=== PATIENT | female | born 1990 | race Caucasian/White ===

== ENCOUNTER 2017-11-05 09:40 | Emergency (ER) | payer SELFPAY ==
[~2017-11-05] VITALS: Ht 170.2 cm; Wt 58.9 kg
[2017-11-05 09:42] VITALS: TEMP 36.7; Ht 170.2 cm; Wt 58.9 kg
--- NOTE | 2017-11-05 10:16 | EMERGENCY ROOM VISIT NOTE ---
History Report prepared by Bereket: Deonte Maya Under the Supervision of: Dr. Gianni Covington D.O. First contact with patient: 09:47 Chief Complaint: ABDOMINAL PAIN Stated Complaint: ABDOMINAL PAIN History of Present Illness The patient is a 27 year old female who presents to the Emergency Room with complaints of constant right lower quadrant abdominal pain that began last night at 0800, 14 hours ago. She notes that the pain onset suddenly, and that it is now worsened with urination and changes in position. There is no burning with urination. She denies any associated, nausea, vomiting, or diarrhea. Source of History: patient Onset: 14 hours ago Position: abdomen (RLQ) Timing: constant Modifying Factors (Worsening): other (urinating, changes in position. ) Associated Symptoms: No nausea, No vomiting, No diarrhea Review of Systems See HPI for pertinent positives & negatives. A total of 10 systems reviewed and were otherwise negative. Past Medical & Surgical No chronic health issues. Social History Smoking Status: Never Smoker Drug Use: none Marital Status: Housing Status: lives with significant other Physical Exam Vital Signs Date Time Temp Pulse Resp B/P (MAP) Pulse Ox O2 Delivery O2 Flow Rate FiO2 11/05/17 09:42 36.7 72 16 113/80 100 Room Air Physical Exam CONSTITUTIONAL/VITAL SIGNS: Reviewed / noted above. GENERAL: Non-toxic in appearance. INTEGUMENTARY: Warm, dry, and [place]. HEAD: Normocephalic. EYES: without scleral icterus or trauma. ENT/OROPHARYNX: clear and moist. LYMPHADENOPATHY/NECK: Is supple without lymphadenopathy or meningismus. RESPIRATORY: Lungs clear and equal. CARDIOVASCULAR: Regular rate and rhythm. GI/ABDOMEN: Soft and nontender. No organomegaly or pulsatile mass. No rebound or guarding. Normal bowel sounds. EXTREMITIES: Warm and well perfused. BACK: No CVA tenderness. NEUROLOGICAL: Intact without focal deficits. PSYCHIATRIC: normal affect. MUSCULOSKELETAL: Normally developed with good muscle tone. Medical Decision & Procedures ED Course 949: Previous medical records were reviewed. The patient was evaluated in room B12B. A complete history and physical examination was performed. After examination and discussion of symptoms, I discussed the results and findings with the patient. She verbalized agreement of the treatment plan. The patient was discharged home. Medical Decision Differential considered: pancreatitis, hepatitis, or acute cholecystitis, AAA, UTI, pyelonephritis, kidney stones, appendicitis, diverticulitis, shingles, bowel obstruction mesenteric ischemia, intussusception,hernia, ovarian torsion, ruptured ovarian cyst,ectopic , . This is a 27-year-old female who presents to the ED with a chief complaint of lower abdominal pain. The patient started suddenly around 8 PM yesterday and was in the right lower abdomen. She denies any urinary symptoms, no nausea vomiting. No diarrhea. Denies constipation. She states that her symptoms seem to be a little worse with moving and sitting. She states that she has had a normal appetite. Patient reports her last menstrual period was 2 weeks ago. She denies any abnormal vaginal discharge or bleeding. The patient states that currently her symptoms seem to have resolved. Her vital signs are normal. Her exam was normal. Abdomen was soft and nontender. After discussing the exam with the patient's and the possibility of testing. Because the patient's symptoms have resolved, she stated that she would like to go home and see how things go. She states that she will picking tech a test on the way home and check this out. The patient is currently asymptomatic. She is felt to be stable for discharge. She was told to return in 12 hours or so if symptoms return or worsening. Medication Reconcilliation Current Medication List: was personally reviewed by me Blood Pressure Screening Patient's blood pressure: Normal blood pressure Impression Primary Impression: Right lower quadrant abdominal pain Scribe Attestation The scribe's documentation has been prepared under my direction and personally reviewed by me in its entirety. I confirm that the note above accurately reflects all work, treatment, procedures, and medical decision making performed by me. Departure Information Dispostion Home / Self-Care Patient Instructions My [facility] Additional Instructions Return to the emergency department in 12-24 hours if symptoms worsen, return or if you develop other concerning symptoms.
[2017-11-05 10:35] VITALS: BP 102/67; PULSE 72; O2SAT 98
== END 2017-11-05 10:40 | disposition home or self-care (01) ==
LOC: C.EDB 09:43
DX: R10.31 Right lower quadrant pain (principal)

== ENCOUNTER 2020-07-27 12:34 | Inpatient (IN) ==
[2020-07-27] MEDS ORDERED: LORazepam 2 MG/4 ML VIAL IV STA ×2 (12:48→15:50)
[2020-07-27] MEDS ORDERED: MULTI-VITAMIN INFUSION 10 ML, THIAMINE HCL 100 MG, FOLIC ACID 1 MG in SODIUM CHLORIDE 0... IV ONE (12:48)
[2020-07-27 13:26] LABS: Basophils # (auto) 0.01 K/uL (0-0.2); Basophils % (auto) 0.1 %; Hematocrit (blood only) 44.2 % (37-47); Hemoglobin 15.2 g/dL (12.0-16.0); Immature Granulocytes # (auto) 0.02 K/uL (0.00-0.02); Immature Granulocytes % (auto) 0.2 %; Lymphocytes # (auto) 1.85 K/uL (1.2-3.4); Lymphocytes % (auto) 19.2 %; Mean Corpuscular Hemoglobin 33.4 pg (25-34); Mean Corpuscular Hgb Conc 34.4 g/dL (32-36); Mean Corpuscular Volume 97.1 fL (80-100); Mean Platelet Volume 10.9 fL (7.4-10.4); Monocytes # (auto) 0.36 K/uL (0.11-0.59); Monocytes % (auto) 3.7 %; Neutrophils # (auto) 7.38 K/uL (1.4-6.5); Neutrophils % (auto) 76.8 %; Platelet Count 272 K/uL (130-400); RDW Coefficient of Variation 12.9 % (11.5-14.5); Red Blood Count 4.55 M/uL (4.2-5.4); White Blood Count 9.62 K/uL (4.8-10.8)
[2020-07-27] MEDS: SODIUM CHLORIDE 0.9% 1000ML 1,000 ML IV SCH ×2 (13:26→21:01)
[2020-07-27 13:49] LABS: Albumin Level 4.9 gm/dl (3.4-5.0); BUN Creatinine Ratio 14.5 (10-20); Calcium 9.5 mg/dl (8.5-10.1); Creatinine Clr Calc Pharmacy 123.4 ml/min; Est GFR (African American) 139.3; Est GFR (Non-African American) 120.2; Potassium 3.8 mmol/L (3.5-5.1)
[2020-07-27 13:52] LABS: Albumin Globulin Ratio 1.2 (0.9-2); Bilirubin,Total 0.6 mg/dl (0.2-1); Globulin 4.1 gm/dl (2.5-4.0)
[2020-07-27 13:58] LABS: Pregnancy Test, Serum Negative (Negative)
[2020-07-27 14:03] LABS: Prothrombin Time 9.8 Seconds (9.0-12.0)
[2020-07-27 14:15] LABS: Influenza A virus by PCR Negative (Neg); Influenza B virus by PCR Negative (Neg); RSV by PCR Negative (Neg); SARS CoV2 RNA(COVID-19) InHosp NEGATIVE (Negative)
[2020-07-27] MEDS ORDERED: GABAPENTIN 600 MG TAB PO ONE (15:50)
[2020-07-27] MEDS ORDERED: GABAPENTIN 1200MG ALCOHOL WITHDRAWAL LOAD PO STA (15:50)
--- NOTE | 2020-07-27 18:55 | History & Physical Report ---
Date of Service July 27, 2020 Assessment & Plan (1) Alcohol withdrawal: Acute phase, with early treatment- hope to be able to keep her symptoms at minimum - Thiamine 200mg PO daily - Patient appears well nationalized - Gabapentin and Ativan for coverage - May need additional Ativan for her anxiety but also may need coaching - Psych Consult when stabilized - CM on board for post discharge assistance (2) Alcohol abuse: As above- support adjust therapy as indicated with her symptoms (3) Anxiety: As above (4) DVT prophylaxis: SCD's, early ambulation low risk History of Present Illness Primary Care Provider: Lynne Lugo MD 30 YOF with no past medical history. Comes to the emergency room because she wishes to stop drinking. The patient endorses that she has been drinking heavily for the past 5 years. She would drink to the point of intoxication every night. This would include beer, wine, and vodka. Over the past 2 or so years she has mostly stuck to Vodka 5-7 drinks per night, straight or mixed with water. She has tried to cut down her drinking over the past 2 weeks to 3 drinks per night. She does not wish to continue doing this every day and as above wishes to quit. Her last drink was today between 11am-12pm and came to the emergency room right after that. In the ER she was loaded with 1200 mg of Gabapentin and Lorazepam 2mg x2 and 1liter of saline. Patient will be admitted to the [facility] and continue to monitor/treat her for withdrawal and transition to sobriety. Allergies Allergy/AdvReac Type Severity Reaction Status Date / Time No Known Drug Allergies Allergy Unknown Verified 07/27/20 16:05 Home Medications Medication Instructions Recorded Confirmed Type Deborah's wort 2 cap PO AMPM 07/27/20 07/27/20 History ashwagandha root extract 300 - 600 mg PO DAILY PRN 07/27/20 07/27/20 History selenium 1 cap PO DAILY 07/27/20 07/27/20 History prazosin 1 mg PO HS 30 Days #30 cap 07/31/20 Rx Past Med/Surg History Medical History Anxiety Anxiety Insomnia No significant active problems Syncope Surgical History No pertinent past surgical history Social History Smoking Status: Current some day smoker Tobacco Type: Cigarettes Second Hand Exposure: No; Do You Dip or Chew Tobacco: No; Hx Alcohol Use: Yes Alcohol type: beer, wine and hard liquor Hx Substance Use: No Preferred Language: Arabic Communication Ability: Effective Lens Gauger Required: No Beliefs That Will Affect Care: None Current Living Situation: Spouse Other Information That Helps Us Care for You: No Feels Safe at Home: Yes Safety Concerns: Feels Safe At This Time Assistive Devices: None Review of Systems Review of Systems: REVIEW OF SYSTEMS: Constitutional: No fever, sweats or chills Eyes: No diplopia, no worsening or blurred vision ENT: normal hearing, no trouble swallowing Respiratory: No cough, sputum, dyspnea at rest or on exertion Cardiovascular: No chest pain, tightness or palpitations Abdomen: No pain, nausea, vomiting, diarrhea or constipation Musculoskeletal: No joint pain, calf pain, swelling Neurologic: No weakness, numbness/tingling, or balance problems Psychiatric: (+) anxiety, alcohol misuse/abuse, No depression Skin: No rash or itch Physical Exam Physical Exam: PHYSICAL EXAM: General: awake, alert, no apparent distress Head: Normocephalic, atraumatic ENT: PERRL, EOMI, no pharyngeal exudate, mucous membranes moist Neuro: AAO x 3, speech clear and appropriate, strength intact bilaterally 5/5, sensation intact and equal all extremities and dermatomes, no pronator drift Chest: equal rise and fall of the chest, no accessory muscle use, no heaves or thrills, Clear to auscultation, on room air, Cardiac: Regular rate and rhythm, telemetry reviewed tachycardic no ectopy, skin warm dry, cap refill <3 seconds, peripheral pulses +2 no JVD, no murmur, no edema GI: NABS x 4 quadrants, soft, nontender to palpation, no rebound, guarding or tenderness, liver borders normal : Spontaneously voiding, no pain, no CVA tenderness, Extremities: Normal inspection, no peripheral edema or erythema, calfs nontender to palpation Psych: Normal mood and affect Skin: no rash or erythema Results & Data Results & Data ([facility]) Vital Signs (Past 12 Hours) Vital Signs Temp Pulse Pulse Resp BP BP Pulse Ox 07/27/20 18:01 101 H 17 97 07/27/20 18:00 96 H 19 106/73 97 07/27/20 17:31 101 H 19 96 07/27/20 17:30 103 H 16 108/66 95 07/27/20 17:00 104 H 17 114/66 96 07/27/20 16:30 107 H 15 108/66 97 07/27/20 16:00 113 H 20 125/82 99 07/27/20 15:31 113 H 23 97 07/27/20 15:30 114 H 17 108/80 98 07/27/20 15:16 109 H 20 128/80 100 07/27/20 15:01 113 H 18 96 07/27/20 15:00 110 H 17 116/75 96 07/27/20 14:31 115 H 23 99 07/27/20 14:30 119 H 15 122/71 98 07/27/20 14:01 106 H 19 98 07/27/20 14:00 103 H 12 112/80 97 07/27/20 13:50 105 H 15 96 07/27/20 13:35 106 H 107 H 15 123/85 123/85 97 07/27/20 12:43 36.3 C L 125 H 20 153/104 H 98 Laboratory Results Abnormal lab results 07/27/20 07/27/20 07/27/20 Range/Units 13:13 13:13 13:13 MPV 10.9 H (7.4-10.4) fL Neut # (Auto) 7.38 H (1.4-6.5) K/uL Glucose 112 H (70-99) mg/dl Total Protein 9.0 H (6.4-8.2) gm/dl Globulin 4.1 H (2.5-4.0) gm/dl Ethyl Alcohol mg/dL 68.0 H (0-3) mg/dl Diagnostic Findings NONE Medications Administered Sodium Chloride (Nss 1000ml) 1,000 mls @ 150 mls/hr IV .Q6H40M [facility] Stop: 08/26/20 12:59 Last Admin: 07/27/20 13:26 Dose: 150 mls/hr Documented by: [id number] Discontinued Medications Gabapentin (Gabapentin 1200mg Alcohol Withdrawal Load) 1 ea PO NOW STA; Protocol Stop: 07/27/20 15:51 Last Admin: 07/27/20 17:23 Dose: Not Given Documented by: [id number] Gabapentin (Gabapentin 600 Mg Tab) 1,200 mg PO NOW ONE Stop: 07/27/20 15:51 Last Admin: 07/27/20 16:05 Dose: 1,200 mg Documented by: [id number] Multivitamins 10 ml/ Thiamine HCl 100 mg/ Folic Acid 1 mg/Sodium Chloride 1,011.2 mls @ 1,011.2 mls/hr IV .Q1H ONE Stop: 07/27/20 13:47 Last Infusion: 07/27/20 15:07 Dose: 1,011.2 mls/hr Documented by: [id number] Admin: 07/27/20 13:41 Dose: 1,011.2 mls/hr Documented by: [id number] Lorazepam (Ativan) 2 mg in 4 mls @ 4 mls/min IV NOW STA Stop: 07/27/20 12:49 Last Admin: 07/27/20 13:26 Dose: 4 mls/min Documented by: [id number] Lorazepam (Ativan) 2 mg in 4 mls @ 4 mls/min IV NOW STA Stop: 07/27/20 15:51 Last Admin: 07/27/20 16:06 Dose: 4 mls/min Documented by: [id number] Home Medications Deborah's wort 2 cap PO AMPM 07/27/20 [History Confirmed 07/27/20] ashwagandha root extract 300 - 600 mg PO DAILY PRN 07/27/20 [History Confirmed 07/27/20] selenium 1 cap PO DAILY 07/27/20 [History Confirmed 07/27/20] ECG Additional Comments: Not performed Code Status & VTE Plan Code Status CODE: FULL VTE: SCD's, ambulation VTE Prophylaxis Plan VTE Prophylaxis will be ordered: Yes Supervising Physician Co-Signing Physician Notes During my face to face encounter, I obtained a history and physical examination. I reviewed above note and agree with it. I discussed plan of care with patient and RONALDO Cheung. I answered all of the patient's questions. Patient will be admitted for alcohol withdrawal, and laced on ativan and gabapentin. PG Care Time/CCT Total # of Minutes Spent Total Time Spent with Patient: Total time spent is greater than 50% in coordination of care (as documented) at patient's floor/unit and/or counseling patient: Coding Level of Care Code 06297 Initial Inpt Care Lvl 2 Diagnoses Alcohol withdrawal F10.239 Complication of substance-induced condition: with unspecified complication Alcohol abuse F10.10 Anxiety F41.9 DVT prophylaxis Z29.9 (1) Alcohol withdrawal Complication of substance-induced condition: with unspecified complication Qualified Code(s): F10.239 - Alcohol dependence with withdrawal, unspecified
--- NOTE | 2020-07-27 20:57 | Emergency Department Note ---
History of Present Illness General Chief complaint: Alcohol Withdrawal Stated complaint: alcohol withdrawal Time Seen by Provider: 07/27/20 12:46 Source: patient and RN notes reviewed Mode of arrival: ambulatory Limitations: no limitations History of Present Illness Provider complaint: Alcohol withdrawal Maximum Pain Intensity: 0 This patient is a 30-year-old female who presents to the emergency department with complaints of alcohol withdrawal. Patient and her have been trying to wean off of alcohol for the last several days. Patient states she has been drinking shots, several times to avoid the withdrawal symptoms. Patient had 5 shots last night in order to sleep. She had 2 shots at lunchtime today though she felt shaky and was concerned that she would have DTs. Patient has had some abdominal symptoms and cramping, she feels anxious about her organs and the effect that the alcohol has had on them. Ironically, over the last 5 days she feels she may have had more alcohol than she is had in a long time. Patient has been taking additional [id number] supplements in order to "get nutrition." She states it has been difficult for her to keep food down. She denies any recent symptoms of fevers, chills, chest pain or shortness of breath. She does not believe that she is . Home Medications Medication Instructions Recorded Confirmed Type Deborah's wort 2 cap PO AMPM 07/27/20 07/27/20 History ashwagandha root extract 300 - 600 mg PO DAILY PRN 07/27/20 07/27/20 History selenium 1 cap PO DAILY 07/27/20 07/27/20 History Allergies Allergy/AdvReac Type Severity Reaction Status Date / Time No Known Drug Allergies Allergy Unknown Verified 07/27/20 16:05 Past Med/Surg History Medical History Anxiety Anxiety Insomnia No significant active problems Syncope Surgical History No pertinent past surgical history Social History Smoking Status: Current some day smoker Tobacco Type: Cigarettes Second Hand Exposure: No; Do You Dip or Chew Tobacco: No; Hx Alcohol Use: Yes Alcohol type: beer, wine and hard liquor Hx Substance Use: No Preferred Language: Mexican Communication Ability: Effective Assistant To The President Required: No Beliefs That Will Affect Care: None Current Living Situation: Spouse Other Information That Helps Us Care for You: No Feels Safe at Home: Yes Safety Concerns: Feels Safe At This Time Review of Systems See HPI for pertinent positives & negatives. and A total of 10 systems reviewed and were otherwise negative Physical Exam Vital Signs Vital Signs - 24 hr 07/27/20 12:43 07/27/20 13:10 07/27/20 13:35 Temperature 36.3 C L Temperature Source Temporal Artery Scan Pulse Rate 125 H 106 H Pulse Rate [Apical] 107 H Pulse Rate from SpO2 Sensor 107 H Pulse Rhythm Regular Pulse Rhythm [Apical] Regular Pulse Strength [Apical] Normal Respiratory Rate 20 15 Respiratory Effort / Characteristics Non-Labored Non-Labored Respiratory Depth Normal Normal Blood Pressure 153/104 H 123/85 Blood Pressure [Right Arm] 123/85 Blood Pressure Mean 120 97 Blood Pressure Mean [Right Arm] 97 Pulse Oximetry 98 97 Oxygen Delivery Method Room Air Room Air Sepsis Recent Fever Within 48 Hours No Sepsis New/Unexplained Change in Mental Status No Sepsis Action Taken by Nursing No Action Required 07/27/20 13:50 07/27/20 14:00 07/27/20 14:01 Temperature Temperature Source Pulse Rate 105 H 103 H 106 H Pulse Rate [Apical] Pulse Rate from SpO2 Sensor 106 H 103 H 107 H Pulse Rhythm Pulse Rhythm [Apical] Pulse Strength [Apical] Respiratory Rate 15 12 19 Respiratory Effort / Characteristics Respiratory Depth Blood Pressure 112/80 Blood Pressure [Right Arm] Blood Pressure Mean 90 Blood Pressure Mean [Right Arm] Pulse Oximetry 96 97 98 Oxygen Delivery Method Sepsis Recent Fever Within 48 Hours Sepsis New/Unexplained Change in Mental Status Sepsis Action Taken by Nursing 07/27/20 14:30 07/27/20 14:31 07/27/20 15:00 Temperature Temperature Source Pulse Rate 119 H 115 H 110 H Pulse Rate [Apical] Pulse Rate from SpO2 Sensor 119 H 114 H 111 H Pulse Rhythm Pulse Rhythm [Apical] Pulse Strength [Apical] Respiratory Rate 15 23 17 Respiratory Effort / Characteristics Respiratory Depth Blood Pressure 122/71 116/75 Blood Pressure [Right Arm] Blood Pressure Mean 88 88 Blood Pressure Mean [Right Arm] Pulse Oximetry 98 99 96 Oxygen Delivery Method Sepsis Recent Fever Within 48 Hours Sepsis New/Unexplained Change in Mental Status Sepsis Action Taken by Nursing 07/27/20 15:01 07/27/20 15:16 07/27/20 15:30 Temperature Temperature Source Pulse Rate 113 H 109 H 114 H Pulse Rate [Apical] Pulse Rate from SpO2 Sensor 113 H 111 H 115 H Pulse Rhythm Pulse Rhythm [Apical] Pulse Strength [Apical] Respiratory Rate 18 20 17 Respiratory Effort / Characteristics Respiratory Depth Blood Pressure 128/80 108/80 Blood Pressure [Right Arm] Blood Pressure Mean 96 89 Blood Pressure Mean [Right Arm] Pulse Oximetry 96 100 98 Oxygen Delivery Method Sepsis Recent Fever Within 48 Hours Sepsis New/Unexplained Change in Mental Status Sepsis Action Taken by Nursing 07/27/20 15:31 07/27/20 16:00 07/27/20 16:30 Temperature Temperature Source Pulse Rate 113 H 113 H 107 H Pulse Rate [Apical] Pulse Rate from SpO2 Sensor 114 H 117 H 107 H Pulse Rhythm Pulse Rhythm [Apical] Pulse Strength [Apical] Respiratory Rate 23 20 15 Respiratory Effort / Characteristics Respiratory Depth Blood Pressure 125/82 108/66 Blood Pressure [Right Arm] Blood Pressure Mean 96 80 Blood Pressure Mean [Right Arm] Pulse Oximetry 97 99 97 Oxygen Delivery Method Room Air Room Air Sepsis Recent Fever Within 48 Hours Sepsis New/Unexplained Change in Mental Status Sepsis Action Taken by Nursing 07/27/20 17:00 07/27/20 17:30 07/27/20 17:31 Temperature Temperature Source Pulse Rate 104 H 103 H 101 H Pulse Rate [Apical] Pulse Rate from SpO2 Sensor 103 H 104 H 100 H Pulse Rhythm Pulse Rhythm [Apical] Pulse Strength [Apical] Respiratory Rate 17 16 19 Respiratory Effort / Characteristics Respiratory Depth Blood Pressure 114/66 108/66 Blood Pressure [Right Arm] Blood Pressure Mean 82 80 Blood Pressure Mean [Right Arm] Pulse Oximetry 96 95 96 Oxygen Delivery Method Room Air Sepsis Recent Fever Within 48 Hours Sepsis New/Unexplained Change in Mental Status Sepsis Action Taken by Nursing 07/27/20 18:00 07/27/20 18:01 Temperature Temperature Source Pulse Rate 96 H 101 H Pulse Rate [Apical] Pulse Rate from SpO2 Sensor 95 H 102 H Pulse Rhythm Pulse Rhythm [Apical] Pulse Strength [Apical] Respiratory Rate 19 17 Respiratory Effort / Characteristics Respiratory Depth Blood Pressure 106/73 Blood Pressure [Right Arm] Blood Pressure Mean 84 Blood Pressure Mean [Right Arm] Pulse Oximetry 97 97 Oxygen Delivery Method Sepsis Recent Fever Within 48 Hours Sepsis New/Unexplained Change in Mental Status Sepsis Action Taken by Nursing Vital signs reviewed. General: Well-appearing anxious, somewhat tearful, 30 yo female, in no significant distress. HEENT: No scleral icterus, PERRLA, neck supple. Atraumatic. Cardiovascular: Tachycardic and regular, no extra sounds Pulmonary: Clear to auscultation bilaterally, normal work of breathing. Abdomen: Soft, nontender, nondistended, positive bowel sounds. Musculoskeletal: Atraumatic, no peripheral edema. Neurologic: Patient awake alert and oriented x 3 Skin: Warm, dry, no rash Course Administered Medications Folic Acid (Folic Acid 1 Mg Tab) 1 mg PO QAM KOREY Stop: 08/26/20 20:58 Last Admin: 07/28/20 08:14 Dose: 1 mg Documented by: [id number] Admin: 07/27/20 22:17 Dose: 1 mg Documented by: [id number] Gabapentin (Gabapentin 600 Mg Tab) 600 mg PO Q8H KOREY Stop: 07/29/20 03:51 Last Admin: 07/28/20 14:47 Dose: 600 mg Documented by: [id number] Lactated Ringer's (Lr) 1,000 mls @ 100 mls/hr IV .Q10H KOREY Stop: 08/26/20 20:58 Last Admin: 07/28/20 08:16 Dose: 100 mls/hr Documented by: [id number] Infusion: 07/28/20 07:12 Dose: 100 mls/hr Documented by: [id number] Admin: 07/27/20 21:12 Dose: 100 mls/hr Documented by: [id number] Ondansetron HCl (Ondansetron Inj 2 Mg/Ml 2 Ml Vial) 4 mg IV Q6H PRN PRN Reason: Nausea Stop: 08/26/20 20:58 Last Admin: 07/27/20 22:17 Dose: 4 mg Documented by: [id number] Thiamine HCl (Thiamine Hcl 100 Mg Tab) 200 mg PO QAM KOREY Stop: 08/26/20 20:58 Last Admin: 07/28/20 08:14 Dose: 200 mg Documented by: [id number] Admin: 07/27/20 22:17 Dose: 200 mg Documented by: [id number] Discontinued Medications Gabapentin (Gabapentin 1200mg Alcohol Withdrawal Load) 1 ea PO NOW STA; Protocol Stop: 07/27/20 15:51 Last Admin: 07/27/20 17:23 Dose: Not Given Documented by: [id number] Gabapentin (Gabapentin 600 Mg Tab) 1,200 mg PO NOW ONE Stop: 07/27/20 15:51 Last Admin: 07/27/20 16:05 Dose: 1,200 mg Documented by: [id number] Gabapentin (Gabapentin 600 Mg Tab) 600 mg PO Q6H KOREY Stop: 07/28/20 03:51 Last Admin: 07/28/20 05:11 Dose: 600 mg Documented by: [id number] Admin: 07/27/20 23:50 Dose: 600 mg Documented by: [id number] Multivitamins 10 ml/ Thiamine HCl 100 mg/ Folic Acid 1 mg/Sodium Chloride 1,011.2 mls @ 1,011.2 mls/hr IV .Q1H ONE Stop: 07/27/20 13:47 Last Infusion: 07/27/20 15:07 Dose: 1,011.2 mls/hr Documented by: [id number] Admin: 07/27/20 13:41 Dose: 1,011.2 mls/hr Documented by: [id number] Lorazepam (Ativan) 2 mg in 4 mls @ 4 mls/min IV NOW STA Stop: 07/27/20 12:49 Last Admin: 07/27/20 13:26 Dose: 4 mls/min Documented by: [id number] Sodium Chloride (Nss 1000ml) 1,000 mls @ 150 mls/hr IV .Q6H40M KOREY Stop: 08/26/20 12:59 Last Admin: 07/27/20 21:01 Dose: Not Given Documented by: [id number] Infusion: 07/27/20 21:01 Dose: 0 mls/hr Documented by: [id number] Admin: 07/27/20 13:26 Dose: 150 mls/hr Documented by: [id number] Lorazepam (Ativan) 2 mg in 4 mls @ 4 mls/min IV NOW STA Stop: 07/27/20 15:51 Last Admin: 07/27/20 16:06 Dose: 4 mls/min Documented by: [id number] Medical Decision Making Differential Diagnosis Overdose, toxicologic, withdrawal, infection, hypoglycemia, electrolyte abnormalities, cardiac sources, intracerebral event, neurologic, trauma, as well as other pathologies. Medical Records Attestation: I reviewed the patient's medical records. Home Medications Current Medication List: was personally reviewed by me Laboratory Data Attestation: I reviewed the patient's lab results. Result diagrams: 07/28/20 05:27 07/28/20 05:27 Lab Results 07/27/20 07/27/20 07/27/20 Range/Units 13:10 13:10 13:13 WBC 9.62 (4.8-10.8) K/uL RBC 4.55 (4.2-5.4) M/uL Hgb 15.2 (12.0-16.0) g/dL Hct 44.2 (37-47) % MCV 97.1 (80-100) fL MCH 33.4 (25-34) pg MCHC 34.4 (32-36) g/dL RDW Std Deviation 46.0 (36.4-46.3) fL RDW Coeff of Kristyn 12.9 (11.5-14.5) % Plt Count 272 (130-400) K/uL MPV 10.9 H (7.4-10.4) fL Immature Gran % (Auto) 0.2 % Neut % (Auto) 76.8 % Lymph % (Auto) 19.2 % Logan % (Auto) 3.7 % Eos % (Auto) 0.0 % Baso % (Auto) 0.1 % Neut # (Auto) 7.38 H (1.4-6.5) K/uL Lymph # (Auto) 1.85 (1.2-3.4) K/uL Logan # (Auto) 0.36 (0.11-0.59) K/uL Eos # (Auto) 0.00 (0-0.5) K/uL Baso # (Auto) 0.01 (0-0.2) K/uL Immature Gran # (Auto) 0.02 (0.00-0.02) K/uL PT (9.0-12.0) Seconds INR (0.9-1.1) Sodium (136-145) mmol/L Potassium (3.5-5.1) mmol/L Chloride (98-107) mmol/L Carbon Dioxide (21-32) mmol/L Anion Gap (3-11) BUN (7-18) mg/dl Creatinine (0.6-1.2) mg/dl Est Cr Clr Drug Dosing ml/min Est GFR ( Amer) Est GFR (Non-Af Amer) BUN/Creatinine Ratio (10-20) Glucose (70-99) mg/dl Calcium (8.5-10.1) mg/dl Total Bilirubin (0.2-1) mg/dl AST (15-37) U/L ALT (12-78) U/L Alkaline Phosphatase (45-117) U/L Total Protein (6.4-8.2) gm/dl Albumin (3.4-5.0) gm/dl Globulin (2.5-4.0) gm/dl Albumin/Globulin Ratio (0.9-2) HCG, Qual (Negative) Urine Opiates Screen (Neg) Ur Methadone, Qual (Neg) Urine Barbiturates (Neg) Ur Phencyclidine (PCP) (Neg) U Amphetamin/Meth Scrn (Neg) MDMA (Ecstasy) Screen (Neg) U Benzodiazepines Scrn (Neg) Ur Cocaine Metabolite (Neg) U Marijuana (THC) Screen (Neg) Ethyl Alcohol mg/dL (0-3) mg/dl COVID-19 Eval Order CovFluRsv at [facility] SARS-CoV-2 (PCR) NEGATIVE (Negative) Influenza Type A (PCR) Negative (Neg) Influenza Type B (PCR) Negative (Neg) RSV (RT-PCR) Negative (Neg) 07/27/20 07/27/20 07/27/20 Range/Units 13:13 13:13 13:13 WBC (4.8-10.8) K/uL RBC (4.2-5.4) M/uL Hgb (12.0-16.0) g/dL Hct (37-47) % MCV (80-100) fL MCH (25-34) pg MCHC (32-36) g/dL RDW Std Deviation (36.4-46.3) fL RDW Coeff of Kristyn (11.5-14.5) % Plt Count (130-400) K/uL MPV (7.4-10.4) fL Immature Gran % (Auto) % Neut % (Auto) % Lymph % (Auto) % Logan % (Auto) % Eos % (Auto) % Baso % (Auto) % Neut # (Auto) (1.4-6.5) K/uL Lymph # (Auto) (1.2-3.4) K/uL Logan # (Auto) (0.11-0.59) K/uL Eos # (Auto) (0-0.5) K/uL Baso # (Auto) (0-0.2) K/uL Immature Gran # (Auto) (0.00-0.02) K/uL PT 9.8 (9.0-12.0) Seconds INR 1.0 (0.9-1.1) Sodium 136 (136-145) mmol/L Potassium 3.8 (3.5-5.1) mmol/L Chloride 104 (98-107) mmol/L Carbon Dioxide 26 (21-32) mmol/L Anion Gap 6.0 (3-11) BUN 10 (7-18) mg/dl Creatinine 0.66 (0.6-1.2) mg/dl Est Cr Clr Drug Dosing 123.4 ml/min Est GFR ( Amer) 139.3 Est GFR (Non-Af Amer) 120.2 BUN/Creatinine Ratio 14.5 (10-20) Glucose 112 H (70-99) mg/dl Calcium 9.5 (8.5-10.1) mg/dl Total Bilirubin 0.6 (0.2-1) mg/dl AST 31 (15-37) U/L ALT 51 (12-78) U/L Alkaline Phosphatase 91 (45-117) U/L Total Protein 9.0 H (6.4-8.2) gm/dl Albumin 4.9 (3.4-5.0) gm/dl Globulin 4.1 H (2.5-4.0) gm/dl Albumin/Globulin Ratio 1.2 (0.9-2) HCG, Qual Negative (Negative) Urine Opiates Screen (Neg) Ur Methadone, Qual (Neg) Urine Barbiturates (Neg) Ur Phencyclidine (PCP) (Neg) U Amphetamin/Meth Scrn (Neg) MDMA (Ecstasy) Screen (Neg) U Benzodiazepines Scrn (Neg) Ur Cocaine Metabolite (Neg) U Marijuana (THC) Screen (Neg) Ethyl Alcohol mg/dL (0-3) mg/dl COVID-19 Eval Order SARS-CoV-2 (PCR) (Negative) Influenza Type A (PCR) (Neg) Influenza Type B (PCR) (Neg) RSV (RT-PCR) (Neg) 07/27/20 07/27/20 Range/Units 13:13 13:31 WBC (4.8-10.8) K/uL RBC (4.2-5.4) M/uL Hgb (12.0-16.0) g/dL Hct (37-47) % MCV (80-100) fL MCH (25-34) pg MCHC (32-36) g/dL RDW Std Deviation (36.4-46.3) fL RDW Coeff of Kristyn (11.5-14.5) % Plt Count (130-400) K/uL MPV (7.4-10.4) fL Immature Gran % (Auto) % Neut % (Auto) % Lymph % (Auto) % Logan % (Auto) % Eos % (Auto) % Baso % (Auto) % Neut # (Auto) (1.4-6.5) K/uL Lymph # (Auto) (1.2-3.4) K/uL Logan # (Auto) (0.11-0.59) K/uL Eos # (Auto) (0-0.5) K/uL Baso # (Auto) (0-0.2) K/uL Immature Gran # (Auto) (0.00-0.02) K/uL PT (9.0-12.0) Seconds INR (0.9-1.1) Sodium (136-145) mmol/L Potassium (3.5-5.1) mmol/L Chloride (98-107) mmol/L Carbon Dioxide (21-32) mmol/L Anion Gap (3-11) BUN (7-18) mg/dl Creatinine (0.6-1.2) mg/dl Est Cr Clr Drug Dosing ml/min Est GFR ( Amer) Est GFR (Non-Af Amer) BUN/Creatinine Ratio (10-20) Glucose (70-99) mg/dl Calcium (8.5-10.1) mg/dl Total Bilirubin (0.2-1) mg/dl AST (15-37) U/L ALT (12-78) U/L Alkaline Phosphatase (45-117) U/L Total Protein (6.4-8.2) gm/dl Albumin (3.4-5.0) gm/dl Globulin (2.5-4.0) gm/dl Albumin/Globulin Ratio (0.9-2) HCG, Qual (Negative) Urine Opiates Screen Neg (Neg) Ur Methadone, Qual Neg (Neg) Urine Barbiturates Neg (Neg) Ur Phencyclidine (PCP) Neg (Neg) U Amphetamin/Meth Scrn Neg (Neg) MDMA (Ecstasy) Screen Neg (Neg) U Benzodiazepines Scrn Neg (Neg) Ur Cocaine Metabolite Neg (Neg) U Marijuana (THC) Screen Neg (Neg) Ethyl Alcohol mg/dL 68.0 H (0-3) mg/dl COVID-19 Eval Order SARS-CoV-2 (PCR) (Negative) Influenza Type A (PCR) (Neg) Influenza Type B (PCR) (Neg) RSV (RT-PCR) (Neg) Blood Pressure Blood Pressure Findings: Normal blood pressure Blood Pressure Disposition: did not require urgent referral MDM Narrative This patient was evaluated and appeared to be in no significant distress. IV access was obtained and laboratory work was drawn. An order for cardiac monitoring was placed and the patient is noted to be in a sinus tachycardia 106 beats per minute. Patient was hydrated with normal saline solution and a banana bag was given. Patient was given 2 mg of IV Ativan x2 doses. She was given a gabapentin load for the alcohol withdrawal. Blood alcohol is noted to be 68. test is negative. The remainder the laboratory work is noted to be fairly reassuring. Given the patient's persistent tachycardia, case was discussed with the hospitalist service. Patient feels comfortable with the plan for admission and further management. Impression & Plan Alcohol withdrawal Discharge Plan Visit Data Chief Complaint: Alcohol Withdrawal Stated Complaint: alcohol withdrawal ED Provider: Lilian Meraz Discharge Problem: Alcohol withdrawal Patient Disposition: Admitted As Inpatient Discharge Instructions Interventions: ED Discharge Assessment Last Done: 07/27/20 20:48 Discharge Problem: Alcohol withdrawal Qualifiers: Complication of substance-induced condition: uncomplicated Qualified Code(s): F10.230 - Alcohol dependence with withdrawal, uncomplicated
[2020-07-27] MEDS ORDERED: LORazepam 3 MG/6 ML VIAL IV PRN (20:59)
[2020-07-27] MEDS ORDERED: ATIVAN IV ALCOHOL WITHDRAWL IV PRN (20:59)
[2020-07-27] MEDS ORDERED: ACETAMINOPHEN 325 MG TAB PO PRN (20:59)
[2020-07-27] MEDS ORDERED: LORazepam 2 MG/4 ML VIAL IV PRN (20:59)
[2020-07-27] MEDS ORDERED: ONDANSETRON INJ 2 MG/ML 2 ML VIAL IV PRN (20:59)
[2020-07-27] MEDS: LACTATED RINGER'S 1,000 ML IV SCH (21:12)
[2020-07-27 21:45] LABS: Amphetamines+Metham, Urine Neg (Neg); Barbiturates, Urine Neg (Neg); Benzodiazepine, Urine Neg (Neg); Cocaine, Urine Neg (Neg); MDMA (Ecstacy), Urine Neg (Neg); Methadone, Urine Neg (Neg); Opiate, Urine Neg (Neg); Phencyclidine, Urine Neg (Neg)
[2020-07-27] MEDS: THIAMINE HCL 100 MG TAB PO SCH (22:17)
[2020-07-27] MEDS: FOLIC ACID 1 MG TAB PO SCH (22:17)
[2020-07-27] MEDS: GABAPENTIN 600 MG TAB PO SCH (23:50)
[2020-07-28] MEDS: GABAPENTIN 600 MG TAB PO SCH ×3 (05:11→21:34)
[2020-07-28 06:15] LABS: Basophils # (auto) 0.02 K/uL (0-0.2); Basophils % (auto) 0.2 %; Eosinophils # (auto) 0.06 K/uL (0-0.5); Eosinophils % (auto) 0.6 %; Hematocrit (blood only) 39.3 % (37-47); Hemoglobin 13.3 g/dL (12.0-16.0); Immature Granulocytes # (auto) 0.02 K/uL (0.00-0.02); Immature Granulocytes % (auto) 0.2 %; Lymphocytes # (auto) 3.42 K/uL (1.2-3.4); Lymphocytes % (auto) 32.9 %; Mean Corpuscular Hemoglobin 33.2 pg (25-34); Mean Corpuscular Hgb Conc 33.8 g/dL (32-36); Mean Platelet Volume 11.1 fL (7.4-10.4); Monocytes % (auto) 8.6 %; Neutrophils # (auto) 5.99 K/uL (1.4-6.5); Neutrophils % (auto) 57.5 %; Platelet Count 224 K/uL (130-400); RDW Coefficient of Variation 13.1 % (11.5-14.5); RDW Standard Deviation 46.9 fL (36.4-46.3); Red Blood Count 4.01 M/uL (4.2-5.4); White Blood Count 10.41 K/uL (4.8-10.8)
[2020-07-28 06:55] LABS: BUN Creatinine Ratio 17.5 (10-20); Calcium 8.4 mg/dl (8.5-10.1); Creatinine Clr Calc Pharmacy 142.9 ml/min; Est GFR (African American) 146.2; Est GFR (Non-African American) 126.2; Magnesium 2.3 mg/dl (1.8-2.4); Potassium 3.9 mmol/L (3.5-5.1)
[2020-07-28] MEDS: FOLIC ACID 1 MG TAB PO SCH (08:14)
[2020-07-28] MEDS: THIAMINE HCL 100 MG TAB PO SCH (08:14)
[2020-07-28] MEDS: LACTATED RINGER'S 1,000 ML IV SCH ×2 (08:16→18:45)
--- NOTE | 2020-07-28 10:12 | Hospitalist Progress Note ---
Date of Service July 28, 2020 Assessment & Plan (1) Alcohol withdrawal: #Alcohol withdrawal Patient with a 5-year history of alcohol abuse, started with 2-3 drinks a day progressed to 5-7 drinks per day recently attempted to quit. She was able to slow down to 3 drinks per day unsuccessful with this for a number of days before she has developed. For the past 2 weeks or so she has been consuming 10 to 20 g/day, her last drink was 07/27 at approximately noon. She and her then presented to the hospital requesting assistance in withdrawal from alcohol. Her was discharged with a Librium taper, she was admitted for further management. She has been well overnight, she has no history of seizures, no history of DTs, is unsure of whether she has had the shakes in the past. She denies any abstinence from alcohol over the last 5 years. She seems very motivated to refrain from alcohol, we discussed whether she would like to return home or proceed to drug rehab on discharge, at present she would like to return home. - Thiamine 200mg PO daily - VIC S protocol in place - on board for post discharge assistance #Alcohol abuse As above- support adjust therapy as indicated with her symptoms #Anxiety Patient has a longstanding history of anxiety, states that she is unsure when the anxiety began. She has previously met with counselor in the past, finding it unsuccessful. She has tried sertraline in the past as well and did not have success with this. She did have excess with natural remedies including meditation and use of naturopathic remedies. She thinks that her drinking ultimately stemmed from the anxiety. Explained to her on discharge it will be of the utmost importance that she obtain close follow-up with her primary care provider to discuss her anxiety, establish an adequate treatment regimen, and ensure close follow-up to prevent relapse. -Close follow-up with outpatient provider -Will likely need counselor as an outpatient FENa: Regular Code Status: Full DVT PPX: Ambulation SCDs PT/OT: Not indicated Dispo: Karen Beauchamp MD PGY 2, FCM This chart was completed utilizing [employer] voice recognition software. Grammatical errors, random word insertions, pronoun errors, and in complete sentences are an occasional consequence of the system. Any questions or concerns about the content, text, or information contained within the body of this dictation should be addressed directly to the physician for clarification. (2) Alcohol abuse: (3) Anxiety: (4) DVT prophylaxis: Admission and Anticipated Discharge Date Admission Date: July 27, 2020 Supervising Physician Co-Signing Physician Notes Attending attestation Pt seen and examined in concert with Dr. Beauchamp. In agreement with the documented findings as noted in the resident documentation with any exceptions or additions as noted here. Resting comfortably in bed, c/o mild HERNANDEZ symptoms which resolved with hydration and gabapentin. On examination, S1/S2 nl RRR no MCG. CTAB. Abd NT/ND BS+ve, CNII-XII grossly intact. AAOx3, flat affect Alcohol abuse with withdrawal - tolerating gabapentin protocol well, supplement thiamine daily. Apparent interest in outpatient management of etOH use. on librium taper, is interested in same. Anxiety, chronic - previously medicated with multiple SSRI eschewed in favor of meditation and naturopathic supplements with benefit until increased life stressors. Previously did therapy w/ [facility] briefly. May be open to the latter. Discussed the benefits of continuity follow up care as she does not have an identified PCP. She will consider but this would be useful to revisit in the AM. Else see resident documentation as noted. Subjective Patient lying in bed this morning no acute distress. Had a lengthy conversation about her alcohol history, she related history that was similar to that as presented in the HPI. Patient and her are both interested in quitting alcohol and both came to the emergency department together. Her has been discharged on home Librium protocol while she opted for admission. Overnight she did well, she denies shaking, headaches, vision changes, hallucinations, shakiness, or feelings of seizures. She has no history of seizures or shaking, although she endorses she has not been alcohol free in the past 5 years. Acute concerns relate to withdrawal symptoms, all questions answered. Physical Exam Physical Exam: General: No acute distress HEENT: Normocephalic atraumatic Neck: No significant lymphadenopathy, trachea midline, normal to visual inspection Cardiac: Regular rate and rhythm, normal S1, normal S2, I did not appreciated any significant murmurs rubs or gallops, I did not appreciate any significant pedal edema, No calf tenderness, capillary refill is less than 3 seconds Respiratory: Clear to auscultation bilaterally with symmetrical chest rise, I did not appreciate any significant wheezes, rales, rhonchi, no increased work of breathing GI: Normal bowel sounds, soft, nontender in all 4 quadrants, nondistended MSK: No sensory or motor changes, moves all extremities without issue, extremities are warm and well-perfused Skin: [place], clean, dry, intact. Neuro: Alert and oriented x4 Psych: A: Well-dressed well-groomed B: Appropriate behavior, poor eye contact, S: Regular rate, nonpressured, normal prosody M: "I have regained hope " A: Congruent T: Logical, goal oriented Results & Data Results & Data ([facility]) Vital Signs (Past 12 Hours) Vital Signs Temp Pulse Pulse Resp BP Pulse Ox Pulse Ox 07/28/20 07:46 36.7 C 73 16 96/61 L 97 07/28/20 05:00 36.5 C 81 16 116/69 97 07/28/20 01:00 36.6 C 100 H 16 99/63 L 97 97 07/27/20 23:37 36.5 C 86 18 97/64 L 99 07/27/20 23:00 92 H Laboratory Results 07/28/20 07/28/20 07/27/20 Range/Units 05:27 05:27 Unknown WBC 10.41 (4.8-10.8) K/uL RBC 4.01 L (4.2-5.4) M/uL Hgb 13.3 (12.0-16.0) g/dL Hct 39.3 (37-47) % MCV 98.0 (80-100) fL MCH 33.2 (25-34) pg MCHC 33.8 (32-36) g/dL RDW Std Deviation 46.9 H (36.4-46.3) fL RDW Coeff of Kristyn 13.1 (11.5-14.5) % Plt Count 224 (130-400) K/uL MPV 11.1 H (7.4-10.4) fL Immature Gran % (Auto) 0.2 % Neut % (Auto) 57.5 % Lymph % (Auto) 32.9 % [place] % (Auto) 8.6 % Eos % (Auto) 0.6 % Baso % (Auto) 0.2 % Neut # (Auto) 5.99 (1.4-6.5) K/uL Lymph # (Auto) 3.42 H (1.2-3.4) K/uL [place] # (Auto) 0.90 H (0.11-0.59) K/uL Eos # (Auto) 0.06 (0-0.5) K/uL Baso # (Auto) 0.02 (0-0.2) K/uL Immature Gran # (Auto) 0.02 (0.00-0.02) K/uL PT (9.0-12.0) Seconds INR (0.9-1.1) Sodium 138 (136-145) mmol/L Potassium 3.9 (3.5-5.1) mmol/L Chloride 106 (98-107) mmol/L Carbon Dioxide 28 (21-32) mmol/L Anion Gap 4.0 (3-11) BUN 10 (7-18) mg/dl Creatinine 0.57 L (0.6-1.2) mg/dl Est Cr Clr Drug Dosing 142.9 ml/min Est GFR ( Amer) 146.2 Est GFR (Non-Af Amer) 126.2 BUN/Creatinine Ratio 17.5 (10-20) Glucose 93 (70-99) mg/dl Calcium 8.4 L (8.5-10.1) mg/dl Magnesium 2.3 (1.8-2.4) mg/dl Total Bilirubin (0.2-1) mg/dl AST (15-37) U/L ALT (12-78) U/L Alkaline Phosphatase (45-117) U/L Total Protein (6.4-8.2) gm/dl Albumin (3.4-5.0) gm/dl Globulin (2.5-4.0) gm/dl Albumin/Globulin Ratio (0.9-2) HCG, Qual (Negative) POC Ur Test NEG (NEG) Urine Opiates Screen (Neg) Ur Methadone, Qual (Neg) Urine Barbiturates (Neg) Ur Phencyclidine (PCP) (Neg) U Amphetamin/Meth Scrn (Neg) MDMA (Ecstasy) Screen (Neg) U Benzodiazepines Scrn (Neg) Ur Cocaine Metabolite (Neg) U Marijuana (THC) Screen (Neg) Ethyl Alcohol mg/dL (0-3) mg/dl COVID-19 Eval Order SARS-CoV-2 (PCR) (Negative) Influenza Type A (PCR) (Neg) Influenza Type B (PCR) (Neg) RSV (RT-PCR) (Neg) 07/27/20 07/27/20 07/27/20 Range/Units 13:31 13:13 13:13 WBC (4.8-10.8) K/uL RBC (4.2-5.4) M/uL Hgb (12.0-16.0) g/dL Hct (37-47) % MCV (80-100) fL MCH (25-34) pg MCHC (32-36) g/dL RDW Std Deviation (36.4-46.3) fL RDW Coeff of Kristyn (11.5-14.5) % Plt Count (130-400) K/uL MPV (7.4-10.4) fL Immature Gran % (Auto) % Neut % (Auto) % Lymph % (Auto) % [place] % (Auto) % Eos % (Auto) % Baso % (Auto) % Neut # (Auto) (1.4-6.5) K/uL Lymph # (Auto) (1.2-3.4) K/uL [place] # (Auto) (0.11-0.59) K/uL Eos # (Auto) (0-0.5) K/uL Baso # (Auto) (0-0.2) K/uL Immature Gran # (Auto) (0.00-0.02) K/uL PT (9.0-12.0) Seconds INR (0.9-1.1) Sodium 136 (136-145) mmol/L Potassium 3.8 (3.5-5.1) mmol/L Chloride 104 (98-107) mmol/L Carbon Dioxide 26 (21-32) mmol/L Anion Gap 6.0 (3-11) BUN 10 (7-18) mg/dl Creatinine 0.66 (0.6-1.2) mg/dl Est Cr Clr Drug Dosing 123.4 ml/min Est GFR ( Amer) 139.3 Est GFR (Non-Af Amer) 120.2 BUN/Creatinine Ratio 14.5 (10-20) Glucose 112 H (70-99) mg/dl Calcium 9.5 (8.5-10.1) mg/dl Magnesium (1.8-2.4) mg/dl Total Bilirubin 0.6 (0.2-1) mg/dl AST 31 (15-37) U/L ALT 51 (12-78) U/L Alkaline Phosphatase 91 (45-117) U/L Total Protein 9.0 H (6.4-8.2) gm/dl Albumin 4.9 (3.4-5.0) gm/dl Globulin 4.1 H (2.5-4.0) gm/dl Albumin/Globulin Ratio 1.2 (0.9-2) HCG, Qual (Negative) POC Ur Test (NEG) Urine Opiates Screen Neg (Neg) Ur Methadone, Qual Neg (Neg) Urine Barbiturates Neg (Neg) Ur Phencyclidine (PCP) Neg (Neg) U Amphetamin/Meth Scrn Neg (Neg) MDMA (Ecstasy) Screen Neg (Neg) U Benzodiazepines Scrn Neg (Neg) Ur Cocaine Metabolite Neg (Neg) U Marijuana (THC) Screen Neg (Neg) Ethyl Alcohol mg/dL 68.0 H (0-3) mg/dl COVID-19 Eval Order SARS-CoV-2 (PCR) (Negative) Influenza Type A (PCR) (Neg) Influenza Type B (PCR) (Neg) RSV (RT-PCR) (Neg) 07/27/20 07/27/20 07/27/20 Range/Units 13:13 13:13 13:13 WBC 9.62 (4.8-10.8) K/uL RBC 4.55 (4.2-5.4) M/uL Hgb 15.2 (12.0-16.0) g/dL Hct 44.2 (37-47) % MCV 97.1 (80-100) fL MCH 33.4 (25-34) pg MCHC 34.4 (32-36) g/dL RDW Std Deviation 46.0 (36.4-46.3) fL RDW Coeff of Kristyn 12.9 (11.5-14.5) % Plt Count 272 (130-400) K/uL MPV 10.9 H (7.4-10.4) fL Immature Gran % (Auto) 0.2 % Neut % (Auto) 76.8 % Lymph % (Auto) 19.2 % [place] % (Auto) 3.7 % Eos % (Auto) 0.0 % Baso % (Auto) 0.1 % Neut # (Auto) 7.38 H (1.4-6.5) K/uL Lymph # (Auto) 1.85 (1.2-3.4) K/uL [place] # (Auto) 0.36 (0.11-0.59) K/uL Eos # (Auto) 0.00 (0-0.5) K/uL Baso # (Auto) 0.01 (0-0.2) K/uL Immature Gran # (Auto) 0.02 (0.00-0.02) K/uL PT 9.8 (9.0-12.0) Seconds INR 1.0 (0.9-1.1) Sodium (136-145) mmol/L Potassium (3.5-5.1) mmol/L Chloride (98-107) mmol/L Carbon Dioxide (21-32) mmol/L Anion Gap (3-11) BUN (7-18) mg/dl Creatinine (0.6-1.2) mg/dl Est Cr Clr Drug Dosing ml/min Est GFR ( Amer) Est GFR (Non-Af Amer) BUN/Creatinine Ratio (10-20) Glucose (70-99) mg/dl Calcium (8.5-10.1) mg/dl Magnesium (1.8-2.4) mg/dl Total Bilirubin (0.2-1) mg/dl AST (15-37) U/L ALT (12-78) U/L Alkaline Phosphatase (45-117) U/L Total Protein (6.4-8.2) gm/dl Albumin (3.4-5.0) gm/dl Globulin (2.5-4.0) gm/dl Albumin/Globulin Ratio (0.9-2) HCG, Qual Negative (Negative) POC Ur Test (NEG) Urine Opiates Screen (Neg) Ur Methadone, Qual (Neg) Urine Barbiturates (Neg) Ur Phencyclidine (PCP) (Neg) U Amphetamin/Meth Scrn (Neg) MDMA (Ecstasy) Screen (Neg) U Benzodiazepines Scrn (Neg) Ur Cocaine Metabolite (Neg) U Marijuana (THC) Screen (Neg) Ethyl Alcohol mg/dL (0-3) mg/dl COVID-19 Eval Order SARS-CoV-2 (PCR) (Negative) Influenza Type A (PCR) (Neg) Influenza Type B (PCR) (Neg) RSV (RT-PCR) (Neg) 07/27/20 07/27/20 Range/Units 13:10 13:10 WBC (4.8-10.8) K/uL RBC (4.2-5.4) M/uL Hgb (12.0-16.0) g/dL Hct (37-47) % MCV (80-100) fL MCH (25-34) pg MCHC (32-36) g/dL RDW Std Deviation (36.4-46.3) fL RDW Coeff of Kristyn (11.5-14.5) % Plt Count (130-400) K/uL MPV (7.4-10.4) fL Immature Gran % (Auto) % Neut % (Auto) % Lymph % (Auto) % [place] % (Auto) % Eos % (Auto) % Baso % (Auto) % Neut # (Auto) (1.4-6.5) K/uL Lymph # (Auto) (1.2-3.4) K/uL [place] # (Auto) (0.11-0.59) K/uL Eos # (Auto) (0-0.5) K/uL Baso # (Auto) (0-0.2) K/uL Immature Gran # (Auto) (0.00-0.02) K/uL PT (9.0-12.0) Seconds INR (0.9-1.1) Sodium (136-145) mmol/L Potassium (3.5-5.1) mmol/L Chloride (98-107) mmol/L Carbon Dioxide (21-32) mmol/L Anion Gap (3-11) BUN (7-18) mg/dl Creatinine (0.6-1.2) mg/dl Est Cr Clr Drug Dosing ml/min Est GFR ( Amer) Est GFR (Non-Af Amer) BUN/Creatinine Ratio (10-20) Glucose (70-99) mg/dl Calcium (8.5-10.1) mg/dl Magnesium (1.8-2.4) mg/dl Total Bilirubin (0.2-1) mg/dl AST (15-37) U/L ALT (12-78) U/L Alkaline Phosphatase (45-117) U/L Total Protein (6.4-8.2) gm/dl Albumin (3.4-5.0) gm/dl Globulin (2.5-4.0) gm/dl Albumin/Globulin Ratio (0.9-2) HCG, Qual (Negative) POC Ur Test (NEG) Urine Opiates Screen (Neg) Ur Methadone, Qual (Neg) Urine Barbiturates (Neg) Ur Phencyclidine (PCP) (Neg) U Amphetamin/Meth Scrn (Neg) MDMA (Ecstasy) Screen (Neg) U Benzodiazepines Scrn (Neg) Ur Cocaine Metabolite (Neg) U Marijuana (THC) Screen (Neg) Ethyl Alcohol mg/dL (0-3) mg/dl COVID-19 Eval Order CovFluRsv at [facility] SARS-CoV-2 (PCR) NEGATIVE (Negative) Influenza Type A (PCR) Negative (Neg) Influenza Type B (PCR) Negative (Neg) RSV (RT-PCR) Negative (Neg) Resident Activity Tracking Resident Involvement: Resident Care Provided Care Provided: Adult Hospital Medicine (1) Alcohol withdrawal Complication of substance-induced condition: with unspecified complication Qualified Code(s): F10.239 - Alcohol dependence with withdrawal, unspecified
[2020-07-28] MEDS ORDERED: hydrOXYzine HCl 25 MG TAB PO PRN (18:59)
[2020-07-29] MEDS: GABAPENTIN 600 MG TAB PO SCH ×2 (03:54→15:03)
[2020-07-29] MEDS: LORazepam 1 MG/2 ML VIAL IV PRN (04:21)
--- NOTE | 2020-07-29 07:21 | Hospitalist Progress Note ---
Date of Service July 29, 2020 Assessment & Plan (1) Alcohol withdrawal: #Alcohol withdrawal Patient with a 5-year history of alcohol abuse, started with 2-3 drinks a day progressed to 5-7 drinks per day recently attempted to quit. She was able to slow down to 3 drinks per day unsuccessful with this for a number of days before she has developed. For the past 2 weeks or so she has been consuming 10 to 20 g/day, her last drink was 07/27 at approximately noon. She and her then presented to the hospital requesting assistance in withdrawal from alcohol. Her was discharged with a Librium taper, she was admitted for further management. She has been well overnight, she has no history of seizures, no history of DTs, is unsure of whether she has had the shakes in the past. She denies any abstinence from alcohol over the last 5 years. She seems very motivated to refrain from alcohol, we discussed whether she would like to return home or proceed to drug rehab on discharge, at present she would like to return home. - COntinue Thiamine 200mg PO daily - VIC S protocol in place -Required 1 Ativan overnight - CM on board for post discharge assistance -Patient plans to return home with outpatient rehab #Alcohol abuse As above- support adjust therapy as indicated with her symptoms #Anxiety Patient has a longstanding history of anxiety, states that she is unsure when the anxiety began. She has previously met with counselor in the past, finding it unsuccessful. She has tried sertraline in the past as well and did not have success with this. She did have excess with natural remedies including meditation and use of naturopathic remedies. She thinks that her drinking ultimately stemmed from the anxiety. Explained to her on discharge it will be of the utmost importance that she obtain close follow-up with her primary care provider to discuss her anxiety, establish an adequate treatment regimen, and ensure close follow-up to prevent relapse. Patient feels as if she has a good relationship with her primary care provider and is willing to follow-up with them on a regular basis I explained to the patient that I believe her anxiety was a large component of her underlying presentation and is essential that she follows up with her PCP to prevent relapse. Patient was agreeable. -Close follow-up with outpatient provider -Will likely need counselor as an outpatient FENa: Regular Code Status: Full DVT PPX: Ambulation SCDs PT/OT: Not indicated Dispo: Karen Beauchamp MD PGY 2, FCM This chart was completed utilizing [employer] voice recognition software. Grammatical errors, random word insertions, pronoun errors, and in complete sentences are an occasional consequence of the system. Any questions or concerns about the content, text, or information contained within the body of th is dictation should be addressed directly to the physician for clarification. (2) Alcohol abuse: (3) Anxiety: (4) DVT prophylaxis: Admission and Anticipated Discharge Date Admission Date: July 27, 2020 Supervising Physician Co-Signing Physician Notes I saw the patient concurrent with the resident physician and confirmed castellanos portions of the history and physical examination. Agree with the impression and plan as noted in the resident documentation. Upon exam today, the patient is seated in the bedside chair. She reports generally feeling well; she does note a " hard to describe" feeling, similar to a "shakiness" but more of an " electric sensation." The patient did have some visual and auditory hallucinations yesterday, but denies today. The patient describes being anxious for most of her life, and she was treated with sertraline a couple of years ago but she tells me today that she had significant side effects and it sounds as if treatment was only for a few weeks at most. She met with the psychiatric liaison yesterday. Exam 107/74, 78, 16, 36.4 C, 97% on room air She is alert and oriented. Appropriate affect. Appropriately, mildly tearful. Good eye contact. Laboratory data WBC 6.64, hemoglobin 13.0. Sodium 139, potassium 3.7, BUN 12, creatinine 0.67. Impression and plan Alcohol abuse with withdrawal - tolerating gabapentin protocol well, Some symptoms consistent with more significant withdrawal yesterday have subsided today. We discussed that the symptoms mayand she agreedlead her to drink as method of self-medication if she were at home. Anxiety, chronic - previously medicated with multiple SSRI, but she describes side effects. She may be open to retrying an SSRI or other medication to better manage her anxiety. Subjective Patient sitting up in bed this morning in no acute distress. Patient reports overnight she did have an episode of auditory/visual hallucinations, she met with the psych liaison about point her with reassurance. She was grateful for this. She received a as needed Ativan at this time per her VIC S score and her symptoms improved. When I met with her this morning she was back to her baseline. She denies any shaking, tremors, seizure-like activity, other concerning signs or features. She is tolerating diet, voiding, stooling, no acute distress. Physical Exam Physical Exam: General: No acute distress HEENT: Normocephalic atraumatic Neck: No significant lymphadenopathy, trachea midline, normal to visual inspection Cardiac: Regular rate and rhythm, normal S1, normal S2, I did not appreciated any significant murmurs rubs or gallops, I did not appreciate any significant pedal edema, No calf tenderness, capillary refill is less than 3 seconds Respiratory: Clear to auscultation bilaterally with symmetrical chest rise, I did not appreciate any significant wheezes, rales, rhonchi, no increased work of breathing GI: Normal bowel sounds, soft, nontender in all 4 quadrants, nondistended MSK: No sensory or motor changes, moves all extremities without issue, extremities are warm and well-perfused Skin: [place], clean, dry, intact. Neuro: Alert and oriented x4 Psych: A: Well-dressed well-groomed B: Appropriate behavior, much better eye contact today, more insightful S: Regular rate, nonpressured, normal prosody M: "I feel like I can make it through this" A: Congruent T: Logical, goal oriented Results & Data Results & Data ([facility]) Vital Signs (Past 12 Hours) Vital Signs Temp Pulse Pulse Resp BP Pulse Ox 07/29/20 04:12 36.4 C L 97 H 20 139/96 99 07/29/20 00:00 87 07/28/20 23:00 36.6 C 75 18 101/69 98 07/28/20 19:38 36.3 C L 76 20 112/78 98 Resident Activity Tracking Resident Involvement: Resident Care Provided Care Provided: Adult Hospital Medicine (1) Alcohol withdrawal Complication of substance-induced condition: uncomplicated Qualified Code(s): F10.230 - Alcohol dependence with withdrawal, uncomplicated
[2020-07-29 08:29] LABS: Basophils # (auto) 0.01 K/uL (0-0.2); Basophils % (auto) 0.2 %; Eosinophils # (auto) 0.08 K/uL (0-0.5); Eosinophils % (auto) 1.2 %; Immature Granulocytes # (auto) 0.01 K/uL (0.00-0.02); Immature Granulocytes % (auto) 0.2 %; Lymphocytes # (auto) 2.15 K/uL (1.2-3.4); Lymphocytes % (auto) 32.4 %; Mean Corpuscular Hemoglobin 33.2 pg (25-34); Mean Corpuscular Hgb Conc 34.2 g/dL (32-36); Mean Corpuscular Volume 97.2 fL (80-100); Mean Platelet Volume 11.1 fL (7.4-10.4); Monocytes # (auto) 0.64 K/uL (0.11-0.59); Monocytes % (auto) 9.6 %; Neutrophils # (auto) 3.75 K/uL (1.4-6.5); Neutrophils % (auto) 56.4 %; Platelet Count 222 K/uL (130-400); RDW Standard Deviation 46.2 fL (36.4-46.3); Red Blood Count 3.91 M/uL (4.2-5.4); White Blood Count 6.64 K/uL (4.8-10.8)
[2020-07-29 08:52] LABS: BUN Creatinine Ratio 18.1 (10-20); Calcium 8.9 mg/dl (8.5-10.1); Creatinine Clr Calc Pharmacy 121.6 ml/min; Est GFR (African American) 138.6; Est GFR (Non-African American) 119.6; Magnesium 2.4 mg/dl (1.8-2.4); Potassium 3.7 mmol/L (3.5-5.1)
[2020-07-29] MEDS: THIAMINE HCL 100 MG TAB PO SCH (09:53)
[2020-07-29] MEDS: FOLIC ACID 1 MG TAB PO SCH (09:54)
[2020-07-29] MEDS: PRAZOSIN HCL 1 MG CAP PO SCH (20:48)
[2020-07-30] MEDS: LORazepam 1 MG/2 ML VIAL IV PRN ×2 (00:41→23:40)
[2020-07-30] MEDS: GABAPENTIN 600 MG TAB PO SCH (03:37)
[2020-07-30 05:57] LABS: Basophils # (auto) 0.01 K/uL (0-0.2); Basophils % (auto) 0.2 %; Eosinophils # (auto) 0.11 K/uL (0-0.5); Eosinophils % (auto) 1.7 %; Hemoglobin 12.8 g/dL (12.0-16.0); Lymphocytes # (auto) 2.58 K/uL (1.2-3.4); Lymphocytes % (auto) 40.1 %; Mean Corpuscular Hemoglobin 33.2 pg (25-34); Mean Corpuscular Hgb Conc 34.6 g/dL (32-36); Mean Corpuscular Volume 96.1 fL (80-100); Mean Platelet Volume 10.6 fL (7.4-10.4); Monocytes # (auto) 0.56 K/uL (0.11-0.59); Monocytes % (auto) 8.7 %; Neutrophils # (auto) 3.17 K/uL (1.4-6.5); Neutrophils % (auto) 49.3 %; Platelet Count 220 K/uL (130-400); RDW Coefficient of Variation 12.7 % (11.5-14.5); RDW Standard Deviation 44.4 fL (36.4-46.3); Red Blood Count 3.85 M/uL (4.2-5.4); White Blood Count 6.43 K/uL (4.8-10.8)
[2020-07-30 06:30] LABS: BUN Creatinine Ratio 18.6 (10-20); Calcium 8.4 mg/dl (8.5-10.1); Creatinine Clr Calc Pharmacy 121.6 ml/min; Est GFR (African American) 138.6; Est GFR (Non-African American) 119.6; Magnesium 2.4 mg/dl (1.8-2.4); Potassium 3.7 mmol/L (3.5-5.1)
[2020-07-30] MEDS: FOLIC ACID 1 MG TAB PO SCH (09:16)
[2020-07-30] MEDS: THIAMINE HCL 100 MG TAB PO SCH (09:16)
--- NOTE | 2020-07-30 12:38 | Hospitalist Progress Note ---
Date of Service July 30, 2020 Assessment & Plan (1) Alcohol withdrawal: Maddy Pope is a 30-year-old female who was admitted for alcohol withdrawal treatment. Alcohol withdrawal, history of alcohol abuse 5-year history of alcohol abuse escalating from 2-3 drinks today to 5-7 drinks per day. Slight decrease, followed by increased to 10-20 drinks per day. Last drink 07/27 at noon. Her was also admitted for assistance with alcohol withdrawal. was discharged on Librium taper During initial treatment had reports of hallucinations overnight No hallucinations last night, received AWSS scoring once for score of 7, subsequent scores 1 and 1 Continue thiamine 200 mg p.o. daily Continue VIC S protocol Complete gabapentin protocol, will be completed overnight today Continue folic acid 1 mg p.o. Anxiety treatment as below Patient endorsed that she is highly motivated to stay sober, has been provided with outpatient rehab resources which she will call for further treatment Anxiety Patient reports she has a longstanding history of severe anxiety with unsucces sful treatment through counseling in the past. Reports sertraline did not work well for her in the past Cites anxiety as a castellanos factor in her use of alcohol - Pt reports think the Prazosin helped overnight. Pt has frequent nighttime anxiety and sx, will continue prazosin qHS with titration as outpt Discussed risk/benefits of SSRI tx and intermediate anxiety control. On shared decisionmaking will start a low dose of fluoxetine 5mg daily and slow titration as outpt Patient will require close follow-up, but has good insight on the effect of anxiety on drive to drink. Recommend additional counseling services/therapy follow-up as outpatient No SI/HI. Pt reports has good support in and they are working to stay sober together Diet: Regular DVT prophylaxis: Ambulation Disposition: Medical telemetry CODE STATUS: Full code Admission and Anticipated Discharge Date Admission Date: July 27, 2020 Supervising Physician Co-Signing Physician Notes I saw the patient concurrent with the resident physician and confirmed castellanos po rtions of the history and physical examination. Agree with the impression and plan as noted in the resident documentation. The patient notes that she slept better last night. She feels generally well today. Exam 105/69, 77, 16, 36.3, 96% on room air She is alert and oriented. Appropriate affect. Excellent eye contact Laboratory data WBC 6.43, hemoglobin 12.8. Sodium 140, potassium 3.7, BUN 12, creatinine 0.67. Impression and plan Alcohol abuse with withdrawal - tolerating gabapentin protocol well. Prazosin worked well last night with improved sleep. Agree with addition of low-dose SSRI Likely will be ready for discharge in a.m. Subjective Seen at bedside this morning. She reports she feels better, but is very anxious. Denies audio or visual hallucinations last night. She reports that she needed 1 dose of Ativan and was very anxious, but then slept well. Reports that she understands that it is recommended that she start taking the medicine for anxiety, anticipate starting Prozac with follow-up to her outpatient provider. He is looking into outpatient rehab resources, and has a list of phone numbers which she will call. Prefers to finish out her withdrawal protocol, anticipating discharge in the morning. No other questions or concerns at time of visit. Review of Systems Review of Systems: Constitutional: Denies fever, chills, malaise. Endorses increased anxiety overnight. Eyes: Denies vision change ENT: Denies ear pain, sore throat, sinus pain Cardiovascular: Denies Chest pain, chest pressure, extremity swelling Respiratory: Denies shortness of breath, cough, sputum production, difficulty breathing Gastrointestinal: Denies abdominal pain, nausea, vomiting, constipation, diarrhea Genitourinary: Denies dysuria, urinary frequency Musculoskeletal: Denies acute focal weakness, muscle aches/pain, joint aches/pain Integumentary:Denies acute rash, lesions, bruising Neurological: Denies headache, numbness, tingling, focal weakness. Denies auditory visual hallucinations. Physical Exam Physical Exam: General: A&Ox3. NAD. Cooperative. HEENT: Atraumatic, normocephalic. Pupils responsive to light and accommodation. No nystagmus on lateral gaze. Pulm: CTAB A&P. -wheezes, -rales, -rhonchi. Symmetrical chest rise. No increase work of breathing. No respiratory distress. Cardiac: Tachycardic, -mrg. Radial pulses intact and symmetrical. Abdominal: Nontender, nondistended, soft. BS present. Results & Data Results & Data ([facility]) Vital Signs (Past 12 Hours) Vital Signs Temp Pulse Pulse Pulse Resp BP Pulse Ox 07/30/20 11:00 36.6 C 85 16 118/78 97 07/30/20 07:43 97 H 07/30/20 07:39 36.7 C 92 H 16 102/69 98 07/30/20 04:00 36.8 C 76 18 91/56 L 97 07/30/20 00:31 146 H 22 Resident Activity Tracking Resident Involvement: Resident Care Provided Care Provided: Adult Hospital Medicine (1) Alcohol withdrawal Complication of substance-induced condition: uncomplicated Qualified Code(s): F10.230 - Alcohol dependence with withdrawal, uncomplicated
[2020-07-30] MEDS: PRAZOSIN HCL 1 MG CAP PO SCH (20:09)
[2020-07-31] MEDS ORDERED: GABAPENTIN 600 MG TAB PO SCH (03:50)
[2020-07-31] MEDS: THIAMINE HCL 100 MG TAB PO SCH (07:51)
[2020-07-31] MEDS: FOLIC ACID 1 MG TAB PO SCH (07:52)
[2020-07-31] MEDS: FLUoxetine HCL 20 MG/5 ML 120ML BTL PO SCH ×2 (07:53→09:07)
--- NOTE | 2020-07-31 11:20 | Discharge Summary ---
Date of Service July 31, 2020 Admission HPI Per Admitting Provider 30 YOF with no past medical history. Comes to the emergency room because she wishes to stop drinking. The patient endorses that she has been drinking heavily for the past 5 years. She would drink to the point of intoxication every night. This would include beer, wine, and vodka. Over the past 2 or so years she has mostly stuck to Vodka 5-7 drinks per night, straight or mixed with water. She has tried to cut down her drinking over the past 2 weeks to 3 drinks per night. She does not wish to continue doing this every day and as above wishes to quit. Her last drink was today between 11am-12pm and came to the emergency room right after that. In the ER she was loaded with 1200 mg of Gabapentin and Lorazepam 2mg x2 and 1liter of saline. Patient will be admitted to [facility] and continue to monitor/treat her for withdrawal and transition to sobriety. Admission Exam Per Admitting Provider PHYSICAL EXAM: General: awake, alert, no apparent distress Head: Normocephalic, atraumatic ENT: PERRL, EOMI, no pharyngeal exudate, mucous membranes moist Neuro: AAO x 3, speech clear and appropriate, strength intact bilaterally 5/5, sensation intact and equal all extremities and dermatomes, no pronator drift Chest: equal rise and fall of the chest, no accessory muscle use, no heaves or thrills, Clear to auscultation, on room air, Cardiac: Regular rate and rhythm, telemetry reviewed tachycardic no ectopy, skin warm dry, cap refill <3 seconds, peripheral pulses +2 no JVD, no murmur, no edema GI: NABS x 4 quadrants, soft, nontender to palpation, no rebound, guarding or tenderness, liver borders normal : Spontaneously voiding, no pain, no CVA tenderness, Extremities: Normal inspection, no peripheral edema or erythema, calfs nontender to palpation Psych: Normal mood and affect Skin: no rash or erythema Principal Diagnosis Alcohol withdrawal Discharge Exam General: A&Ox3. NAD. Cooperative. Psych: Thought process linear, goal-directed. Not responding to internal stimuli. Mood "okay, good "affect congruent. No psychomotor slowing or agitation. HEENT: Atraumatic, normocephalic. Pulm: CTAB A&P. -wheezes, -rales, -rhonchi. Symmetrical chest rise. No increase work of breathing. No respiratory distress. Cardiac: RRR, -mrg. Radial pulses intact and symmetrical. Abdominal: Nontender, nondistended, soft. BS present. Extremities: Moving all extremities equally, no tremors appreciated. Discharge Data Allergies Allergy/AdvReac Type Severity Reaction Status Date / Time No Known Drug Allergies Allergy Unknown Verified 07/27/20 16:05 Consultations 07/27/20 16:26 ED Decision to Admit Stat Hospital Course (1) Alcohol withdrawal: Maddy Pope is a 30-year-old female who was admitted for alcohol withdrawal treatment. Alcohol withdrawal, history of alcohol abuse Maddy presented to the emergency room expressing a desire to stop drinking. She reports that she had had heavy alcohol use for 5 years and would drink to intoxication nightly with beer, wine, and vodka. She had had 5-7 vodka drinks per night, and attempted to cut down in the past 2 weeks before having difficulty cutting back and increasing to up to 10 drinks per night. Her last drink was around noon 07/27/2020, day of admission. She was admitted and treated with gabapentin protocol and AWSS scoring with lorazepam as needed. Transient auditory hallucinations 1 evening, intermittent scoring for it AVSS of approximately 79 which resolved and symptoms overall gradually improved throughout admission. Completed gabapentin taper over admission without side effects No symptoms at time of discharge Treated with folic acid and thiamine daily Anxiety treatment as below Patient endorsed that she is highly motivated to stay sober, she was provided with multiple outpatient rehab resources which she reported she was calling to set up for further treatment. She reports a good relationship with her primary care physician Dr. Lugo would like to follow-up with her for further care and counseling. Patient reports that her also has heavy alcohol use and was discharged home on a Librium taper, but is also working to remain sober. Anxiety Patient reports she has a longstanding history of severe anxiety with unsuccessful treatment through counseling in the past. Reports sertraline did not work well for her in the past Cites anxiety as a castellanos factor in her use of alcohol Patient was trialed on prazosin for nighttime anxiety with suspicion for some nightmare and agitation symptoms. Patient reports that she felt that this gave her some benefit, and would like to continue it at this time with additional titration as outpatient Extensive discussion and counseling was provided including meeting with the psychiatric liaison during admission. Discussed the risks and benefits of SSRI treatment and long-term anxiety control. On shared decision-making she initially was agreeable to starting a low-dose of fluoxetine with slow titration as outpatient, but ultimately declined this and reported that while she understands she needs additional strategies to manage underlying anxiety which is a strong comorbidity and factor that influences her decision to drink she would like to try lifestyle interventions and nonpharmacologic options at this time with close follow-up if these measures are not sufficient. Discussed the progression from doing well to decompensating and the drive that reaches for a drink, and the importance of reaching out early before this happens especially since many anxiety medications may take several weeks to produce benefit. Patient expressed an understanding of this, and reports she will follow up with her primary care provider. She denied a history of suicidality and homicidality, and reports has good support in her and that she anticipates that they will work to remain sober together. Total Time Total Time Spent Total Time Spent (In Minutes): 20 mins Discharge Plan Discharge Items Patient Disposition: Home - Self-Care Reason For Visit: ETOH Discharge Diagnosis: Alcohol Withdrawal Activity: Resume your previous activity Non-emergency contact: Primary Care Provider Call non-emergency contact if: you have any medication questions and your symptoms worsen Follow-up/Referrals: Lynne Lugo MD [Primary Care Provider] - Diet: Regular Addtl Attending Provider Instructions: You were seen in the hospital for management of acute alcohol withdrawal. Alcohol withdrawal can be dangerous and life-threatening, with some symptoms occurring several days after the last drink. You were treated with a withdrawal protocol which included a seizure medicine and as needed medication to manage symptoms and were monitored over this. At time of discharge you were doing well, and your symptoms had improved. You have expressed a desire to remain sober, and have been provided with outpatient resources to help manage a history of heavy alcohol use. Please call these resources, and follow-up with your primary care provider at Dr. Lugo for additional care and counseling. Recurrent use of alcohol may cause return of withdrawal symptoms, and have progressive effects on your health including heart and liver function. Have been prescribed a medication to help manage nighttime anxiety and symptoms. You have been prescribed prazosin 1 mg at bedtime. Please follow-up with your primary care provider regarding further dose adjustments to this medication. You identified anxiety as a challenge to your overall wellness, and a factor related to your alcohol use in the past. You had expressed that you did not wish to start an SSRI medication at this time, but preferred to pursue lifestyle interventions to help manage stress. Please follow-up with your primary care provider for repeat evaluation of overall stress and wellness, and to develop a plan if these measures are not sufficient to help manage anxiety. Medications to properly treat anxiety may take several weeks to get full benefit, so it is important to discuss your plan for anxiety management early and often with your primary care provider. A followup appointment is being scheduled for you with Dr. Lugo. You should be seen seen within 1 week. You should receive a call to confirm this appointment. If you do not receive a call within 48 hours to confirm this appointment, or need to change this appointment, please call the provider's office at [phone]. If you develop any new or worsening symptoms including fever, chills, sweats, chest pain, chest pressure, difficulty breathing, uncontrolled nausea/vomiting, rash, wheezing, passing out or nearly passing out, bleeding, black/bloody bowel movements, or other new or concerning symptoms please call your primary care physician at [phone], or call 911 for re-evaluation in the emergency department if you are very concerned. Pending Studies at Discharge: No Stand-Alone Forms: My [facility], Smoking Cessation, Suicide Prevention Resources Medications and DC Order Prescriptions: New prazosin 1 mg Capsule 1 mg PO HS 30 Days Qty: 30 RF: 0 Continued ashwagandha root extract 300 mg Capsule 300 - 600 mg PO DAILY PRN (Reason: stress) RF: 0 Deborah's wort 2 cap PO AMPM RF: 0 selenium 1 cap PO DAILY RF: 0 Discharge Orders: Discharge Order (Routine); Ordered 07/31/20 Ordered By: Andrae Shields Admission Data Admit Date/Time: 07/27/20 18:29 Attending Provider: Mele Johns Admit Provider: Mynor Neil Primary Care Provider: Lynne Lugo Other Providers: Mynor Neil Other Interventions: Discharge Summary Assessment (RN) Last Done: 07/31/20 11:13 Supervising Physician Co-Signing Physician Notes I saw the patient concurrent with the resident physician and confirmed castellanos portions of the history and physical examination. Agree with the impression and plan as noted in the resident documentation. The patient notes that she again slept well last night. She feels generally well today. Exam 110/72, 118, 18, 36.6, 100% on room air She is alert and oriented. Appropriate affect. Excellent eye contact Impression and plan Alcohol abuse without withdrawal symptoms at present Anxiety She has declined low-dose SSRI She is agreeable to prazosin nightly Discussed outpatient follow-up Resident Activity Tracking Resident Involvement: Resident Care Provided Care Provided: Adult [facility] Medicine
== END 2020-07-31 13:45 | disposition home or self-care (01) | DRG 897 ==
LOC: ED 12:34 → 2N 18:29 → SUATTDRO 18:29 → 2N 20:48 → 2W 07-30 22:46

== ENCOUNTER 2020-09-03 14:56 | Inpatient (IN) ==
[2020-09-03] MEDS ORDERED: MULTI-VITAMIN INFUSION 10 ML, THIAMINE HCL 100 MG, FOLIC ACID 1 MG in SODIUM CHLORIDE 0... IV ONE (15:08)
[2020-09-03 15:43] LABS: Basophils # (auto) 0.02 K/uL (0-0.2); Basophils % (auto) 0.2 %; Hematocrit (blood only) 45.1 % (37-47); Hemoglobin 15.5 g/dL (12.0-16.0); Immature Granulocytes # (auto) 0.02 K/uL (0.00-0.02); Immature Granulocytes % (auto) 0.2 %; Lymphocytes # (auto) 2.05 K/uL (1.2-3.4); Lymphocytes % (auto) 19.7 %; Mean Corpuscular Hemoglobin 33.5 pg (25-34); Mean Corpuscular Hgb Conc 34.4 g/dL (32-36); Mean Corpuscular Volume 97.6 fL (80-100); Mean Platelet Volume 10.3 fL (7.4-10.4); Monocytes # (auto) 0.23 K/uL (0.11-0.59); Monocytes % (auto) 2.2 %; Neutrophils # (auto) 8.08 K/uL (1.4-6.5); Neutrophils % (auto) 77.7 %; Platelet Count 303 K/uL (130-400); RDW Coefficient of Variation 13.7 % (11.5-14.5); RDW Standard Deviation 49.1 fL (36.4-46.3); Red Blood Count 4.62 M/uL (4.2-5.4)
--- NOTE | 2020-09-03 15:44 | Emergency Department Note ---
Impression & Plan Alcohol abuse, Insomnia, Mood disorder ED Provider Note INFORMANT: Patient ED PROVIDER(S): Baljit Trejo MD CHIEF COMPLAINT: Alcohol abuse PLAN: Disposition: Admitted Condition: Guarded Outpatient prescription management: none Referral: None MEDICAL DECISION MAKING: Patient presented with complaints of significant alcohol abuse and significant mood related issues. She was mildly tachycardic. She was intoxicated. An IV was established. Blood work obtained. The patient was given a banana bag. She was also given Zofran and Ativan. The patient's blood work revealed unremark able CBC. Chemistry panel revealed elevated LFTs which is new. Her alcohol level is significantly elevated. She is not . The patient was improving as far as her intoxication. Her vital signs still reveal tachycardia. She was given an additional dose of lorazepam. She noted slight headache developing. She was given a dose of IV Toradol. I discussed possible treatment options with her. She should benefit from inpatient alcohol withdrawal treatment with internal medicine and psychiatric consultation as necessary. Consultation was made with the [facility] hospitalist service. The patient and were in agreement. Consultation was made with Dr. Cornelius Garcia of the [facility] service. Patient was evaluated in the ER for further management. Triage Nursing notes reviewed and agree them. Vital Signs: reviewed and remarkable for tachycardia Differential diagnosis: Alcohol intoxication, toxicologic, infection, hypoglycemia, electrolyte abnormalities, cardiac sources, intracerebral event, neurologic, trauma, as well as other pathologies. Diagnostics interpreted by me: ECG: Twelve-lead ECG reveals sinus tachycardia at 123 bpm. Left atrial enlargem ent. Nonspecific ST. No ST elevation. No PVCs or PACs. Normal axis. Cardiac Monitoring: Cardiac monitoring ordered by me: The patient was placed on continuous cardiac monitoring and observed. It revealed a sinus tachycardia at 110 beats per minute without ectopy or evidence of dysrhythmia. Imaging studies: Deferred HPI: The patient is a 30 year old female who presents to the Emergency Room with complaints of alcohol withdrawal. This started the last week and is a recurrent problem. The patient also notes the following associated symptoms, vomiting, nausea, bruises on the right LE. The patient has recently tried medical marijuana for relieving factors. Current pain is rated as 0/10. Last drink was 3 hrs ago. reports she has expressed thoughts of self harm but has not acted. No prior inpatient rehab. Drinks 12-18 beverages a day. Pt denies LOC, headache, fevers, chills, diaphoresis, visual changes, neck pain, chest pain, breathing difficulties, abdominal pain, back pain, melena, hematochezia, urinary symptoms, numbness, weakness, lymphadenopathy, rash, or other complaints. ROS: See above HPI for pertinent positives & negatives. A total of 10 systems reviewed and were otherwise negative. PAST MEDICAL HISTORY:See Below , alcohol abuse PAST SURGICAL HISTORY:See Below, FAMILY HISTORY:See Below SOCIAL HISTORY:See Below, +etoh HOME MEDICATIONS:See Below ALLERGIES:See Below VITALS:See Below PHYSICAL EXAMINATION: GENERAL: Awake, alert, intoxicated-appearing, in no distress HENT: Normocephalic, atraumatic. Oropharynx unremarkable. EYES: Normal conjunctiva. Sclera non-icteric. NECK: Inspection normal. Non-tender. Supple. No nuchal rigidity. FROM. No masses. RESPIRATORY: Clear to auscultation. No wheezes. No rales. Normal respiratory effort. CARDIAC: Normal rate. Normal rhythm. No murmurs. No rubs. Extremities warm and well perfused. Pulses equal. No JVD. GI: Soft, non-distended. No tenderness to palpation. No rebound or guarding. No masses. RECTAL: Deferred. MUSCULOSKELETAL: Atraumatic. Chest examination reveals no tenderness. The back is symmetrical on inspection without obvious abnormality. There is no CVA tenderness to palpation. No joint edema. LOWER EXTREMITIES: Calves are equal size bilaterally and non-tender. No edema. No discoloration. NEURO: Normal sensorium. No sensory or motor deficits noted. SKIN: No rash or jaundice noted. PSYCH: depressed mood, flat affect. Denies current SI, HI. Baljit Trejo MD Past Med/Surg History Medical History Alcohol withdrawal Anxiety Anxiety Insomnia No significant active problems Syncope Surgical History No pertinent past surgical history Social History Smoking Status: Current every day smoker Tobacco Type: E-cigarettes / Vaping Second Hand Exposure: No; Do You Dip or Chew Tobacco: No; Tobacco Cessation Education Requested by Patient: No Hx Alcohol Use: Yes Alcohol type: hard liquor Hx Substance Use: Yes Last Used Substance: Days (ago) Preferred Language: Frisian Communication Ability: Effective Artist'S Manager Required: No Beliefs That Will Affect Care: Rastafari Rastafari Beliefs: Mennonite Current Living Situation: Spouse Other Information That Helps Us Care for You: No Feels Safe at Home: No Is there a partner from a previous relationship who is making you feel unsafe now?: No Any Concerns about Your Family Situation: No Would You Like to Speak to Someone About Your Situation: No Safety Concerns: Feels Safe At This Time Assistive Devices: None Allergies Allergies Allergy/AdvReac Type Severity Reaction Status Date / Time No Known Drug Allergies Allergy Unknown Verified 09/03/20 15:32 Home Meds Home Medications Medication Instructions Recorded Confirmed [place]'s wort 2 cap PO AMPM 07/27/20 09/03/20 ashwagandha root extract 300 mg PO UD 09/03/20 09/03/20 Results & Data (ED) Vital Signs Vital Signs - 24 hr 09/03/20 14:58 09/03/20 15:18 09/03/20 15:26 Temperature 37.4 C Temperature Source Temporal Artery Scan Pulse Rate 100 H 102 H 106 H Pulse Rate [Apical] Pulse Rate from SpO2 Sensor 102 H 108 H Respiratory Rate 20 16 12 Blood Pressure 142/96 H 126/92 Blood Pressure [Left Arm] Blood Pressure Mean 111 103 Blood Pressure Mean [Left Arm] Pulse Oximetry 96 94 95 Oxygen Delivery Method Room Air Room Air Sepsis Recent Fever Within 48 Hours No Sepsis New/Unexplained Change in Mental Status No Sepsis Action Taken by Nursing No Action Required 09/03/20 15:30 09/03/20 15:31 09/03/20 15:41 Temperature Temperature Source Pulse Rate 105 H 106 H 102 H Pulse Rate [Apical] Pulse Rate from SpO2 Sensor 107 H 105 H Respiratory Rate 13 13 20 Blood Pressure 123/84 Blood Pressure [Left Arm] Blood Pressure Mean 97 Blood Pressure Mean [Left Arm] Pulse Oximetry 95 97 97 Oxygen Delivery Method Room Air Room Air Room Air Sepsis Recent Fever Within 48 Hours Sepsis New/Unexplained Change in Mental Status Sepsis Action Taken by Nursing 09/03/20 16:00 09/03/20 16:01 09/03/20 16:30 Temperature Temperature Source Pulse Rate 108 H 108 H 99 H Pulse Rate [Apical] Pulse Rate from SpO2 Sensor 109 H 106 H 99 H Respiratory Rate 16 18 14 Blood Pressure 129/76 101/62 Blood Pressure [Left Arm] Blood Pressure Mean 93 75 Blood Pressure Mean [Left Arm] Pulse Oximetry 96 96 98 Oxygen Delivery Method Room Air Room Air Room Air Sepsis Recent Fever Within 48 Hours Sepsis New/Unexplained Change in Mental Status Sepsis Action Taken by Nursing 09/03/20 16:57 09/03/20 17:00 09/03/20 17:01 Temperature Temperature Source Pulse Rate 99 H 93 H Pulse Rate [Apical] 96 H Pulse Rate from SpO2 Sensor 101 H 95 H Respiratory Rate 18 20 20 Blood Pressure 101/69 Blood Pressure [Left Arm] 101/69 Blood Pressure Mean 79 Blood Pressure Mean [Left Arm] 79 Pulse Oximetry 96 95 97 Oxygen Delivery Method Room Air Room Air Room Air Sepsis Recent Fever Within 48 Hours Sepsis New/Unexplained Change in Mental Status Sepsis Action Taken by Nursing 09/03/20 17:30 09/03/20 17:31 09/03/20 18:00 Temperature Temperature Source Pulse Rate 99 H 101 H 94 H Pulse Rate [Apical] Pulse Rate from SpO2 Sensor 100 H 100 H 88 Respiratory Rate 14 15 14 Blood Pressure 103/55 L 101/72 Blood Pressure [Left Arm] Blood Pressure Mean 71 81 Blood Pressure Mean [Left Arm] Pulse Oximetry 95 97 92 Oxygen Delivery Method Room Air Room Air Room Air Sepsis Recent Fever Within 48 Hours Sepsis New/Unexplained Change in Mental Status Sepsis Action Taken by Nursing 09/03/20 18:01 09/03/20 18:30 09/03/20 19:00 Temperature Temperature Source Pulse Rate 87 110 H 111 H Pulse Rate [Apical] Pulse Rate from SpO2 Sensor 92 H 113 H 112 H Respiratory Rate 17 22 13 Blood Pressure Blood Pressure [Left Arm] Blood Pressure Mean Blood Pressure Mean [Left Arm] Pulse Oximetry 99 98 99 Oxygen Delivery Method Room Air Room Air Room Air Sepsis Recent Fever Within 48 Hours Sepsis New/Unexplained Change in Mental Status Sepsis Action Taken by Nursing 09/03/20 19:30 09/03/20 19:31 09/03/20 20:00 Temperature Temperature Source Pulse Rate 111 H 112 H Pulse Rate [Apical] Pulse Rate from SpO2 Sensor 114 H 112 H 107 H Respiratory Rate 23 18 18 Blood Pressure 108/68 133/74 Blood Pressure [Left Arm] Blood Pressure Mean 81 93 Blood Pressure Mean [Left Arm] Pulse Oximetry 97 97 96 Oxygen Delivery Method Sepsis Recent Fever Within 48 Hours Sepsis New/Unexplained Change in Mental Status Sepsis Action Taken by Nursing 09/03/20 20:01 09/03/20 20:30 09/03/20 20:31 Temperature Temperature Source Pulse Rate 109 H 112 H Pulse Rate [Apical] Pulse Rate from SpO2 Sensor 107 H 111 H 113 H Respiratory Rate 16 22 16 Blood Pressure 115/73 Blood Pressure [Left Arm] Blood Pressure Mean 87 Blood Pressure Mean [Left Arm] Pulse Oximetry 96 97 97 Oxygen Delivery Method Sepsis Recent Fever Within 48 Hours Sepsis New/Unexplained Change in Mental Status Sepsis Action Taken by Nursing 09/03/20 21:00 Temperature Temperature Source Pulse Rate 108 H Pulse Rate [Apical] Pulse Rate from SpO2 Sensor 103 H Respiratory Rate 19 Blood Pressure Blood Pressure [Left Arm] Blood Pressure Mean Blood Pressure Mean [Left Arm] Pulse Oximetry 96 Oxygen Delivery Method Sepsis Recent Fever Within 48 Hours Sepsis New/Unexplained Change in Mental Status Sepsis Action Taken by Nursing Laboratory Data Result diagrams: 09/03/20 15:23 09/03/20 15:23 Lab Results 09/03/20 09/03/20 09/03/20 Range/Units 15:23 15:23 15:23 WBC 10.40 (4.8-10.8) K/uL RBC 4.62 (4.2-5.4) M/uL Hgb 15.5 (12.0-16.0) g/dL Hct 45.1 (37-47) % MCV 97.6 (80-100) fL MCH 33.5 (25-34) pg MCHC 34.4 (32-36) g/dL RDW Std Deviation 49.1 H (36.4-46.3) fL RDW Coeff of Kristyn 13.7 (11.5-14.5) % Plt Count 303 (130-400) K/uL MPV 10.3 (7.4-10.4) fL Immature Gran % (Auto) 0.2 % Neut % (Auto) 77.7 % Lymph % (Auto) 19.7 % Chester % (Auto) 2.2 % Eos % (Auto) 0.0 % Baso % (Auto) 0.2 % Neut # (Auto) 8.08 H (1.4-6.5) K/uL Lymph # (Auto) 2.05 (1.2-3.4) K/uL Chester # (Auto) 0.23 (0.11-0.59) K/uL Eos # (Auto) 0.00 (0-0.5) K/uL Baso # (Auto) 0.02 (0-0.2) K/uL Immature Gran # (Auto) 0.02 (0.00-0.02) K/uL PT 9.5 (9.0-12.0) Seconds INR 0.9 (0.9-1.1) Sodium 140 (136-145) mmol/L Potassium 3.8 (3.5-5.1) mmol/L Chloride 105 (98-107) mmol/L Carbon Dioxide 24 (21-32) mmol/L Anion Gap 11.0 (3-11) BUN 7 (7-18) mg/dl Creatinine 0.68 (0.6-1.2) mg/dl Est Cr Clr Drug Dosing 118.6 ml/min Est GFR ( Amer) 138.0 ml/min Est GFR (Non-Af Amer) 119.0 ml/min BUN/Creatinine Ratio 10.1 (10-20) Glucose 90 (70-99) mg/dl Calcium 9.3 (8.5-10.1) mg/dl Magnesium 2.6 H (1.8-2.4) mg/dl Total Bilirubin 0.7 (0.2-1) mg/dl AST 86 H (15-37) U/L ALT 173 H (12-78) U/L Alkaline Phosphatase 78 (45-117) U/L Total Protein 8.6 H (6.4-8.2) gm/dl Albumin 4.7 (3.4-5.0) gm/dl Globulin 3.9 (2.5-4.0) gm/dl Albumin/Globulin Ratio 1.2 (0.9-2) Lipase 99 (73-393) U/L HCG, Qual (Negative) Urine Color Urine Appearance (Clear) Urine pH (4.5-7.5) Ur Specific [place] (1.000-1.030) Urine Protein (Negative) Urine Glucose (UA) (Negative) Urine Ketones (Negative) Urine Blood (Negative) Urine Nitrite (Negative) Urine Bilirubin (Negative) Urine Urobilinogen (Negative) Ur Leukocyte Esterase (Negative) Salicylates (2.8-20) mg/dl Urine Opiates Screen (Neg) Ur Methadone, Qual (Neg) Acetaminophen (10-30) ug/ml Urine Barbiturates (Neg) Ur Phencyclidine (PCP) (Neg) U Amphetamin/Meth Scrn (Neg) MDMA (Ecstasy) Screen (Neg) U Benzodiazepines Scrn (Neg) Ur Cocaine Metabolite (Neg) U Marijuana (THC) Screen (Neg) Ethyl Alcohol mg/dL (0-3) mg/dl COVID-19 Eval Order SARS-CoV-2 (PCR) (Negative) 09/03/20 09/03/20 09/03/20 Range/Units 15:23 15:23 15:23 WBC (4.8-10.8) K/uL RBC (4.2-5.4) M/uL Hgb (12.0-16.0) g/dL Hct (37-47) % MCV (80-100) fL MCH (25-34) pg MCHC (32-36) g/dL RDW Std Deviation (36.4-46.3) fL RDW Coeff of Kristyn (11.5-14.5) % Plt Count (130-400) K/uL MPV (7.4-10.4) fL Immature Gran % (Auto) % Neut % (Auto) % Lymph % (Auto) % Chester % (Auto) % Eos % (Auto) % Baso % (Auto) % Neut # (Auto) (1.4-6.5) K/uL Lymph # (Auto) (1.2-3.4) K/uL [place] # (Auto) (0.11-0.59) K/uL Eos # (Auto) (0-0.5) K/uL Baso # (Auto) (0-0.2) K/uL Immature Gran # (Auto) (0.00-0.02) K/uL PT (9.0-12.0) Seconds INR (0.9-1.1) Sodium (136-145) mmol/L Potassium (3.5-5.1) mmol/L Chloride (98-107) mmol/L Carbon Dioxide (21-32) mmol/L Anion Gap (3-11) BUN (7-18) mg/dl Creatinine (0.6-1.2) mg/dl Est Cr Clr Drug Dosing ml/min Est GFR ( Amer) ml/min Est GFR (Non-Af Amer) ml/min BUN/Creatinine Ratio (10-20) Glucose (70-99) mg/dl Calcium (8.5-10.1) mg/dl Magnesium (1.8-2.4) mg/dl Total Bilirubin (0.2-1) mg/dl AST (15-37) U/L ALT (12-78) U/L Alkaline Phosphatase (45-117) U/L Total Protein (6.4-8.2) gm/dl Albumin (3.4-5.0) gm/dl Globulin (2.5-4.0) gm/dl Albumin/Globulin Ratio (0.9-2) Lipase (73-393) U/L HCG, Qual Negative (Negative) Urine Color Urine Appearance (Clear) Urine pH (4.5-7.5) Ur Specific [place] (1.000-1.030) Urine Protein (Negative) Urine Glucose (UA) (Negative) Urine Ketones (Negative) Urine Blood (Negative) Urine Nitrite (Negative) Urine Bilirubin (Negative) Urine Urobilinogen (Negative) Ur Leukocyte Esterase (Negative) Salicylates < 1.7 L (2.8-20) mg/dl Urine Opiates Screen (Neg) Ur Methadone, Qual (Neg) Acetaminophen < 2 L (10-30) ug/ml Urine Barbiturates (Neg) Ur Phencyclidine (PCP) (Neg) U Amphetamin/Meth Scrn (Neg) MDMA (Ecstasy) Screen (Neg) U Benzodiazepines Scrn (Neg) Ur Cocaine Metabolite (Neg) U Marijuana (THC) Screen (Neg) Ethyl Alcohol mg/dL 288.6 H (0-3) mg/dl COVID-19 Eval Order SARS-CoV-2 (PCR) (Negative) 09/03/20 09/03/20 09/03/20 Range/Units 17:45 17:45 20:05 WBC (4.8-10.8) K/uL RBC (4.2-5.4) M/uL Hgb (12.0-16.0) g/dL Hct (37-47) % MCV (80-100) fL MCH (25-34) pg MCHC (32-36) g/dL RDW Std Deviation (36.4-46.3) fL RDW Coeff of Kristyn (11.5-14.5) % Plt Count (130-400) K/uL MPV (7.4-10.4) fL Immature Gran % (Auto) % Neut % (Auto) % Lymph % (Auto) % Chester % (Auto) % Eos % (Auto) % Baso % (Auto) % Neut # (Auto) (1.4-6.5) K/uL Lymph # (Auto) (1.2-3.4) K/uL [place] # (Auto) (0.11-0.59) K/uL Eos # (Auto) (0-0.5) K/uL Baso # (Auto) (0-0.2) K/uL Immature Gran # (Auto) (0.00-0.02) K/uL PT (9.0-12.0) Seconds INR (0.9-1.1) Sodium (136-145) mmol/L Potassium (3.5-5.1) mmol/L Chloride (98-107) mmol/L Carbon Dioxide (21-32) mmol/L Anion Gap (3-11) BUN (7-18) mg/dl Creatinine (0.6-1.2) mg/dl Est Cr Clr Drug Dosing ml/min Est GFR ( Amer) ml/min Est GFR (Non-Af Amer) ml/min BUN/Creatinine Ratio (10-20) Glucose (70-99) mg/dl Calcium (8.5-10.1) mg/dl Magnesium (1.8-2.4) mg/dl Total Bilirubin (0.2-1) mg/dl AST (15-37) U/L ALT (12-78) U/L Alkaline Phosphatase (45-117) U/L Total Protein (6.4-8.2) gm/dl Albumin (3.4-5.0) gm/dl Globulin (2.5-4.0) gm/dl Albumin/Globulin Ratio (0.9-2) Lipase (73-393) U/L HCG, Qual (Negative) Urine Color Yellow Urine Appearance Clear (Clear) Urine pH 6.0 (4.5-7.5) Ur Specific [place] 1.011 (1.000-1.030) Urine Protein Negative (Negative) Urine Glucose (UA) Negative (Negative) Urine Ketones Trace H (Negative) Urine Blood Negative (Negative) Urine Nitrite Negative (Negative) Urine Bilirubin Negative (Negative) Urine Urobilinogen Negative (Negative) Ur Leukocyte Esterase Negative (Negative) Salicylates (2.8-20) mg/dl Urine Opiates Screen Neg (Neg) Ur Methadone, Qual Neg (Neg) Acetaminophen (10-30) ug/ml Urine Barbiturates Neg (Neg) Ur Phencyclidine (PCP) Neg (Neg) U Amphetamin/Meth Scrn Neg (Neg) MDMA (Ecstasy) Screen Neg (Neg) U Benzodiazepines Scrn Neg (Neg) Ur Cocaine Metabolite Neg (Neg) U Marijuana (THC) Screen Pos H (Neg) Ethyl Alcohol mg/dL (0-3) mg/dl COVID-19 Eval Order Covid19 at [facility] SARS-CoV-2 (PCR) (Negative) 09/03/20 Range/Units 20:05 WBC (4.8-10.8) K/uL RBC (4.2-5.4) M/uL Hgb (12.0-16.0) g/dL Hct (37-47) % MCV (80-100) fL MCH (25-34) pg MCHC (32-36) g/dL RDW Std Deviation (36.4-46.3) fL RDW Coeff of Kristyn (11.5-14.5) % Plt Count (130-400) K/uL MPV (7.4-10.4) fL Immature Gran % (Auto) % Neut % (Auto) % Lymph % (Auto) % [place] % (Auto) % Eos % (Auto) % Baso % (Auto) % Neut # (Auto) (1.4-6.5) K/uL Lymph # (Auto) (1.2-3.4) K/uL [place] # (Auto) (0.11-0.59) K/uL Eos # (Auto) (0-0.5) K/uL Baso # (Auto) (0-0.2) K/uL Immature Gran # (Auto) (0.00-0.02) K/uL PT (9.0-12.0) Seconds INR (0.9-1.1) Sodium (136-145) mmol/L Potassium (3.5-5.1) mmol/L Chloride (98-107) mmol/L Carbon Dioxide (21-32) mmol/L Anion Gap (3-11) BUN (7-18) mg/dl Creatinine (0.6-1.2) mg/dl Est Cr Clr Drug Dosing ml/min Est GFR ( Amer) ml/min Est GFR (Non-Af Amer) ml/min BUN/Creatinine Ratio (10-20) Glucose (70-99) mg/dl Calcium (8.5-10.1) mg/dl Magnesium (1.8-2.4) mg/dl Total Bilirubin (0.2-1) mg/dl AST (15-37) U/L ALT (12-78) U/L Alkaline Phosphatase (45-117) U/L Total Protein (6.4-8.2) gm/dl Albumin (3.4-5.0) gm/dl Globulin (2.5-4.0) gm/dl Albumin/Globulin Ratio (0.9-2) Lipase (73-393) U/L HCG, Qual (Negative) Urine Color Urine Appearance (Clear) Urine pH (4.5-7.5) Ur Specific [place] (1.000-1.030) Urine Protein (Negative) Urine Glucose (UA) (Negative) Urine Ketones (Negative) Urine Blood (Negative) Urine Nitrite (Negative) Urine Bilirubin (Negative) Urine Urobilinogen (Negative) Ur Leukocyte Esterase (Negative) Salicylates (2.8-20) mg/dl Urine Opiates Screen (Neg) Ur Methadone, Qual (Neg) Acetaminophen (10-30) ug/ml Urine Barbiturates (Neg) Ur Phencyclidine (PCP) (Neg) U Amphetamin/Meth Scrn (Neg) MDMA (Ecstasy) Screen (Neg) U Benzodiazepines Scrn (Neg) Ur Cocaine Metabolite (Neg) U Marijuana (THC) Screen (Neg) Ethyl Alcohol mg/dL (0-3) mg/dl COVID-19 Eval Order SARS-CoV-2 (PCR) NEGATIVE (Negative) Administered Medications Folic Acid (Folic Acid 1 Mg Tab) 1 mg PO QAM KOREY Stop: 10/03/20 21:59 Last Admin: 09/03/20 22:32 Dose: 1 mg Documented by: [id number] Lactated Ringer's (Lr) 1,000 mls @ 100 mls/hr IV .Q10H KOREY Stop: 09/04/20 17:59 Last Admin: 09/03/20 22:32 Dose: 100 mls/hr Documented by: [id number] Thiamine HCl (Thiamine Hcl 100 Mg Tab) 100 mg PO QAM KOREY Stop: 10/03/20 21:59 Last Admin: 09/03/20 22:32 Dose: 100 mg Documented by: [id number] Discontinued Medications Gabapentin (Gabapentin 600 Mg Tab) 1,200 mg PO NOW ONE Stop: 09/03/20 22:01 Last Admin: 09/03/20 22:32 Dose: 1,200 mg Documented by: [id number] Multivitamins 10 ml/ Thiamine HCl 100 mg/ Folic Acid 1 mg/Sodium Chloride 1,011.2 mls @ 1,011.2 mls/hr IV .Q1H ONE Stop: 09/03/20 16:07 Last Infusion: 09/03/20 16:38 Dose: 0 mls/hr Documented by: [id number] Admin: 09/03/20 15:34 Dose: 1,011.2 mls/hr Documented by: [id number] Lorazepam (Ativan) 1 mg in 2 mls @ 2 mls/min IV NOW STA Stop: 09/03/20 15:49 Last Admin: 09/03/20 15:55 Dose: 2 mls/min Documented by: [id number] Lorazepam (Ativan) 0.5 mg in 1 mls @ 1 mls/min IV NOW STA Stop: 09/03/20 19:49 Last Admin: 09/03/20 20:02 Dose: 1 mls/min Documented by: [id number] Ketorolac Tromethamine (Ketorolac Tromethamine 15 Mg/Ml Vial) 10 mg IV NOW ONE Stop: 09/03/20 19:27 Last Admin: 09/03/20 19:35 Dose: 10 mg Documented by: [id number] Ondansetron HCl (Ondansetron Inj 2 Mg/Ml 2 Ml Vial) 4 mg IV NOW STA Stop: 09/03/20 15:49 Last Admin: 09/03/20 15:56 Dose: 4 mg Documented by: [id number] Discharge Plan Visit Data Chief Complaint: Alcohol Withdrawal Stated Complaint: ALCOHOL WITHDRAWL ED Provider: Baljit Trejo Discharge Problem: Alcohol abuse, Insomnia, Mood disorder Patient Disposition: Admitted As Inpatient Discharge Instructions Interventions: ED Discharge Assessment Last Done: 09/03/20 21:52
[2020-09-03] MEDS ORDERED: ONDANSETRON INJ 2 MG/ML 2 ML VIAL IV STA (15:48)
[2020-09-03] MEDS ORDERED: LORazepam 1 MG/2 ML VIAL IV STA (15:48)
[2020-09-03 15:56] LABS: INR 0.9 (0.9-1.1); Prothrombin Time 9.5 Seconds (9.0-12.0)
[2020-09-03 16:00] LABS: Albumin Level 4.7 gm/dl (3.4-5.0); BUN Creatinine Ratio 10.1 (10-20); Calcium 9.3 mg/dl (8.5-10.1); Creatinine Clr Calc Pharmacy 118.6 ml/min; Magnesium 2.6 mg/dl (1.8-2.4); Potassium 3.8 mmol/L (3.5-5.1)
[2020-09-03 16:03] LABS: Albumin Globulin Ratio 1.2 (0.9-2); Bilirubin,Total 0.7 mg/dl (0.2-1); Globulin 3.9 gm/dl (2.5-4.0); Total Protein 8.6 gm/dl (6.4-8.2)
[2020-09-03 16:04] LABS: Pregnancy Test, Serum Negative (Negative)
[2020-09-03 16:10] LABS: Acetaminophen < 2 ug/ml (10-30); Salicylate < 1.7 mg/dl (2.8-20)
[2020-09-03 17:53] LABS: Appearance Urine Clear (Clear); Bilirubin Urine Negative (Negative); Blood Urine Negative (Negative); Color Urine Yellow; Glucose Urine UA Negative (Negative); Ketones Urine Trace (Negative); Leukocyte Esterase Urine Negative (Negative); Nitrite Urine Negative (Negative); Protein Urine Negative (Negative); Urobilinogen Urine Negative (Negative)
[2020-09-03 19:25] LABS: Amphetamines+Metham, Urine Neg (Neg); Barbiturates, Urine Neg (Neg); Benzodiazepine, Urine Neg (Neg); Cocaine, Urine Neg (Neg); MDMA (Ecstacy), Urine Neg (Neg); Methadone, Urine Neg (Neg); Opiate, Urine Neg (Neg); Phencyclidine, Urine Neg (Neg)
[2020-09-03] MEDS ORDERED: KETOROLAC TROMETHAMINE 15 MG/ML VIAL IV ONE (19:26)
[2020-09-03 19:29] LABS: Specific Gravity Urine 1.011 (1.000-1.030)
[2020-09-03] MEDS ORDERED: LORazepam 0.5 MG/1 ML VIAL IV STA (19:48)
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
[2020-09-03] MEDS ORDERED: ATIVAN IV ALCOHOL WITHDRAWL IV PRN (22:00)
[2020-09-03] MEDS ORDERED: GABAPENTIN 1200MG ALCOHOL WITHDRAWAL LOAD PO STA (22:00)
[2020-09-03] MEDS ORDERED: LORazepam 2 MG/4 ML VIAL IV PRN (22:00)
[2020-09-03] MEDS ORDERED: LORazepam 1 MG/2 ML VIAL IV PRN (22:00)
[2020-09-03] MEDS ORDERED: LORazepam 3 MG/6 ML VIAL IV PRN (22:00)
[2020-09-03] MEDS ORDERED: ONDANSETRON INJ 2 MG/ML 2 ML VIAL IV PRN (22:00)
[2020-09-03] MEDS ORDERED: GABAPENTIN 600 MG TAB PO ONE (22:00)
[2020-09-03] MEDS: FOLIC ACID 1 MG TAB PO SCH (22:32)
[2020-09-03] MEDS: LACTATED RINGER'S 1,000 ML IV SCH (22:32)
[2020-09-03] MEDS: THIAMINE HCL 100 MG TAB PO SCH (22:32)
[2020-09-03 23:28] LABS: Folate (Folic Acid) > 20.00 ng/ml (>5.38); Vitamin B12 731 pg/ml (193-986)
[2020-09-04] MEDS: GABAPENTIN 600 MG TAB PO SCH ×3 (04:37→18:04)
[2020-09-04 07:17] LABS: Basophils # (auto) 0.01 K/uL (0-0.2); Basophils % (auto) 0.1 %; Eosinophils # (auto) 0.08 K/uL (0-0.5); Hematocrit (blood only) 40.8 % (37-47); Hemoglobin 13.8 g/dL (12.0-16.0); Immature Granulocytes # (auto) 0.02 K/uL (0.00-0.02); Immature Granulocytes % (auto) 0.2 %; Lymphocytes # (auto) 2.82 K/uL (1.2-3.4); Lymphocytes % (auto) 33.7 %; Mean Corpuscular Hemoglobin 33.5 pg (25-34); Mean Corpuscular Hgb Conc 33.8 g/dL (32-36); Mean Platelet Volume 10.5 fL (7.4-10.4); Monocytes % (auto) 8.4 %; Neutrophils # (auto) 4.73 K/uL (1.4-6.5); Neutrophils % (auto) 56.6 %; Platelet Count 263 K/uL (130-400); RDW Coefficient of Variation 13.8 % (11.5-14.5); RDW Standard Deviation 49.7 fL (36.4-46.3); Red Blood Count 4.12 M/uL (4.2-5.4); White Blood Count 8.36 K/uL (4.8-10.8)
[2020-09-04 07:33] LABS: Albumin Level 3.9 gm/dl (3.4-5.0); BUN Creatinine Ratio 14.8 (10-20); Calcium 8.2 mg/dl (8.5-10.1); Creatinine Clr Calc Pharmacy 114.7 ml/min; Est GFR (African American) 134.3 ml/min; Est GFR (Non-African American) 115.9 ml/min; Potassium 3.5 mmol/L (3.5-5.1)
[2020-09-04 07:39] LABS: Albumin Globulin Ratio 1.2 (0.9-2); Globulin 3.2 gm/dl (2.5-4.0); Total Protein 7.1 gm/dl (6.4-8.2)
[2020-09-04] MEDS: LACTATED RINGER'S 1,000 ML IV SCH (08:04)
[2020-09-04] MEDS: FOLIC ACID 1 MG TAB PO SCH (08:05)
[2020-09-04] MEDS: THIAMINE HCL 100 MG TAB PO SCH (08:05)
--- NOTE | 2020-09-04 09:23 | Ultrasound Report ---
US liver CLINICAL HISTORY: increased LFT COMPARISON STUDY: No previous studies for comparison. FINDINGS: Liver morphology is normal. No hepatic lesions are identified. Equivocal increased hepatic echogenicity is noted. There are no gallstones. There is no gallbladder wall thickening. There is no biliary ductal dilatation. The common bile duct measures 3 mm in caliber. There is no right hydroneph rosis. IMPRESSION: 1. No gallstones or biliary ductal dilatation. 2. Possible slight increased hepatic echogenicity which can indicate hepatic steatosis. ACT 112: Negative or not required by law. Electronically signed by: Pablo Boateng M.D. 09/04/2020 9:22 AM
--- NOTE | 2020-09-04 10:35 | Electrocardiogram Report ---
Test Reason : Blood Pressure : / mmHG Vent. Rate : 123 BPM Atrial Rate : 123 BPM P-R Int : 144 ms QRS Dur : 080 ms QT Int : 318 ms P-R-T Axes : 058 041 037 degrees QTc Int : 455 ms Sinus tachycardia Possible Left atrial enlargement RSR' or QR pattern in V1 suggests right ventricular conduction delay Borderline ECG When compared with ECG of 30-JAN-2018 10:09, Vent. rate has increased BY 49 BPM Confirmed by Mert Singletary ([id number]) on 09/04/2020 10:34:45 AM Referred By: Confirmed By:Mert Singletary
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
--- NOTE | 2020-09-04 15:08 | Hospitalist Progress Note ---
Date of Service September 04, 2020 Assessment & Plan (1) Alcohol abuse: 30yo female with insomnia, alcohol use disorder, anxiety, and depression presents with a several-week history of insomnia, severe anxiety and depression, and escalating alcohol use. Alcohol use disorder Patient endorses drinking "at least" half a handle of vodka daily (equivalent to 20 or more standard drinks daily), up from 5-7 daily one month prior, in the setting of 3+ years of near-daily drinking Last drink at noon on 09/03; serum EtOH on admission (09/03 at 15:00) 288 EKG on admission with sinus tachycardia on admission Patient remains tachycardic to 110s, continue to monitor AST 86, ALT 173, AlkP wnl - likely secondary to EtOH use AWSS protocol with gabapentin and lorazepam; AWSS score prior to interview = 3 (points for nausea, anxiety) Withdrawal symptoms minimal; patient reports prior withdrawal symptoms started after ~72 hours Folate, thiamine PO Seizure precautions Close outpatient follow-up recommended Patient interested in naltrexone therapy - reluctant to start at same time as seroquel, but consider adding after seroquel response is assessed Insomnia, anxiety, depression Patient endorses chronic (3+ year) history of insomnia which she suspects is secondary to anxiety Trial of SSRI's in the past was associated with presumed hypomanic/manic episodes entailing "increased anxiety, "getting more things done", "worsening insomnia" Concerning for bipolar disorder given possible emergence of hypomania/twyla Psychiatry consult recommends seroquel 200mg daily and voluntary inpatient psych hospitalization after withdrawal monitoring is complete; patient is agreeable to both 09/04: starting seroquel 200mg qhs Cannabis use Patient endorses medical marijuana use infrequently; UDS positive on admission for cannabis, negative for all other substances tested Patient reports trying cannabis to treat her insomnia, though it did not work well; denies chronic or habitual cannabis use FEN: regular diet Code status: full code DVT ppx: not indicated Isolation: none Consults: psychiatry Dispo: med/surg tele Admission and Anticipated Discharge Date Admission Date: September 03, 2020 Supervising Physician Co-Signing Physician Notes I personally examined the patient and verified all castellanos points of history and exam, discussed case, and agree with decision making with Dr Damon Feeling okay. No shaking, no heart racing. Appreciate psychiatry input. Vitals noted, in general she is awake and alert pleasant appears mildly anxious but no distress. HEENT normocephalic atraumatic mucous members moist. Breathing unlabored no accessory muscle use good effort. Skin shows no rashes no pallor or icterus. No tremor no tachycardia. Alcohol abuseconcern on withdrawal. Currently stable, but follow closely given that its only been less than 24 hours after last drink. Normally would utilize just symptom triggered benzodiazepines, but given the gabapentin could help with mood stabilization, will allow this to continue for now as well. Mood disorderagree with psychiatry that I have high concerns about bipolar, or bipolar with a significant anxiety overlying it. Agree with initiation of Seroquel. Greatly appreciate willingness to take on inpatient psychprobably by late in the day tomorrow if she is not showing any significant withdrawal it would be fairly reasonable to move her to inpatient psychiatric care if a bed is available. Obviously should she be showing any hint of withdrawal, then she should remain medical longer. Otherwise as above Subjective Patient seen and evaluated at bedside this morning. Patient feels well at the moment, though she reports possible auditory, visual, and tactile hallucinations overnight. Endorses seeing shadows move around the room, seeing and hearing her in the hospital bed with her, seeing her dog, and "feeling electricity run down (her) body in waves". Patient notes she isn't 100% sure whether these were hallucinations or if she was dreaming while asleep. Patient also notes mild anxiety this morning as well as mild nausea earlier this morning which has since resolved. Despite these symptoms, patient reports overall she feels quite well today. Denies CP, SOB, abdominal pain, vomiting, constipation, diarrhea, tremor, or other symptoms. Patient reports feeling very motivated to quit drinking, and recognizes alcohol's pervasive negative impact on her life. Patient notes she has supportive friends and family members including her , but says she sometimes doesn't seek their guidance or support when she struggles because she doesn't want to be a burden. Patient reports being very interested in outpatient treatment for alcohol use disorder including psychotherapy, group therapy, pharmacologic treatment of both alcohol cravings as well as for depression/ anxiety, and any other treatment approaches available to her. Review of Systems Review of Systems: See HPI Physical Exam Physical Exam: Constitutional: well-appearing, no acute distress, sitting up in bed, pleasant, interactive, no sweating or shivering appreciated HEENT: NCAT, no conjunctival injection CV: regular rhythm, extremities well-perfused Resp: CTABL MSK: no gross deformities appreciated Skin: warm, dry, no rash appreciated Neuro: AOx4, no focal neurological deficits appreciated Appearance: well-groomed, appropriately dressed Behavior: calm, cooperative, eye contact fair Mood: "good today" Affect: pleasant, affect congruent with mood Speech: appropriate rate/quantity/volume Thought process: linear, coherent Thought content: appropriate to topic of discussion, denies SI/HI, denies active AVH Cognition: alert, focused, short- and long-term memory grossly intact, abstraction intact Insight: good (has a clear understanding of why she uses alcohol, in addition to its harmful effects on her life) Judgment: good (sought professional medical treatment when struggling, eager to establish care for ongoing addiction treatment and support) Results & Data Results & Data ([facility]) Vital Signs (Past 12 Hours) Vital Signs Temp Pulse Pulse Resp BP Pulse Ox 09/04/20 11:19 37.1 C 87 18 121/85 94 09/04/20 07:28 37.1 C 78 18 115/78 98 09/04/20 07:21 66 Resident Activity Tracking Resident Involvement: Resident Care Provided Care Provided: Adult [facility] Medicine
--- NOTE | 2020-09-04 17:37 | Billing Data ---
Date of Service September 04, 2020 Coding Level of Care Code 15495 Subseq Hosp Care Lvl 3
--- NOTE | 2020-09-04 20:10 | Billing Data ---
Date of Service September 04, 2020 Coding Level of Care Code 96126 Initial Inpt Care Lvl 2
[2020-09-04] MEDS ORDERED: QUEtiapine FUMARATE 200 MG TAB PO SCH ×2 (21:00)
[2020-09-05] MEDS: GABAPENTIN 600 MG TAB PO SCH ×2 (01:39→08:42)
[2020-09-05 07:56] LABS: Albumin Level 4.1 gm/dl (3.4-5.0); BUN Creatinine Ratio 11.1 (10-20); Calcium 8.9 mg/dl (8.5-10.1); Creatinine Clr Calc Pharmacy 103.1 ml/min; Est GFR (African American) 118.1 ml/min; Est GFR (Non-African American) 101.9 ml/min; Potassium 3.4 mmol/L (3.5-5.1)
[2020-09-05 07:59] LABS: Albumin Globulin Ratio 1.2 (0.9-2); Bilirubin,Total 1.7 mg/dl (0.2-1); Globulin 3.4 gm/dl (2.5-4.0); Total Protein 7.5 gm/dl (6.4-8.2)
[2020-09-05] MEDS: THIAMINE HCL 100 MG TAB PO SCH (08:39)
[2020-09-05] MEDS: FOLIC ACID 1 MG TAB PO SCH (08:39)
--- NOTE | 2020-09-05 09:30 | Hospitalist Progress Note ---
Date of Service September 05, 2020 Assessment & Plan (1) Alcohol abuse: Maddy Pope is 30 year old female with insomnia, alcohol use disorder, anxiety, and depression who presents with a several-week history of insomnia, severe anxiety and depression, and escalating alcohol use. Alcohol use disorder Patient endorses drinking "at least" half a handle of vodka daily (equivalent to 20 or more standard drinks daily), up from 5-7 daily one month prior, in the setting of 3+ years of near-daily drinking Last drink at noon on 09/03; serum EtOH on admission (09/03 at 15:00) 288 EKG on admission with sinus tachycardia on admission Per tele, patient with primarily regular rate (80s-90s) but did have spike to 160 bpm last night LFTs have been elevated since admission -- today, AST 123, ALT 176, AlkP wnl - likely secondary to EtOH use AWSS protocol with gabapentin and lorazepam Withdrawal symptoms minimal; patient reports prior withdrawal symptoms started after ~72 hours Will continue to monitor and plan for inpatient psych admission (as noted below) after medically cleared from potential withdrawal Folate, thiamine PO Seizure precautions Close outpatient follow-up recommended Patient interested in naltrexone therapy - reluctant to start at same time as seroquel, but consider adding after seroquel response is assessed Insomnia, anxiety, depression Patient endorses chronic (3+ year) history of insomnia which she suspects is secondary to anxiety Trial of SSRI's in the past was associated with presumed hypomanic/manic episodes entailing "increased anxiety, "getting more things done", "worsening i nsomnia" Per psych consult, concerning for bipolar disorder given possible emergence of hypomania/twyla Psychiatry consult recommends seroquel and voluntary inpatient psych hospitalization after withdrawal monitoring is complete; patient is agreeable to both Started on Seroquel 200mg qhs on 09/04 Cannabis use Patient endorses medical marijuana use infrequently; UDS positive on admission for cannabis, negative for all other substances tested Patient reports trying cannabis to treat her insomnia, though it did not work well; denies chronic or habitual cannabis use FEN: regular diet Code status: full code DVT ppx: not indicated Isolation: none Consults: psychiatry Dispo: med/surg tele; plan for inpatient psychiatric admission following medical monitoring for alcohol withdrawal Admission and Anticipated Discharge Date Admission Date: September 03, 2020 Subjective Patient seen and evaluated at bedside this morning. States that she overall feels well at this time. However, upon further discussion she does report persistent anxiety and intermittent auditory and visual hallucinations. Specifically, she reports that objects around the room "seem to move side to side and jump sometimes" and that she "hears things right next to my head but don't know what the sounds are and know they aren't real." Also complains of mild headache which is unchanged from reported baseline chronic headaches. Patient denies SI but does admit to "wishing it was over" and telling people in the past to "just make it be done." However, she states that she would "never act on anything," "doesn't actually want to be ," and she denies current (or history) of suicide plan. She denies CP, SOB, abd pain, nausea, vomiting, constipation, diarrhea, fever, chills, sweats, or any other symptoms. Review of Systems Review of Systems: See HPI Physical Exam Physical Exam: GENERAL: No acute distress. Well developed and well nourished. Vital signs reviewed as above. A/O x3. EYES: PERRLA. EOMI. Anicteric sclerae. HENT: Moist mucous membranes. No pharyngeal erythema or exudates. RESPIRATORY: Clear to auscultation bilaterally. No wheezing, rales, or rhonchi. CARDIOVASCULAR: Regular rate and rhythm. No murmurs. ABDOMEN: Soft, non-tender and non-distended. Normal bowel sounds. EXTREMITIES: No edema. Non-tender. SKIN: Warm, dry. No rashes or lesions. NEUROLOGIC: No focal neurological deficits. CN II-XII grossly intact, but not individually tested. PSYCHIATRIC: Cooperative. Anxious affect. Results & Data Results & Data ([facility]) Vital Signs (Past 12 Hours) Vital Signs Temp Pulse Resp BP Pulse Ox 09/05/20 07:41 36.5 C 80 20 124/85 99 09/05/20 04:08 36.4 C L 74 18 105/66 99 09/04/20 23:44 37.1 C 85 18 113/87 95 Resident Activity Tracking Resident Involvement: Resident Care Provided Care Provided: Adult [facility] Medicine
[2020-09-05 10:27] LABS: Hepatitis B Surf Ag Rflx Conf Neg (Neg)
[2020-09-05 10:55] LABS: Hepatitis C IgG 13Yrs+Old_Rflx Neg (Neg)
--- NOTE | 2020-09-05 16:07 | Discharge Summary ---
Date of Service September 05, 2020 Admission HPI Per Admitting Provider Patient is a pleasant 30 year old female with PMHx Anxiety, Insomnia, Alcohol abuse who presents after multiple weeks of insomnia in addition to severe anxiety, noted to have increased her alcohol use to up to 18 drinks daily over the past 2 years secondary to her anxiety and inability to sleep. Patient notes that she was having intractable anxiety earlier today and that she needed her to bring her in for evaluation. Patient notes that her last drink was around Noon of 09/03/20. Patient notes she has been for at least the past 6 weeks drinking close to 18 drinks daily due to "inability to sleep." It has worsened to the point that her has taken time off of work to care for her in addition to having cameras at home to ensure the patient is safe whenever he leaves. She notes that this is at least the 3rd time she has been seen and evaluated for the same issue. She notes she was hospitalized roughly 1 month ago for this and discharged on Prazosin (which had helped in the hospital), however, never picked it up because she felt she was "doing well enough to quit on my own." Patient has also trialed Zoloft, Celexa, and Trazodone without benefit. She notes that the Zoloft and Celexa actually made her feel more anxious and "hallucinate" where she felt as though the floor was moving and her legs were "coming out of me." Her states that when she had taken either the Zoloft or Celexa she ended up running out into the [place]onzalez at which point he had to rah after her to find her. She states that her anxiety and insomnia are constant, though do have weeks where "things get worse" and she notices the symptoms of anxiety and insomnia more. She currently denies any SI or HI. Her notes that a few weeks back the patient had "asked me to kill her and end it," though the patient does not recall this and appeared very remorseful that she had said such. Patient currently denies any chest pain, SOB, abdominal pain, nausea, vomiting, fever, chills. She denies any history of seizures or hallucinations while stopping alcohol. Med Hx: Anxiety, Insomnia, Alcohol abuse Surg Hx: No surgical history Soc Hx: Denies tobacco use, Notes use of marijuana, Has roughly 16-18 drinks daily (vodka with water) Medications: OTC Deborah's Wart, Ashwagandha, Min-Chex (taking these 3 for roughly 1 year now, takes the same) Admission Exam Per Admitting Provider Constitutional: well developed, well nourished and cooperative; no acute distress Eyes: PERRL, conjunctivae normal, anicteric sclerae ENMT: external ear and nose normal, oropharynx normal Neck: trachea midline, no thyromegaly Cardiovascular: Rate/Rhythm: regular rhythm and + tachycardic Heart Sounds: no murmur Gastrointestinal (Abdomen): normal bowel sounds, soft, nontender, no hepatosplenomegaly Musculoskeletal: no cyanosis or clubbing, extremities motor strength 5/5 Small hematoma on the R 4th digit of the foot Skin: no rashes, warm and dry Neurologic: patellar DTR's 2+ bilat, sensation intact and PERRL, EOMI, accommodation nl, no face palsy, no dysarthria Psychiatric: Orientation: alert and oriented x 3 Eye Contact: good eye contact Affect: + anxious affect Principal Diagnosis alcohol use, depression, anxiety Discharge Exam GENERAL: No acute distress. Well developed and well nourished. Vital signs reviewed as above. A/O x3. EYES: PERRLA. EOMI. Anicteric sclerae. HENT: Moist mucous membranes. No pharyngeal erythema or exudates. RESPIRATORY: Clear to auscultation bilaterally. No wheezing, rales, or rhonchi. CARDIOVASCULAR: Regular rate and rhythm. No murmurs. ABDOMEN: Soft, non-tender and non-distended. Normal bowel sounds. EXTREMITIES: No edema. Non-tender. SKIN: Warm, dry. No rashes or lesions. NEUROLOGIC: No focal neurological deficits. CN II-XII grossly intact, but not individually tested. PSYCHIATRIC: Cooperative. Anxious affect. Discharge Data Allergies Allergy/AdvReac Type Severity Reaction Status Date / Time No Known Drug Allergies Allergy Unknown Verified 09/03/20 15:32 Antihistamines AdvReac Anxiety Uncoded 09/06/20 00:55 Consultations 09/03/20 19:49 ED Decision to Admit Stat 09/03/20 22:00 Consult Psychiatry Routine Ordered Studies 09/03/20 22:00 liver Urgent Hospital Course (1) Alcohol abuse: Maddy Pope is 30 year old female with insomnia, alcohol use disorder, anxiety, and depression who presents with a several-week history of insomnia, severe anxiety and depression, and escalating alcohol use. Alcohol use disorder Patient endorses drinking "at least" half a handle of vodka daily (equivalent to 20 or more standard drinks daily), up from 5-7 daily one month prior, in the setting of 3+ years of near-daily drinking Last drink at noon on 09/03; serum EtOH on admission (09/03 at 15:00) 288 EKG on admission with sinus tachycardia on admission Per tele, patient with primarily regular rate (80s-90s) but did have spike to 160 bpm last night LFTs have been elevated since admission -- today, AST 123, ALT 176, AlkP wnl - likely secondary to EtOH use AWSS protocol with gabapentin and lorazepam; recommend gabapentin taper to 600mg q12h tomorrow (09/06/20) then 600mg x1 on Saturday09/07/20 Withdrawal symptoms minimal; at this point, she is medically cleared for inpatient psych admission Folate, thiamine PO Seizure precautions Close outpatient follow-up recommended Patient interested in naltrexone therapy - reluctant to start at same time as seroquel, but consider adding after seroquel response is assessed Insomnia, anxiety, depression Patient endorses chronic (3+ year) history of insomnia which she suspects is secondary to anxiety Trial of SSRI's in the past was associated with presumed hypomanic/manic episodes entailing "increased anxiety, "getting more things done", "worsening insomnia" Per psych consult, concerning for bipolar disorder given possible emergence of hypomania/twyla Psychiatry consult recommends seroquel and voluntary inpatient psych hospitalization after withdrawal monitoring is complete; patient is agreeable to both; medically cleared and will be transferred to inpatient psych Started on Seroquel 200mg qhs on 09/04 Cannabis use Patient endorses medical marijuana use infrequently; UDS positive on admission for cannabis, negative for all other substances tested Patient reports trying cannabis to treat her insomnia, though it did not work well; denies chronic or habitual cannabis use FEN: regular diet Code status: full code DVT ppx: not indicated Isolation: none Consults: psychiatry Dispo: transfer to inpatient psych Total Time Total Time Spent Total Time Spent (In Minutes): See attending attestation Discharge Plan Discharge Items Patient Disposition: Transfer Behavioral Health Fac Reason For Visit: ALCOHOL WITHDRAWL, INSOMNIA, ANXIETY Discharge Diagnosis: insomnia, anxiety, alcohol abuse Condition on Discharge: Good Activity: Per Instructions section Non-emergency contact: Primary Care Provider and Psychiatrist Call non-emergency contact if: you have any medication questions Follow-up/Referrals: Lynne Lugo MD [Primary Care Provider] - Diet: Regular Addtl Attending Provider Instructions: You were admitted for alcohol use and concerns of anxiety/depression. You were started on some medication including Neurontin; you will need to undergo a Neurontin taper per psychiatry. Please also follow up with your primary care physician on discharge. Pending Studies at Discharge: No Stand-Alone Forms: My [facility] Skilled Items DNR: No Lines: None Urinary Catheter: No Medications and DC Order Prescriptions: New gabapentin 600 mg Tablet 600 mg PO Q12H 1 Days Qty: 2 RF: 0 gabapentin 600 mg Tablet 600 mg PO Q24H 1 Days Qty: 1 RF: 0 quetiapine [Seroquel] 200 mg Tablet 200 mg PO HS 30 Days Qty: 30 RF: 0 thiamine HCl (vitamin B1) [Vitamin B-1] 100 mg Tablet 100 mg PO QAM 30 Days Qty: 30 RF: 0 folic acid 1 mg Tablet 1 mg PO QAM 30 Days Qty: 30 RF: 0 Discontinued Deborah's wort 2 cap PO AMPM RF: 0 ashwagandha root extract 300 mg Capsule 300 mg PO UD RF: 0 Discharge Orders: Discharge Order (Routine); Ordered 09/05/20 Ordered By: Rebecca Daniel Admission Data Admit Date/Time: 09/03/20 21:08 Attending Provider: Polly Ortiz Admit Provider: Javier Bobby Primary Care Provider: Lynne Lugo Other Providers: Cornelius Garcia ; Sally Stephen ; Dr Jagdeep ; Danita Hoffmann ; Andrae Bradley ; Frank Bustamante Other Interventions: Discharge Summary Assessment (RN) Last Done: 09/05/20 16:28 Supervising Physician Co-Signing Physician Notes Resident Physician Supervision Note: I independently interviewed and examined the patient and verified the castellanos history and physical, reviewed labs and image studies and agree with resident Dr. Daniel findings and care plan. Resident Activity Tracking Resident Involvement: Resident Care Provided Care Provided: [facility] Medicine
[2020-09-05] MEDS ORDERED: GABAPENTIN 600 MG TAB PO SCH (22:00)
[2020-09-07] MEDS ORDERED: GABAPENTIN 600 MG TAB PO SCH (10:00)
[2020-09-07 15:21] LABS: Hepatitis A Antibody IgM NON-REACTIVE (NON-REACTIVE); Hepatitis B Core Antibody IgM NON-REACTIVE (NON-REACTIVE)
[2020-09-08 02:06] LABS: Marijuana Quant, GCMS Urine 528 ng/mL (<5)
== END 2020-09-05 17:27 | DRG 897 ==
LOC: ED 14:56 → 2N 21:08 → SUATTDRO 21:08 → 2N 21:52

== ENCOUNTER 2020-09-05 17:30 | Inpatient (IN) ==
[2020-09-05] MEDS ORDERED: BISMUTH SUBSALICYLATE LIQD 236 ML PO PRN (17:40)
[2020-09-05] MEDS ORDERED: SODIUM CHLORIDE 0.65% NA SOLN 45 ML (OCEAN) PRN (17:40)
[2020-09-05] MEDS ORDERED: ALUMINUM/MAGNESIUM SUSP 30 ML UDC PO PRN (17:40)
[2020-09-05] MEDS ORDERED: MAGNESIUM HYDROXIDE SUSP 30 ML UDC PO PRN (17:40)
[2020-09-05] MEDS ORDERED: hydrOXYzine HCl 25 MG TAB PO PRN ×2 (17:40)
[2020-09-05] MEDS ORDERED: ACETAMINOPHEN 325 MG TAB PO PRN (17:40)
[2020-09-05] MEDS ORDERED: LORazepam 1 MG TAB PO PRN ×2 (17:40→23:18)
[2020-09-05] MEDS ORDERED: NICOTINE POLACRILEX 2 MG GUM MT PRN (18:12)
[2020-09-05] MEDS ORDERED: GABAPENTIN 600 MG TAB PO STA (18:47)
[2020-09-05] MEDS: NICOTINE 14 MG/24 HR PATCH TD SCH (19:32)
[2020-09-05] MEDS: QUEtiapine FUMARATE 200 MG TAB PO SCH (21:41)
[2020-09-05] MEDS ORDERED: GABAPENTIN 600 MG TAB PO ONE (22:00)
[2020-09-05] MEDS ORDERED: diazePAM 5 MG TABLET PO ONE (23:58)
--- NOTE | 2020-09-06 07:58 | CT Scan Report ---
CT head/brain wo con CLINICAL HISTORY: Head trauma. Seizure like activity. COMPARISON STUDY: No previous studies for comparison. TECHNIQUE: Axial CT of the brain is performed from the vertex to the skull base. IV contrast was not administered for this examination. A dose lowering technique was utilized adhering to the principles of ALARA. CT DOSE: 614.27 mGy.cm FINDINGS: No intra or extra-axial mass lesions are visualized. There is no CT evidence of acute cortical infarc tion. There is no evidence of midline shift. There is no acute hemorrhage. No calvarial fractures ar e visualized. There is no evidence of pathologic ventricular dilatation. There is no evidence of acute sinusitis IMPRESSION: No acute intracranial findings ACT 112: Negative or not required by law. Electronically signed by: oCrky Hancock M.D. 09/06/2020 7:56 AM
[2020-09-06] MEDS ORDERED: diazePAM 5 MG TABLET PO ONE ×2 (09:00→14:08)
[2020-09-06] MEDS: THIAMINE HCL 100 MG TAB PO SCH (09:15)
[2020-09-06] MEDS: NICOTINE 14 MG/24 HR PATCH TD SCH (09:15)
[2020-09-06] MEDS: FOLIC ACID 1 MG TAB PO SCH (09:15)
[2020-09-06] MEDS: GABAPENTIN 600 MG TAB PO SCH ×2 (09:25→21:46)
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
[2020-09-06] MEDS: QUEtiapine FUMARATE 200 MG TAB PO SCH (21:46)
[2020-09-06] MEDS: LITHIUM CARBONATE 300 MG TAB PO SCH (21:46)
[2020-09-06] MEDS: diazePAM 5 MG TABLET PO SCH (21:46)
[2020-09-06] MEDS ORDERED: diazePAM 5 MG TABLET PO SCH (22:00)
[2020-09-07] MEDS: FOLIC ACID 1 MG TAB PO SCH (09:03)
[2020-09-07] MEDS: diazePAM 5 MG TABLET PO SCH ×2 (09:03→21:42)
[2020-09-07] MEDS: LITHIUM CARBONATE 300 MG TAB PO SCH ×2 (09:03→21:42)
[2020-09-07] MEDS: THIAMINE HCL 100 MG TAB PO SCH (09:03)
[2020-09-07] MEDS: NICOTINE 14 MG/24 HR PATCH TD SCH (09:09)
--- NOTE | 2020-09-07 10:37 | Psychiatric Progress Note ---
Date of Service September 07, 2020 Impression / Recommendations Impression 30-year-old female presenting with alcohol abuse that the patient states was used to cover up an underlying mood disorder. Given reported history of serious perceptual and mood disturbances, will begin treatment for bipolar spectrum disorders on a voluntary basis. (1) Alcohol abuse: The patient's use history suggests problematic substance use. Brief intervention was offered and accepted. Intervention was greater than 5 min in length and included assessing readiness to quit, advice on how to reduce or abstain, and to set a specific goal for this hospitalization. production utility worker will also assist in anticipating barriers to sobriety and in problem-solving for solutions to those problems while arranging for referral to appropriate treatment. The patient is in precontemplation stage with regards to transtheoretical model of change. The patient is advised to decrease consumption due to depressant effects and risk of interaction with prescription medications. The patient agreed to reduce her drinking and will be provided with recovery materials to continue to educate self on how to cope with their condition without abusing substances. Patient currently undergoing alcohol withdrawal. Had a seizure last night that responded to Valium. 09/06/2020ontinue Valium 5 mg p.o. twice daily (2) Mood disorder: The patient was admitted to the [facility] ([facility] mental health unit) on q15 min checks (behavioral with suicide precautions) for safety. The patient will participate in group, recreational, and milieu therapies and will be offered additional individual and family sessions as clinically appropriate. 09/07/2020-- Continue with 300mg of lithium BID, continue with seroquel 200mg QHS. patient is improving 09/06/2020-- will start with 300 mg of lithium nightly tonight, and moved to a 300 mg twice daily dosing starting tomorrow Risk Factors Assessment Male: No : Yes Do You Have Access To A Gun?: No Health Problems: No Mental Health Diagnoses: Yes Substance Use Disorders: Yes Previous Attempt: No Previous Attempt; Highly Lethal: No Previous Attempt; Planned: No Previous Attempt; Didn't Tell Anyone: No Family History of Suicide: No Previous Psychiatric Hospitalization: No Protective Factors Assessment Denominational Beliefs: Yes : Yes Responsible for Young Children: No Stable Relationships: Yes Supportive Family: Yes Good Rapport with Provider: Yes Interval History Chief Complaint "I am feeling okay, I like it here but I miss home too". Review of Systems Sleep Information Total Hours of Sleep: 6 Sleep Comments: pt on q-15 minute checks Meal Information Percent Meal Consumed - Breakfast: 100 Percent Meal Consumed - Lunch: 75 Percent Meal Consumed - Dinner: 100 Nutrition Comment: pt. reports poor appetite; is drinking fluids adequately Subjective Subjective Patient was seen & assessed and interval progress reviewed with treatment team nursing and social work Patient reports a good night of sleep. Endorses strong appetite. No side effects of the medication reported observed at this time. Patient continues on down titration of Valium medication for alcohol withdrawal taper. No seizures noted last night. Patient was spoken to regarding her history of breakdowns and depressive episodes and how this correlates with the bipolar diagnosis. Patient expressed understanding and agreement Physical Exam Psychiatric Orientation: alert and oriented x 3 Apperance: appropriately dressed and appropriately groomed Eye Contact: good eye contact Motor Behavior: steady gait and station Speech: normal rate/rhythm/volume of speech Affect: euthymic affect and + labile affect Mood: + anxious mood Thought Process: goal directed thought process Thought Content: + paranoid, + delusions and + thought insertion Suicidal Thoughts: denies suicidal thoughts Homicidal Thoughts: denies homicidal thoughts Hallucinations: + auditory hallucinations Cognition: recent memory grossly intact Estimated Intelligence: average estimated intelligence Insight: + fair insight Judgement: + fair judgement Vital Signs (Past 24 Hours) Last Vital Signs Temp 36.7 C 09/07/20 09:42 Pulse 86 09/07/20 09:42 Resp 18 09/07/20 09:42 BP 114/80 09/07/20 09:42 Pulse Ox 97 09/06/20 23:13 Results & Data ([facility]) Current Inpatient Medications Current Inpatient Medications: Current Inpatient Medications Acetaminophen (Acetaminophen 325 Mg Tab) 650 mg PO Q4H PRN PRN Reason: Headache or Minor Fever Stop: 10/05/20 17:39 Last Admin: 09/06/20 19:27 Dose: 650 mg Documented by: Al Hydrox/Mg Hydrox/Simethicone (Aluminum/Magnesium Susp 30 Ml Udc) 30 ml PO Q4H PRN PRN Reason: GI Upset Stop: 10/05/20 17:39 Bismuth Subsalicylate (Bismuth Subsalicylate Liqd 236 Ml) 15 ml PO PRN PRN PRN Reason: Loose Stool Stop: 10/05/20 17:39 Diazepam (Diazepam 5 Mg Tablet) 2.5 mg PO BID [facility] Stop: 10/07/20 20:59 Folic Acid (Folic Acid 1 Mg Tab) 1 mg PO QAM [facility] Stop: 10/06/20 08:59 Last Admin: 09/07/20 09:03 Dose: 1 mg Documented by: Gabapentin (Gabapentin 600 Mg Tab) 600 mg PO [facility] Stop: 09/07/20 22:01 [place] Carbonate ([place] Carbonate 300 Mg Tab) 300 mg PO BID [facility] Stop: 10/06/20 20:59 Last Admin: 09/07/20 09:03 Dose: 300 mg Documented by: Lorazepam (Lorazepam 1 Mg Tab) 1 - 3 mg PO UD PRN; Protocol PRN Reason: EtoH Withdrawal AWSS 6-10+ Stop: 10/05/20 23:17 Magnesium Hydroxide (Magnesium Hydroxide Susp 30 Ml Udc) 30 ml PO DAILY PRN PRN Reason: Constipation Stop: 10/05/20 17:39 Miscellaneous (Remove Nicoderm Patch) 1 ea N/A DAILY@0859 [facility] Stop: 10/06/20 08:58 Last Admin: 09/07/20 09:09 Dose: Not Given Documented by: Nicotine (Nicotine 14 Mg/24 Hr Patch) [facility] Stop: 10/05/20 18:29 Last Admin: 09/07/20 09:09 Dose: 14 mg Documented by: Nicotine Polacrilex (Nicotine Polacrilex 2 Mg Gum) 1 piece MT PRN PRN PRN Reason: Nicotine cravings Stop: 10/05/20 18:11 Last Admin: 09/05/20 19:32 Dose: 1 piece Documented by: Quetiapine Fumarate (Quetiapine Fumarate 200 Mg Tab) 200 mg PO [facility] Stop: 10/05/20 21:59 Last Admin: 09/06/20 21:46 Dose: 200 mg Documented by: Sodium Chloride (Sodium Chloride 0.65% Na Soln 45 Ml ([place])) 1 - 2 sprays NA PRN PRN PRN Reason: Nasal Dryness/Congestion Stop: 10/05/20 17:39 Thiamine HCl (Thiamine Hcl 100 Mg Tab) 100 mg PO QAM [facility] Stop: 10/06/20 08:59 Last Admin: 09/07/20 09:03 Dose: 100 mg Documented by: Mental Health & Subst Abuse Tx Psychiatrist Psychiatric Appointment Comment: will be referred after threapy intake Therapist Name of Therapist: Disha Ardon Therapist's Date of Therapist Appointment: 09/16/20 Time of Therapist Appointment: 11:30am Therapy Appointment Comment: [facility] [place] [address] Medical Assistant Internal Medicine Name of Medical Assistant Internal Medicine: JEAN CLAUDE VILLALPANDO Medical Assistant Internal MedicineManager Control Appointment Comment: referral made Post Discharge Appointments Primary Care Physician Name Of Family Doctor: MANNY Calderon, Primary Care Date of Appointment with PCP: 09/15/20 Time of Appointment with PCP: 9:20am Provider Appointment Comment: [address], [place] [address] Contact Information Discharge Discharge [address]: [address] [place], [place] [address] [id number]
[2020-09-07] MEDS: QUEtiapine FUMARATE 200 MG TAB PO SCH (21:42)
[2020-09-07] MEDS ORDERED: GABAPENTIN 600 MG TAB PO SCH (22:00)
[2020-09-08] MEDS: NICOTINE 14 MG/24 HR PATCH TD SCH (09:30)
[2020-09-08] MEDS: LITHIUM CARBONATE 300 MG TAB PO SCH ×2 (09:30→21:57)
[2020-09-08] MEDS: THIAMINE HCL 100 MG TAB PO SCH (09:30)
[2020-09-08] MEDS: FOLIC ACID 1 MG TAB PO SCH (09:30)
[2020-09-08] MEDS: diazePAM 5 MG TABLET PO SCH ×2 (09:32→21:56)
--- NOTE | 2020-09-08 11:17 | Psychiatric Progress Note ---
Date of Service September 08, 2020 Impression / Recommendations Impression 30-year-old female presenting with alcohol abuse that the patient states was used to cover up an underlying mood disorder. Given reported history of serious perceptual and mood disturbances, will begin treatment for bipolar spectrum disorders on a voluntary basis. (1) Alcohol abuse: The patient's use history suggests problematic substance use. Brief intervention was offered and accepted. Intervention was greater than 5 min in length and included assessing readiness to quit, advice on how to reduce or abstain, and to set a specific goal for this hospitalization. leather production worker will also assist in anticipating barriers to sobriety and in problem-solving for solutions to those problems while arranging for referral to appropriate treatment. The patient is in precontemplation stage with regards to transtheoretical model of change. The patient is advised to decrease consumption due to depressant effects and risk of interaction with prescription medications. The patient agreed to reduce her drinking and will be provided with recovery materials to continue to educate self on how to cope with their condition without abusing substances. Patient currently undergoing alcohol withdrawal. Had a seizure last night that responded to Valium. 09/08/2020--today will be last day of Valium administration 09/07/2020ontinue Valium 2.5 mg p.o. twice daily 09/06/2020ontinue Valium 5 mg p.o. twice daily (2) Mood disorder: The patient was admitted to the [facility] ([facility]) on q15 min checks (behavioral with suicide precautions) for safety. The patient will participate in group, recreational, and milieu therapies and will be offered additional individual and family sessions as clinically appropriate. 09/08/2020--increase lithium to 450 mg twice daily, continue Seroquel 200 mg nightly 09/07/2020-- Continue with 300mg of lithium BID, continue with seroquel 200mg QHS. patient is improving 09/06/2020-- will start with 300 mg of lithium nightly tonight, and moved to a 300 mg twice daily dosing starting tomorrow Risk Factors Assessment Male: No : Yes Do You Have Access To A Gun?: No Health Problems: No Mental Health Diagnoses: Yes Substance Use Disorders: Yes Previous Attempt: No Previous Attempt; Highly Lethal: No Previous Attempt; Planned: No Previous Attempt; Didn't Tell Anyone: No Family History of Suicide: No Previous Psychiatric Hospitalization: No Protective Factors Assessment Synagogue Beliefs: Yes : Yes Responsible for Young Children: No Stable Relationships: Yes Supportive Family: Yes Good Rapport with Provider: Yes Interval History Chief Complaint I am feeling fine thank you Review of Systems Sleep Information Total Hours of Sleep: 8 Sleep Comments: pt on q-15 minute checks Meal Information Percent Meal Consumed - Breakfast: 100 Percent Meal Consumed - Lunch: 50 Percent Meal Consumed - Dinner: 100 Nutrition Comment: pt. reports poor appetite; is drinking fluids adequately Subjective Subjective Patient was seen & assessed and interval progress reviewed with treatment team nursing and social work Patient reports feeling okay. Denies any side effects of the medications. Reports getting a full night sleep which she is thankful for. Denies any issues with appetite. Engaging with peers appropriately and attending groups. Patient's mood seems improved. No episodes of delusional thinking or speech. Patient denying depression at this time as well. Denies cravings for alcohol. No withdrawal symptoms seen or reported. Physical Exam Psychiatric Orientation: alert and oriented x 3 Apperance: appropriately dressed and appropriately groomed Eye Contact: good eye contact Motor Behavior: steady gait and station Speech: normal rate/rhythm/volume of speech Affect: euthymic affect and + labile affect Mood: + anxious mood Thought Process: goal directed thought process Thought Content: + paranoid, + delusions and + thought insertion Suicidal Thoughts: denies suicidal thoughts Homicidal Thoughts: denies homicidal thoughts Hallucinations: + auditory hallucinations Cognition: recent memory grossly intact Estimated Intelligence: average estimated intelligence Insight: + fair insight Judgement: + fair judgement Vital Signs (Past 24 Hours) Last Vital Signs Temp 36.6 C 09/08/20 10:03 Pulse 83 09/08/20 10:03 Resp 16 09/08/20 06:00 BP 119/75 09/08/20 10:03 Pulse Ox 99 09/07/20 21:39 Results & Data (U) Current Inpatient Medications Current Inpatient Medications: Current Inpatient Medications Acetaminophen (Acetaminophen 325 Mg Tab) 650 mg PO Q4H PRN PRN Reason: Headache or Minor Fever Stop: 10/05/20 17:39 Last Admin: 09/06/20 19:27 Dose: 650 mg Documented by: Al Hydrox/Mg Hydrox/Simethicone (Aluminum/Magnesium Susp 30 Ml Udc) 30 ml PO Q4H PRN PRN Reason: GI Upset Stop: 10/05/20 17:39 Bismuth Subsalicylate (Bismuth Subsalicylate Liqd 236 Ml) 15 ml PO PRN PRN PRN Reason: Loose Stool Stop: 10/05/20 17:39 Diazepam (Diazepam 5 Mg Tablet) 2.5 mg PO BID [facility] Stop: 10/07/20 20:59 Last Admin: 09/08/20 09:32 Dose: 2.5 mg Documented by: Folic Acid (Folic Acid 1 Mg Tab) 1 mg PO QAM [facility] Stop: 10/06/20 08:59 Last Admin: 09/08/20 09:30 Dose: 1 mg Documented by: [place] Carbonate ([place] Carbonate 300 Mg Tab) 300 mg PO BID [facility] Stop: 10/06/20 20:59 Last Admin: 09/08/20 09:30 Dose: 300 mg Documented by: Lorazepam (Lorazepam 1 Mg Tab) 1 - 3 mg PO UD PRN; Protocol PRN Reason: EtoH Withdrawal AWSS 6-10+ Stop: 10/05/20 23:17 Magnesium Hydroxide (Magnesium Hydroxide Susp 30 Ml Udc) 30 ml PO DAILY PRN PRN Reason: Constipation Stop: 10/05/20 17:39 Miscellaneous (Remove Nicoderm Patch) 1 ea N/A DAILY@0859 [facility] Stop: 10/06/20 08:58 Last Admin: 09/08/20 09:42 Dose: 1 ea Documented by: Nicotine (Nicotine 14 Mg/24 Hr Patch) [facility] Stop: 10/05/20 18:29 Last Admin: 09/08/20 09:30 Dose: 14 mg Documented by: Nicotine Polacrilex (Nicotine Polacrilex 2 Mg Gum) 1 piece MT PRN PRN PRN Reason: Nicotine cravings Stop: 10/05/20 18:11 Last Admin: 09/05/20 19:32 Dose: 1 piece Documented by: Quetiapine Fumarate (Quetiapine Fumarate 200 Mg Tab) 200 mg PO HS [facility] Stop: 10/05/20 21:59 Last Admin: 09/07/20 21:42 Dose: 200 mg Documented by: Sodium Chloride (Sodium Chloride 0.65% Na Soln 45 Ml ([place])) 1 - 2 sprays NA PRN PRN PRN Reason: Nasal Dryness/Congestion Stop: 10/05/20 17:39 Thiamine HCl (Thiamine Hcl 100 Mg Tab) 100 mg PO QAM [facility] Stop: 10/06/20 08:59 Last Admin: 09/08/20 09:30 Dose: 100 mg Documented by: Mental Health & Subst Abuse Tx Psychiatrist Psychiatric Appointment Comment: will be referred after threapy intake Therapist Name of Therapist: Disha Ardon Therapist's Date of Therapist Appointment: 09/16/20 Time of Therapist Appointment: 11:30am Therapy Appointment Comment: [address] [place] [address], [place] [address] Bus Mechanic Name of Bus Mechanic: JEAN CLAUDE VILLALPANDO Bus MechanicBox Repairer Appointment Comment: referral made Post Discharge Appointments Primary Care Physician Name Of Family Doctor: MANNY Calderon, Primary Care Date of Appointment with PCP: 09/15/20 Time of Appointment with PCP: 9:20am Provider Appointment Comment: [id number], [place] [address] Contact Information Discharge Discharge Address: [address] [place] [id number]
[2020-09-08] MEDS: QUEtiapine FUMARATE 200 MG TAB PO SCH (21:57)
[2020-09-09] MEDS: FOLIC ACID 1 MG TAB PO SCH (08:54)
[2020-09-09] MEDS: LITHIUM CARBONATE 300 MG TAB PO SCH ×2 (08:54→22:06)
[2020-09-09] MEDS: NICOTINE 14 MG/24 HR PATCH TD SCH (08:54)
[2020-09-09] MEDS: THIAMINE HCL 100 MG TAB PO SCH (08:55)
--- NOTE | 2020-09-09 14:05 | Psychiatric Progress Note ---
Date of Service September 09, 2020 Impression / Recommendations Impression 30-year-old female presenting with alcohol abuse that the patient states was used to cover up an underlying mood disorder. Given reported history of serious perceptual and mood disturbances, will begin treatment for bipolar spectrum disorders on a voluntary basis. (1) Alcohol abuse: The patient's use history suggests problematic substance use. Brief intervention was offered and accepted. Intervention was greater than 5 min in length and included assessing readiness to quit, advice on how to reduce or abstain, and to set a specific goal for this hospitalization. plugger worker will also assist in anticipating barriers to sobriety and in problem-solving for solutions to those problems while arranging for referral to appropriate treatment. The patient is in precontemplation stage with regards to transtheoretical model of change. The patient is advised to decrease consumption due to depressant effects and risk of interaction with prescription medications. The patient agreed to reduce her drinking and will be provided with recovery materials to continue to educate self on how to cope with their condition without abusing substances. Patient currently undergoing alcohol withdrawal. Had a seizure last night that responded to Valium. 09/08/2020--today will be last day of Valium administration 09/07/2020ontinue Valium 2.5 mg p.o. twice daily 09/06/2020ontinue Valium 5 mg p.o. twice daily (2) Mood disorder: The patient was admitted to the [facility] ([facility]) on q15 min checks (behavioral with suicide precautions) for safety. The patient will participate in group, recreational, and milieu therapies and will be offered additional individual and family sessions as clinically appropriate. 09/08/2020--increase lithium to 450 mg twice daily, continue Seroquel 200 mg nightly 09/07/2020-- Continue with 300mg of lithium BID, continue with seroquel 200mg QHS. patient is improving 09/06/2020-- will start with 300 mg of lithium nightly tonight, and moved to a 300 mg twice daily dosing starting tomorrow Risk Factors Assessment Male: No : Yes Do You Have Access To A Gun?: No Health Problems: No Mental Health Diagnoses: Yes Substance Use Disorders: Yes Previous Attempt: No Previous Attempt; Highly Lethal: No Previous Attempt; Planned: No Previous Attempt; Didn't Tell Anyone: No Family History of Suicide: No Previous Psychiatric Hospitalization: No Protective Factors Assessment [employer] Beliefs: Yes : Yes Responsible for Young Children: No Stable Relationships: Yes Supportive Family: Yes Good Rapport with Provider: Yes Interval History Chief Complaint "I am okay". Review of Systems Sleep Information Total Hours of Sleep: 7 Sleep Comments: pt on q-15 minute checks Meal Information Percent Meal Consumed - Breakfast: 100 Percent Meal Consumed - Lunch: 75 Percent Meal Consumed - Dinner: 100 Nutrition Comment: pt. reports poor appetite; is drinking fluids adequately Subjective Subjective Patient was seen & assessed and interval progress reviewed with treatment team nursing and social work. Patient interviewed this morning. Reports that she slept well last night with an estimated 7 hours of sleep. States that her appetite is strong. Denies any headaches or withdrawal symptoms. No episodes of seizure overnight. Regarding her mood, patient reports feeling somewhat better. Showcasing some symptoms of depression. Denies suicidal ideation. No acute manic symptoms seen last night. Patient does have difficulty acknowledging some of her personal problems. Insight remains somewhat limited although patient is cooperative with treatment. Patient denies any side effects of the lithium administration at the increased dose. Instructed that she would have a level drawn in 2 days. Physical Exam Psychiatric Orientation: alert and oriented x 3 Apperance: appropriately dressed and appropriately groomed Eye Contact: good eye contact Motor Behavior: steady gait and station Speech: normal rate/rhythm/volume of speech Affect: euthymic affect and + labile affect Mood: + anxious mood Thought Process: goal directed thought process Thought Content: + paranoid, + delusions and + thought insertion Suicidal Thoughts: denies suicidal thoughts Homicidal Thoughts: denies homicidal thoughts Hallucinations: + auditory hallucinations Cognition: recent memory grossly intact Estimated Intelligence: average estimated intelligence Insight: + fair insight Judgement: + fair judgement Vital Signs (Past 24 Hours) Last Vital Signs Temp 36.3 C L 09/09/20 11:00 Pulse 90 09/09/20 11:00 Resp 16 09/09/20 06:00 BP 112/64 09/09/20 11:00 Pulse Ox 98 09/08/20 18:00 Results & Data ([facility]) Current Inpatient Medications Current Inpatient Medications: Current Inpatient Medications Acetaminophen (Acetaminophen 325 Mg Tab) 650 mg PO Q4H PRN PRN Reason: Headache or Minor Fever Stop: 10/05/20 17:39 Last Admin: 09/06/20 19:27 Dose: 650 mg Documented by: Al Hydrox/Mg Hydrox/Simethicone (Aluminum/Magnesium Susp 30 Ml Udc) 30 ml PO Q4H PRN PRN Reason: GI Upset Stop: 10/05/20 17:39 Bismuth Subsalicylate (Bismuth Subsalicylate Liqd 236 Ml) 15 ml PO PRN PRN PRN Reason: Loose Stool Stop: 10/05/20 17:39 Folic Acid (Folic Acid 1 Mg Tab) 1 mg PO QAM [facility] Stop: 10/06/20 08:59 Last Admin: 09/09/20 08:54 Dose: 1 mg Documented by: [place] Carbonate ([place] Carbonate 300 Mg Tab) 450 mg PO BID [facility] Stop: 10/08/20 20:59 Last Admin: 09/09/20 08:54 Dose: 450 mg Documented by: Lorazepam (Lorazepam 1 Mg Tab) 1 - 3 mg PO UD PRN; Protocol PRN Reason: EtoH Withdrawal AWSS 6-10+ Stop: 10/05/20 23:17 Magnesium Hydroxide (Magnesium Hydroxide Susp 30 Ml Udc) 30 ml PO DAILY PRN PRN Reason: Constipation Stop: 10/05/20 17:39 Miscellaneous (Remove Nicoderm Patch) 1 ea N/A DAILY@0859 [facility] Stop: 10/06/20 08:58 Last Admin: 09/09/20 08:54 Dose: Not Given Documented by: Nicotine (Nicotine 14 Mg/24 Hr Patch) [facility] Stop: 10/05/20 18:29 Last Admin: 09/09/20 08:54 Dose: 14 mg Documented by: Nicotine Polacrilex (Nicotine Polacrilex 2 Mg Gum) 1 piece MT PRN PRN PRN Reason: Nicotine cravings Stop: 10/05/20 18:11 Last Admin: 09/05/20 19:32 Dose: 1 piece Documented by: Quetiapine Fumarate (Quetiapine Fumarate 200 Mg Tab) 200 mg PO HS [facility] Stop: 10/05/20 21:59 Last Admin: 09/08/20 21:57 Dose: 200 mg Documented by: Sodium Chloride (Sodium Chloride 0.65% Na Soln 45 Ml ([place])) 1 - 2 sprays NA PRN PRN PRN Reason: Nasal Dryness/Congestion Stop: 10/05/20 17:39 Thiamine HCl (Thiamine Hcl 100 Mg Tab) 100 mg PO QAM [facility] Stop: 10/06/20 08:59 Last Admin: 09/09/20 08:55 Dose: 100 mg Documented by: Mental Health & Subst Abuse Tx Psychiatrist Name of Psychiatrist: Will be referred after therapy intake/confirmation of insurance Psychiatric Appointment Comment: will be referred after threapy intake Therapist Name of Therapist: Disha Ardon Therapist's Date of Therapist Appointment: 09/16/20 Time of Therapist Appointment: 11:30 am Therapy Appointment Comment: [address] [facility], [address], [place] Box Liner Name of Box Liner: DEBBIE D&A Box Liner Phone Number for Box Liner: [phone] Case Management Appointment Comment: referral made Post Discharge Appointments Primary Care Physician Name Of Family Doctor: MANNY Calderon Primary Care Date of Appointment with PCP: 09/15/20 Time of Appointment with PCP: 9:20 am Provider Appointment Comment: [address], [place] [address] Contact Information Discharge Discharge Address: [address] [place] [id number]
[2020-09-09] MEDS: QUEtiapine FUMARATE 200 MG TAB PO SCH (22:07)
[2020-09-10] MEDS: NICOTINE 14 MG/24 HR PATCH TD SCH (08:29)
[2020-09-10] MEDS: LITHIUM CARBONATE 300 MG TAB PO SCH (08:30)
[2020-09-10] MEDS: FOLIC ACID 1 MG TAB PO SCH (08:30)
[2020-09-10] MEDS: THIAMINE HCL 100 MG TAB PO SCH (08:31)
[2020-09-10] MEDS: NALTREXONE HCL 50 MG TAB PO SCH (14:23)
--- NOTE | 2020-09-10 16:45 | Psychiatric Progress Note ---
Date of Service September 10, 2020 Impression / Recommendations Impression 30-year-old female presenting with alcohol abuse that the patient states was used to cover up an underlying mood disorder. Given reported history of serious perceptual and mood disturbances, will begin treatment for bipolar spectrum disorders on a voluntary basis. (1) Alcohol abuse: The patient's use history suggests problematic substance use. Brief intervention was offered and accepted. Intervention was greater than 5 min in length and included assessing readiness to quit, advice on how to reduce or abstain, and to set a specific goal for this hospitalization. plant production worker will also assist in anticipating barriers to sobriety and in problem-solving for solutions to those problems while arranging for referral to appropriate treatment. The patient is in precontemplation stage with regards to transtheoretical model of change. The patient is advised to decrease consumption due to depressant effects and risk of interaction with prescription medications. The patient agreed to reduce her drinking and will be provided with recovery materials to continue to educate self on how to cope with their condition without abusing substances. 09/10/20- Seizure free today. Concrned about reapse in the community discussed with her benefits of using acomposate or naltrexone as additional chemical supports to therapy. patient agreeing to try them while here in the hospital, side effects discussed 09/08/2020--today will be last day of Valium administration 09/07/2020ontinue Valium 2.5 mg p.o. twice daily 09/06/2020ontinue Valium 5 mg p.o. twice daily (2) Mood disorder: The patient was admitted to the [facility] ([facility]) on q15 min checks (behavioral with suicide precautions) for safety. The patient will participate in group, recreational, and milieu therapies and will be offered additional individual and family sessions as clinically appropriate. - would continue lithium - however given patient use of alcohol and possibility of relapse on alcohol which could lead to dehydration and lithium toxicity , would decrease dose, no suicidality with improving mood- further u pward titration can be done as out patient if patient continues to stay stable off alcohol 09/08/2020--increase lithium to 450 mg twice daily, continue Seroquel 200 mg nightly 09/07/2020-- Continue with 300mg of lithium BID, continue with seroquel 200mg QHS. patient is improving 09/06/2020-- will start with 300 mg of lithium nightly tonight, and moved to a 300 mg twice daily dosing starting tomorrow Risk Factors Assessment Male: No : Yes Do You Have Access To A Gun?: No Health Problems: No Mental Health Diagnoses: Yes Substance Use Disorders: Yes Previous Attempt: No Previous Attempt; Highly Lethal: No Previous Attempt; Planned: No Previous Attempt; Didn't Tell Anyone: No Family History of Suicide: No Previous Psychiatric Hospitalization: No Protective Factors Assessment Yazidism Beliefs: Yes : Yes Responsible for Young Children: No Stable Relationships: Yes Supportive Family: Yes Good Rapport with Provider: Yes Interval History Chief Complaint "[I think I am doing better I feel better than yesterday]". Review of Systems Sleep Information Total Hours of Sleep: 7.25 Sleep Comments: pt on q-15 minute checks Meal Information Percent Meal Consumed - Breakfast: 100 Percent Meal Consumed - Lunch: 90 Percent Meal Consumed - Dinner: 100 Nutrition Comment: pt. reports poor appetite; is drinking fluids adequately Subjective Subjective Patient was seen & assessed and interval progress reviewed with nursing and social work. No seizures noted , has been off Valium for a full day. Patient also reports ongoing cravings of alcohol creative writer discussed if there would be concerns about staying abstinent in the community. Patient admitted that she is hoping" that therapy would work. Given limited supports in the [facility] creative writer discussed the option of using naltrexone. Patient very agreeable to giving this a try. "I really do want to do better" Physical Exam Psychiatric Orientation: alert and oriented x 3 Apperance: appropriately dressed and appropriately groomed Eye Contact: good eye contact Motor Behavior: steady gait and station Speech: normal rate/rhythm/volume of speech Affect: euthymic affect and + anxious affect; no labile affect Mood: + anxious mood Thought Process: goal directed thought process and clear/coherent thought process Thought Content: + guilt and + self deprecation; not paranoid, no delusions and no thought insertion Suicidal Thoughts: denies suicidal thoughts Homicidal Thoughts: denies homicidal thoughts Hallucinations: no auditory hallucinations and no visual hallucinations Cognition: recent memory grossly intact Estimated Intelligence: consistent with education level; + estimated intelligence not average Insight: + fair insight Judgement: + fair judgement Judgement and insit improed as patient reports willingness to deal with Alcohol problem Vital Signs (Past 24 Hours) Last Vital Signs Temp 36.6 C 09/10/20 14:24 Pulse 87 09/10/20 14:24 Resp 15 09/10/20 14:24 BP 113/80 09/10/20 14:24 Pulse Ox 98 09/08/20 18:00 Results & Data ([facility]) Current Inpatient Medications Current Inpatient Medications: Current Inpatient Medications Acetaminophen (Acetaminophen 325 Mg Tab) 650 mg PO Q4H PRN PRN Reason: Headache or Minor Fever Stop: 10/05/20 17:39 Last Admin: 09/06/20 19:27 Dose: 650 mg Documented by: Al Hydrox/Mg Hydrox/Simethicone (Aluminum/Magnesium Susp 30 Ml Udc) 30 ml PO Q4H PRN PRN Reason: GI Upset Stop: 10/05/20 17:39 Bismuth Subsalicylate (Bismuth Subsalicylate Liqd 236 Ml) 15 ml PO PRN PRN PRN Reason: Loose Stool Stop: 10/05/20 17:39 Folic Acid (Folic Acid 1 Mg Tab) 1 mg PO QAM [facility] Stop: 10/06/20 08:59 Last Admin: 09/10/20 08:30 Dose: 1 mg Documented by: [place] Carbonate ([place] Carbonate 300 Mg Tab) 450 mg PO QAM [facility] Stop: 10/11/20 08:59 Lorazepam (Lorazepam 1 Mg Tab) 1 - 3 mg PO UD PRN; Protocol PRN Reason: EtoH Withdrawal AWSS 6-10+ Stop: 10/05/20 23:17 Magnesium Hydroxide (Magnesium Hydroxide Susp 30 Ml Udc) 30 ml PO DAILY PRN PRN Reason: Constipation Stop: 10/05/20 17:39 Miscellaneous (Remove Nicoderm Patch) 1 ea N/A DAILY@0859 [facility] Stop: 10/06/20 08:58 Last Admin: 09/10/20 08:30 Dose: Not Given Documented by: Naltrexone HCl (Naltrexone Hcl 50 Mg Tab) 50 mg PO DAILY [facility] Stop: 10/10/20 12:59 Last Admin: 09/10/20 14:23 Dose: 50 mg Documented by: Nicotine (Nicotine 14 Mg/24 Hr Patch) 14 mg TD QAM [facility] Stop: 10/05/20 18:29 Last Admin: 09/10/20 08:29 Dose: 14 mg Documented by: Nicotine Polacrilex (Nicotine Polacrilex 2 Mg Gum) 1 piece MT PRN PRN PRN Reason: Nicotine cravings Stop: 10/05/20 18:11 Last Admin: 09/05/20 19:32 Dose: 1 piece Documented by: Quetiapine Fumarate (Quetiapine Fumarate 200 Mg Tab) 200 mg PO HS [facility] Stop: 10/05/20 21:59 Last Admin: 09/09/20 22:07 Dose: 200 mg Documented by: Sodium Chloride (Sodium Chloride 0.65% Na Soln 45 Ml ([place])) 1 - 2 sprays NA PRN PRN PRN Reason: Nasal Dryness/Congestion Stop: 10/05/20 17:39 Thiamine HCl (Thiamine Hcl 100 Mg Tab) 100 mg PO QAM [facility] Stop: 10/06/20 08:59 Last Admin: 09/10/20 08:31 Dose: 100 mg Documented by: Mental Health & Subst Abuse Tx Psychiatrist Name of Psychiatrist: Will be referred after therapy intake/confirmation of insurance Psychiatric Appointment Comment: will be referred after threapy intake Therapist Name of Therapist: Disha Ardon Therapist's Date of Therapist Appointment: 09/16/20 Time of Therapist Appointment: 11:30 am Therapy Appointment Comment: [address] [facility], [address], [place] Retail Sales Assistant Name of Retail Sales Assistant: DEBBIE D&A Retail Sales Assistant Phone Number for Retail Sales Assistant: [phone] Case Management Appointment Comment: Will follow up with you to schedule Post Discharge Appointments Primary Care Physician Name Of Family Doctor: MANNY Calderon Primary Care Date of Appointment with PCP: 09/15/20 Time of Appointment with PCP: 9:20 am Provider Appointment Comment: [id number], [place] [address] Contact Information Discharge Discharge Address: [address] [place] [id number]
[2020-09-10] MEDS: QUEtiapine FUMARATE 200 MG TAB PO SCH (22:30)
[2020-09-11] MEDS: NICOTINE 14 MG/24 HR PATCH TD SCH (07:49)
[2020-09-11] MEDS: LITHIUM CARBONATE 300 MG TAB PO SCH (08:38)
[2020-09-11] MEDS: FOLIC ACID 1 MG TAB PO SCH (08:38)
[2020-09-11] MEDS: THIAMINE HCL 100 MG TAB PO SCH (08:39)
[2020-09-11] MEDS: NALTREXONE HCL 50 MG TAB PO SCH (08:39)
--- NOTE | 2020-09-11 11:58 | Psychiatric Progress Note ---
Date of Service September 11, 2020 Impression / Recommendations Impression 30-year-old female presenting with alcohol abuse that the patient states was used to cover up an underlying mood disorder. Given reported history of serious perceptual and mood disturbances, will begin treatment for bipolar spectrum disorders on a voluntary basis. (1) Mood disorder: The patient was admitted to the [facility] ([facility] health unit) on q15 min checks (behavioral with suicide precautions) for safety. The patient will participate in group, recreational, and milieu therapies and will be offered additional individual and family sessions as clinically appropriate. 09/11/20 - lithium level pending for the am - has been off Valium now for 2 full days will monitor 1 more day for withdrawal symptoms - would continue lithium - however given patient use of alcohol and possibility of relapse on alcohol which could lead to dehydration and lithium toxicity , would decrease dose, no suicidality with improving mood- further upward titration can be done as out patient if patient continues to stay stable off alcohol 09/08/2020--increase lithium to 450 mg twice daily, continue Seroquel 200 mg nightly 09/07/2020-- Continue with 300mg of lithium BID, continue with seroquel 200mg QHS. patient is improving 09/06/2020-- will start with 300 mg of lithium nightly tonight, and moved to a 300 mg twice daily dosing starting tomorrow Risk Factors Assessment Male: No : Yes Do You Have Access To A Gun?: No Health Problems: No Mental Health Diagnoses: Yes Substance Use Disorders: Yes Previous Attempt: No Previous Attempt; Highly Lethal: No Previous Attempt; Planned: No Previous Attempt; Didn't Tell Anyone: No Family History of Suicide: No Previous Psychiatric Hospitalization: No Protective Factors Assessment Latter Day Beliefs: Yes : Yes Responsible for Young Children: No Stable Relationships: Yes Supportive Family: Yes Good Rapport with Provider: Yes Interval History Chief Complaint "[I think I had anxiety and that new medication made him feel bad"]". Review of Systems Sleep Information Total Hours of Sleep: 7 Sleep Comments: pt on q-15 minute checks Meal Information Percent Meal Consumed - Breakfast: 100 Percent Meal Consumed - Lunch: 90 Percent Meal Consumed - Dinner: 75 Nutrition Comment: pt. reports poor appetite; is drinking fluids adequately Subjective Subjective Patient was seen & assessed and interval progress reviewed with nursing and social work. Patient reports having what felt like an anxiety attack yesterday she blames it starting On the" new medication" she reports dizziness feeling like she was going to have a seizure patient does not want to continue the naltrexone. Patient denies any thoughts of suicide. Does report ongoing anx iety. Concerned that lithium may not be working yet. Patient's thought process continues to appear much slower. No evidence of response to internal stimuli. Physical Exam Psychiatric Orientation: alert and oriented x 3 Apperance: appropriately dressed and appropriately groomed Eye Contact: good eye contact Motor Behavior: steady gait and station Speech: normal rate/rhythm/volume of speech Affect: euthymic affect and + anxious affect; no labile affect Mood: + anxious mood Thought Process: goal directed thought process and clear/coherent thought process Thought Content: + guilt and + self deprecation; not paranoid, no delusions and no thought insertion Suicidal Thoughts: denies suicidal thoughts Homicidal Thoughts: denies homicidal thoughts Hallucinations: no auditory hallucinations and no visual hallucinations Cognition: recent memory grossly intact Estimated Intelligence: consistent with education level; + estimated intelligence not average Insight: + fair insight Judgement: + fair judgement Vital Signs (Past 24 Hours) Last Vital Signs Temp 36.5 C 09/11/20 10:14 Pulse 83 09/11/20 10:14 Resp 16 09/11/20 10:14 BP 104/72 09/11/20 10:14 Pulse Ox 98 09/11/20 10:14 Results & Data ([facility]) Current Inpatient Medications Current Inpatient Medications: Current Inpatient Medications Acetaminophen (Acetaminophen 325 Mg Tab) 650 mg PO Q4H PRN PRN Reason: Headache or Minor Fever Stop: 10/05/20 17:39 Last Admin: 09/06/20 19:27 Dose: 650 mg Documented by: Al Hydrox/Mg Hydrox/Simethicone (Aluminum/Magnesium Susp 30 Ml Udc) 30 ml PO Q4H PRN PRN Reason: GI Upset Stop: 10/05/20 17:39 Bismuth Subsalicylate (Bismuth Subsalicylate Liqd 236 Ml) 15 ml PO PRN PRN PRN Reason: Loose Stool Stop: 10/05/20 17:39 Folic Acid (Folic Acid 1 Mg Tab) 1 mg PO QAM KOREY Stop: 10/06/20 08:59 Last Admin: 09/11/20 08:38 Dose: 1 mg Documented by: Sebastian Carbonate (Sebastian Carbonate 300 Mg Tab) [facility] [place] [facility] Stop: 10/11/20 08:59 Last Admin: 09/11/20 08:38 Dose: 450 mg Documented by: Lorazepam (Lorazepam 1 Mg Tab) 1 - 3 mg PO UD PRN; Protocol PRN Reason: EtoH Withdrawal AWSS 6-10+ Stop: 10/05/20 23:17 Magnesium Hydroxide (Magnesium Hydroxide Susp 30 Ml Udc) 30 ml PO DAILY PRN PRN Reason: Constipation Stop: 10/05/20 17:39 Miscellaneous (Remove Nicoderm Patch) 1 ea N/A DAILY@0859 [facility] Stop: 10/06/20 08:58 Last Admin: 09/11/20 08:38 Dose: Not Given Documented by: Nicotine (Nicotine 14 Mg/24 Hr Patch) 14 mg TD [facility] [place] Stop: 10/05/20 18:29 Last Admin: 09/11/20 07:49 Dose: 14 mg Documented by: Nicotine Polacrilex (Nicotine Polacrilex 2 Mg Gum) 1 piece MT PRN PRN PRN Reason: Nicotine cravings Stop: 10/05/20 18:11 Last Admin: 09/05/20 19:32 Dose: 1 piece Documented by: Quetiapine Fumarate (Quetiapine Fumarate 200 Mg Tab) 200 mg PO [facility] Stop: 10/05/20 21:59 Last Admin: 09/10/20 22:30 Dose: 200 mg Documented by: Sodium Chloride (Sodium Chloride 0.65% Na Soln 45 Ml ([place])) 1 - 2 sprays NA PRN PRN PRN Reason: Nasal Dryness/Congestion Stop: 10/05/20 17:39 Thiamine HCl (Thiamine Hcl 100 Mg Tab) [facility] [place] Stop: 10/06/20 08:59 Last Admin: 09/11/20 08:39 Dose: 100 mg Documented by: Mental Health & Subst Abuse Tx Psychiatrist Name of Psychiatrist: Will be referred after therapy intake/confirmation of insurance Psychiatric Appointment Comment: will be referred after threapy intake Therapist Name of Therapist: Disha Ardon Therapist's Date of Therapist Appointment: 09/16/20 Time of Therapist Appointment: 11:30 am Therapy Appointment Comment: [address] [place] [address], [address], [place] Draw Hand Name of Draw Hand: [facility] D&A Draw Hand Phone Number for Draw Hand: [phone] Case Management Appointment Comment: Will follow up with you to schedule Post Discharge Appointments Primary Care Physician Name Of Family Doctor: MANNY Calderon Primary Care Date of Appointment with PCP: 09/15/20 Time of Appointment with PCP: 9:20 am Provider Appointment Comment: [address], [place] [address] Contact Information Discharge Discharge [address]: [address] [place] [id number]
[2020-09-11] MEDS: QUEtiapine FUMARATE 200 MG TAB PO SCH (21:30)
[2020-09-12] MEDS: NICOTINE 14 MG/24 HR PATCH TD SCH (08:40)
[2020-09-12] MEDS: FOLIC ACID 1 MG TAB PO SCH (08:40)
[2020-09-12] MEDS: THIAMINE HCL 100 MG TAB PO SCH (08:40)
[2020-09-12] MEDS: LITHIUM CARBONATE 300 MG TAB PO SCH (08:45)
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
== END 2020-09-12 12:25 | disposition home or self-care (01) | DRG 885 ==
LOC: 3S 17:30

== ENCOUNTER 2020-12-02 15:48 | Inpatient (IN) ==
--- NOTE | 2020-12-02 17:05 | Emergency Department Note ---
Impression & Plan Suicidal ideation, Alcohol use ED Provider Note NAME: STEPHANIE ONEILL AGE: 30 SEX: F : 1990 ARRIVES VIA: Walk-In INFORMANT: [Patient][] ED PROVIDER(S): [Corbin Becerril MD] CHIEF COMPLAINT: Mental health evaluation HISTORY OF PRESENT ILLNESS: The patient is a 30-year-old female who presents to the ED for a mental health evaluation. She is currently voluntary. The patient about 1 month ago, left the [facility]. She was feeling pretty good up until about a week ago. Now, she has no energy, no desire to do anything during the day and she is sleeping a lot. It is hard to get out of bed. She does not want to be here in the world but denies any active suicidal plan. She has been suicidal in the past but denies ever moving forward to try to hurt her self. The patient is not eating. She is not able to function at home. Her is at the bedside and confirms the above story. He does not believe that she can be discharged, he is in favor of a hospital stay. has filled out a 302 petition in case the patient were to change her mind about the voluntary stay. The patient denies any cough or cold or congestion. She has had no respiratory complaints. Her medical health has been baseline. REVIEW OF SYSTEMS: See HPI for pertinent positives and negatives. A total of ten systems were reviewed and were otherwise negative. PMHx/PSHx: See Below SOCIAL HISTORY: See Below. PHYSICAL EXAM: GENERAL: Patient is in no acute distress. HEENT: No acute trauma, normocephalic atraumatic, mucous membranes moist, no nasal congestion, no scleral icterus. NECK: No stridor, no adenopathy, no meningismus, trachea is midline. LUNGS: Clear to auscultation bilaterally, no wheeze, no rhonchi, breath sounds equal. HEART: Without murmurs gallops or rubs, regular rate and rhythm. ABDOMEN: Soft, nontender, bowel sounds positive, no hernias, no peritonitis. EXTREMITIES: No cyanosis or edema, full range of motion of all the joints without pain or difficulty, no signs for acute trauma. NEUROLOGIC: Oriented x 3, no acute motor or sensory deficits, no focal weakness. SKIN: No rash, no jaundice, no diaphoresis. Psychiatric: Flat affect. Admits to suicidal ideation but denies any true plan. Voluntary. DIFFERENTIAL DIAGNOSIS: Mood disorder, infection, hypoglycemia, electrolyte abnormalities, cardiac sources, suicidality, depression, anxiety, intracerebral event, toxicologic etiology, trauma, neurologic event, as well as other pathologies. EMERGENCY DEPARTMENT COURSE/PROCEDURES: MEDICAL DECISION MAKING: There is no leukocytosis or concerning anemia. There is a normal platelet count. No significant electrolyte abnormality or kidney failure. No concerning liver enzyme elevation. The patient appeared to be in a euthyroid state. Pr egnancy testing was negative. Urinalysis did not show infection. Aspirin and Tylenol levels were undetectable. Alcohol level was elevated at 159. [place] level was slightly low at 0.4. Urine tox was negative. The patient presents voluntarily for a psychiatric hospitalization. She was allowed to sit in the ED for a few hours so her alcohol could clear. Once she was felt sober, she was seen by psychiatry case management. The patient is agreeable with a voluntary hospital stay. She does feel suicidal although she has no true plan. She is not functioning at home. She has worsened in the last week or so. The patient's did fill out a 302 petition in case the patient tried to c hange her mind and go home. He did not feel that she was safe for discharge home. A bed search is underway. At this point, the case is being assumed by Dr. Wills at the change of shift. I did order for sublingual Ativan once and then a second time. She did well with this medication. This seemed to help keep her calm. Past Med/Surg History Medical History Alcohol withdrawal Anxiety Anxiety Bipolar disorder Insomnia Syncope Surgical History No pertinent past surgical history Family History Father Lung cancer Denies family history of Ovarian cancer Prostate cancer Myocardial infarction Breast cancer Colorectal cancer Social History Smoking Status: Never smoker Tobacco Type: E-cigarettes / Vaping Age Started Using Tobacco: 21; Second Hand Exposure: No; Hx Alcohol Use: Yes Alcohol type: hard liquor Alcohol Intake Frequency: Monthly or Less Hx Substance Use: No Preferred Language: Gambian Communication Ability: Effective Visual Impairment: No Limitations Hearing Ability: Normal Power Barker Operator Required: No Beliefs That Will Affect Care: None marital status: Current Living Situation: Spouse current occupational status: unemployed Feels Safe at Home: Yes Childhood Exposure to Second-Hand Smoke: No Dental Care, Regularly: No Physical Activity Frequency: 1-2 Times per Week Seatbelt Use: always Sunscreen Use: Yes Assistive Devices: None Allergies Allergies Allergy/AdvReac Type Severity Reaction Status Date / Time Antihistamines AdvReac Intermediate Anxiety Uncoded 11/03/20 20:32 Home Meds Previous Rx's Medication Instructions Recorded folic acid 1 mg tablet 1 mg PO QAM #30 tab 09/12/20 thiamine HCl (vitamin B1) 100 mg 100 mg PO QAM #30 tab 09/12/20 tablet (Vitamin B-1) trazodone 50 mg tablet 50 mg PO HS #30 tab 11/21/20 lithium carbonate 300 mg tablet 450 mg PO BID 30 Days #90 tab 11/29/20 quetiapine 100 mg tablet (Seroquel) 150 mg PO DAILY 30 Days #45 tab 11/29/20 Results & Data (ED) Vital Signs Vital Signs - 24 hr 12/02/20 16:01 12/02/20 19:21 Temperature 36.4 C L Temperature Source Temporal Artery Scan Pulse Rate 118 H Pulse Rate [Apical] 98 H Pulse Rhythm [Apical] Regular Pulse Strength [Apical] Normal Respiratory Rate 16 18 Respiratory Effort / Characteristics Non-Labored Respiratory Depth Normal Blood Pressure 116/78 Blood Pressure [Right Arm] 122/83 Blood Pressure Mean 90 Blood Pressure Mean [Right Arm] 96 Blood Pressure Position [Right Arm] Sitting Pulse Oximetry 98 98 Oxygen Delivery Method Room Air Sepsis Recent Fever Within 48 Hours No Sepsis New/Unexplained Change in Mental Status No Sepsis Action Taken by Nursing No Action Required Home Medications Current Medication List: was personally reviewed by me Laboratory Data Attestation: I reviewed the patient's lab results. Result diagrams: 12/02/20 17:30 12/02/20 17:30 Lab Results 12/02/20 12/02/20 12/02/20 Range/Units 16:09 16:09 17:10 WBC (4.8-10.8) K/uL RBC (4.2-5.4) M/uL Hgb (12.0-16.0) g/dL Hct (37-47) % MCV (80-100) fL MCH (25-34) pg MCHC (32-36) g/dL RDW Std Deviation (36.4-46.3) fL RDW Coeff of Kristyn (11.5-14.5) % Plt Count (130-400) K/uL MPV (7.4-10.4) fL Immature Gran % (Auto) % Neut % (Auto) % Lymph % (Auto) % Kleberg % (Auto) % Eos % (Auto) % Baso % (Auto) % Neut # (Auto) (1.4-6.5) K/uL Lymph # (Auto) (1.2-3.4) K/uL Kleberg # (Auto) (0.11-0.59) K/uL Eos # (Auto) (0-0.5) K/uL Baso # (Auto) (0-0.2) K/uL Immature Gran # (Auto) (0.00-0.02) K/uL Sodium (136-145) mmol/L Potassium (3.5-5.1) mmol/L Chloride (98-107) mmol/L Carbon Dioxide (21-32) mmol/L Anion Gap (3-11) BUN (7-18) mg/dl Creatinine (0.6-1.2) mg/dl Est Cr Clr Drug Dosing ml/min Est GFR ( Amer) ml/min Est GFR (Non-Af Amer) ml/min BUN/Creatinine Ratio (10-20) Glucose (70-99) mg/dl Calcium (8.5-10.1) mg/dl Total Bilirubin (0.2-1) mg/dl AST (15-37) U/L ALT (12-78) U/L Alkaline Phosphatase (45-117) U/L Total Protein (6.4-8.2) gm/dl Albumin (3.4-5.0) gm/dl Globulin (2.5-4.0) gm/dl Albumin/Globulin Ratio (0.9-2) TSH (0.300-4.500) uIu/ml HCG, Qual (Negative) Urine Color Yellow Urine Appearance Clear (Clear) Urine pH >= 9.0 H (4.5-7.5) Ur Specific [place] 1.018 (1.000-1.030) Urine Protein Negative (Negative) Urine Glucose (UA) Negative (Negative) Urine Ketones Negative (Negative) Urine Blood Negative (Negative) Urine Nitrite Negative (Negative) Urine Bilirubin Negative (Negative) Urine Urobilinogen Negative (Negative) Ur Leukocyte Esterase Negative (Negative) Salicylates (2.8-20) mg/dl Urine Opiates Screen Neg (Neg) Ur Methadone, Qual Neg (Neg) Acetaminophen (10-30) ug/ml Urine Barbiturates Neg (Neg) Ur Phencyclidine (PCP) Neg (Neg) U Amphetamin/Meth Scrn Neg (Neg) MDMA (Ecstasy) Screen Neg (Neg) U Benzodiazepines Scrn Neg (Neg) Cottonwood (0.6-1.2) mmol/L Ur Cocaine Metabolite Neg (Neg) U Marijuana (THC) Screen Neg (Neg) Ethyl Alcohol mg/dL (0-3) mg/dl COVID-19 Eval [facility] SARS-CoV-2, RNA, NAAT (NEGATIVE) 12/02/20 12/02/20 12/02/20 Range/Units 17:10 17:30 17:30 WBC (4.8-10.8) K/uL RBC (4.2-5.4) M/uL Hgb (12.0-16.0) g/dL Hct (37-47) % MCV (80-100) fL MCH (25-34) pg MCHC (32-36) g/dL RDW Std Deviation (36.4-46.3) fL RDW Coeff of Kristyn (11.5-14.5) % Plt Count (130-400) K/uL MPV (7.4-10.4) fL Immature Gran % (Auto) % Neut % (Auto) % Lymph % (Auto) % Kleberg % (Auto) % Eos % (Auto) % Baso % (Auto) % Neut # (Auto) (1.4-6.5) K/uL Lymph # (Auto) (1.2-3.4) K/uL Kleberg # (Auto) (0.11-0.59) K/uL Eos # (Auto) (0-0.5) K/uL Baso # (Auto) (0-0.2) K/uL Immature Gran # (Auto) (0.00-0.02) K/uL Sodium (136-145) mmol/L Potassium (3.5-5.1) mmol/L Chloride (98-107) mmol/L Carbon Dioxide (21-32) mmol/L Anion Gap (3-11) BUN (7-18) mg/dl Creatinine (0.6-1.2) mg/dl Est Cr Clr Drug Dosing ml/min Est GFR ( Amer) ml/min Est GFR (Non-Af Amer) ml/min BUN/Creatinine Ratio (10-20) Glucose (70-99) mg/dl Calcium (8.5-10.1) mg/dl Total Bilirubin (0.2-1) mg/dl AST (15-37) U/L ALT (12-78) U/L Alkaline Phosphatase (45-117) U/L Total Protein (6.4-8.2) gm/dl Albumin (3.4-5.0) gm/dl Globulin (2.5-4.0) gm/dl Albumin/Globulin Ratio (0.9-2) TSH (0.300-4.500) uIu/ml HCG, Qual Negative (Negative) Urine Color Urine Appearance (Clear) Urine pH (4.5-7.5) Ur Specific [place] (1.000-1.030) Urine Protein (Negative) Urine Glucose (UA) (Negative) Urine Ketones (Negative) Urine Blood (Negative) Urine Nitrite (Negative) Urine Bilirubin (Negative) Urine Urobilinogen (Negative) Ur Leukocyte Esterase (Negative) Salicylates 2.7 L (2.8-20) mg/dl Urine Opiates Screen (Neg) Ur Methadone, Qual (Neg) Acetaminophen < 2 L (10-30) ug/ml Urine Barbiturates (Neg) Ur Phencyclidine (PCP) (Neg) U Amphetamin/Meth Scrn (Neg) MDMA (Ecstasy) Screen (Neg) U Benzodiazepines Scrn (Neg) [place] 0.4 L (0.6-1.2) mmol/L Ur Cocaine Metabolite (Neg) U Marijuana (THC) Screen (Neg) Ethyl Alcohol mg/dL (0-3) mg/dl COVID-19 Eval Order SARS-CoV-2, RNA, NAAT NEGATIVE (NEGATIVE) 12/02/20 12/02/20 12/02/20 Range/Units 17:30 17:30 17:30 WBC 6.97 (4.8-10.8) K/uL RBC 4.12 L (4.2-5.4) M/uL Hgb 13.7 (12.0-16.0) g/dL Hct 40.4 (37-47) % MCV 98.1 (80-100) fL MCH 33.3 (25-34) pg MCHC 33.9 (32-36) g/dL RDW Std Deviation 47.4 H (36.4-46.3) fL RDW Coeff of Kristyn 13.3 (11.5-14.5) % Plt Count 287 (130-400) K/uL MPV 10.8 H (7.4-10.4) fL Immature Gran % (Auto) 0.3 % Neut % (Auto) 58.8 % Lymph % (Auto) 35.7 % Kleberg % (Auto) 4.4 % Eos % (Auto) 0.4 % Baso % (Auto) 0.4 % Neut # (Auto) 4.09 (1.4-6.5) K/uL Lymph # (Auto) 2.49 (1.2-3.4) K/uL Kleberg # (Auto) 0.31 (0.11-0.59) K/uL Eos # (Auto) 0.03 (0-0.5) K/uL Baso # (Auto) 0.03 (0-0.2) K/uL Immature Gran # (Auto) 0.02 (0.00-0.02) K/uL Sodium 139 (136-145) mmol/L Potassium 4.3 (3.5-5.1) mmol/L Chloride 110 H (98-107) mmol/L Carbon Dioxide 25 (21-32) mmol/L Anion Gap 4.0 (3-11) BUN 6 L (7-18) mg/dl Creatinine 0.85 (0.6-1.2) mg/dl Est Cr Clr Drug Dosing 95.8 ml/min Est GFR ( Amer) 108.1 ml/min Est GFR (Non-Af Amer) 93.2 ml/min BUN/Creatinine Ratio 7.0 L (10-20) Glucose 104 H (70-99) mg/dl Calcium 8.4 L (8.5-10.1) mg/dl Total Bilirubin 0.4 (0.2-1) mg/dl AST 21 (15-37) U/L ALT 28 (12-78) U/L Alkaline Phosphatase 98 (45-117) U/L Total Protein 7.6 (6.4-8.2) gm/dl Albumin 4.0 (3.4-5.0) gm/dl Globulin 3.6 (2.5-4.0) gm/dl Albumin/Globulin Ratio 1.1 (0.9-2) TSH 1.030 (0.300-4.500) uIu/ml HCG, Qual (Negative) Urine Color Urine Appearance (Clear) Urine pH (4.5-7.5) Ur Specific [place] (1.000-1.030) Urine Protein (Negative) Urine Glucose (UA) (Negative) Urine Ketones (Negative) Urine Blood (Negative) Urine Nitrite (Negative) Urine Bilirubin (Negative) Urine Urobilinogen (Negative) Ur Leukocyte Esterase (Negative) Salicylates (2.8-20) mg/dl Urine Opiates Screen (Neg) Ur Methadone, Qual (Neg) Acetaminophen (10-30) ug/ml Urine Barbiturates (Neg) Ur Phencyclidine (PCP) (Neg) U Amphetamin/Meth Scrn (Neg) MDMA (Ecstasy) Screen (Neg) U Benzodiazepines Scrn (Neg) [place] (0.6-1.2) mmol/L Ur Cocaine Metabolite (Neg) U Marijuana (THC) Screen (Neg) Ethyl Alcohol mg/dL 159.0 H (0-3) mg/dl COVID-19 Eval Order SARS-CoV-2, RNA, NAAT (NEGATIVE) Administered Medications Discontinued Medications Lorazepam (Lorazepam 1 Mg Tab) 1 mg SL NOW STA Stop: 12/02/20 18:07 Last Admin: 12/02/20 18:16 Dose: 1 mg Documented by: [id number] Lorazepam (Lorazepam 1 Mg Tab) 2 mg SL NOW STA Stop: 12/02/20 22:14 Last Admin: 12/02/20 22:22 Dose: 2 mg Documented by: [id number] Discharge Plan Visit Data Chief Complaint: Mental Health Evaluation Stated Complaint: SUICIDAL ED Provider: Corbin Becerril Discharge Problem: Suicidal ideation, Alcohol use Patient Disposition: Still a Patient Condition: Fair Forms Stand Alone Forms: [facility], Suicide Prevention Resources Prescriptions Prescriptions: No Action trazodone 50 mg tablet 50 mg PO HS Qty: 30 RF: 0 lithium carbonate 300 mg tablet 450 mg PO BID 30 Days Qty: 90 RF: 2 quetiapine [Seroquel] 100 mg tablet 150 mg PO DAILY 30 Days Qty: 45 RF: 2 thiamine HCl (vitamin B1) [Vitamin B-1] 100 mg Tablet 100 mg PO QAM Qty: 30 RF: 0 folic acid 1 mg Tablet 1 mg PO QAM Qty: 30 RF: 0 Referrals Referrals: Erlin Calderon III, CRNP [Primary Care Provider] -
[2020-12-02 17:14] LABS: Appearance Urine Clear (Clear); Bilirubin Urine Negative (Negative); Blood Urine Negative (Negative); Color Urine Yellow; Glucose Urine UA Negative (Negative); Ketones Urine Negative (Negative); Leukocyte Esterase Urine Negative (Negative); Nitrite Urine Negative (Negative); Protein Urine Negative (Negative); Specific Gravity Urine 1.018 (1.000-1.030); Urobilinogen Urine Negative (Negative); pH Urine >= 9.0 (4.5-7.5)
[2020-12-02 17:53] LABS: Basophils # (auto) 0.03 K/uL (0-0.2); Basophils % (auto) 0.4 %; Eosinophils # (auto) 0.03 K/uL (0-0.5); Eosinophils % (auto) 0.4 %; Hematocrit (blood only) 40.4 % (37-47); Hemoglobin 13.7 g/dL (12.0-16.0); Immature Granulocytes # (auto) 0.02 K/uL (0.00-0.02); Immature Granulocytes % (auto) 0.3 %; Lymphocytes # (auto) 2.49 K/uL (1.2-3.4); Lymphocytes % (auto) 35.7 %; Mean Corpuscular Hemoglobin 33.3 pg (25-34); Mean Corpuscular Hgb Conc 33.9 g/dL (32-36); Mean Corpuscular Volume 98.1 fL (80-100); Mean Platelet Volume 10.8 fL (7.4-10.4); Monocytes # (auto) 0.31 K/uL (0.11-0.59); Monocytes % (auto) 4.4 %; Neutrophils # (auto) 4.09 K/uL (1.4-6.5); Neutrophils % (auto) 58.8 %; Platelet Count 287 K/uL (130-400); RDW Coefficient of Variation 13.3 % (11.5-14.5); RDW Standard Deviation 47.4 fL (36.4-46.3); Red Blood Count 4.12 M/uL (4.2-5.4); White Blood Count 6.97 K/uL (4.8-10.8)
[2020-12-02 17:57] LABS: Amphetamines+Metham, Urine Neg (Neg); Barbiturates, Urine Neg (Neg); Benzodiazepine, Urine Neg (Neg); Cocaine, Urine Neg (Neg); MDMA (Ecstacy), Urine Neg (Neg); Methadone, Urine Neg (Neg); Opiate, Urine Neg (Neg); Phencyclidine, Urine Neg (Neg)
[2020-12-02] MEDS ORDERED: LORazepam 1 MG TAB SL STA ×2 (18:06→22:13)
[2020-12-02 18:17] LABS: Calcium 8.4 mg/dl (8.5-10.1); Creatinine Clr Calc Pharmacy 95.8 ml/min; Est GFR (African American) 108.1 ml/min; Est GFR (Non-African American) 93.2 ml/min; Potassium 4.3 mmol/L (3.5-5.1)
[2020-12-02 18:27] LABS: Albumin Globulin Ratio 1.1 (0.9-2); Bilirubin,Total 0.4 mg/dl (0.2-1); Globulin 3.6 gm/dl (2.5-4.0); Pregnancy Test, Serum Negative (Negative); Thyroid Stimulating Hormone 1.03 uIu/ml (0.300-4.500); Total Protein 7.6 gm/dl (6.4-8.2)
[2020-12-02 18:29] LABS: Acetaminophen < 2 ug/ml (10-30); Lithium 0.4 mmol/L (0.6-1.2); Salicylate 2.7 mg/dl (2.8-20)
[2020-12-02] MEDS ORDERED: LITHIUM ORAL SOLN 300MG/5 ML UDP PO STA (23:33)
[2020-12-02] MEDS ORDERED: QUEtiapine FUMARATE 200 MG TAB PO STA (23:33)
[2020-12-02] MEDS ORDERED: traZODone HCL 50 MG TAB PO ONE (23:33)
[2020-12-02] MEDS ORDERED: LITHIUM CARBONATE 450 MG TABCR PO STA (23:41)
--- NOTE | 2020-12-02 23:46 | Emergency Department Note ---
ED Visit Note ED Physician Sign Out Note: 30 yr old female with depression history who recently was admitted to psychiatric hospital. She arrived intoxicated and requesting hospitalization for suicidal ideation. She was given ativan for anxiety earlier in day and has been medically cleared after sobering. She was signed out to me by Dr Jone manzano. On evaluation patient tremulous though able to ambulate to bathroom without difficulty. Mildly tachycardic and further discussion with Psychiatrist concern for alcohol withdrawal. Previous history includes seizure from withdrawal on psych unit. Hospitalist consulted for medical management and then psych evaluation. IV with banana bag ordered as well. Mauricio Wills MD
[2020-12-03] MEDS ORDERED: LORazepam 1 MG TAB PO STA (00:17)
[2020-12-03] MEDS ORDERED: MULTI-VITAMIN INFUSION 10 ML, THIAMINE HCL 100 MG, FOLIC ACID 1 MG in SODIUM CHLORIDE 0... IV ONE (00:19)
--- NOTE | 2020-12-03 00:51 | History & Physical Report ---
Date of Service December 03, 2020 Assessment & Plan (1) Suicidal ideation: Plan: Suicidal ideation/bipolar disorder/anxiety/depression- Continue current regimen of lithium carbonate, quetiapine and trazodone Admit to monitored bed Consult psychiatry One-on-one as needed (2) Bipolar disorder: Plan: See above (3) Anxiety: Plan: See above (4) Alcohol withdrawal: Plan: Alcohol withdrawal/alcohol abuse- Admit to monitored bed AWSS protocol Being given a banana bag by the ED NSS plus KCl 20 mEq at 100 mils per hour Thiamine 100 mg p.o. daily Folic acid 1 mg p.o. daily (5) Alcohol abuse: Plan: Patient is had 2 previous admissions this year here: 07/27/2020, and 09/03/2020 History of Present Illness Chief Complaint: The patient is brought to the emergency department for mental health evaluation and concerns regarding alcohol abuse Primary Care Provider: Erlin Calderon III, [place] The patient is a 30-year-old female with a past medical history including bipolar disorder, alcohol abuse, anxiety and insomnia. She is brought to the emergency department for assessment, with her present, due to concerns regarding lack of energy no desire to do anything and sleeping a lot. She does not have a specific suicide plan. She was admitted at a [facility] facility, where she left 1 month ago. Her at bedside confirms that she is not functional at home. She is not eating, has had weight loss, and she continues to have excessive alcohol use. While waiting for a psychiatry inpatient bed, the ED physician felt the patient was started to go through alcohol withdrawal, and asked that the patient be admitted to medical service Allergies Allergy/AdvReac Type Severity Reaction Status Date / Time Antihistamines AdvReac Intermediate Anxiety Uncoded 11/03/20 20:32 Home Medications Medication Instructions Recorded Confirmed Type trazodone 50 mg tablet 50 mg PO HS #30 tab 11/21/20 12/02/20 Rx lithium carbonate 300 mg tablet 450 mg PO BID 30 Days #90 tab 11/29/20 12/02/20 Rx quetiapine 100 mg tablet (Seroquel) 150 mg PO DAILY 30 Days #45 tab 11/29/20 12/02/20 Rx Past Med/Surg History Medical History (Updated 12/03/20 @ 01:49 by Cornelius Garcia MD) Alcohol withdrawal Anxiety Anxiety Bipolar disorder Insomnia Syncope Surgical History No pertinent past surgical history Family History Father Lung cancer Denies family history of Ovarian cancer Prostate cancer Myocardial infarction Breast cancer Colorectal cancer Social History Smoking Status: Never smoker Tobacco Type: E-cigarettes / Vaping Age Started Using Tobacco: 21; Second Hand Exposure: No; Hx Alcohol Use: Yes Alcohol type: hard liquor Alcohol Intake Frequency: Monthly or Less Hx Substance Use: No Preferred Language: Slovak Communication Ability: Effective Visual Impairment: No Limitations Hearing Ability: Normal Wool Fleece Sorter Required: No Beliefs That Will Affect Care: None marital status: Current Living Situation: Spouse current occupational status: unemployed Feels Safe at Home: Yes Childhood Exposure to Second-Hand Smoke: No Dental Care, Regularly: No Physical Activity Frequency: 1-2 Times per Week Seatbelt Use: always Sunscreen Use: Yes Assistive Devices: None Review of Systems Review of Systems: The patient denies chest pain, palpitations, shortness of breath, dyspnea on exertion, cough, lower extremity swelling, sore throat, fevers, chills, sweats, vomiting, diarrhea , constipation, abdominal pain, pelvic pain, blood in urine or stool, dysuria, urinary frequency or urgency, lightheadedness, dizziness, headache, memory loss, loss of consciousness, rash, abnormal bruising or bleeding, focal or generalized weakness, numbness or tingling in arms or legs, generalized arthralgias or myalgias, back or neck pain, or night sweats. The review of systems is otherwise negative other than for that already noted above, and at least 10 systems have been reviewed. Physical Exam Physical Exam: The patient is awake, alert and oriented 3, well developed and well nourished, normocephalic and atraumatic, lying in bed and in no acute distress. HEENT--PERRL, EOMI, mucous membranes and oropharynx dry. Neck--supple. No JVD. No bruits. Thyroid normal, trachea midline, no adenopathy. Heart--normal S1 and S2. No murmurs, rubs or gallops. Lungs--clear bilaterally, no respiratory distress, no accessory muscle use. Abdomen--normal bowel sounds and soft. Nontender. Nondistended, no hernias or masses, no organomegaly. Extremities--no cyanosis or clubbing. No edema. Dermatologic--normal skin turgor, normal color, no abnormal lymph nodes, no rash. Neurologic--cranial nerves II through XII grossly intact. Rheumatologic--normal range of motion. Psychiatric--depressed Results & Data Results & Data ([facility]) Vital Signs (Past 12 Hours) Vital Signs Temp Pulse Pulse Resp BP BP Pulse Ox 12/02/20 19:21 98 H 18 122/83 98 12/02/20 16:01 97.5 F L 118 H 16 116/78 98 Laboratory Results Laboratory Results WBC 6.97 K/uL (4.8-10.8) 12/02/20 17:30 RBC 4.12 M/uL (4.2-5.4) L 12/02/20 17:30 Hgb 13.7 g/dL (12.0-16.0) 12/02/20 17:30 Hct 40.4 % (37-47) 12/02/20 17:30 MCV 98.1 fL (80-100) 12/02/20 17:30 MCH 33.3 pg (25-34) 12/02/20 17:30 MCHC 33.9 g/dL (32-36) 12/02/20 17:30 RDW Std Deviation 47.4 fL (36.4-46.3) H 12/02/20 17:30 RDW Coeff of Kristyn 13.3 % (11.5-14.5) 12/02/20 17:30 Plt Count 287 K/uL (130-400) 12/02/20 17:30 MPV 10.8 fL (7.4-10.4) H 12/02/20 17:30 Immature Gran % (Auto) 0.3 % 12/02/20 17:30 Neut % (Auto) 58.8 % 12/02/20 17:30 Lymph % (Auto) 35.7 % 12/02/20 17:30 Charles % (Auto) 4.4 % 12/02/20 17:30 Eos % (Auto) 0.4 % 12/02/20 17:30 Baso % (Auto) 0.4 % 12/02/20 17:30 Neut # (Auto) 4.09 K/uL (1.4-6.5) 12/02/20 17:30 Lymph # (Auto) 2.49 K/uL (1.2-3.4) 12/02/20 17:30 Charles # (Auto) 0.31 K/uL (0.11-0.59) 12/02/20 17:30 Eos # (Auto) 0.03 K/uL (0-0.5) 12/02/20 17:30 Baso # (Auto) 0.03 K/uL (0-0.2) 12/02/20 17:30 Immature Gran # (Auto) 0.02 K/uL (0.00-0.02) 12/02/20 17:30 Sodium 139 mmol/L (136-145) 12/02/20 17:30 Potassium 4.3 mmol/L (3.5-5.1) 12/02/20 17:30 Chloride 110 mmol/L (98-107) H 12/02/20 17:30 Carbon Dioxide 25 mmol/L (21-32) 12/02/20 17:30 Anion Gap 4.0 (3-11) 12/02/20 17:30 BUN 6 mg/dl (7-18) L 12/02/20 17:30 Creatinine 0.85 mg/dl (0.6-1.2) 12/02/20 17:30 Est Cr Clr Drug Dosing 95.8 ml/min 12/02/20 17:30 Est GFR ( Amer) 108.1 ml/min 12/02/20 17:30 Est GFR (Non-Af Amer) 93.2 ml/min 12/02/20 17:30 BUN/Creatinine Ratio 7.0 (10-20) L 12/02/20 17:30 Glucose 104 mg/dl (70-99) H 12/02/20 17:30 Calcium 8.4 mg/dl (8.5-10.1) L 12/02/20 17:30 Total Bilirubin 0.4 mg/dl (0.2-1) 12/02/20 17:30 AST 21 U/L (15-37) 12/02/20 17:30 ALT 28 U/L (12-78) 12/02/20 17:30 Alkaline Phosphatase 98 U/L (45-117) 12/02/20 17:30 Total Protein 7.6 gm/dl (6.4-8.2) 12/02/20 17:30 Albumin 4.0 gm/dl (3.4-5.0) 12/02/20 17:30 Globulin 3.6 gm/dl (2.5-4.0) 12/02/20 17:30 Albumin/Globulin Ratio 1.1 (0.9-2) 12/02/20 17:30 TSH 1.030 uIu/ml (0.300-4.500) 12/02/20 17:30 HCG, Qual Negative (Negative) 12/02/20 17:30 Urine Color Yellow 12/02/20 16:09 Urine Appearance Clear (Clear) 12/02/20 16:09 Urine pH >= 9.0 (4.5-7.5) H 12/02/20 16:09 Ur Specific [place] 1.018 (1.000-1.030) 12/02/20 16:09 Urine Protein Negative (Negative) 12/02/20 16:09 Urine Glucose (UA) Negative (Negative) 12/02/20 16:09 Urine Ketones Negative (Negative) 12/02/20 16:09 Urine Blood Negative (Negative) 12/02/20 16:09 Urine Nitrite Negative (Negative) 12/02/20 16:09 Urine Bilirubin Negative (Negative) 12/02/20 16:09 Urine Urobilinogen Negative (Negative) 12/02/20 16:09 Ur Leukocyte Esterase Negative (Negative) 12/02/20 16:09 Salicylates 2.7 mg/dl (2.8-20) L 12/02/20 17:30 Urine Opiates Screen Neg (Neg) 12/02/20 16:09 Ur Methadone, Qual Neg (Neg) 12/02/20 16:09 Acetaminophen < 2 ug/ml (10-30) L 12/02/20 17:30 Urine Barbiturates Neg (Neg) 12/02/20 16:09 Ur Phencyclidine (PCP) Neg (Neg) 12/02/20 16:09 U Amphetamin/Meth Scrn Neg (Neg) 12/02/20 16:09 MDMA (Ecstasy) Screen Neg (Neg) 12/02/20 16:09 U Benzodiazepines Scrn Neg (Neg) 12/02/20 16:09 [place] 0.4 mmol/L (0.6-1.2) L 12/02/20 17:30 Ur Cocaine Metabolite Neg (Neg) 12/02/20 16:09 U Marijuana (THC) Screen Neg (Neg) 12/02/20 16:09 Ethyl Alcohol mg/dL 159.0 mg/dl (0-3) H 12/02/20 17:30 COVID-19 Eval Order Covid19 IDNow [facility] 12/02/20 17:10 SARS-CoV-2, RNA, NAAT NEGATIVE (NEGATIVE) 12/02/20 17:10 Code Status & VTE Plan Code Status Full code VTE Prophylaxis Plan VTE Prophylaxis will be ordered: Yes PG Care Time/CCT Total # of Minutes Spent Total Time Spent with Patient: Total time spent is greater than 50% in coordination of care (as documented) at patient's floor/unit and/or counseling patient: Coding Level of Care Code INT OBSERVATION CARE 70M LVL 3 Diagnoses Suicidal ideation R45.851 Bipolar disorder F31.32 Active/Remission status: currently active Current bipolar episode type: depressed Current episode severity: moderate Anxiety F41.9 Alcohol abuse F10.10 Alcohol withdrawal F10.230 Complication of substance-induced condition: uncomplicated (1) Bipolar disorder Active/Remission status: currently active Current bipolar episode type: depressed Current episode severity: moderate Qualified Code(s): F31.32 - Bipolar disorder, current episode depressed, moderate (2) Alcohol withdrawal Complication of substance-induced condition: uncomplicated Qualified Code(s): F10.230 - Alcohol dependence with withdrawal, uncomplicated
[2020-12-03] MEDS ORDERED: ACETAMINOPHEN 325 MG TAB ONE (01:00)
[2020-12-03] MEDS ORDERED: LORazepam 1 MG/2 ML VIAL IV PRN (05:41)
[2020-12-03] MEDS ORDERED: LORazepam 2 MG/4 ML VIAL IV PRN (05:41)
[2020-12-03] MEDS ORDERED: ONDANSETRON INJ 2 MG/ML 2 ML VIAL IV PRN (05:41)
[2020-12-03] MEDS ORDERED: LORazepam 3 MG/6 ML VIAL IV PRN (05:41)
[2020-12-03] MEDS ORDERED: ACETAMINOPHEN 325 MG TAB PO PRN (05:41)
[2020-12-03] MEDS ORDERED: ATIVAN IV ALCOHOL WITHDRAWL IV PRN (05:41)
[2020-12-03] MEDS: NSS + 20MEQ KCL 20 MEQ/1,000 ML BAG IV SCH ×2 (07:36→17:26)
[2020-12-03] MEDS: LITHIUM CARBONATE 450 MG TABCR PO SCH ×2 (08:49→22:17)
[2020-12-03] MEDS: THIAMINE HCL 100 MG in SYRINGE 9 ML IV SCH (08:49)
[2020-12-03] MEDS: FOLIC ACID 1 MG TAB PO SCH (08:49)
--- NOTE | 2020-12-03 10:25 | Communication Note ---
Date of Service: December 03, 2020 Psych ok to remove suicide precautions. This order will be cancelled.
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
[2020-12-03] MEDS: QUEtiapine FUMARATE 100 MG TABLET PO SCH (22:17)
[2020-12-03] MEDS: traZODone HCL 50 MG TAB PO SCH (22:17)
[2020-12-04] MEDS: NSS + 20MEQ KCL 20 MEQ/1,000 ML BAG IV SCH ×3 (03:17→21:47)
[2020-12-04] MEDS: LITHIUM CARBONATE 450 MG TABCR PO SCH ×2 (08:22→21:47)
[2020-12-04] MEDS: THIAMINE HCL 100 MG in SYRINGE 9 ML IV SCH (08:22)
[2020-12-04] MEDS: FOLIC ACID 1 MG TAB PO SCH (08:22)
[2020-12-04] MEDS: PSYLLIUM 58.6% POWDER PACKET PO SCH (13:57)
--- NOTE | 2020-12-04 20:59 | Hospitalist Progress Note ---
Date of Service December 04, 2020 Assessment & Plan (1) Suicidal ideation: Plan: Suicidal ideation/bipolar disorder/anxiety/depression- Continue current regimen of lithium carbonate, quetiapine and trazodone Admit to monitored bed Consult psychiatry: appreciate input Patient is now off one to one. Discharge held as patient remains distraught and will give PRN dose of benzo. Also concern over withdrawal. (2) Bipolar disorder: Plan: See above (3) Anxiety: Plan: See above (4) Alcohol withdrawal: Plan: Alcohol withdrawal/alcohol abuse- Admit to monitored bed AWSS protocol Being given a banana bag by the ED NSS plus KCl 20 mEq at 100 mils per hour Thiamine 100 mg p.o. daily Folic acid 1 mg p.o. daily (5) Alcohol abuse: Plan: Patient is had 2 previous admissions this year here: 07/27/2020, and 09/03/2020 Admission and Anticipated Discharge Date Admission Date: December 03, 2020 Subjective Patient reports feeling very anxious this afternoon. She is distraught and crying. Review of Systems Review of Systems: The patient denies chest pain, palpitations, shortness of breath, dyspnea on exertion, cough, lower extremity swelling, sore throat, fevers, chills, sweats, vomiting, diarrhea , constipation, abdominal pain, pelvic pain, blood in urine or stool, dysuria, urinary frequency or urgency, lightheadedness, dizziness, headache, memory loss, loss of consciousness, rash, abnormal bruising or bleeding, focal or generalized weakness, numbness or tingling in arms or legs, generalized arthralgias or myalgias, back or neck pain, or night sweats. The review of systems is otherwise negative other than for that already noted above, and at least 10 systems have been reviewed. Physical Exam Physical Exam: The patient is awake, alert and oriented 3, crying in bed. HEENT--PERRL, EOMI. Neck--supple. No JVD. No bruits. Thyroid normal, trachea midline, no adenopathy. Heart--normal S1 and S2. No murmurs, rubs or gallops. Lungs--clear bilaterally, no respiratory distress, no accessory muscle use. Abdomen--normal bowel sounds and soft. Nontender. Nondistended, no hernias or masses, no organomegaly. Extremities--no cyanosis or clubbing. No edema. Rheumatologic--normal range of motion. Psychiatric--depressed Results & Data Results & Data ([facility]) Vital Signs (Past 12 Hours) Vital Signs Temp Pulse Resp BP Pulse Ox 12/04/20 19:33 36.9 C 80 18 127/89 97 12/04/20 14:59 36.8 C 75 15 113/77 99 12/04/20 11:04 37 C 70 15 107/73 98 PG Care Time/CCT Total # of Minutes Spent Total Time Spent with Patient: Total time spent is greater than 50% in coordination of care (as documented) at patient's floor/unit and/or counseling patient: Coding Level of Care Code 26195 Subseq Hosp Care Lvl 2 Diagnoses Suicidal ideation R45.851 Bipolar disorder F31.32 Active/Remission status: currently active Current bipolar episode type: depressed Current episode severity: moderate Anxiety F41.9 Alcohol withdrawal F10.230 Complication of substance-induced condition: uncomplicated Alcohol abuse F10.10 Time Spent (min) 25 (1) Alcohol withdrawal Complication of substance-induced condition: uncomplicated Qualified Code(s): F10.230 - Alcohol dependence with withdrawal, uncomplicated (2) Bipolar disorder Active/Remission status: currently active Current bipolar episode type: depressed Current episode severity: moderate Qualified Code(s): F31.32 - Bipolar disorder, current episode depressed, moderate
[2020-12-04] MEDS: QUEtiapine FUMARATE 100 MG TABLET PO SCH (21:47)
[2020-12-04] MEDS: traZODone HCL 50 MG TAB PO SCH (21:47)
[2020-12-05] MEDS: NSS + 20MEQ KCL 20 MEQ/1,000 ML BAG IV SCH (07:49)
[2020-12-05] MEDS: FOLIC ACID 1 MG TAB PO SCH (08:38)
[2020-12-05] MEDS: PSYLLIUM 58.6% POWDER PACKET PO SCH (08:38)
[2020-12-05] MEDS: LITHIUM CARBONATE 450 MG TABCR PO SCH (08:38)
[2020-12-05] MEDS ORDERED: NICOTINE 7 MG/24 HR TDSY TD SCH (09:00)
[2020-12-05] MEDS ORDERED: THIAMINE HCL 100 MG TAB PO SCH (09:00)
--- NOTE | 2020-12-05 11:18 | Discharge Summary ---
Date of Service December 05, 2020 Admission HPI Per Admitting Provider The patient is a 30-year-old female with a past medical history including bipolar disorder, alcohol abuse, anxiety and insomnia. She is brought to the emergency department for assessment, with her present, due to concerns regarding lack of energy no desire to do anything and sleeping a lot. She does not have a specific suicide plan. She was admitted at a [facility], where she left 1 month ago. Her at bedside confirms that she is not functional at home. She is not eating, has had weight loss, and she continues to have excessive alcohol use. While waiting for a psychiatry in patient bed, the ED physician felt the patient was started to go through alcohol withdrawal, and asked that the patient be admitted to medical service Principal Diagnosis Alcohol intoxication, suicidal ideation Discharge Exam Constitutional WD/WN, vitals as above ENMT external ear and nose normal, oropharynx normal Respiratory normal respiratory effort, lungs clear to auscultation Cardiovascular RRR, no murmur, no edema Gastrointestinal (Abdomen) Percussion/Palpation: abdomen soft; abdomen nontender Neurologic moves all extremities and awake; not confused Motor/Sensory: no tremor Psychiatric A+Ox3, euthymic affect Discharge Data Allergies Allergy/AdvReac Type Severity Reaction Status Date / Time Antihistamines AdvReac Intermediate Anxiety Uncoded 11/03/20 20:32 Consultations 12/03/20 00:17 ED Decision to Admit Stat 12/03/20 05:41 Consult Psychiatry Routine Hospital Course (1) Suicidal ideation: (2) Bipolar disorder: (3) Anxiety: (4) Alcohol withdrawal: (5) Alcohol abuse: Maddy Pope is a 30 year old female admitted to [facility] from December 03 - 2020 due to alcohol use, reduced energy and increased sleeping. Suspect her symptoms are due to chronic alcohol use. She was cleared by psychiatry with no change to her chronic bipolar medications. She required lorazepam for alcohol withdrawal initially but nothing within 24 hours of discharge and currently not having any alcohol withdrawal symptoms. Recommend starting supplements to avoid nutritional deficiencies with multivitamin, B complex, folate and thiamine on discharge as prescribed. She was encouraged to stop smoking and nicotine patch prescribed on discharge. Total Time Total Time Spent Total Time Spent (In Minutes): 35 Discharge Plan Discharge Items Patient Disposition: Home - Self-Care Reason For Visit: ALCOHOL WITHDRAWAL,SUICIDAL IDEATION Discharge Diagnosis: Alcohol intoxication, suicidal ideation Condition on Discharge: Fair Activity: Resume your previous activity Non-emergency contact: Primary Care Provider Call non-emergency contact if: you have any medication questions and your symptoms worsen Follow-up/Referrals: Erlin Calderon III, CRNP [Primary Care Provider] - Diet: Regular Addtl Attending Provider Instructions: You were admitted to [facility] from December 03 - 2020 due to alcohol use, reduced energy and increased sleeping. Suspect your symptoms are due to chronic alcohol use. You were cleared by psychiatry for discharge and declined inpatient rehabilitation at this time. Recommend taking a multivitamin, B complex, folate and thiamine supplements on discharge due to your alcohol use in addition to your usual Bipolar medications. Nicotine patch has been prescribed to help with you stopping smoking. Pending Studies at Discharge: No Stand-Alone Forms: [facility], Smoking Cessation Medications and DC Order Prescriptions: New thiamine HCl (vitamin B1) [Vitamin B-1] 100 mg Tablet 100 mg PO QAM Qty: 30 RF: 0 folic acid 1 mg Tablet 1 mg PO QAM Qty: 30 RF: 0 nicotine 7 mg/24 hr Patch 24 Hour 7 mg transdermal QAM Qty: 14 RF: 0 multivitamin Tablet 1 tab PO DAILY Qty: 30 RF: 0 vitamin B complex [B Complex-Vitamin B12] Tablet 1 tab PO DAILY Qty: 30 RF: 0 Continued trazodone 50 mg tablet 50 mg PO HS Qty: 30 RF: 0 lithium carbonate 450 mg tablet extended release 450 mg PO BID RF: 0 quetiapine 100 mg tablet 150 mg PO HS RF: 0 Discharge Orders: Discharge Order (Routine); Ordered 12/05/20 Ordered By: Francis Broussard/Other Patient Handouts: Alcoholism: Myths and Facts, Alcoholism: Getting Help Admission Data Admit Date/Time: 12/05/20 08:21 Attending Provider: Francis Coughlin Admit Provider: Cornelius Garcia Primary Care Provider: Erlin Calderon III Other Providers: Cornelius Garcia ; Sally Stephen ; Dr Jagdeep ; Danita Hoffmann ; Andrae Bradley Other Interventions: Discharge Summary Assessment (RN) Last Done: 12/05/20 12:22 Coding Level of Care Code D/C DAY MANAGEMENT >30 MINS Diagnoses Suicidal ideation R45.851 Bipolar disorder F31.32 Active/Remission status: currently active Current bipolar episode type: depressed Current episode severity: moderate Anxiety F41.9 Alcohol withdrawal F10.230 Complication of substance-induced condition: uncomplicated Alcohol abuse F10.10
== END 2020-12-05 14:08 | disposition home or self-care (01) | DRG 880 ==
LOC: 2W 15:48 → ED 15:48 → SUATTDRO 12-03 00:50 → 2W 12-03 04:37
DX: F10.230 Alcohol dependence with withdrawal, uncomplicated; F17.210 Nicotine dependence, cigarettes, uncomplicated; F31.9 Bipolar disorder, unspecified; F41.8 Other specified anxiety disorders; R45.851 Suicidal ideations

== ENCOUNTER 2021-08-11 19:17 | Inpatient (IN) ==
[2021-08-11] MEDS ORDERED: NICOTINE 14 MG/24 HR PATCH TD STA (19:26)
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
[2021-08-11 19:53] LABS: Basophils # (auto) 0.01 K/uL (0-0.2); Basophils % (auto) 0.1 %; Eosinophils # (auto) 0.04 K/uL (0-0.5); Eosinophils % (auto) 0.3 %; Hematocrit (blood only) 41.3 % (37-47); Hemoglobin 13.8 g/dL (12.0-16.0); Immature Granulocytes # (auto) 0.03 K/uL (0.00-0.02); Immature Granulocytes % (auto) 0.3 %; Lymphocytes # (auto) 2.38 K/uL (1.2-3.4); Lymphocytes % (auto) 20.1 %; Mean Corpuscular Hemoglobin 32.5 pg (25-34); Mean Corpuscular Hgb Conc 33.4 g/dL (32-36); Mean Corpuscular Volume 97.2 fL (80-100); Mean Platelet Volume 10.7 fL (7.4-10.4); Monocytes # (auto) 0.28 K/uL (0.11-0.59); Monocytes % (auto) 2.4 %; Neutrophils % (auto) 76.8 %; Platelet Count 292 K/uL (130-400); RDW Coefficient of Variation 13.4 % (11.5-14.5); RDW Standard Deviation 47.4 fL (36.4-46.3); Red Blood Count 4.25 M/uL (4.2-5.4); White Blood Count 11.84 K/uL (4.8-10.8)
[2021-08-11 20:26] LABS: Appearance Urine Clear (Clear); Bilirubin Urine Negative (Negative); Blood Urine Negative (Negative); Color Urine Yellow; Glucose Urine UA Negative (Negative); Ketones Urine Trace (Negative); Leukocyte Esterase Urine Negative (Negative); Nitrite Urine Negative (Negative); Protein Urine Negative (Negative); Urobilinogen Urine Negative (Negative)
[2021-08-11 20:27] LABS: Acetaminophen < 3 ug/ml (10-30); Lithium 0.6 mmol/L (0.6-1.2); Pregnancy Test, Serum Negative (Negative); Salicylate < 3.0 mg/dl (3.0-30)
[2021-08-11 20:32] LABS: Albumin Globulin Ratio 1.9 (0.9-2); Albumin Level 4.7 gm/dl (3.4-5.0); Bilirubin,Total 0.5 mg/dl (0.2-1.0); Calcium 8.8 mg/dl (8.5-10.1); Creatinine Clr Calc Pharmacy 107.6 ml/min; Est GFR (African American) 124.8 ml/min; Est GFR (Non-African American) 107.7 ml/min; Globulin 2.5 gm/dl (2.5-4.0); Potassium 3.7 mmol/L (3.5-5.1); Total Protein 7.2 gm/dl (6.0-8.3)
[2021-08-11 21:17] LABS: Amphetamines+Metham, Urine Neg (Neg); Barbiturates, Urine Neg (Neg); Benzodiazepine, Urine Pos (Neg); Cocaine, Urine Neg (Neg); MDMA (Ecstacy), Urine Neg (Neg); Methadone, Urine Neg (Neg); Opiate, Urine Neg (Neg); Phencyclidine, Urine Neg (Neg)
--- NOTE | 2021-08-12 01:53 | Emergency Department Note ---
ED Visit Note Patient was signed out to me at change of shift by Dr. Knowles, patient is a 31-year-old female who presented to the emergency department with alcohol intoxication, reported suicidal threats. Patient is pending sobriety and case management evaluation at approximately 8 AM. He was called to the bedside by the RN taking care of the patient at approximately 0315, concern was raised that the patient may be going through alcohol withdrawal as she was becoming more anxious, shaky, mildly tachycardic. On my evaluation the patient is still alert and oriented x3 but she does exhibit some of the symptoms of alcohol withdrawal, she tells me she actually does have a history of a withdrawal seizure that occurred when she was admitted to the psychiatric floor slightly over 1 year ago. Given this, IV was established, patient was placed on athletic monitor, I did discuss the case with the on-call hospitalist for [facility], Dr. Beauchamp, and the patient will be admitted to a telemetry bed for further management and observation and psychiatric consultation. Diagnosis: Alcohol withdrawal syndrome, suicidal ideations, alcohol intoxication on presentation Disposition: Admission to medicine for alcohol withdrawal . : Alcoholic intoxication Qualifiers: Complication of substance-induced condition: with unspecified complication Qualified Code(s): F10.929 - Alcohol use, unspecified with intoxication, unspecified Bipolar disorder Qualifiers: Active/Remission status: remission status unspecified Qualified Code(s): F31.9 - Bipolar disorder, unspecified
[2021-08-12] MEDS ORDERED: LORazepam 1 MG TAB PO STA ×2 (03:12→08:07)
[2021-08-12] MEDS ORDERED: LORazepam 2 MG/1 ML VIAL IV STA (03:17)
--- NOTE | 2021-08-12 03:27 | History & Physical Report ---
Date of Service August 12, 2021 Assessment & Plan (1) Alcoholic intoxication: Plan: 31 year old female w/ PMHx of etoh use disorder, anxiety, bipolar 1 disorder, and multiple similar visits in past that required inpatient psych transfers who presents for for etoh intoxication and suicidal ideation. - currently, symptoms are mild. AWSS 4 points. has received 1mg IV ativan - AWSS active protocol because of hx of withdrawal seizure - check magnesium and ekg. sinus tach ~110 on telemetry - slightly hypotensive 94/67, follow clinically - consult psych - most likely would benefit from transfer to inpatient psych facility - 1:1 and suicide precautions for now (2) Bipolar disorder: Plan: - lithium 0.6, therapeutic. - continue home regimen lithium 900mg daily and home olanzapine. (3) Anxiety: Plan: - chronic. hold home Klonopin 0.5mg PO BID during AWSS protocol. - home home gabapentin as may mask etoh withdrawal symptoms. - consider tapering of Klonopin as outpatient because patient has etoh use disorder and retirement use should be discouraged; appears to have been started 03/2021. (4) Alcohol abuse: Plan: - last etoh drink evening of 08/11/21. etoh 343.3 at arrival - declined acamprosate in past because of concern of side effects. - continue counseling on cessation. (5) Insomnia: Plan: - continue home trazodone 100mg qhs. recommend against chronic use; consider lower dose. (6) Suicidal ideation: Plan: - 302 warrant; SI will be reassessed when patient is sober. full 302 is not completed. (7) Leukocytosis: Plan: - unknown etiology. mild. considered etoh use. follow cbc. no obvious signs of infection. (8) Tobacco use disorder: Plan: - ~1/2 ppd. career and guidance counselor on cessation. nicotine patch daily. Plan: FEN/GI: Regular diet. Safety tray. 1:1. ppx: scds code: full dispo: med tele. History of Present Illness Chief Complaint: alcohol intoxication and suicidal ideation Primary Care Provider: Erlin Calderon, III, CABLE ARMORER OPERATOR 31 year old female w/ PMHx of etoh use disorder, anxiety, bipolar 1 disorder, and similar ED visits in 05/2021 and 03/2021 for etoh intoxication requiring transfer to inpatient psych at [place]. She has had multiple inpatient psych visits. She is here under a 302 warrant (not full 302) for suicidal ideation while intoxication. Hospitalist admission was requested because patient developed mild signs of withdrawal (anxious, shaky, and mildly tachycardic) and because she endorses hx of withdrawal seizure while on psych floor approx 1 year ago. She has had visual and auditory hallucinations from alcohol withdrawal in the past, but denies any this admission. Etoh: binge drinking in past 2 weeks. Fewest was 5 drinks in a day. She drinks vodka. She attributes the drinking to feeling depressed during this time. She feels similar to how she felt preceding her previous inpatient psych admissions, of which she has had multiple. Last etoh drink was yesterday the evening. Denies current SI/HI. She denies other symptoms. Gabapentin 200mg PO started couple weeks ago. She takes clonazepam 0.5mg BID consistently. Adherent w/ meds. She feels safe at home. Lives w/ . Denies illicit substance use. Current mood still depressed and anxious. Has good support system w/ family. Tobacco: 10+ cigarettes/day. ED course: 1mg IV ativan. Allergies Allergy/AdvReac Type Severity Reaction Status Date / Time Antihistamines AdvReac Intermediate Anxiety Uncoded 08/11/21 19:53 Home Medications Medication Instructions Recorded Confirmed Type clonazepam 0.5 mg tablet 0.5 mg PO BID #60 tab 04/26/21 08/11/21 Rx lithium carbonate 300 mg 900 mg PO DAILY 90 Days #270 tab 04/26/21 08/11/21 Rx tablet,extended release olanzapine 15 mg tablet 15 mg PO QPM #90 tab 04/26/21 08/11/21 Rx olanzapine 2.5 mg tablet 2.5 mg PO DAILY #90 tab 04/26/21 08/11/21 Rx trazodone 100 mg tablet 100 mg PO HS PRN 08/11/21 08/11/21 History gabapentin 100 mg capsule 200 mg PO QAM 08/12/21 08/12/21 History Past Med/Surg History Medical History (Updated 08/12/21 @ 05:36 by He Piedra MD) Alcohol withdrawal Anxiety Bipolar disorder Insomnia Suicidal ideation Syncope Surgical History No pertinent past surgical history Family History Father Lung cancer Brother Schizophrenia Grandmother (Maternal) Stroke Denies family history of Ovarian cancer Prostate cancer Myocardial infarction Breast cancer Colorectal cancer Social History Smoking Status: Current every day smoker Tobacco Type: Cigarettes Age Started Using Tobacco: 21; Second Hand Exposure: No; Hx Alcohol Use: Yes Alcohol type: hard liquor Alcohol Intake Frequency: Monthly or Less Hx Substance Use: No Preferred Language: Belarusian Communication Ability: Effective Visual Impairment: No Limitations Hearing Ability: Normal 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 Beliefs That Will Affect Care: None marital status: Current Living Situation: Spouse current occupational status: unemployed Feels Safe at Home: Yes Safety Concerns: Feels Safe At This Time Childhood Exposure to Second-Hand Smoke: No Dental Care, Regularly: No Physical Activity Frequency: 1-2 Times per Week Seatbelt Use: always Sunscreen Use: Yes Assistive Devices: Glasses Review of Systems Review of Systems: Constitutional: Denies fever, chills, weight change Eyes: Denies blurry vision, vision changes ENT: Denies sore throat, sinus pain Cardiovascular: Denies chest pain, palpitations (resolved) Respiratory: Denies shortness of breath Gastrointestinal: Denies abdominal pain, nausea, vomiting, constipation, diarrhea Genitourinary: Denies urinary symptoms including dysuria Musculoskeletal: Denies weakness, muscle aches/pain, joint aches/pain Neurological: Denies headache, numbness, tingling, focal weakness Physical Exam Physical Exam: General: Grossly A&O. NAD. Cooperative. HEENT: Atraumatic, normocephalic. EOMI. Oropharynx wnl. Pulm: CTAB. -wheezes, -rales, -rhonchi. No respiratory distress. Cardiac: RRR, -mrg. Radial pulses intact and symmetrical. Abdominal: Nontender, nondistended, soft. Msk: Moving all extremities. Neuro: Mild R hand tremor w/ hands stretched out. Normal head packager strength. Psych: Affect: Calm. No current SI/HI. Results & Data Results & Data ([facility]) Vital Signs (Past 12 Hours) Vital Signs Temp Pulse Pulse Resp BP BP Pulse Ox 08/12/21 02:40 118 H 18 92/72 L 97 08/11/21 23:15 105 H 18 101/45 L 97 08/11/21 19:11 37 C 86 18 101/72 98 HR 100s-110s. BP 92/72 Laboratory Results wbc 11.84. K 3.7. UA pos benzos. Hana 0.6. Etoh 343.3. Benzo labs pending. 08/11/21 19:38 08/11/21 19:38 Cardiac Enzymes 08/11/21 Range/Units 19:38 AST 26 (13-39) U/L CBC 08/11/21 Range/Units 19:38 WBC 11.84 H (4.8-10.8) K/uL RBC 4.25 (4.2-5.4) M/uL Hgb 13.8 (12.0-16.0) g/dL Hct 41.3 (37-47) % Plt Count 292 (130-400) K/uL Neut # (Auto) 9.10 H (1.4-6.5) K/uL Lymph # (Auto) 2.38 (1.2-3.4) K/uL [place] # (Auto) 0.28 (0.11-0.59) K/uL Eos # (Auto) 0.04 (0-0.5) K/uL Baso # (Auto) 0.01 (0-0.2) K/uL Comprehensive Metabolic Panel 08/11/21 Range/Units 19:38 Sodium 142 (136-145) mmol/L Potassium 3.7 (3.5-5.1) mmol/L Chloride 108 H (98-107) mmol/L Carbon Dioxide 20 L (21-32) mmol/L BUN 12 (6-23) mg/dl Creatinine 0.75 (0.6-1.2) mg/dl Glucose 71 (70-99(Fasting)) mg/dl Calcium 8.8 (8.5-10.1) mg/dl AST 26 (13-39) U/L ALT 21 (7-52) U/L Alkaline Phosphatase 44 (34-104) U/L Total Protein 7.2 (6.0-8.3) gm/dl Albumin 4.7 (3.4-5.0) gm/dl Intake and Output 08/11/21 08/11/21 08/12/21 14:59 22:59 06:59 Other: Weight 64 kg [facility] Weight 08/12/21 06:59 Weight 64 kg Code Status & VTE Plan Code Status full VTE Prophylaxis Plan VTE Prophylaxis will be ordered: Yes Supervising Physician Co-Signing Physician Notes Patient seen and examined, chart reviewed, case discussed with Dr. Piedra and I agree with the assessment and plan as above. In brief, patient is a 31yo female with Bipolar-I, Depression, EtoH use disorder with previous withdrawal seizures presenting with EtOH withdrawal, passing SI, no plan Drinks daily of late due to increased depression. Appx 5 drinks daily but is unable to accurately quantify. Mildly tremulous on exam, tachycardic otherwise HD stable Skin - intact, no rash HEENT - NC/AT, PERRL, MMM Heart - +S1/S2, regular, tachycardic Lungs - CTA Abd - +BS, soft, NT/ND Ext - warm, no edema Assessment/Plan -AWSS, IVF and electrolyte repletion -Consider Librium - concerning that patient is having withdrawal symptoms with EtOH level of 343. -Management for Bipolar with home medications -Remainder as above Resident Activity Tracking Resident Involvement: Resident Care Provided Care Provided: Adult Hospital Medicine (1) Alcoholic intoxication Complication of substance-induced condition: with unspecified complication Qualified Code(s): F10.929 - Alcohol use, unspecified with intoxication, unspecified (2) Bipolar disorder Active/Remission status: remission status unspecified Qualified Code(s): F31.9 - Bipolar disorder, unspecified
[2021-08-12] MEDS ORDERED: ATIVAN IV ALCOHOL WITHDRAWL IV PRN (04:46)
[2021-08-12] MEDS ORDERED: LORazepam 2 MG/1 ML VIAL IV PRN ×3 (04:46)
[2021-08-12] MEDS ORDERED: ACETAMINOPHEN 325 MG TAB PO PRN (06:16)
[2021-08-12] MEDS ORDERED: POLYETHYLENE (MIRALAX) 17 GM PACK PO PRN (06:16)
[2021-08-12] MEDS ORDERED: ONDANSETRON INJ 2 MG/ML 2 ML VIAL IV PRN (06:16)
--- NOTE | 2021-08-12 06:42 | Billing Data ---
Date of Service August 12, 2021 Coding Level of Care Code 71644 Initial Inpt Care Lvl 2
[2021-08-12 06:51] LABS: Basophils # (auto) 0.02 K/uL (0-0.2); Basophils % (auto) 0.2 %; Eosinophils # (auto) 0.01 K/uL (0-0.5); Eosinophils % (auto) 0.1 %; Hematocrit (blood only) 35.2 % (37-47); Hemoglobin 11.8 g/dL (12.0-16.0); Immature Granulocytes # (auto) 0.04 K/uL (0.00-0.02); Immature Granulocytes % (auto) 0.3 %; Lymphocytes # (auto) 2.85 K/uL (1.2-3.4); Lymphocytes % (auto) 22.4 %; Mean Corpuscular Hemoglobin 32.2 pg (25-34); Mean Corpuscular Hgb Conc 33.5 g/dL (32-36); Mean Corpuscular Volume 95.9 fL (80-100); Mean Platelet Volume 10.6 fL (7.4-10.4); Monocytes % (auto) 5.5 %; Neutrophils # (auto) 9.13 K/uL (1.4-6.5); Neutrophils % (auto) 71.5 %; Platelet Count 284 K/uL (130-400); RDW Coefficient of Variation 13.3 % (11.5-14.5); RDW Standard Deviation 46.4 fL (36.4-46.3); Red Blood Count 3.67 M/uL (4.2-5.4); White Blood Count 12.75 K/uL (4.8-10.8)
[2021-08-12] MEDS: NICOTINE 14 MG/24 HR PATCH TD SCH (07:23)
[2021-08-12] MEDS: LITHIUM CARBONATE 450 MG TABCR PO SCH (07:24)
[2021-08-12] MEDS: OLANZAPINE 2.5 MG TAB PO SCH (07:24)
[2021-08-12 07:28] LABS: BUN Creatinine Ratio 17.5 (10-20); Calcium 8.2 mg/dl (8.5-10.1); Creatinine Clr Calc Pharmacy 100.9 ml/min; Est GFR (African American) 115.5 ml/min; Est GFR (Non-African American) 99.6 ml/min; Magnesium 1.8 mg/dl (1.7-2.4); Potassium 3.5 mmol/L (3.5-5.1)
[2021-08-12] MEDS ORDERED: MULTI-VITAMIN INFUSION 10 ML, THIAMINE HCL 100 MG, FOLIC ACID 1 MG in SODIUM CHLORIDE 0... IV ONE (08:00)
[2021-08-12] MEDS: FOLIC ACID 400 MCG TAB PO SCH (08:39)
[2021-08-12] MEDS: CYANOCOBALAMIN (B-12) 500 MCG TABLET PO SCH (08:39)
--- NOTE | 2021-08-12 08:58 | Hospitalist Progress Note ---
Date of Service August 12, 2021 Assessment & Plan (1) Alcoholic intoxication: Plan: 31 year old female w/ PMHx of etoh use disorder, anxiety, bipolar 1 disorder, and multiple similar visits in past that required inpatient psych transfers who presents for for etoh intoxication and suicidal ideation which she reports was only said while under influence and currently denying SI/HI ideation Withdrawal symptoms with alcohol level in 300s on admission and given ativan 1mg IV x1 --> given 1mg PO ativan this morning for tachycardia/anxiety symptoms AWSS -- ativan available PO/IV as needed BP 102/63, HR low 100s this morning . Mag 1.8 --> ordered banana bag x 1, then continue IVF with NS +K @ 80 as slightly dehydrated on examination as well -start Librium taper Psych consulted -- most likely benefit from inpatient treatment, however she is hoping to be able to have treatment/outpatient follow up. Discussed will await official psych consultation and monitor over the next 48hours given withdrawal history in the past with seizures Suicide precautions in place 1:1 for safety, 302 warrant but not filled out. WBC elevation likely 2nd to alcohol use/reactive --> Check B12/folate given hx etoh use but started PO supplementation in meantime [place] level wnl (prior subtherapeutic levels) Continue to monitor/electrolyte replacement as needed (2) Bipolar disorder: Plan: lithium 0.6, therapeutic. continue home regimen lithium 900mg daily and home olanzapine need outpt f/u, psych consulted as above (3) Anxiety: Plan: chronic. 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 (4) Alcohol abuse: Plan: Last etoh drink evening of 08/11/21. etoh 343.3 at arrival - declined acamprosate in past because of concern of side effects. - continue counseling on cessation. Psych consulted as above, ?inpatient vs outpatient treatment (5) Insomnia: Plan: Continue home trazodone 100mg qhs. recommend against chronic use; consider lower dose. (6) Suicidal ideation: Plan: - 302 warrant; SI will be reassessed when patient is sober. full 302 is not completed. (7) Leukocytosis: Plan: - unknown etiology but suspect reactive from alcohol intoxication. mild. considered etoh use. WBC 12.7k and does have some crackles/diminshed bases --> denied sob/cp/cough but check CXR for completeness Checking B12/folate as could be reactive from anemia but is only borderline Monitor -- has been afebrile (8) Tobacco use disorder: Plan: - ~1/2 ppd. elder counselor on cessation. nicotine patch daily. Plan: Continue inpatient stay Admission and Anticipated Discharge Date Admission Date: August 12, 2021 Supervising Physician Co-Signing Physician Notes PA Supervision Note: I did not personally see or examine the patient today, but I verified all castellanos points of MONTRELL Smith's assessment and plan with the following exceptions/additions: None Subjective BRIDGE NOTE: ADMITTED AFTER MIDNIGHT Patient evaluated this morning. Doing alright, just got dose 1mg PO ativan and slightly improved. Had been little tachycardic this morning, rates low 100s. Some concerns voiced regarding nausea however declined need for medication. She denies any SI/HI ideation at this time but does voice depression. No recent fights at home/disputes. States comments made about cutting herself made under the influence of alcohol. Previously had inpatient psych care at [place], prior episode seizure from withdrawal. She would ideally note like inpatient psych treatment if she could improve and have arrangements for close outptient follow up. Denies weekly counseling, and states had been working on getting into outpatient psych followup. Denies fever, +some chills, no chest pain/shortness of breath/abdominal pain, vomiting or dysuria. Slightly anemic on admission. Gets period, slightly late. Denies possibility of at this time. Discussed ordering IVF, has been eating a little. B12/folate levels added. Awaiting official psychiatric consultation regarding inpatient eval/treatment. Questions/concerns addressed at this time. Review of Systems Review of Systems: All systems reviewed & are unremarkable except as noted in HPI & below Physical Exam Physical Exam: General: WD/WN female sitting in bed, covered up, 1:1 at bedside, NAD HEENT: head normocephalic, atraumatic, pupils equal, anicteric, mm slightly dry, trachea midline without deviation Resp: CTAB, diminished in base, no w/c/r, on room air CV: tachycardic (rate 102bpm), regular, no m/r/g, no edema, pulses palpable GI: +BS, soft, non-tender : no wagner MSK/Neuro: moves all extremities, answering questions appropriately, follows commands, CN intact grossly Psych: Aox3, calm, cooperative, no SI/HI, +endorses depression Results & Data Results & Data ([facility]) Vital Signs (Past 12 Hours) Vital Signs Temp Pulse Pulse Resp BP BP Pulse Ox 08/12/21 07:21 36.8 C 108 H 16 102/63 96 08/12/21 06:21 37.4 C 101 H 14 105/65 96 08/12/21 05:00 98 H 18 94/67 L 96 08/12/21 04:00 103 H 18 140/62 95 08/12/21 03:28 103 H 18 118/65 98 08/12/21 02:40 118 H 18 92/72 L 97 08/11/21 23:15 105 H 18 101/45 L 97 Laboratory Results 08/12/21 08/12/21 08/12/21 Range/Units 07:40 07:23 06:35 WBC (4.8-10.8) K/uL RBC (4.2-5.4) M/uL Hgb (12.0-16.0) g/dL Hct (37-47) % MCV (80-100) fL MCH (25-34) pg MCHC (32-36) g/dL RDW Std Deviation (36.4-46.3) fL RDW Coeff of Kristyn (11.5-14.5) % Plt Count (130-400) K/uL MPV (7.4-10.4) fL Immature Gran % (Auto) % Neut % (Auto) % Lymph % (Auto) % [facility] % (Auto) % Eos % (Auto) % Baso % (Auto) % Neut # (Auto) (1.4-6.5) K/uL Lymph # (Auto) (1.2-3.4) K/uL [facility] # (Auto) (0.11-0.59) K/uL Eos # (Auto) (0-0.5) K/uL Baso # (Auto) (0-0.2) K/uL Immature Gran # (Auto) (0.00-0.02) K/uL Sodium 135 L (136-145) mmol/L Potassium 3.5 (3.5-5.1) mmol/L Chloride 104 (98-107) mmol/L Carbon Dioxide 20 L (21-32) mmol/L Anion Gap 11 (3-11) BUN 14 (6-23) mg/dl Creatinine 0.80 (0.6-1.2) mg/dl Est Cr Clr Drug Dosing 100.9 ml/min Est GFR ( Amer) 115.5 ml/min Est GFR (Non-Af Amer) 99.6 ml/min BUN/Creatinine Ratio 17.5 (10-20) Glucose 136 H (70-99(Fasting)) mg/dl POC Glucose 140 H (70-99) mg/dl Calcium 8.2 L (8.5-10.1) mg/dl Magnesium 1.8 (1.7-2.4) mg/dl Total Bilirubin (0.2-1.0) mg/dl AST (13-39) U/L ALT (7-52) U/L Alkaline Phosphatase (34-104) U/L Total Protein (6.0-8.3) gm/dl Albumin (3.4-5.0) gm/dl Globulin (2.5-4.0) gm/dl Albumin/Globulin Ratio (0.9-2) Vitamin B12 Pending Folate Pending TSH (0.300-4.500) uIu/ml HCG, Qual (Negative) Urine Color Urine Appearance (Clear) Urine pH (4.5-7.5) Ur Specific [place] (1.000-1.030) Urine Protein (Negative) Urine Glucose (UA) (Negative) Urine Ketones (Negative) Urine Blood (Negative) Urine Nitrite (Negative) Urine Bilirubin (Negative) Urine Urobilinogen (Negative) Ur Leukocyte Esterase (Negative) Salicylates (3.0-30) mg/dl Urine Opiates Screen (Neg) Ur Methadone, Qual (Neg) Acetaminophen (10-30) ug/ml Urine Barbiturates (Neg) Ur Phencyclidine (PCP) (Neg) U Amphetamin/Meth Scrn (Neg) MDMA (Ecstasy) Screen (Neg) U OH-Alprazolam Confrm U Benzodiazepines Scrn (Neg) 7-Amino Clonazepam Ur Nordiazepam Confirm U OH-ethylflurazepam U Lorazepam Cnf GC/MS U Oxazepam Confm GC/MS Ur Temazepam Confirm U OH-Triazolam Confirm U OH-Midazolam Confirm [place] (0.6-1.2) mmol/L Ur Cocaine Metabolite (Neg) U Marijuana (THC) Screen (Neg) Drug Screen Comment Ethyl Alcohol mg/dL (<10.0) mg/dl SARS-CoV-2, RNA, NAAT (NEGATIVE) 08/12/21 08/12/21 08/11/21 Range/Units 06:35 03:34 20:02 WBC 12.75 H (4.8-10.8) K/uL RBC 3.67 L (4.2-5.4) M/uL Hgb 11.8 L (12.0-16.0) g/dL Hct 35.2 L (37-47) % MCV 95.9 (80-100) fL MCH 32.2 (25-34) pg MCHC 33.5 (32-36) g/dL RDW Std Deviation 46.4 H (36.4-46.3) fL RDW Coeff of Kristyn 13.3 (11.5-14.5) % Plt Count 284 (130-400) K/uL MPV 10.6 H (7.4-10.4) fL Immature Gran % (Auto) 0.3 % Neut % (Auto) 71.5 % Lymph % (Auto) 22.4 % [facility] % (Auto) 5.5 % Eos % (Auto) 0.1 % Baso % (Auto) 0.2 % Neut # (Auto) 9.13 H (1.4-6.5) K/uL Lymph # (Auto) 2.85 (1.2-3.4) K/uL [facility] # (Auto) 0.70 H (0.11-0.59) K/uL Eos # (Auto) 0.01 (0-0.5) K/uL Baso # (Auto) 0.02 (0-0.2) K/uL Immature Gran # (Auto) 0.04 H (0.00-0.02) K/uL Sodium (136-145) mmol/L Potassium (3.5-5.1) mmol/L Chloride (98-107) mmol/L Carbon Dioxide (21-32) mmol/L Anion Gap (3-11) BUN (6-23) mg/dl Creatinine (0.6-1.2) mg/dl Est Cr Clr Drug Dosing ml/min Est GFR ( Amer) ml/min Est GFR (Non-Af Amer) ml/min BUN/Creatinine Ratio (10-20) Glucose (70-99(Fasting)) mg/dl POC Glucose (70-99) mg/dl Calcium (8.5-10.1) mg/dl Magnesium (1.7-2.4) mg/dl Total Bilirubin (0.2-1.0) mg/dl AST (13-39) U/L ALT (7-52) U/L Alkaline Phosphatase (34-104) U/L Total Protein (6.0-8.3) gm/dl Albumin (3.4-5.0) gm/dl Globulin (2.5-4.0) gm/dl Albumin/Globulin Ratio (0.9-2) Vitamin B12 Folate TSH (0.300-4.500) uIu/ml HCG, Qual (Negative) Urine Color Urine Appearance (Clear) Urine pH (4.5-7.5) Ur Specific [place] (1.000-1.030) Urine Protein (Negative) Urine Glucose (UA) (Negative) Urine Ketones (Negative) Urine Blood (Negative) Urine Nitrite (Negative) Urine Bilirubin (Negative) Urine Urobilinogen (Negative) Ur Leukocyte Esterase (Negative) Salicylates (3.0-30) mg/dl Urine Opiates Screen (Neg) Ur Methadone, Qual (Neg) Acetaminophen (10-30) ug/ml Urine Barbiturates (Neg) Ur Phencyclidine (PCP) (Neg) U Amphetamin/Meth Scrn (Neg) MDMA (Ecstasy) Screen (Neg) U OH-Alprazolam Confrm Pending U Benzodiazepines Scrn (Neg) 7-Amino Clonazepam Pending Ur Nordiazepam Confirm Pending U OH-ethylflurazepam Pending U Lorazepam Cnf GC/MS Pending U Oxazepam Confm GC/MS Pending Ur Temazepam Confirm Pending U OH-Triazolam Confirm Pending U OH-Midazolam Confirm Pending [place] (0.6-1.2) mmol/L Ur Cocaine Metabolite (Neg) U Marijuana (THC) Screen (Neg) Drug Screen Comment Pending Ethyl Alcohol mg/dL (<10.0) mg/dl SARS-CoV-2, RNA, NAAT NEGATIVE (NEGATIVE) 08/11/21 08/11/21 08/11/21 Range/Units 20:02 20:02 19:38 WBC (4.8-10.8) K/uL RBC (4.2-5.4) M/uL Hgb (12.0-16.0) g/dL Hct (37-47) % MCV (80-100) fL MCH (25-34) pg MCHC (32-36) g/dL RDW Std Deviation (36.4-46.3) fL RDW Coeff of Kristyn (11.5-14.5) % Plt Count (130-400) K/uL MPV (7.4-10.4) fL Immature Gran % (Auto) % Neut % (Auto) % Lymph % (Auto) % [facility] % (Auto) % Eos % (Auto) % Baso % (Auto) % Neut # (Auto) (1.4-6.5) K/uL Lymph # (Auto) (1.2-3.4) K/uL [facility] # (Auto) (0.11-0.59) K/uL Eos # (Auto) (0-0.5) K/uL Baso # (Auto) (0-0.2) K/uL Immature Gran # (Auto) (0.00-0.02) K/uL Sodium (136-145) mmol/L Potassium (3.5-5.1) mmol/L Chloride (98-107) mmol/L Carbon Dioxide (21-32) mmol/L Anion Gap (3-11) BUN (6-23) mg/dl Creatinine (0.6-1.2) mg/dl Est Cr Clr Drug Dosing ml/min Est GFR ( Amer) ml/min Est GFR (Non-Af Amer) ml/min BUN/Creatinine Ratio (10-20) Glucose (70-99(Fasting)) mg/dl POC Glucose (70-99) mg/dl Calcium (8.5-10.1) mg/dl Magnesium (1.7-2.4) mg/dl Total Bilirubin (0.2-1.0) mg/dl AST (13-39) U/L ALT (7-52) U/L Alkaline Phosphatase (34-104) U/L Total Protein (6.0-8.3) gm/dl Albumin (3.4-5.0) gm/dl Globulin (2.5-4.0) gm/dl Albumin/Globulin Ratio (0.9-2) Vitamin B12 Folate TSH (0.300-4.500) uIu/ml HCG, Qual Negative (Negative) Urine Color Yellow Urine Appearance Clear (Clear) Urine pH 5.0 (4.5-7.5) Ur Specific [place] 1.010 (1.000-1.030) Urine Protein Negative (Negative) Urine Glucose (UA) Negative (Negative) Urine Ketones Trace H (Negative) Urine Blood Negative (Negative) Urine Nitrite Negative (Negative) Urine Bilirubin Negative (Negative) Urine Urobilinogen Negative (Negative) Ur Leukocyte Esterase Negative (Negative) Salicylates (3.0-30) mg/dl Urine Opiates Screen Neg (Neg) Ur Methadone, Qual Neg (Neg) Acetaminophen (10-30) ug/ml Urine Barbiturates Neg (Neg) Ur Phencyclidine (PCP) Neg (Neg) U Amphetamin/Meth Scrn Neg (Neg) MDMA (Ecstasy) Screen Neg (Neg) U OH-Alprazolam Confrm U Benzodiazepines Scrn Pos H (Neg) 7-Amino Clonazepam Ur Nordiazepam Confirm U OH-ethylflurazepam U Lorazepam Cnf GC/MS U Oxazepam Confm GC/MS Ur Temazepam Confirm U OH-Triazolam Confirm U OH-Midazolam Confirm [place] (0.6-1.2) mmol/L Ur Cocaine Metabolite Neg (Neg) U Marijuana (THC) Screen Neg (Neg) Drug Screen Comment Ethyl Alcohol mg/dL (<10.0) mg/dl SARS-CoV-2, RNA, NAAT (NEGATIVE) 08/11/21 08/11/21 08/11/21 Range/Units 19:38 19:38 19:38 WBC (4.8-10.8) K/uL RBC (4.2-5.4) M/uL Hgb (12.0-16.0) g/dL Hct (37-47) % MCV (80-100) fL MCH (25-34) pg MCHC (32-36) g/dL RDW Std Deviation (36.4-46.3) fL RDW Coeff of Kristyn (11.5-14.5) % Plt Count (130-400) K/uL MPV (7.4-10.4) fL Immature Gran % (Auto) % Neut % (Auto) % Lymph % (Auto) % [facility] % (Auto) % Eos % (Auto) % Baso % (Auto) % Neut # (Auto) (1.4-6.5) K/uL Lymph # (Auto) (1.2-3.4) K/uL [facility] # (Auto) (0.11-0.59) K/uL Eos # (Auto) (0-0.5) K/uL Baso # (Auto) (0-0.2) K/uL Immature Gran # (Auto) (0.00-0.02) K/uL Sodium (136-145) mmol/L Potassium (3.5-5.1) mmol/L Chloride (98-107) mmol/L Carbon Dioxide (21-32) mmol/L Anion Gap (3-11) BUN (6-23) mg/dl Creatinine (0.6-1.2) mg/dl Est Cr Clr Drug Dosing ml/min Est GFR ( Amer) ml/min Est GFR (Non-Af Amer) ml/min BUN/Creatinine Ratio (10-20) Glucose (70-99(Fasting)) mg/dl POC Glucose (70-99) mg/dl Calcium (8.5-10.1) mg/dl Magnesium (1.7-2.4) mg/dl Total Bilirubin (0.2-1.0) mg/dl AST (13-39) U/L ALT (7-52) U/L Alkaline Phosphatase (34-104) U/L Total Protein (6.0-8.3) gm/dl Albumin (3.4-5.0) gm/dl Globulin (2.5-4.0) gm/dl Albumin/Globulin Ratio (0.9-2) Vitamin B12 Folate TSH 1.217 (0.300-4.500) uIu/ml HCG, Qual (Negative) Urine Color Urine Appearance (Clear) Urine pH (4.5-7.5) Ur Specific [place] (1.000-1.030) Urine Protein (Negative) Urine Glucose (UA) (Negative) Urine Ketones (Negative) Urine Blood (Negative) Urine Nitrite (Negative) Urine Bilirubin (Negative) Urine Urobilinogen (Negative) Ur Leukocyte Esterase (Negative) Salicylates < 3.0 L (3.0-30) mg/dl Urine Opiates Screen (Neg) Ur Methadone, Qual (Neg) Acetaminophen < 3 L (10-30) ug/ml Urine Barbiturates (Neg) Ur Phencyclidine (PCP) (Neg) U Amphetamin/Meth Scrn (Neg) MDMA (Ecstasy) Screen (Neg) U OH-Alprazolam Confrm U Benzodiazepines Scrn (Neg) 7-Amino Clonazepam Ur Nordiazepam Confirm U OH-ethylflurazepam U Lorazepam Cnf GC/MS U Oxazepam Confm GC/MS Ur Temazepam Confirm U OH-Triazolam Confirm U OH-Midazolam Confirm [place] 0.6 (0.6-1.2) mmol/L Ur Cocaine Metabolite (Neg) U Marijuana (THC) Screen (Neg) Drug Screen Comment Ethyl Alcohol mg/dL 343.3 H (<10.0) mg/dl SARS-CoV-2, RNA, NAAT (NEGATIVE) 08/11/21 08/11/21 Range/Units 19:38 19:38 WBC 11.84 H (4.8-10.8) K/uL RBC 4.25 (4.2-5.4) M/uL Hgb 13.8 (12.0-16.0) g/dL Hct 41.3 (37-47) % MCV 97.2 (80-100) fL MCH 32.5 (25-34) pg MCHC 33.4 (32-36) g/dL RDW Std Deviation 47.4 H (36.4-46.3) fL RDW Coeff of Kristyn 13.4 (11.5-14.5) % Plt Count 292 (130-400) K/uL MPV 10.7 H (7.4-10.4) fL Immature Gran % (Auto) 0.3 % Neut % (Auto) 76.8 % Lymph % (Auto) 20.1 % [facility] % (Auto) 2.4 % Eos % (Auto) 0.3 % Baso % (Auto) 0.1 % Neut # (Auto) 9.10 H (1.4-6.5) K/uL Lymph # (Auto) 2.38 (1.2-3.4) K/uL [facility] # (Auto) 0.28 (0.11-0.59) K/uL Eos # (Auto) 0.04 (0-0.5) K/uL Baso # (Auto) 0.01 (0-0.2) K/uL Immature Gran # (Auto) 0.03 H (0.00-0.02) K/uL Sodium 142 (136-145) mmol/L Potassium 3.7 (3.5-5.1) mmol/L Chloride 108 H (98-107) mmol/L Carbon Dioxide 20 L (21-32) mmol/L Anion Gap 14 H (3-11) BUN 12 (6-23) mg/dl Creatinine 0.75 (0.6-1.2) mg/dl Est Cr Clr Drug Dosing 107.6 ml/min Est GFR ( Amer) 124.8 ml/min Est GFR (Non-Af Amer) 107.7 ml/min BUN/Creatinine Ratio 16.0 (10-20) Glucose 71 (70-99(Fasting)) mg/dl POC Glucose (70-99) mg/dl Calcium 8.8 (8.5-10.1) mg/dl Magnesium (1.7-2.4) mg/dl Total Bilirubin 0.5 (0.2-1.0) mg/dl AST 26 (13-39) U/L ALT 21 (7-52) U/L Alkaline Phosphatase 44 (34-104) U/L Total Protein 7.2 (6.0-8.3) gm/dl Albumin 4.7 (3.4-5.0) gm/dl Globulin 2.5 (2.5-4.0) gm/dl Albumin/Globulin Ratio 1.9 (0.9-2) Vitamin B12 Folate TSH (0.300-4.500) uIu/ml HCG, Qual (Negative) Urine Color Urine Appearance (Clear) Urine pH (4.5-7.5) Ur Specific [place] (1.000-1.030) Urine Protein (Negative) Urine Glucose (UA) (Negative) Urine Ketones (Negative) Urine Blood (Negative) Urine Nitrite (Negative) Urine Bilirubin (Negative) Urine Urobilinogen (Negative) Ur Leukocyte Esterase (Negative) Salicylates (3.0-30) mg/dl Urine Opiates Screen (Neg) Ur Methadone, Qual (Neg) Acetaminophen (10-30) ug/ml Urine Barbiturates (Neg) Ur Phencyclidine (PCP) (Neg) U Amphetamin/Meth Scrn (Neg) MDMA (Ecstasy) Screen (Neg) U OH-Alprazolam Confrm U Benzodiazepines Scrn (Neg) 7-Amino Clonazepam Ur Nordiazepam Confirm U OH-ethylflurazepam U Lorazepam Cnf GC/MS U Oxazepam Confm GC/MS Ur Temazepam Confirm U OH-Triazolam Confirm U OH-Midazolam Confirm [place] (0.6-1.2) mmol/L Ur Cocaine Metabolite (Neg) U Marijuana (THC) Screen (Neg) Drug Screen Comment Ethyl Alcohol mg/dL (<10.0) mg/dl SARS-CoV-2, RNA, NAAT (NEGATIVE) PG Care Time/CCT Total # of Minutes Spent Total Time Spent with Patient: Total time spent is greater than 50% in coordination of care (as documented) at patient's floor/unit and/or counseling patient: Coding Level of Care Code None Diagnoses Alcoholic intoxication F10.929 Complication of substance-induced condition: with unspecified complication Bipolar disorder F31.9 Active/Remission status: remission status unspecified Anxiety F41.9 Alcohol abuse F10.10 Insomnia G47.00 Suicidal ideation R45.851 Leukocytosis D72.829 Tobacco use disorder F17.200 (1) Alcoholic intoxication Complication of substance-induced condition: with unspecified complication Qualified Code(s): F10.929 - Alcohol use, unspecified with intoxication, unspecified (2) Bipolar disorder Active/Remission status: remission status unspecified Qualified Code(s): F31.9 - Bipolar disorder, unspecified
[2021-08-12] MEDS ORDERED: chlordiazePOXIDE ALCOHOL WITHDRAWL 25MG PO STA (09:02)
--- NOTE | 2021-08-12 09:19 | XRay Report ---
XR chest 1V portable HISTORY: 31 years-old Female alcohol intoxication, leukocytosis acute leukocytosis COMPARISON: Chest radiograph 01/30/2018 TECHNIQUE: Portable AP view of the chest FINDINGS: The cardiomediastinal and hilar silhouettes are within normal limits. There is no pneumothorax, pleur al effusion, airspace consolidation or overt pulmonary edema. The bones of the chest appear grossly i ntact. IMPRESSION: No acute process. ACT 112: Negative or not required by law. The above report was generated using voice recognition software. It may contain grammatical, syntax o r spelling errors. Electronically signed by: Johan Lu M.D. 08/12/2021 9:18 AM
[2021-08-12] MEDS: NSS + 20MEQ KCL 20 MEQ/1,000 ML BAG IV SCH ×2 (09:40→22:30)
[2021-08-12] MEDS: GABAPENTIN 100 MG CAP PO SCH ×2 (09:40→21:12)
[2021-08-12] MEDS: chlordiazePOXIDE HCl 25 MG CAP PO SCH ×3 (09:40→21:18)
--- NOTE | 2021-08-12 10:35 | Psychiatric Consultation ---
Date of Consultation August 12, 2021 Impression / Recommendations Impression 31 yo female with history of SI and dramatic behavior when intoxicated, LETY in ED 343, therapeutic on lithium 0.6 (10-12 hr trough). Currently on 302 warrant and denying SI. She does not want inpatient mental health treatment for her residual depression and prefers to work with her outpatient provider on medications. (1) Alcoholic intoxication: Complication of substance-induced condition: with unspecified complication Qualified Code(s): F10.929 - Alcohol use, unspecified with intoxication, unspecified (2) Bipolar disorder: Active/Remission status: remission status unspecified Qualified Code(s): F31.9 - Bipolar disorder, unspecified continue ETOH detox per hospitalist service I would not resume Klonopin at discharge given likelihood she will combine with ETOH and may also be completing Librium withdrawal doubt indication for inpatient psych, cannot commit for ETOh intoxication but will have patient sign HELEN for to obtain additional collateral before d/c 1-on-1, etc. she is aware we recommend rehab, or at minimum resumption of outpatient therapy and allow for communication with her outpatient provider, she will consider. Risk Factors Assessment Do You Have Access To A Gun?: No (raised Mennonite) Psych History Identifying Data Maddy is a 31-year-old female who lives with her in [place]. She was admitted to the medical floor for acute EToh intoxication/withdrawal. She is currently on a 302 warrant. Chief Complaint "I don't remember that, yeah I've been more depressed but I don't want to hurt myself." History of Present Illness Patient has been seen by our service on several occasions for consult around acute intoxication, was admitted for SI in 08/26 to 3S and had a withdrawal seizure. She has since been hospitalized at [facility] (10/26) and most recently [facility] (04/13/21). She was not particularly forthcoming with her recent EToh intake. She recognizes that it's a depressant and has been feeling more depressed but denies that she has been suicidal and reports med compliance. She isn't particularly interested in signing a release for her outpatient provider (Lilian Archuleta at [facility] in [place]) perhaps because she is receivinng Klonopin 1 mg BID "for withdrawal" and actively drinking though the patient also told liaison the Klonopin is for depression. She is aware that benzos should not be combined with Etoh. She was feeling anxious and tremulous this am but is now calmer after Ativan prn. Rec. was to load with Neurontin as home Neurontin was being held and seizure hx but primary team is opting for Librium taper given recent Klonopin use and resuming home dose of Neurontin. completed a 302 petitioning statement and a warrant was granted as patient was reportedly making statements about harming self (cut) and banging head on the wall. She does not recall "any of that" and denies feeling suicidal now or prior to drinking. She reports she and her have been fighting about finances and their arguments due get "out of hand" when intoxicated. Of note Mercedes RO encouraged her to start acamprosate which she declined and it doesn't appear that she followed through with [facility] for Revia. Hx of LFT elevations. Past Psychiatric History Do You Have Access To A Gun?: No (raised Mennonite) Past Medication Trials: Seroquel, trazodone, lithium, Restoril, early July Rx of Abilify 2 mg (not clear if took), last fill am dose of Zyprexa was May. Allergies Allergy/AdvReac Type Severity Reaction Status Date / Time Antihistamines AdvReac Intermediate Anxiety Uncoded 08/11/21 19:53 Home Medications Medication Instructions Recorded Confirmed Type clonazepam 0.5 mg tablet 0.5 mg PO BID #60 tab 04/26/21 08/11/21 Rx lithium carbonate 300 mg 900 mg PO DAILY 90 Days #270 tab 04/26/21 08/11/21 Rx tablet,extended release olanzapine 15 mg tablet 15 mg PO QPM #90 tab 04/26/21 08/11/21 Rx olanzapine 2.5 mg tablet 2.5 mg PO DAILY #90 tab 04/26/21 08/11/21 Rx trazodone 100 mg tablet 100 mg PO HS PRN 08/11/21 08/11/21 History gabapentin 100 mg capsule 200 mg PO QAM 08/12/21 08/12/21 History Family History 1 brother dx schizophrenia, another possibly bipolar Substance Abuse History ETOH, denies other substances Personal History Highest Grade Completed: Did Not Graduate High School (8th grade) Marital Status: Number Of Children: 0 Beliefs That Will Affect Care: None Patient History Medical History Alcohol withdrawal Anxiety Bipolar disorder Insomnia Suicidal ideation Syncope Surgical History No pertinent past surgical history Family History Father Lung cancer Brother Schizophrenia Grandmother (Maternal) Stroke Denies family history of Ovarian cancer Prostate cancer Myocardial infarction Breast cancer Colorectal cancer Social History Smoking Status: Current every day smoker Tobacco Type: Cigarettes Age Started Using Tobacco: 21; Second Hand Exposure: No; Hx Alcohol Use: Yes Alcohol type: hard liquor Alcohol Intake Frequency: Monthly or Less Hx Substance Use: No Preferred Language: Italian Communication Ability: Effective Visual Impairment: No Limitations Hearing Ability: Normal Ware Tester Required: No Beliefs That Will Affect Care: None marital status: Current Living Situation: Spouse current occupational status: unemployed Feels Safe at Home: Yes Safety Concerns: Feels Safe At This Time Childhood Exposure to Second-Hand Smoke: No Dental Care, Regularly: No Physical Activity Frequency: 1-2 Times per Week Seatbelt Use: always Sunscreen Use: Yes Assistive Devices: Glasses Physical Exam Psychiatric: Orientation: alert and oriented x 3 Apperance: appropriately groomed Eye Contact: good eye contact Motor Behavior: no abnormal motor movements Speech: normal rate/rhythm/volume of speech Affect: + depressed affect Mood: + depressed mood Thought Process: goal directed thought process Thought Content: reality based without delusions Suicidal Thoughts: denies suicidal thoughts Homicidal Thoughts: denies homicidal thoughts Hallucinations: no auditory hallucinations and no visual hallucinations Cognition: attention grossly intact and language grossly intact Estimated Intelligence: consistent with education level Insight: + limited insight Judgement: + limited judgement Vital Signs (Past 24 Hours): Last Vital Signs Temp 36.8 C 08/12/21 07:21 Pulse 108 H 08/12/21 07:21 Resp 16 08/12/21 07:21 BP 102/63 08/12/21 07:21 Pulse Ox 96 08/12/21 07:21 Review of Systems All systems reviewed & are unremarkable except as noted in HPI & below Results & Data (PSY) Laboratory Results 08/12/21 08/12/21 08/12/21 Range/Units 07:40 07:23 06:35 WBC (4.8-10.8) K/uL RBC (4.2-5.4) M/uL Hgb (12.0-16.0) g/dL Hct (37-47) % MCV (80-100) fL MCH (25-34) pg MCHC (32-36) g/dL RDW Std Deviation (36.4-46.3) fL RDW Coeff of Kristyn (11.5-14.5) % Plt Count (130-400) K/uL MPV (7.4-10.4) fL Immature Gran % (Auto) % Neut % (Auto) % Lymph % (Auto) % [place] % (Auto) % Eos % (Auto) % Baso % (Auto) % Neut # (Auto) (1.4-6.5) K/uL Lymph # (Auto) (1.2-3.4) K/uL [place] # (Auto) (0.11-0.59) K/uL Eos # (Auto) (0-0.5) K/uL Baso # (Auto) (0-0.2) K/uL Immature Gran # (Auto) (0.00-0.02) K/uL Sodium 135 L (136-145) mmol/L Potassium 3.5 (3.5-5.1) mmol/L Chloride 104 (98-107) mmol/L Carbon Dioxide 20 L (21-32) mmol/L Anion Gap 11 (3-11) BUN 14 (6-23) mg/dl Creatinine 0.80 (0.6-1.2) mg/dl Est Cr Clr Drug Dosing 100.9 ml/min Est GFR ( Amer) 115.5 ml/min Est GFR (Non-Af Amer) 99.6 ml/min BUN/Creatinine Ratio 17.5 (10-20) Glucose 136 H (70-99(Fasting)) mg/dl POC Glucose 140 H (70-99) mg/dl Calcium 8.2 L (8.5-10.1) mg/dl Magnesium 1.8 (1.7-2.4) mg/dl Total Bilirubin (0.2-1.0) mg/dl AST (13-39) U/L ALT (7-52) U/L Alkaline Phosphatase (34-104) U/L Total Protein (6.0-8.3) gm/dl Albumin (3.4-5.0) gm/dl Globulin (2.5-4.0) gm/dl Albumin/Globulin Ratio (0.9-2) Vitamin B12 Pending Folate Pending TSH (0.300-4.500) uIu/ml HCG, Qual (Negative) Urine Color Urine Appearance (Clear) Urine pH (4.5-7.5) Ur Specific [place] (1.000-1.030) Urine Protein (Negative) Urine Glucose (UA) (Negative) Urine Ketones (Negative) Urine Blood (Negative) Urine Nitrite (Negative) Urine Bilirubin (Negative) Urine Urobilinogen (Negative) Ur Leukocyte Esterase (Negative) Salicylates (3.0-30) mg/dl Urine Opiates Screen (Neg) Ur Methadone, Qual (Neg) Acetaminophen (10-30) ug/ml Urine Barbiturates (Neg) Ur Phencyclidine (PCP) (Neg) U Amphetamin/Meth Scrn (Neg) MDMA (Ecstasy) Screen (Neg) U OH-Alprazolam Confrm U Benzodiazepines Scrn (Neg) 7-Amino Clonazepam Ur Nordiazepam Confirm U OH-ethylflurazepam U Lorazepam Cnf GC/MS U Oxazepam Confm GC/MS Ur Temazepam Confirm U OH-Triazolam Confirm U OH-Midazolam Confirm [place] (0.6-1.2) mmol/L Ur Cocaine Metabolite (Neg) U Marijuana (THC) Screen (Neg) Drug Screen Comment Ethyl Alcohol mg/dL (<10.0) mg/dl SARS-CoV-2, RNA, NAAT (NEGATIVE) 08/12/21 08/12/21 08/11/21 Range/Units 06:35 03:34 20:02 WBC 12.75 H (4.8-10.8) K/uL RBC 3.67 L (4.2-5.4) M/uL Hgb 11.8 L (12.0-16.0) g/dL Hct 35.2 L (37-47) % MCV 95.9 (80-100) fL MCH 32.2 (25-34) pg MCHC 33.5 (32-36) g/dL RDW Std Deviation 46.4 H (36.4-46.3) fL RDW Coeff of Kristyn 13.3 (11.5-14.5) % Plt Count 284 (130-400) K/uL MPV 10.6 H (7.4-10.4) fL Immature Gran % (Auto) 0.3 % Neut % (Auto) 71.5 % Lymph % (Auto) 22.4 % [place] % (Auto) 5.5 % Eos % (Auto) 0.1 % Baso % (Auto) 0.2 % Neut # (Auto) 9.13 H (1.4-6.5) K/uL Lymph # (Auto) 2.85 (1.2-3.4) K/uL [place] # (Auto) 0.70 H (0.11-0.59) K/uL Eos # (Auto) 0.01 (0-0.5) K/uL Baso # (Auto) 0.02 (0-0.2) K/uL Immature Gran # (Auto) 0.04 H (0.00-0.02) K/uL Sodium (136-145) mmol/L Potassium (3.5-5.1) mmol/L Chloride (98-107) mmol/L Carbon Dioxide (21-32) mmol/L Anion Gap (3-11) BUN (6-23) mg/dl Creatinine (0.6-1.2) mg/dl Est Cr Clr Drug Dosing ml/min Est GFR ( Amer) ml/min Est GFR (Non-Af Amer) ml/min BUN/Creatinine Ratio (10-20) Glucose (70-99(Fasting)) mg/dl POC Glucose (70-99) mg/dl Calcium (8.5-10.1) mg/dl Magnesium (1.7-2.4) mg/dl Total Bilirubin (0.2-1.0) mg/dl AST (13-39) U/L ALT (7-52) U/L Alkaline Phosphatase (34-104) U/L Total Protein (6.0-8.3) gm/dl Albumin (3.4-5.0) gm/dl Globulin (2.5-4.0) gm/dl Albumin/Globulin Ratio (0.9-2) Vitamin B12 Folate TSH (0.300-4.500) uIu/ml HCG, Qual (Negative) Urine Color Urine Appearance (Clear) Urine pH (4.5-7.5) Ur Specific [place] (1.000-1.030) Urine Protein (Negative) Urine Glucose (UA) (Negative) Urine Ketones (Negative) Urine Blood (Negative) Urine Nitrite (Negative) Urine Bilirubin (Negative) Urine Urobilinogen (Negative) Ur Leukocyte Esterase (Negative) Salicylates (3.0-30) mg/dl Urine Opiates Screen (Neg) Ur Methadone, Qual (Neg) Acetaminophen (10-30) ug/ml Urine Barbiturates (Neg) Ur Phencyclidine (PCP) (Neg) U Amphetamin/Meth Scrn (Neg) MDMA (Ecstasy) Screen (Neg) U OH-Alprazolam Confrm Pending U Benzodiazepines Scrn (Neg) 7-Amino Clonazepam Pending Ur Nordiazepam Confirm Pending U OH-ethylflurazepam Pending U Lorazepam Cnf GC/MS Pending U Oxazepam Confm GC/MS Pending Ur Temazepam Confirm Pending U OH-Triazolam Confirm Pending U OH-Midazolam Confirm Pending [place] (0.6-1.2) mmol/L Ur Cocaine Metabolite (Neg) U Marijuana (THC) Screen (Neg) Drug Screen Comment Pending Ethyl Alcohol mg/dL (<10.0) mg/dl SARS-CoV-2, RNA, NAAT NEGATIVE (NEGATIVE) 08/11/21 08/11/21 08/11/21 Range/Units 20:02 20:02 19:38 WBC (4.8-10.8) K/uL RBC (4.2-5.4) M/uL Hgb (12.0-16.0) g/dL Hct (37-47) % MCV (80-100) fL MCH (25-34) pg MCHC (32-36) g/dL RDW Std Deviation (36.4-46.3) fL RDW Coeff of Kristyn (11.5-14.5) % Plt Count (130-400) K/uL MPV (7.4-10.4) fL Immature Gran % (Auto) % Neut % (Auto) % Lymph % (Auto) % [place] % (Auto) % Eos % (Auto) % Baso % (Auto) % Neut # (Auto) (1.4-6.5) K/uL Lymph # (Auto) (1.2-3.4) K/uL [place] # (Auto) (0.11-0.59) K/uL Eos # (Auto) (0-0.5) K/uL Baso # (Auto) (0-0.2) K/uL Immature Gran # (Auto) (0.00-0.02) K/uL Sodium (136-145) mmol/L Potassium (3.5-5.1) mmol/L Chloride (98-107) mmol/L Carbon Dioxide (21-32) mmol/L Anion Gap (3-11) BUN (6-23) mg/dl Creatinine (0.6-1.2) mg/dl Est Cr Clr Drug Dosing ml/min Est GFR ( Amer) ml/min Est GFR (Non-Af Amer) ml/min BUN/Creatinine Ratio (10-20) Glucose (70-99(Fasting)) mg/dl POC Glucose (70-99) mg/dl Calcium (8.5-10.1) mg/dl Magnesium (1.7-2.4) mg/dl Total Bilirubin (0.2-1.0) mg/dl AST (13-39) U/L ALT (7-52) U/L Alkaline Phosphatase (34-104) U/L Total Protein (6.0-8.3) gm/dl Albumin (3.4-5.0) gm/dl Globulin (2.5-4.0) gm/dl Albumin/Globulin Ratio (0.9-2) Vitamin B12 Folate TSH (0.300-4.500) uIu/ml HCG, Qual Negative (Negative) Urine Color Yellow Urine Appearance Clear (Clear) Urine pH 5.0 (4.5-7.5) Ur Specific Sparks 1.010 (1.000-1.030) Urine Protein Negative (Negative) Urine Glucose (UA) Negative (Negative) Urine Ketones Trace H (Negative) Urine Blood Negative (Negative) Urine Nitrite Negative (Negative) Urine Bilirubin Negative (Negative) Urine Urobilinogen Negative (Negative) Ur Leukocyte Esterase Negative (Negative) Salicylates (3.0-30) mg/dl Urine Opiates Screen Neg (Neg) Ur Methadone, Qual Neg (Neg) Acetaminophen (10-30) ug/ml Urine Barbiturates Neg (Neg) Ur Phencyclidine (PCP) Neg (Neg) U Amphetamin/Meth Scrn Neg (Neg) MDMA (Ecstasy) Screen Neg (Neg) U OH-Alprazolam Confrm U Benzodiazepines Scrn Pos H (Neg) 7-Amino Clonazepam Ur Nordiazepam Confirm U OH-ethylflurazepam U Lorazepam Cnf GC/MS U Oxazepam Confm GC/MS Ur Temazepam Confirm U OH-Triazolam Confirm U OH-Midazolam Confirm [place] (0.6-1.2) mmol/L Ur Cocaine Metabolite Neg (Neg) U Marijuana (THC) Screen Neg (Neg) Drug Screen Comment Ethyl Alcohol mg/dL (<10.0) mg/dl SARS-CoV-2, RNA, NAAT (NEGATIVE) 08/11/21 08/11/21 08/11/21 Range/Units 19:38 19:38 19:38 WBC (4.8-10.8) K/uL RBC (4.2-5.4) M/uL Hgb (12.0-16.0) g/dL Hct (37-47) % MCV (80-100) fL MCH (25-34) pg MCHC (32-36) g/dL RDW Std Deviation (36.4-46.3) fL RDW Coeff of Kristyn (11.5-14.5) % Plt Count (130-400) K/uL MPV (7.4-10.4) fL Immature Gran % (Auto) % Neut % (Auto) % Lymph % (Auto) % [place] % (Auto) % Eos % (Auto) % Baso % (Auto) % Neut # (Auto) (1.4-6.5) K/uL Lymph # (Auto) (1.2-3.4) K/uL [place] # (Auto) (0.11-0.59) K/uL Eos # (Auto) (0-0.5) K/uL Baso # (Auto) (0-0.2) K/uL Immature Gran # (Auto) (0.00-0.02) K/uL Sodium (136-145) mmol/L Potassium (3.5-5.1) mmol/L Chloride (98-107) mmol/L Carbon Dioxide (21-32) mmol/L Anion Gap (3-11) BUN (6-23) mg/dl Creatinine (0.6-1.2) mg/dl Est Cr Clr Drug Dosing ml/min Est GFR ( Amer) ml/min Est GFR (Non-Af Amer) ml/min BUN/Creatinine Ratio (10-20) Glucose (70-99(Fasting)) mg/dl POC Glucose (70-99) mg/dl Calcium (8.5-10.1) mg/dl Magnesium (1.7-2.4) mg/dl Total Bilirubin (0.2-1.0) mg/dl AST (13-39) U/L ALT (7-52) U/L Alkaline Phosphatase (34-104) U/L Total Protein (6.0-8.3) gm/dl Albumin (3.4-5.0) gm/dl Globulin (2.5-4.0) gm/dl Albumin/Globulin Ratio (0.9-2) Vitamin B12 Folate TSH 1.217 (0.300-4.500) uIu/ml HCG, Qual (Negative) Urine Color Urine Appearance (Clear) Urine pH (4.5-7.5) Ur Specific [place] (1.000-1.030) Urine Protein (Negative) Urine Glucose (UA) (Negative) Urine Ketones (Negative) Urine Blood (Negative) Urine Nitrite (Negative) Urine Bilirubin (Negative) Urine Urobilinogen (Negative) Ur Leukocyte Esterase (Negative) Salicylates < 3.0 L (3.0-30) mg/dl Urine Opiates Screen (Neg) Ur Methadone, Qual (Neg) Acetaminophen < 3 L (10-30) ug/ml Urine Barbiturates (Neg) Ur Phencyclidine (PCP) (Neg) U Amphetamin/Meth Scrn (Neg) MDMA (Ecstasy) Screen (Neg) U OH-Alprazolam Confrm U Benzodiazepines Scrn (Neg) 7-Amino Clonazepam Ur Nordiazepam Confirm U OH-ethylflurazepam U Lorazepam Cnf GC/MS U Oxazepam Confm GC/MS Ur Temazepam Confirm U OH-Triazolam Confirm U OH-Midazolam Confirm [place] 0.6 (0.6-1.2) mmol/L Ur Cocaine Metabolite (Neg) U Marijuana (THC) Screen (Neg) Drug Screen Comment Ethyl Alcohol mg/dL 343.3 H (<10.0) mg/dl SARS-CoV-2, RNA, NAAT (NEGATIVE) 08/11/21 08/11/21 Range/Units 19:38 19:38 WBC 11.84 H (4.8-10.8) K/uL RBC 4.25 (4.2-5.4) M/uL Hgb 13.8 (12.0-16.0) g/dL Hct 41.3 (37-47) % MCV 97.2 (80-100) fL MCH 32.5 (25-34) pg MCHC 33.4 (32-36) g/dL RDW Std Deviation 47.4 H (36.4-46.3) fL RDW Coeff of Kristyn 13.4 (11.5-14.5) % Plt Count 292 (130-400) K/uL MPV 10.7 H (7.4-10.4) fL Immature Gran % (Auto) 0.3 % Neut % (Auto) 76.8 % Lymph % (Auto) 20.1 % [place] % (Auto) 2.4 % Eos % (Auto) 0.3 % Baso % (Auto) 0.1 % Neut # (Auto) 9.10 H (1.4-6.5) K/uL Lymph # (Auto) 2.38 (1.2-3.4) K/uL [place] # (Auto) 0.28 (0.11-0.59) K/uL Eos # (Auto) 0.04 (0-0.5) K/uL Baso # (Auto) 0.01 (0-0.2) K/uL Immature Gran # (Auto) 0.03 H (0.00-0.02) K/uL Sodium 142 (136-145) mmol/L Potassium 3.7 (3.5-5.1) mmol/L Chloride 108 H (98-107) mmol/L Carbon Dioxide 20 L (21-32) mmol/L Anion Gap 14 H (3-11) BUN 12 (6-23) mg/dl Creatinine 0.75 (0.6-1.2) mg/dl Est Cr Clr Drug Dosing 107.6 ml/min Est GFR ( Amer) 124.8 ml/min Est GFR (Non-Af Amer) 107.7 ml/min BUN/Creatinine Ratio 16.0 (10-20) Glucose 71 (70-99(Fasting)) mg/dl POC Glucose (70-99) mg/dl Calcium 8.8 (8.5-10.1) mg/dl Magnesium (1.7-2.4) mg/dl Total Bilirubin 0.5 (0.2-1.0) mg/dl AST 26 (13-39) U/L ALT 21 (7-52) U/L Alkaline Phosphatase 44 (34-104) U/L Total Protein 7.2 (6.0-8.3) gm/dl Albumin 4.7 (3.4-5.0) gm/dl Globulin 2.5 (2.5-4.0) gm/dl Albumin/Globulin Ratio 1.9 (0.9-2) Vitamin B12 Folate TSH (0.300-4.500) uIu/ml HCG, Qual (Negative) Urine Color Urine Appearance (Clear) Urine pH (4.5-7.5) Ur Specific [place] (1.000-1.030) Urine Protein (Negative) Urine Glucose (UA) (Negative) Urine Ketones (Negative) Urine Blood (Negative) Urine Nitrite (Negative) Urine Bilirubin (Negative) Urine Urobilinogen (Negative) Ur Leukocyte Esterase (Negative) Salicylates (3.0-30) mg/dl Urine Opiates Screen (Neg) Ur Methadone, Qual (Neg) Acetaminophen (10-30) ug/ml Urine Barbiturates (Neg) Ur Phencyclidine (PCP) (Neg) U Amphetamin/Meth Scrn (Neg) MDMA (Ecstasy) Screen (Neg) U OH-Alprazolam Confrm U Benzodiazepines Scrn (Neg) 7-Amino Clonazepam Ur Nordiazepam Confirm U OH-ethylflurazepam U Lorazepam Cnf GC/MS U Oxazepam Confm GC/MS Ur Temazepam Confirm U OH-Triazolam Confirm U OH-Midazolam Confirm [place] (0.6-1.2) mmol/L Ur Cocaine Metabolite (Neg) U Marijuana (THC) Screen (Neg) Drug Screen Comment Ethyl Alcohol mg/dL (<10.0) mg/dl SARS-CoV-2, RNA, NAAT (NEGATIVE) Medications Administered Chlordiazepoxide HCl (Chlordiazepoxide Hcl 25 Mg Cap) 25 mg PO Q6H KOREY; Taper Stop: 08/14/21 09:59 Last Admin: 08/12/21 09:40 Dose: 25 mg Documented by: [id number] Cyanocobalamin (Cyanocobalamin (B-12) 500 Mcg Tablet) 500 mcg PO QAM [facility] Stop: 09/11/21 08:59 Last Admin: 08/12/21 08:39 Dose: 500 mcg Documented by: [id number] Folic Acid (Folic Acid 400 Mcg Tab) [facility] [place]: 09/11/21 08:59 Last Admin: 08/12/21 08:39 Dose: 400 mcg Documented by: [id number] Gabapentin (Gabapentin 100 Mg Cap) 200 mg PO [facility] Stop: 09/11/21 09:14 Last Admin: 08/12/21 09:40 Dose: 200 mg Documented by: [id number] Potassium Chloride/Sodium Chloride (Normal Saline W/20 Meq Kcl) 20 meq in 1,000 mls @ 80 mls/hr IV .[id number] [facility]; Protocol Stop: 09/11/21 08:14 Last Admin: 08/12/21 09:40 Dose: 80 mls/hr Documented by: [id number] Fosston Carbonate (Fosston Carbonate 450 Mg Tabcr) 900 mg PO DAILY [facility] Stop: 09/11/21 08:59 Last Admin: 08/12/21 07:24 Dose: 900 mg Documented by: [id number] Miscellaneous (Remove Nicoderm Patch) 1 ea N/A DAILY@[id number] [facility] Stop: 09/11/21 08:58 Last Admin: 08/12/21 07:24 Dose: 1 ea Documented by: [id number] Nicotine (Nicotine 14 Mg/24 Hr Patch) 14 mg TD [facility] Stop: 09/11/21 08:59 Last Admin: 08/12/21 07:23 Dose: 14 mg Documented by: [id number] Olanzapine (Olanzapine 2.5 Mg Tab) 2.5 mg PO DAILY [facility] Stop: 09/11/21 08:59 Last Admin: 08/12/21 07:24 Dose: 2.5 mg Documented by: [id number] Coding Level of Care Code 41399 [facility] Intl Hosp Care Lvl 2 Diagnoses Alcoholic intoxication F10.929 Complication of substance-induced condition: with unspecified complication Bipolar disorder F31.9 Active/Remission status: remission status unspecified
[2021-08-12 11:23] LABS: Folate (Folic Acid) > 22.30 ng/ml (>5.38); Vitamin B12 345 pg/ml (180-914)
[2021-08-12] MEDS ORDERED: THIAMINE HCL 100 MG in SYRINGE 9 ML IV ONE (19:00)
[2021-08-12] MEDS: OLANZapine 5 MG TABLET PO SCH (21:11)
[2021-08-12] MEDS: traZODone HCL 100 MG TAB PO PRN (21:45)
[2021-08-13] MEDS: chlordiazePOXIDE HCl 25 MG CAP PO SCH ×3 (03:51→17:59)
[2021-08-13 05:54] LABS: Basophils # (auto) 0.02 K/uL (0-0.2); Basophils % (auto) 0.2 %; Eosinophils # (auto) 0.14 K/uL (0-0.5); Eosinophils % (auto) 1.7 %; Hematocrit (blood only) 33.9 % (37-47); Hemoglobin 11.2 g/dL (12.0-16.0); Immature Granulocytes # (auto) 0.02 K/uL (0.00-0.02); Immature Granulocytes % (auto) 0.2 %; Lymphocytes # (auto) 3.43 K/uL (1.2-3.4); Lymphocytes % (auto) 40.4 %; Mean Corpuscular Hemoglobin 32.1 pg (25-34); Mean Corpuscular Volume 97.1 fL (80-100); Mean Platelet Volume 10.7 fL (7.4-10.4); Monocytes # (auto) 0.83 K/uL (0.11-0.59); Monocytes % (auto) 9.8 %; Neutrophils # (auto) 4.04 K/uL (1.4-6.5); Neutrophils % (auto) 47.7 %; Platelet Count 245 K/uL (130-400); RDW Coefficient of Variation 13.5 % (11.5-14.5); RDW Standard Deviation 47.7 fL (36.4-46.3); Red Blood Count 3.49 M/uL (4.2-5.4); White Blood Count 8.48 K/uL (4.8-10.8)
[2021-08-13 06:35] LABS: Albumin Level 3.5 gm/dl (3.4-5.0); BUN Creatinine Ratio 10.3 (10-20); Bilirubin Direct 0.3 mg/dl (0-0.2); Bilirubin,Total 1.4 mg/dl (0.2-1.0); Calcium 8.1 mg/dl (8.5-10.1); Creatinine Clr Calc Pharmacy 118.7 ml/min; Est GFR (Non-African American) 118.2 ml/min; Potassium 3.6 mmol/L (3.5-5.1); Total Protein 5.3 gm/dl (6.0-8.3)
--- NOTE | 2021-08-13 07:56 | Hospitalist Progress Note ---
Date of Service August 13, 2021 Assessment & Plan (1) Alcoholic intoxication: Plan: 31 year old female w/ PMHx of etoh use disorder, anxiety, bipolar 1 disorder, and multiple similar visits in past that required inpatient psych transfers who presents for for etoh intoxication and suicidal ideation which she reports was only said while under influence and currently denying SI/HI ideation Withdrawal symptoms with alcohol level in 300s on admission and given ativan 1mg IV x1 --> given 1mg PO ativan AM 08/12 for tachycardia/anxiety symptoms AWSS -- ativan available PO/IV as needed (has not needed further) * Prior withdrawal seizures 1 year ago, started on Librium taper 08/12, continued. monitor LFts. No abd pain/nausea/vomiting * Increased gabapentin to 200mg QAM, 100mg QPM as last prescribed although patient endorses taking 200mg BID B12 low normal, 2nd to Etoh, remains on supplementation Continue daily Thiamine IV, PO folate/B12 WBC elevation likely 2nd to alcohol use/reactive --> normalized on repeat [place] level wnl (prior subtherapeutic levels) BP 97/60, HR improved from 90-low 100s to 70-80s after banana bag x 1 08/12. Asymptomatic * remains on IVF NS +K @ 80 until further improvement in PO Psych consulted * most likely benefit from inpatient treatment, however she is hoping to be able to have treatment/outpatient follow up. * Would recommend AGAINST Klonopin in outpatient setting at discharge with combined use of alcohol Suicide precautions in place, however ? change 1:1 to Q15min later today as patient denying SI/HI ideation but will confer with psych prior to discontinuing 302 warrant not filled out at this time. Denies SI/HI ideation Continue to monitor/electrolyte replacement as needed (2) Bipolar disorder: Plan: lithium 0.6, therapeutic. continue home regimen lithium 900mg daily and home olanzapine need outpt f/u, psych consulted as above (3) Anxiety: Plan: chronic. home Klonopin 0.5mg PO BID held during AWSS protocol and started on Librium taper as above AWSS with ativan. Rec against klonopin outpt with combined alcohol use however will need close follow up (appears to have been started 03/2021.) Home gabapentin resumed as above, but suspect patient not taking as prescribed Librium taper for withdrawal ordered (4) Alcohol abuse: Plan: Last etoh drink evening of 08/11/21. etoh 343.3 at arrival - declined acamprosate in past because of concern of side effects -- would be ideal if she became agreeable to such - continue counseling on cessation. Psych consulted as above, ?inpatient vs outpatient treatment --> patient wanting OUTPATIENT FOLLOW UP would continue B12 at d/c to prevent deficiency given low normal (5) Insomnia: Plan: Continue home trazodone 100mg qhs. recommend against chronic use; consider lower dose but defer to psych (6) Suicidal ideation: Plan: - 302 warrant; SI will be reassessed when patient is sober. full 302 is not completed. (7) Leukocytosis: Plan: - unknown etiology but suspect reactive from alcohol intoxication. mild. considered etoh use. WBC 12.7k and does have some crackles/diminished bases (resolved today) --> denied sob/cp/cough but check CXR for completeness (negative) B12 low normal Afebrile Reactive from alcohol use, normalized without abx (8) Tobacco use disorder: Plan: - ~1/2 ppd. residential counselor on cessation. nicotine patch daily. Plan: Continue inpatient stay Admission and Anticipated Discharge Date Admission Date: August 12, 2021 Supervising Physician Co-Signing Physician Notes PA Supervision Note: I did not personally see or examine the patient today, but I verified all castellanos points of MONTRELL Smith's assessment and plan with the following exceptions/additions: None Subjective Patient evaluated this morning. Doing alright. Anxiety controlled. No SI/HI. Eating/drinking improved, appetite improved but still remains fair. Discussed B12 level and low normal/likely from Etoh and recs to continue supplementation. Continues to endorse wanting outpatient follow up and declines inpatient psych/D&A treatment. She states had been taking gabapentin 200mg in am and PM. Discussed prior rx hx, states 200 + 100mg. She notes this was changed couple weeks ago. Continues to decline HELEN from prior psychiatrist for verification however discussed continuing librum/ativan and continue current meds and current dose given stability at present time. Psych to follow. No fever/chills, chest pain, shortness of breath, abdominal pain, nausea, dysuria at this time voiced. Review of Systems Review of Systems: All systems reviewed & are unremarkable except as noted in HPI & below Physical Exam Physical Exam: General: WD/WN female sitting in bed, 1:1 at bedside, NAD HEENT: head normocephalic, atraumatic, pupils equal, anicteric, mm slightly dry, trachea midline without deviation Resp: CTAB, no w/c/r, on room air CV: RRR (rate 86bpm), no m/r/g GI: +bs, soft, non-tender : no wagner MSK/Neuro: moves all extremities, answering questions appropriately, follows commands, CN intact grossly Psych: Aox3, calm, cooperative, no SI/HI, no tremor Results & Data Results & Data ([facility]) Vital Signs (Past 12 Hours) Vital Signs Temp Pulse Pulse Resp BP Pulse Ox 08/13/21 03:17 36.7 C 87 18 103/65 95 08/12/21 23:14 36.8 C 73 18 93/56 L 97 08/12/21 22:17 78 Laboratory Results 08/13/21 08/13/21 08/12/21 Range/Units 05:11 05:11 10:03 WBC 8.48 (4.8-10.8) K/uL RBC 3.49 L (4.2-5.4) M/uL Hgb 11.2 L (12.0-16.0) g/dL Hct 33.9 L (37-47) % MCV 97.1 (80-100) fL MCH 32.1 (25-34) pg MCHC 33.0 (32-36) g/dL RDW Std Deviation 47.7 H (36.4-46.3) fL RDW Coeff of Kristyn 13.5 (11.5-14.5) % Plt Count 245 (130-400) K/uL MPV 10.7 H (7.4-10.4) fL Immature Gran % (Auto) 0.2 % Neut % (Auto) 47.7 % Lymph % (Auto) 40.4 % Garrard % (Auto) 9.8 % Eos % (Auto) 1.7 % Baso % (Auto) 0.2 % Neut # (Auto) 4.04 (1.4-6.5) K/uL Lymph # (Auto) 3.43 H (1.2-3.4) K/uL Garrard # (Auto) 0.83 H (0.11-0.59) K/uL Eos # (Auto) 0.14 (0-0.5) K/uL Baso # (Auto) 0.02 (0-0.2) K/uL Immature Gran # (Auto) 0.02 (0.00-0.02) K/uL Sodium 139 (136-145) mmol/L Potassium 3.6 (3.5-5.1) mmol/L Chloride 111 H (98-107) mmol/L Carbon Dioxide 24 (21-32) mmol/L Anion Gap 4 (3-11) BUN 7 (6-23) mg/dl Creatinine 0.68 (0.6-1.2) mg/dl Est Cr Clr Drug Dosing 118.7 ml/min Est GFR ( Amer) 137.0 ml/min Est GFR (Non-Af Amer) 118.2 ml/min BUN/Creatinine Ratio 10.3 (10-20) Glucose 105 H (70-99(Fasting)) mg/dl Calcium 8.1 L (8.5-10.1) mg/dl Magnesium 2.0 (1.7-2.4) mg/dl Total Bilirubin 1.4 H D (0.2-1.0) mg/dl Direct Bilirubin 0.3 H (0-0.2) mg/dl AST 19 (13-39) U/L ALT 16 (7-52) U/L Alkaline Phosphatase 35 (34-104) U/L Total Protein 5.3 L D (6.0-8.3) gm/dl Albumin 3.5 (3.4-5.0) gm/dl Vitamin B12 345 (180-914) pg/ml Folate > 22.30 (>5.38) ng/ml PG Care Time/CCT Total # of Minutes Spent Total Time Spent with Patient: Total time spent is greater than 50% in coordination of care (as documented) at patient's floor/unit and/or counseling patient: Coding Level of Care Code 40841 Subseq Hosp Care Lvl 2 Diagnoses Alcoholic intoxication F10.929 Complication of substance-induced condition: with unspecified complication Bipolar disorder F31.9 Active/Remission status: remission status unspecified Anxiety F41.9 Alcohol abuse F10.10 Insomnia G47.00 Suicidal ideation R45.851 Leukocytosis D72.829 Tobacco use disorder F17.200 (1) Alcoholic intoxication Complication of substance-induced condition: with unspecified complication Qualified Code(s): F10.929 - Alcohol use, unspecified with intoxication, unspecified (2) Bipolar disorder Active/Remission status: remission status unspecified Qualified Code(s): F31.9 - Bipolar disorder, unspecified
[2021-08-13] MEDS: OLANZAPINE 2.5 MG TAB PO SCH (08:59)
[2021-08-13] MEDS: LITHIUM CARBONATE 450 MG TABCR PO SCH (08:59)
[2021-08-13] MEDS: GABAPENTIN 100 MG CAP PO SCH ×2 (08:59→20:55)
[2021-08-13] MEDS: THIAMINE HCL 100 MG in SYRINGE 9 ML IV SCH (08:59)
[2021-08-13] MEDS: CYANOCOBALAMIN (B-12) 500 MCG TABLET PO SCH (08:59)
[2021-08-13] MEDS: NICOTINE 14 MG/24 HR PATCH TD SCH (09:00)
[2021-08-13] MEDS: FOLIC ACID 400 MCG TAB PO SCH (09:00)
[2021-08-13] MEDS: NSS + 20MEQ KCL 20 MEQ/1,000 ML BAG IV SCH ×2 (11:03→22:51)
[2021-08-13] MEDS ORDERED: LORazepam 1 MG TAB PO STA (15:58)
[2021-08-13] MEDS: OLANZapine 5 MG TABLET PO SCH (20:55)
[2021-08-13] MEDS: traZODone HCL 100 MG TAB PO PRN (21:31)
--- NOTE | 2021-08-13 22:18 | Electrocardiogram Report ---
Test Reason : Blood Pressure : / mmHG Vent. Rate : 102 BPM Atrial Rate : 102 BPM P-R Int : 156 ms QRS Dur : 082 ms QT Int : 346 ms P-R-T Axes : 056 054 017 degrees QTc Int : 450 ms Sinus tachycardia Possible Left atrial enlargement Nonspecific T wave abnormality When compared with ECG of 20-DEC-2020 03:03, No significant change was found Confirmed by Kilo Jasso ([id number]) on 08/13/2021 10:17:59 PM Referred By: REFERRED SELF Confirmed By:Kilo Jasso
[2021-08-14] MEDS: chlordiazePOXIDE HCl 25 MG CAP PO SCH (01:26)
[2021-08-14 07:34] LABS: Hematocrit (blood only) 34.9 % (37-47); Hemoglobin 11.5 g/dL (12.0-16.0); Mean Corpuscular Hemoglobin 32.5 pg (25-34); Mean Corpuscular Volume 98.6 fL (80-100); Mean Platelet Volume 11.2 fL (7.4-10.4); Platelet Count 239 K/uL (130-400); RDW Coefficient of Variation 13.1 % (11.5-14.5); RDW Standard Deviation 47.8 fL (36.4-46.3); Red Blood Count 3.54 M/uL (4.2-5.4); White Blood Count 5.87 K/uL (4.8-10.8)
[2021-08-14 07:43] LABS: Alanine Aminotransferase 24 U/L (7-52); Albumin Level 3.6 gm/dl (3.4-5.0); Alkaline Phosphatase 37 U/L (34-104); Anion Gap 3 (3-11); BUN Creatinine Ratio 10.1 (10-20); Bilirubin,Total 0.7 mg/dl (0.2-1.0); Blood Urea Nitrogen 7 mg/dl (6-23); Calcium 8.2 mg/dl (8.5-10.1); Carbon Dioxide 24 mmol/L (21-32); Chloride 111 mmol/L (98-107); Est GFR (African American) 136.3 ml/min; Est GFR (Non-African American) 117.6 ml/min; Glucose 101 mg/dl (70-99(Fasting)); Sodium 138 mmol/L (136-145); Total Protein 5.4 gm/dl (6.0-8.3)
[2021-08-14] MEDS: CYANOCOBALAMIN (B-12) 500 MCG TABLET PO SCH (08:39)
[2021-08-14] MEDS: THIAMINE HCL 100 MG in SYRINGE 9 ML IV SCH (08:39)
[2021-08-14] MEDS: LITHIUM CARBONATE 450 MG TABCR PO SCH (08:39)
[2021-08-14] MEDS: NICOTINE 14 MG/24 HR PATCH TD SCH (08:39)
[2021-08-14] MEDS: GABAPENTIN 100 MG CAP PO SCH (08:40)
[2021-08-14] MEDS: OLANZAPINE 2.5 MG TAB PO SCH (08:40)
[2021-08-14] MEDS: FOLIC ACID 400 MCG TAB PO SCH (08:40)
[2021-08-14 08:50] LABS: Bilirubin Direct 0.1 mg/dl (0-0.2); Potassium 3.8 mmol/L (3.5-5.1)
[2021-08-14] MEDS: NSS + 20MEQ KCL 20 MEQ/1,000 ML BAG IV SCH (10:58)
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
[2021-08-14 15:06] LABS: 7-Aminoclonaz, Confirm 72 ng/mL (<25); Hydro-Alp Ur, GC/MS NEGATIVE ng/mL (<25); Hydroxyethylflurazepam, Conf NEGATIVE ng/mL (<50); Hydroxymidazolam Ur, GC/MS NEGATIVE ng/mL (<50); Hydroxytriazolam NEGATIVE ng/mL (<50); Lorazepam, Ur GC/MS NEGATIVE ng/mL (<50); Nordiazepam, Confirm NEGATIVE ng/mL (<50); Oxazepam Ur, GC/MS 206 ng/mL (<50); Temazepam, Confirm NEGATIVE ng/mL (<50)
--- NOTE | 2021-08-14 16:24 | Hospitalist Progress Note ---
Date of Service August 14, 2021 Assessment & Plan (1) Alcoholic intoxication: Plan: 31 year old female w/ PMHx of etoh use disorder, anxiety, bipolar 1 disorder, and multiple similar visits in past that required inpatient psych transfers who presents for for etoh intoxication and suicidal ideation which she reports was only said while under influence and currently denying SI/HI ideation Hospitalized to a monitored bed. CIWA monitoring while in house Librium taper initiated. Ativan utilized as needed based on CIWA scale On chronic gabapentin for which an additional dose in the evening started Banana bag given with transition to IV thiamine, multivitamin, folic acid, and B12 given low B12 level. Continue these upon discharge Patient has remained hemodynamically stable. Subtle tremulous activity but otherwise no significant withdrawal symptoms. Has remained A&O, no abdominal pain, nausea or vomiting. Lengthy discussion with patient regarding the importance of alcohol cessation. Highly suggested inpatient rehabilitation but she declines. I am concerned with her success rate. She lives with her who occasionally drinks. In addition, there remains alcohol in the home. I did discuss poor success rate without supportive environment. I recommended that she attend AA meetings and find a sponsor. She reports that "she will consider this". I have discussed certain medications like Campral and Vivitrol. She declines these as well. I explained in great detail that going home to the same environment and expecting to be successful with alcohol cessation with setting very unrealistic expectations. She voiced understanding but declines any additional help at this time. (2) Suicidal ideation: Plan: Psych assessment done when patient sober. She denied any suicidal ideation when not under the influence of alcohol full 302 is not completed. (3) Bipolar disorder: Plan: lithium 0.6, therapeutic. continue home regimen lithium 900mg daily and home olanzapine Follow psychiatry as an outpatient. Recommend close follow-up (4) Anxiety: Plan: chronic. home Klonopin 0.5mg PO BID held during AWSS protocol and started on Librium taper as above DC with Librium taper and continued gabapentin DC benzodiazepines at home as concern when mixed with Librium and other polysubstances (5) Alcohol abuse: Plan: Last etoh drink evening of 08/11/21. etoh 343.3 at arrival As above (6) Insomnia: Plan: Continue home trazodone 100mg qhs. (7) Leukocytosis: Plan: -Mild and likely reactive as resolved without intervention (8) Tobacco use disorder: Plan: Recommend tobacco cessation; however, realistic expectations would be for 1 substance withdrawal at a time. Recommend she focus on alcohol abstinence and later focus on cessation of tobacco Plan: Declines inpatient rehab. DC to home Admission and Anticipated Discharge Date Admission Date: August 12, 2021 Subjective Patient seen on daily rounds today. Vocalizes no significant complaints or concerns. Denies fevers, chills, chest pain, shortness of breath, abdominal pain, nausea or vomiting. Currently on Librium taper. Tolerating this. Mild tremor but otherwise hemodynamically stable. Not tachycardic. Denies abdominal pain, nausea or vomiting. Slight diarrhea but manageable. Offered inpatient rehabilitation but declines this. Also declines medications like Vivitrol or Campral. Resides with her . Plans on discharge to that environment. Reports that he does occasionally drink. Is not interested in AA meetings. Review of Systems Review of Systems: All systems reviewed and are unremarkable except as noted in HPI and below Denies fevers, chills, headache, nasal congestion, sore throat, cough, chest pain, shortness of breath, palpitations, orthopnea, PND, abdominal pain, nausea, vomiting, diarrhea, constipation, dysuria, hematuria, frequency, back pain, j oint pain or swelling, easy bruising or bleeding, skin lesions or rashes. Physical Exam Physical Exam: General: Resting comfortably in her hospital bed. She does not appear ill or toxic. Very flat affect. Poor eye contact. NAD. HEENT: Head is AT/NC. Buccal mucosa is moist and pink Neck: No JVD. Negative hepatojugular reflex Cardiac: RRR without M/G/R Lungs: CTA without W/R/R Abdomen: Normoactive X4. Soft and nontender in all quadrants. Extremities: Very subtle tremors noted Neuro: A&O X4. Cranial nerves II through XII are grossly intact. No focal neuro deficits Skin: No obvious skin lesions or rashes Psych: Appropriate affect. Pleasant and cooperative Results & Data Results & Data ([facility]) Vital Signs (Past 12 Hours) Vital Signs Temp Pulse Pulse Resp BP Pulse Ox 08/14/21 14:36 36.5 C 73 16 94/59 L 97 08/14/21 10:58 75 08/14/21 06:54 36.5 C 73 16 94/59 L 97 Laboratory Results 08/14/21 06:46 08/14/21 08:13 PG Care Time/CCT Total # of Minutes Spent Total Time Spent with Patient: Total time spent is greater than 50% in coordination of care (as documented) at patient's floor/unit and/or counseling patient: Coding Diagnoses Alcoholic intoxication F10.929 Complication of substance-induced condition: with unspecified complication Bipolar disorder F31.9 Active/Remission status: remission status unspecified Anxiety F41.9 Alcohol abuse F10.10 Insomnia G47.00 Suicidal ideation R45.851 Leukocytosis D72.829 Tobacco use disorder F17.200 (1) Alcoholic intoxication Complication of substance-induced condition: with unspecified complication Qualified Code(s): F10.929 - Alcohol use, unspecified with intoxication, unspecified (2) Bipolar disorder Active/Remission status: remission status unspecified Qualified Code(s): F31.9 - Bipolar disorder, unspecified
--- NOTE | 2021-08-14 16:40 | Discharge Summary ---
Date of Service August 14, 2021 Admission HPI Per Admitting Provider 31 year old female w/ PMHx of etoh use disorder, anxiety, bipolar 1 disorder, and similar ED visits in 05/2021 and 03/2021 for etoh intoxication requiring transfer to inpatient psych at [facility]. She has had multiple inpatient psych visits. She is here under a 302 warrant (not full 302) for suicidal ideation while intoxication. Hospitalist admission was requested because patient developed mild signs of withdrawal (anxious, shaky, and mildly tachycardic) and because she endorses hx of withdrawal seizure while on psych floor approx 1 year ago. She has had visual and auditory hallucinations from alcohol withdrawal in the past, but denies any this admission. Etoh: binge drinking in past 2 weeks. Fewest was 5 drinks in a day. She drinks vodka. She attributes the drinking to feeling depressed during this time. She feels similar to how she felt preceding her previous inpatient psych admissions, of which she has had multiple. Last etoh drink was yesterday the evening. Denies current SI/HI. She denies other symptoms. Gabapentin 200mg PO started couple weeks ago. She takes clonazepam 0.5mg BID consistently. Adherent w/ meds. She feels safe at home. Lives w/ . Denies illicit substance use. Current mood still depressed and anxious. Has good support system w/ family. Tobacco: 10+ cigarettes/day. ED course: 1mg IV ativan. Principal Diagnosis 1. Acute alcohol intoxicationresolved 2. Suicidal ideationseen by psychiatry 3. Acute alcohol withdrawalcontrolled/stable Discharge Exam General: Resting comfortably in her hospital bed. Very flat affect. Poor eye contact. NAD. HEENT: Head is AT/NC. Buccal mucosa is moist and pink Neck: No JVD. Negative hepatojugular reflex Cardiac: RRR without M/G/R Lungs: CTA without W/R/R Abdomen: Normoactive X4. Soft and nontender in all quadrants. Extremities: Slightly tremulous but not significant Neuro: A&O X4. Cranial nerves II through XII are grossly intact. No focal neuro deficits Skin: No obvious skin lesions or rashes Psych: Appropriate affect. Pleasant and cooperative Discharge Data Allergies Allergy/AdvReac Type Severity Reaction Status Date / Time Antihistamines AdvReac Intermediate Anxiety Uncoded 08/11/21 19:53 Consultations 08/12/21 03:24 ED Decision to Admit Stat 08/12/21 04:45 Consult Psychiatry Routine Impression / Recommendations Impression 31 yo female with history of SI and dramatic behavior when intoxicated, LETY in ED 343, therapeutic on lithium 0.6 (10-12 hr trough). Currently on 302 warrant and denying SI. She does not want inpatient mental health treatment for her residual depression and prefers to work with her outpatient provider on medications. She has refused rehab. 08/14/21: improved, declining warrant as medical clearance is imminent. (1) Alcoholic intoxication: (2) Bipolar disorder: patient is unwilling to allow communication with outpatient providers and desires own follow up as worries we will interfere with rx of Klonopin and is also enabling this behavior. She is aware of our advice that it be discontinued and follow any librium taper per hospitalist. She is aware of risks of combining with her medications and risk of toxicity with lithium with ETOh/OD. Our recommendation was that she stay with her sister given history of conflict at home but couple doesn't want this. There is no evidence of twyla or psychosis or active withdrawal delirium interfering with her medical decision making. Hospital Course (1) Alcoholic intoxication: 31 year old female w/ PMHx of etoh use disorder, anxiety, bipolar 1 disorder, and multiple similar visits in past that required inpatient psych transfers who presents for for etoh intoxication and suicidal ideation which she reports was only said while under influence and currently denying SI/HI ideation Hospitalized to a monitored bed. CIWA monitoring while in house Librium taper initiated. Ativan utilized as needed based on CIWA scale On chronic gabapentin for which an additional dose in the evening started Banana bag given with transition to IV thiamine, multivitamin, folic acid, and B12 given low B12 level. Continue these upon discharge Patient has remained hemodynamically stable. Subtle tremulous activity but otherwise no significant withdrawal symptoms. Has remained A&O, no abdominal pain, nausea or vomiting. Lengthy discussion with patient regarding the importance of alcohol cessation. Highly suggested inpatient rehabilitation but she declines. I am concerned with her success rate. She lives with her who occasionally drinks. In addition, there remains alcohol in the home. I did discuss poor success rate without supportive environment. I recommended that she attend AA meetings and find a sponsor. She reports that "she will consider this". I have discussed certain medications like Campral and Vivitrol. She declines these as well. I explained in great detail that going home to the same environment and expecting to be successful with alcohol cessation with setting very unrealistic expectations. She voiced understanding but declines any additional help at this time. (2) Suicidal ideation: Psych assessment done when patient sober. She denied any suicidal ideation when not under the influence of alcohol full 302 is not completed. (3) Bipolar disorder: lithium 0.6, therapeutic. continue home regimen lithium 900mg daily and home olanzapine Follow psychiatry as an outpatient. Recommend close follow-up (4) Anxiety: chronic. home Klonopin 0.5mg PO BID held during AWSS protocol and started on Librium taper as above DC with Librium taper and continued gabapentin DC benzodiazepines at home as concern when mixed with Librium and other polysubstances (5) Alcohol abuse: Last etoh drink evening of 08/11/21. etoh 343.3 at arrival As above (6) Insomnia: Continue home trazodone 100mg qhs. (7) Leukocytosis: -Mild and likely reactive as resolved without intervention (8) Tobacco use disorder: Recommend tobacco cessation; however, realistic expectations would be for 1 substance withdrawal at a time. Recommend she focus on alcohol abstinence and later focus on cessation of tobacco Declines inpatient rehab. DC to home Total Time Total Time Spent Total Time Spent (In Minutes): 45 minutes including time spent with patient, coordination of care, preparation of documentation and discussion with attending provider Discharge Plan Discharge Items Patient Disposition: Home - Self-Care Reason For Visit: ETOH INTOXICATION AND SUICIDAL IDEATION Discharge Diagnosis: 1. Acute alcohol intoxicationresolved 2. Suicidal ideationseen by psychiatry 3. Acute alcohol withdrawalcontrolled/stable Activity: Resume your previous activity Non-emergency contact: Primary Care Provider and Psychiatrist Call non-emergency contact if: you have any medication questions Follow-up/Referrals: Erlin Calderon III, CRNP [Primary Care Provider] - 08/21/21 4:00 pm Diet: Regular Addtl Attending Provider Instructions: You were hospitalized with acute intoxication of alcohol and suicidal ideation. You have been seen by psychiatry and no inpatient psychiatric stay warranted at this time. You have been started on medication (Librium) to taper to help prevent alcohol withdrawal. You have declined acute drug and alcohol rehabilitation. As discussed, strongly encourage you establish care with a sponsor and attend AA meetings. In discussion, he reports that your drinks occasionally. I strongly encourage all alcohol be removed from the home. You need to surround yourself with support in order for success. Take Librium as outlined: 10 mg (1 tab) 3 times daily X 2 days, 10 mg (1 tab) 2 times daily X 2 days, 5 mg (1/2 tab) twice daily X 2 days, 5 mg (1/2) once daily X 2 days then stop your Gabapentin has been increased (to an additional 100mg at bedside) note that you have been started on Folic acid, Multivitamin and Thiamin Follow-up with psychiatry Pending Studies at Discharge: No Stand-Alone Forms: My [facility] Medications and DC Order Prescriptions: New folic acid 400 mcg Tablet 400 mcg PO QAM Qty: 30 RF: 0 cyanocobalamin (vitamin B-12) 500 mcg Tablet 500 mcg PO QAM Qty: 30 RF: 0 chlordiazepoxide HCl 10 mg Capsule 10 mg PO DIRECTED Qty: 13 RF: 0 gabapentin 100 mg Capsule 100 mg PO QPM Qty: 30 RF: 0 thiamine HCl (vitamin B1) 100 mg tablet 100 mg PO DAILY Qty: 30 RF: 0 Continued lithium carbonate 300 mg tablet extended release 900 mg PO DAILY 90 Days Qty: 270 RF: 3 olanzapine 2.5 mg tablet 2.5 mg PO DAILY Qty: 90 RF: 3 olanzapine 15 mg tablet 15 mg PO QPM Qty: 90 RF: 3 trazodone 100 mg tablet 100 mg PO HS PRN (Reason: Sleep) RF: 0 gabapentin 100 mg capsule 200 mg PO QAM RF: 0 Discontinued clonazepam 0.5 mg tablet 0.5 mg PO BID Qty: 60 RF: 0 Discharge Orders: Discharge Order (Routine); Ordered 08/14/21 Ordered By: Odessa Cain Admission Data Admit Date/Time: 08/12/21 04:45 Attending Provider: Mynor Neil Admit Provider: He Piedra Primary Care Provider: Erlin Calderon III Other Providers: Estelle Carballo ; Sally Stephen ; Danita Hoffmann ; Chantal Beauchamp Other Interventions: Discharge Summary Assessment (RN) Last Done: 08/14/21 14:36 Coding Level of Care Code D/C DAY MANAGEMENT >30 MINS Diagnoses Alcoholic intoxication F10.929 Complication of substance-induced condition: with unspecified complication Suicidal ideation R45.851 Bipolar disorder F31.9 Active/Remission status: remission status unspecified Anxiety F41.9 Alcohol abuse F10.10 Insomnia G47.00 Leukocytosis D72.829 Tobacco use disorder F17.200
[2021-08-15] MEDS ORDERED: chlordiazePOXIDE HCl 5 MG CAP PO SCH ×2 (05:00→14:00)
== END 2021-08-14 16:15 | disposition home or self-care (01) | DRG 897 ==
LOC: ED 19:17 → 2W 08-12 04:45 → SUATTDRO 08-12 04:45 → 2W 08-12 05:47

== ENCOUNTER 2021-09-23 20:37 | Inpatient (IN) ==
[2021-09-23] MEDS ORDERED: SODIUM CHLORIDE 0.9% 1000ML 1,000 ML IV SCH (21:00)
[2021-09-23] MEDS ORDERED: ONDANSETRON HOME PACK 4MG OD TAB PO ONE (21:12)
[2021-09-23] MEDS ORDERED: ONDANSETRON 4 MG OD TAB PO STA (21:25)
[2021-09-23 21:34] LABS: Appearance Urine Clear (Clear); Bacteria Urine Automated Negative (Negative); Bilirubin Urine Negative (Negative); Blood Urine 3+ (Negative); Color Urine Yellow; Glucose Urine UA Negative (Negative); Ketones Urine 1+ (Negative); Leukocyte Esterase Urine Negative (Negative); Nitrite Urine Negative (Negative); Protein Urine Negative (Negative); Specific Gravity Urine 1.011 (1.000-1.030); Urobilinogen Urine Negative (Negative)
[2021-09-23 22:15] LABS: Hematocrit (blood only) 41.6 % (37-47); Hemoglobin 14.4 g/dL (12.0-16.0); Mean Corpuscular Hemoglobin 33.8 pg (25-34); Mean Corpuscular Hgb Conc 34.6 g/dL (32-36); Mean Corpuscular Volume 97.7 fL (80-100); Mean Platelet Volume 10.7 fL (7.4-10.4); Platelet Count 263 K/uL (130-400); RDW Coefficient of Variation 12.7 % (11.5-14.5); RDW Standard Deviation 45.3 fL (36.4-46.3); Red Blood Count 4.26 M/uL (4.2-5.4); White Blood Count 9.79 K/uL (4.8-10.8)
[2021-09-23 22:15] LABS: Amphetamines+Metham, Urine Neg (Neg); Barbiturates, Urine Neg (Neg); Benzodiazepine, Urine Pos (Neg); Cocaine, Urine Neg (Neg); MDMA (Ecstacy), Urine Neg (Neg); Methadone, Urine Neg (Neg); Opiate, Urine Neg (Neg); Phencyclidine, Urine Neg (Neg)
[2021-09-23 22:33] LABS: Acetaminophen < 3 ug/ml (10-30); Salicylate < 3.0 mg/dl (3.0-30)
[2021-09-23 22:34] LABS: Albumin Globulin Ratio 2.2 (0.9-2); Albumin Level 4.8 gm/dl (3.4-5.0); BUN Creatinine Ratio 12.9 (10-20); Bilirubin,Total 0.4 mg/dl (0.2-1.0); Calcium 8.8 mg/dl (8.5-10.1); Est GFR (African American) 107.3 ml/min; Est GFR (Non-African American) 92.6 ml/min; Globulin 2.2 gm/dl (2.5-4.0); Potassium 4.2 mmol/L (3.5-5.1)
[2021-09-23 23:00] LABS: Basophils # (auto) 0.02 K/uL (0-0.2); Basophils % (auto) 0.2 %; Immature Granulocytes # (auto) 0.03 K/uL (0.00-0.02); Immature Granulocytes % (auto) 0.3 %; Lymphocytes # (auto) 1.71 K/uL (1.2-3.4); Lymphocytes % (auto) 17.5 %; Monocytes # (auto) 0.14 K/uL (0.11-0.59); Monocytes % (auto) 1.4 %; Neutrophils # (auto) 7.89 K/uL (1.4-6.5); Neutrophils % (auto) 80.6 %
[2021-09-23 23:14] LABS: Lithium 0.2 mmol/L (0.6-1.2)
[2021-09-23] MEDS ORDERED: MULTI-VITAMIN INFUSION 10 ML, THIAMINE HCL 100 MG, FOLIC ACID 1 MG in SODIUM CHLORIDE 0... IV ONE (23:30)
[2021-09-23] MEDS ORDERED: ATIVAN IV ALCOHOL WITHDRAWL IV SCH (23:30)
--- NOTE | 2021-09-24 01:09 | Emergency Department Note ---
Impression & Plan Insomnia ED Provider Note CHIEF COMPLAINT: Alcohol intoxication, 302 HISTORY OF PRESENT ILLNESS: This 31-year-old female patient presents to the emergency department with police and family members at the bedside. Patient apparently was drinking heavily tonight and got into an argument with her . had called his sister, "asking for prayers and stating that they may not make it through the night." Apparently the patient and the made multiple suicidal statements. They both were drinking heavily tonight and the police were called. He is reported that the patient and her had a plan to slit each other's throats. Patient has been diagnosed as bipolar and per family report states she a lot of her medications. They do not think she truly overdoses but she does take extra sometimes. Cywdln-ic-hqs states that when the patient starts drinking it does not mix well with her medications. REVIEW OF SYSTEMS: A review of systems was performed with positives and pertinent negatives listed in the history of present illness. 10 systems were reviewed and are otherwise negative. ALLERGIES: see below MEDICATIONS: see below PMH: see below SOCIAL HISTORY: see below DDx: Mood disorder, infection, hypoglycemia, electrolyte abnormalities, cardiac sources, intracerebral event, toxicologic, trauma, neurologic, as well as other pathologies. PHYSICAL EXAM: Vital signs reviewed. General: Odor of EtOH in the breath, disheveled 31-year-old female. No signs of trauma. HEENT: Mild scleral injection bilaterally, PERRLA, neck supple, dry mucous membranes. Cardiovascular: Regular rate and rhythm, no extra sounds. Pulmonary: Clear to auscultation bilaterally, normal work of breathing. Abdomen: Soft, nontender, nondistended, positive bowel sounds. Musculoskeletal: Upper and lower extremities atraumatic, no peripheral edema Skin: Warm, dry, no rash. Atraumatic. Neurologic: Patient is currently nonverbal. EMERGENCY DEPARTMENT COURSE/MDM: This patient was evaluated and appeared to be in no significant distress. IV access was obtained and laboratory work was drawn. The patient was observed on the nuclear monitoring technician with aspiration precautions maintained. She was hydrated with normal saline solution and subsequently given 1 L of banana bag. Patient was placed on the alcohol withdrawal protocol. Currently the patient is not forthcoming with details or very responsive. She is able to state that she is at the hospital and that it is 2021. Patient will remain here until 2 AM when she can be evaluated by the mental health patient case coordinator. MONITORING: An order for cardiac monitoring was placed and the patient is noted to be in a 85 NSR beats 85 per minute. DISPOSITION: Still ED patient/sign out to Dr. Casey Past Med/Surg History Medical History Alcohol withdrawal Anxiety Bipolar disorder Insomnia Suicidal ideation Syncope Surgical History No pertinent past surgical history Family History Father Lung cancer Brother Schizophrenia Grandmother (Maternal) Stroke Denies family history of Ovarian cancer Prostate cancer Myocardial infarction Breast cancer Colorectal cancer Social History Smoking Status: Current every day smoker Tobacco Type: Cigarettes Age Started Using Tobacco: 21; Second Hand Exposure: No; Hx Alcohol Use: Yes Alcohol type: hard liquor Alcohol Intake Frequency: Monthly or Less Hx Substance Use: No Preferred Language: French Communication Ability: Effective Visual Impairment: No Limitations Hearing Ability: Normal Claim Service Representative Required: No Beliefs That Will Affect Care: None marital status: Current Living Situation: Spouse current occupational status: unemployed Feels Safe at Home: Yes Childhood Exposure to Second-Hand Smoke: No Dental Care, Regularly: No Physical Activity Frequency: 1-2 Times per Week Seatbelt Use: always Sunscreen Use: Yes Assistive Devices: Glasses Allergies Allergies Allergy/AdvReac Type Severity Reaction Status Date / Time Antihistamines AdvReac Intermediate Anxiety Uncoded 08/11/21 19:53 Home Meds Home Medications Medication Instructions Recorded Confirmed trazodone 100 mg tablet 100 mg PO HS PRN 08/11/21 08/11/21 gabapentin 100 mg capsule 200 mg PO QAM 08/12/21 08/12/21 Previous Rx's Medication Instructions Recorded lithium carbonate 300 mg 900 mg PO DAILY 90 Days #270 tab 04/26/21 tablet,extended release olanzapine 15 mg tablet 15 mg PO QPM #90 tab 04/26/21 olanzapine 2.5 mg tablet 2.5 mg PO DAILY #90 tab 04/26/21 chlordiazepoxide HCl 10 mg capsule 10 mg PO DIRECTED #13 cap 08/14/21 cyanocobalamin (vitamin B-12) 500 500 mcg PO QAM #30 tab 08/14/21 mcg tablet folic acid 400 mcg tablet 400 mcg PO QAM #30 tab 08/14/21 gabapentin 100 mg capsule 100 mg PO QPM #30 cap 08/14/21 thiamine HCl (vitamin B1) 100 mg 100 mg PO DAILY #30 tab 08/14/21 tablet Results & Data (ED) Vital Signs Vital Signs - 24 hr 09/23/21 20:40 09/23/21 20:55 09/23/21 21:00 Temperature 36.5 C Temperature Source Temporal Artery Scan Pulse Rate 101 H 89 99 H Pulse Rate from SpO2 Sensor 90 99 H Respiratory Rate 18 15 15 Respiratory Effort / Characteristics Non-Labored Spontaneous Respiratory Depth Normal Respiratory Pattern Regular Blood Pressure 101/68 Blood Pressure Mean 79 Blood Pressure Position Sitting Pulse Oximetry 98 98 98 Oxygen Delivery Method Room Air Sepsis Recent Fever Within 48 Hours No Sepsis New/Unexplained Change in Mental Status N/A Sepsis Action Taken by Nursing No Action Required 09/23/21 23:00 09/24/21 00:00 09/24/21 01:00 Temperature Temperature Source Pulse Rate 90 85 83 Pulse Rate from SpO2 Sensor 90 87 85 Respiratory Rate 16 12 17 Respiratory Effort / Characteristics Respiratory Depth Respiratory Pattern Blood Pressure 92/53 L 83/47 L 96/59 L Blood Pressure Mean 66 59 71 Blood Pressure Position Pulse Oximetry 94 95 95 Oxygen Delivery Method Sepsis Recent Fever Within 48 Hours Sepsis New/Unexplained Change in Mental Status Sepsis Action Taken by Nursing 09/24/21 01:13 Temperature Temperature Source Pulse Rate 95 H Pulse Rate from SpO2 Sensor 96 H Respiratory Rate 15 Respiratory Effort / Characteristics Respiratory Depth Respiratory Pattern Blood Pressure 107/60 Blood Pressure Mean 75 Blood Pressure Position Pulse Oximetry 98 Oxygen Delivery Method Sepsis Recent Fever Within 48 Hours Sepsis New/Unexplained Change in Mental Status Sepsis Action Taken by [facility]way Medications Current Medication List: was personally reviewed by me Laboratory Data Attestation: I reviewed the patient's lab results. Result diagrams: 09/23/21 21:15 09/23/21 21:15 Lab Results 09/23/21 09/23/21 09/23/21 Range/Units 21:00 21:00 21:00 WBC (4.8-10.8) K/uL RBC (4.2-5.4) M/uL Hgb (12.0-16.0) g/dL Hct (37-47) % MCV (80-100) fL MCH (25-34) pg MCHC (32-36) g/dL RDW Std Deviation (36.4-46.3) fL RDW Coeff of Kristyn (11.5-14.5) % Plt Count (130-400) K/uL MPV (7.4-10.4) fL Immature Gran % (Auto) % Neut % (Auto) % Lymph % (Auto) % Holmes % (Auto) % Eos % (Auto) % Baso % (Auto) % Neut # (Auto) (1.4-6.5) K/uL Lymph # (Auto) (1.2-3.4) K/uL Holmes # (Auto) (0.11-0.59) K/uL Eos # (Auto) (0-0.5) K/uL Baso # (Auto) (0-0.2) K/uL Immature Gran # (Auto) (0.00-0.02) K/uL Sodium (136-145) mmol/L Potassium (3.5-5.1) mmol/L Chloride (98-107) mmol/L Carbon Dioxide (21-32) mmol/L Anion Gap (3-11) BUN (6-23) mg/dl Creatinine (0.6-1.2) mg/dl Est Cr Clr Drug Dosing ml/min Est GFR ( Amer) ml/min Est GFR (Non-Af Amer) ml/min BUN/Creatinine Ratio (10-20) Glucose (70-99(Fasting)) mg/dl Calcium (8.5-10.1) mg/dl Total Bilirubin (0.2-1.0) mg/dl AST (13-39) U/L ALT (7-52) U/L Alkaline Phosphatase (34-104) U/L Total Protein (6.0-8.3) gm/dl Albumin (3.4-5.0) gm/dl Globulin (2.5-4.0) gm/dl Albumin/Globulin Ratio (0.9-2) TSH (0.300-4.500) uIu/ml Urine Color Yellow Urine Appearance Clear (Clear) Urine pH 5.0 (4.5-7.5) Ur Specific [place] 1.011 (1.000-1.030) Urine Protein Negative (Negative) Urine Glucose (UA) Negative (Negative) Urine Ketones 1+ H (Negative) Urine Blood 3+ H (Negative) Urine Nitrite Negative (Negative) Urine Bilirubin Negative (Negative) Urine Urobilinogen Negative (Negative) Ur Leukocyte Esterase Negative (Negative) Urine WBC (Auto) 1-5 (0-5) /hpf Urine RBC (Auto) 10-30 H (0-4) /hpf U Hyaline Cast (Auto) 1-5 (0-5) /lpf U Epithel Cells (Auto) 10-20 H (0-5) /lpf Urine Bacteria (Auto) Negative (Negative) POC Ur Test NEG (NEG) Salicylates (3.0-30) mg/dl Urine Opiates Screen Neg (Neg) Ur Methadone, Qual Neg (Neg) Acetaminophen (10-30) ug/ml Urine Barbiturates Neg (Neg) Ur Phencyclidine (PCP) Neg (Neg) U Amphetamin/Meth Scrn Neg (Neg) MDMA (Ecstasy) Screen Neg (Neg) U Benzodiazepines Scrn Pos H (Neg) [place] (0.6-1.2) mmol/L Ur Cocaine Metabolite Neg (Neg) U Marijuana (THC) Screen Neg (Neg) Ethyl Alcohol mg/dL (<10.0) mg/dl SARS-CoV-2, RNA, NAAT (NEGATIVE) 09/23/21 09/23/21 09/23/21 Range/Units 21:15 21:15 21:15 WBC 9.79 (4.8-10.8) K/uL RBC 4.26 (4.2-5.4) M/uL Hgb 14.4 (12.0-16.0) g/dL Hct 41.6 (37-47) % MCV 97.7 (80-100) fL MCH 33.8 (25-34) pg MCHC 34.6 (32-36) g/dL RDW Std Deviation 45.3 (36.4-46.3) fL RDW Coeff of Kristyn 12.7 (11.5-14.5) % Plt Count 263 (130-400) K/uL MPV 10.7 H (7.4-10.4) fL Immature Gran % (Auto) 0.3 % Neut % (Auto) 80.6 % Lymph % (Auto) 17.5 % Holmes % (Auto) 1.4 % Eos % (Auto) 0.0 % Baso % (Auto) 0.2 % Neut # (Auto) 7.89 H (1.4-6.5) K/uL Lymph # (Auto) 1.71 (1.2-3.4) K/uL Holmes # (Auto) 0.14 (0.11-0.59) K/uL Eos # (Auto) 0.00 (0-0.5) K/uL Baso # (Auto) 0.02 (0-0.2) K/uL Immature Gran # (Auto) 0.03 H (0.00-0.02) K/uL Sodium 139 (136-145) mmol/L Potassium 4.2 (3.5-5.1) mmol/L Chloride 103 (98-107) mmol/L Carbon Dioxide 20 L (21-32) mmol/L Anion Gap 16 H (3-11) BUN 11 (6-23) mg/dl Creatinine 0.85 (0.6-1.2) mg/dl Est Cr Clr Drug Dosing 95.0 ml/min Est GFR ( Amer) 107.3 ml/min Est GFR (Non-Af Amer) 92.6 ml/min BUN/Creatinine Ratio 12.9 (10-20) Glucose 65 L (70-99(Fasting)) mg/dl Calcium 8.8 (8.5-10.1) mg/dl Total Bilirubin 0.4 (0.2-1.0) mg/dl AST 31 (13-39) U/L ALT 21 (7-52) U/L Alkaline Phosphatase 54 (34-104) U/L Total Protein 7.0 (6.0-8.3) gm/dl Albumin 4.8 (3.4-5.0) gm/dl Globulin 2.2 L (2.5-4.0) gm/dl Albumin/Globulin Ratio 2.2 H (0.9-2) TSH 0.673 (0.300-4.500) uIu/ml Urine Color Urine Appearance (Clear) Urine pH (4.5-7.5) Ur Specific [place] (1.000-1.030) Urine Protein (Negative) Urine Glucose (UA) (Negative) Urine Ketones (Negative) Urine Blood (Negative) Urine Nitrite (Negative) Urine Bilirubin (Negative) Urine Urobilinogen (Negative) Ur Leukocyte Esterase (Negative) Urine WBC (Auto) (0-5) /hpf Urine RBC (Auto) (0-4) /hpf U Hyaline Cast (Auto) (0-5) /lpf U Epithel Cells (Auto) (0-5) /lpf Urine Bacteria (Auto) (Negative) POC Ur Test (NEG) Salicylates (3.0-30) mg/dl Urine Opiates Screen (Neg) Ur Methadone, Qual (Neg) Acetaminophen (10-30) ug/ml Urine Barbiturates (Neg) Ur Phencyclidine (PCP) (Neg) U Amphetamin/Meth Scrn (Neg) MDMA (Ecstasy) Screen (Neg) U Benzodiazepines Scrn (Neg) [place] (0.6-1.2) mmol/L Ur Cocaine Metabolite (Neg) U Marijuana (THC) Screen (Neg) Ethyl Alcohol mg/dL (<10.0) mg/dl SARS-CoV-2, RNA, NAAT (NEGATIVE) 09/23/21 09/23/21 09/23/21 Range/Units 21:15 21:15 21:19 WBC (4.8-10.8) K/uL RBC (4.2-5.4) M/uL Hgb (12.0-16.0) g/dL Hct (37-47) % MCV (80-100) fL MCH (25-34) pg MCHC (32-36) g/dL RDW Std Deviation (36.4-46.3) fL RDW Coeff of Kristyn (11.5-14.5) % Plt Count (130-400) K/uL MPV (7.4-10.4) fL Immature Gran % (Auto) % Neut % (Auto) % Lymph % (Auto) % Holmes % (Auto) % Eos % (Auto) % Baso % (Auto) % Neut # (Auto) (1.4-6.5) K/uL Lymph # (Auto) (1.2-3.4) K/uL Holmes # (Auto) (0.11-0.59) K/uL Eos # (Auto) (0-0.5) K/uL Baso # (Auto) (0-0.2) K/uL Immature Gran # (Auto) (0.00-0.02) K/uL Sodium (136-145) mmol/L Potassium (3.5-5.1) mmol/L Chloride (98-107) mmol/L Carbon Dioxide (21-32) mmol/L Anion Gap (3-11) BUN (6-23) mg/dl Creatinine (0.6-1.2) mg/dl Est Cr Clr Drug Dosing ml/min Est GFR ( Amer) ml/min Est GFR (Non-Af Amer) ml/min BUN/Creatinine Ratio (10-20) Glucose (70-99(Fasting)) mg/dl Calcium (8.5-10.1) mg/dl Total Bilirubin (0.2-1.0) mg/dl AST (13-39) U/L ALT (7-52) U/L Alkaline Phosphatase (34-104) U/L Total Protein (6.0-8.3) gm/dl Albumin (3.4-5.0) gm/dl Globulin (2.5-4.0) gm/dl Albumin/Globulin Ratio (0.9-2) TSH (0.300-4.500) uIu/ml Urine Color Urine Appearance (Clear) Urine pH (4.5-7.5) Ur Specific [place] (1.000-1.030) Urine Protein (Negative) Urine Glucose (UA) (Negative) Urine Ketones (Negative) Urine Blood (Negative) Urine Nitrite (Negative) Urine Bilirubin (Negative) Urine Urobilinogen (Negative) Ur Leukocyte Esterase (Negative) Urine WBC (Auto) (0-5) /hpf Urine RBC (Auto) (0-4) /hpf U Hyaline Cast (Auto) (0-5) /lpf U Epithel Cells (Auto) (0-5) /lpf Urine Bacteria (Auto) (Negative) POC Ur Test (NEG) Salicylates < 3.0 L (3.0-30) mg/dl Urine Opiates Screen (Neg) Ur Methadone, Qual (Neg) Acetaminophen < 3 L (10-30) ug/ml Urine Barbiturates (Neg) Ur Phencyclidine (PCP) (Neg) U Amphetamin/Meth Scrn (Neg) MDMA (Ecstasy) Screen (Neg) U Benzodiazepines Scrn (Neg) [place] 0.2 L (0.6-1.2) mmol/L Ur Cocaine Metabolite (Neg) U Marijuana (THC) Screen (Neg) Ethyl Alcohol mg/dL 318.1 H (<10.0) mg/dl SARS-CoV-2, RNA, NAAT NEGATIVE (NEGATIVE) Administered Medications Discontinued Medications Sodium Chloride (Nss 1000ml) 1,000 mls @ 999 mls/hr IV .Q1H1M KOREY Stop: 09/23/21 22:00 Last Infusion: 09/23/21 23:20 Dose: 0 mls/hr Documented by: [id number] Admin: 09/23/21 21:38 Dose: 999 mls/hr Documented by: [id number] Multivitamins 10 ml/ Thiamine HCl 100 mg/ Folic Acid 1 mg/Sodium Chloride 1,011.2 mls @ 1,011.2 mls/hr IV .Q1H ONE Stop: 09/24/21 00:29 Last Admin: 09/24/21 00:19 Dose: 1,011.2 mls/hr Documented by: [id number] Ondansetron HCl (Ondansetron Home Pack 4mg Od Tab) 1 homepack PO NOW ONE Stop: 09/23/21 21:13 Last Admin: 09/24/21 01:19 Dose: Not Given Documented by: [id number] Ondansetron HCl (Ondansetron 4 Mg Od Tab) 4 mg PO NOW STA Stop: 09/23/21 21:26 Last Admin: 09/23/21 21:38 Dose: 4 mg Documented by: [id number] Blood Pressure Blood Pressure Findings: Normal blood pressure Blood Pressure Disposition: did not require urgent referral Discharge Plan Visit Data Chief Complaint: Mental Health Evaluation Stated Complaint: MENTAL CRISIS, SUICIDAL ED Provider: Lilian Meraz Discharge Problem: Insomnia Patient Disposition: Home - Self-Care Condition: Good Discharge Instructions Activity Restrictions/Additional Instructions: Diagnosis: Alcohol intoxication, suicidal and homicidal threats. Forms Stand Alone Forms: [facility], Suicide Prevention Resources, Virtual Emergency Department, Important Visit Information Prescriptions Prescriptions: No Action lithium carbonate 300 mg tablet extended release 900 mg PO DAILY 90 Days Qty: 270 RF: 3 olanzapine 2.5 mg tablet 2.5 mg PO DAILY Qty: 90 RF: 3 olanzapine 15 mg tablet 15 mg PO QPM Qty: 90 RF: 3 trazodone 100 mg tablet 100 mg PO HS PRN (Reason: Sleep) RF: 0 gabapentin 100 mg capsule 200 mg PO QAM RF: 0 folic acid 400 mcg Tablet 400 mcg PO QAM Qty: 30 RF: 0 cyanocobalamin (vitamin B-12) 500 mcg Tablet 500 mcg PO QAM Qty: 30 RF: 0 chlordiazepoxide HCl 10 mg Capsule 10 mg PO DIRECTED Qty: 13 RF: 0 gabapentin 100 mg Capsule 100 mg PO QPM Qty: 30 RF: 0 thiamine HCl (vitamin B1) 100 mg tablet 100 mg PO DAILY Qty: 30 RF: 0 Referrals Referrals: Erlin Calderon III, CRNP [Primary Care Provider] - Discharge Problem: Insomnia Qualifiers: Insomnia type: primary Qualified Code(s): F51.01 - Primary insomnia
--- NOTE | 2021-09-24 02:39 | Emergency Department Note ---
ED Visit Note This case was signed out to me at change of shift awaiting sobriety. The patient will require psychiatric evaluation at that time. 0645: The patient rested overnight. She was evaluated this morning by the ED psychiatric foster care case manager. She made significant suicidal statements. She is willing to admit herself voluntarily for inpatient psychiatric care. I evaluated the patient at this time and she told me that she felt "distressed" and was slightly shaky and anxious We talked about her alcohol use. She does not drink alcohol daily and does not withdrawal from alcohol currently. She was given a 1 mg dose of IV Ativan at this time. They are currently searching for an inpatient psychiatric bed as she is willing to admit herself voluntarily for suicidal thoughts. The case will be signed out to Dr. Wills at change of shift. . : Insomnia Qualifiers: Insomnia type: primary Qualified Code(s): F51.01 - Primary insomnia
[2021-09-24] MEDS ORDERED: LORazepam 3 MG in SYRINGE 1.5 ML IV PRN (03:52)
[2021-09-24] MEDS ORDERED: ATIVAN IV ALCOHOL WITHDRAWL IV PRN (03:52)
[2021-09-24] MEDS ORDERED: LORazepam 2 MG in SYRINGE 1 ML IV PRN (03:52)
[2021-09-24] MEDS: LORazepam 1 MG in SYRINGE 0.5 ML IV PRN ×5 (04:31→22:16)
[2021-09-24] MEDS ORDERED: LORazepam 1 MG in SYRINGE 0.5 ML IV STA (07:01)
--- NOTE | 2021-09-24 07:13 | Emergency Department Note ---
ED Visit Note ED Physician Sign Out Note: 31 yr old intoxicated female arrived overnight after making suicidal plans with to possibly murder him and kill herself. She is here on a 302 petition. She has moderately and intoxicated this morning on evaluation. She has required some Ativan overnight. She has a long history of alcoholism and psychiatric issues. Due to her previous seizures while on psychiatric floor the patient will need further monitoring as an inpatient prior to psychiatric hospitalization. Hospitalist was consulted for further management. Mauricio Wills MD : Insomnia Qualifiers: Insomnia type: primary Qualified Code(s): F51.01 - Primary insomnia
[2021-09-24] MEDS ORDERED: NICOTINE 14 MG/24 HR PATCH TD ONE (07:47)
[2021-09-24] MEDS: NICOTINE POLACRILEX 2 MG GUM MT PRN (07:49)
[2021-09-24] MEDS: NICOTINE 14 MG/24 HR PATCH TD SCH (08:02)
--- NOTE | 2021-09-24 09:30 | History & Physical Report ---
Date of Service September 24, 2021 Assessment & Plan (1) Alcohol use disorder: Plan: With a long history of alcohol use disorder with history of withdrawal seizure Reports drinking 5 shots of liquor daily but more the day prior to admission No evidence of alcoholic hepatitis Urine drug screen only positive for benzodiazepines which she received in the ER. Aspirin and APAP levels negative Here with suicidal ideations and alcohol intoxication -Admit to medical floor with telemetry for alcohol detoxification -AWSS with as needed IV Ativan to be given -Continue home clonazepam 0.25 Mg p.o. twice daily -Continue home gabapentin 200 mg in the morning and 100 mg in the evening -Consider Librium taper if exhibiting significant withdrawal signs although she is not at this time -Received 1 banana bag in the ER-continue daily thiamine and Folic acid -Give 2 more liters of normal saline for hydration, antiemetics as needed for mild nausea with Zofran (2) Alcoholic intoxication: Plan: Alcohol level 318 on arrival (3) Suicidal ideation: Plan: Brought in on a 302 petition by her [id number] for suicidal ideation along with her with plans for homicide/suicide Her is also currently admitted and she still designates only him as her point of contact -consult psychiatry -Ordered one-on-one sitter for suicide precautions (4) Tobacco use disorder: Plan: Needs counseling on smoking cessation Continue nicotine patch and nicotine gum as needed (5) Bipolar disorder: Plan: [place] ER 900 mg daily-lithium level was low at 0.2 in the ER on admission -Continue home clonazepam She also reports that she was recently started on Seroquel-defer to psychiatry on adding this medication on at this time -Continue home gabapentin Plan: DVT prophylaxis-SCDs Disposition-admit to medical floor with telemetry, expect a least 2 to 3-day stay for alcohol detoxification and then disposition to inpatient psychiatric care History of Present Illness Chief Complaint: Suicidal/homicidal ideation, alcohol intoxication Primary Care Provider: Erlin Calderon, [place], [place] This patient is a 31-year-old female with a history of alcohol use disorder, current smoker, bipolar disorder who presents to the ER via police escort after her [id number]-nic called with concerns for a plan for double homicide/suicide between patient and her . As per report from ER physician, the and arrived at the ER together and there were plans for with one of them to kill the other and then kill themselves. The patient was found to have an elevated alcohol level in the 300 range, but was otherwise stable. She was treated with IV lorazepam and banana bag. She has a history of alcohol withdrawal seizure and because of this, psychiatry requesting that the patient be admitted to the medical service for alcohol detoxification prior to admission to psychiatric unit. I saw the patient in the morning, she appears sober and states that she only had suicidal thoughts while she was drunk last evening, but no longer does. She denies ever having any plans for homicide of her . She reports that she recently started drinking alcohol again only 1 week ago and typically drinks 5 shots of liquor per day, however reports yesterday she was drinking liquor all day long and lost track of how much. Prior to 1 week ago when asked if she drank alcohol, she stated "I do not think so." She denies chest pains or shortness of breath, no abdominal pains. Last bowel movement 2 days ago and feels slightly constipated. Has a mild headache and mild nausea but no vomiting. She did not eat much for breakfast. She denies any other concerns. There is a 302 petition as per case management. Allergies Allergy/AdvReac Type Severity Reaction Status Date / Time Antihistamines AdvReac Intermediate Anxiety Uncoded 08/11/21 19:53 Home Medications Medication Instructions Recorded Confirmed Type lithium carbonate 300 mg 900 mg PO DAILY 90 Days #270 tab 04/26/21 09/24/21 Rx tablet,extended release olanzapine 15 mg tablet 15 mg PO QPM #90 tab 04/26/21 08/11/21 Rx olanzapine 2.5 mg tablet 2.5 mg PO DAILY #90 tab 04/26/21 08/11/21 Rx trazodone 100 mg tablet 100 mg PO HS PRN 08/11/21 08/11/21 History gabapentin 100 mg capsule 200 mg PO QAM 08/12/21 09/24/21 History chlordiazepoxide HCl 10 mg capsule 10 mg PO DIRECTED #13 cap 08/14/21 Rx cyanocobalamin (vitamin B-12) 500 500 mcg PO QAM #30 tab 08/14/21 Rx mcg tablet folic acid 400 mcg tablet 400 mcg PO QAM #30 tab 08/14/21 Rx gabapentin 100 mg capsule 100 mg PO QPM #30 cap 08/14/21 09/24/21 Rx thiamine HCl (vitamin B1) 100 mg 100 mg PO DAILY #30 tab 08/14/21 Rx tablet Klonopin 0.25 mg BID 09/24/21 09/24/21 History Past Med/Surg History Medical History Alcohol use disorder Alcohol withdrawal Anxiety Bipolar disorder Insomnia Syncope Surgical History No pertinent past surgical history Family History Father Lung cancer Brother Schizophrenia Grandmother (Maternal) Stroke Denies family history of Ovarian cancer Prostate cancer Myocardial infarction Breast cancer Colorectal cancer Social History (Updated 09/24/21 @ 10:22 by Bronwyn Lees MD) Smoking Status: Current every day smoker Tobacco Type: Cigarettes Age Started Using Tobacco: 21; packs per day: 0.75; Second Hand Exposure: No; Hx Alcohol Use: Yes Alcohol type: hard liquor Alcohol Intake Frequency: 4 or More x per/Week Alcohol Intake Frequency Comment: Daily liquor use, at least 5 shots per day Hx Substance Use: No Preferred Language: Occitan Communication Ability: Effective Visual Impairment: No Limitations Hearing Ability: Normal Or Scrub Tech Required: No Beliefs That Will Affect Care: None marital status: Current Living Situation: Spouse current occupational status: unemployed Feels Safe at Home: Yes Childhood Exposure to Second-Hand Smoke: No Dental Care, Regularly: No Physical Activity Frequency: 1-2 Times per Week Seatbelt Use: always Sunscreen Use: Yes Assistive Devices: Glasses Review of Systems Review of Systems: All systems reviewed & are unremarkable except as noted in HPI & below Physical Exam Constitutional: WD/WN, vitals as above Eyes: PERRL, conjunctivae normal, anicteric sclerae EOM intact bilaterally; no nystagmus ENMT: external ear and nose normal, oropharynx normal Neck: trachea midline, no thyromegaly Respiratory: normal respiratory effort, lungs clear to auscultation Cardiovascular: RRR, no murmur, no edema Chest (Breasts): Chest: normal inspection of chest Gastrointestinal (Abdomen): normal bowel sounds, soft, nontender, no hepatosplenomegaly Musculoskeletal: Extremities: extremities normal to inspection; no cyanosis and no clubbing Skin: no rashes, warm and dry Neurologic: moves all extremities and awake; no focal motor deficits Motor/Sensory: no tremor Psychiatric: A+Ox3, euthymic affect Lymphatic: no lymphedema Results & Data Results & Data ([facility]) Vital Signs (Past 12 Hours) Vital Signs Temp Pulse Pulse Resp BP BP Pulse Ox 09/24/21 07:40 79 18 95/59 L 98 09/24/21 06:20 36.9 C 97 H 18 93/57 L 96 09/24/21 04:03 36.9 C 101 H 18 98/65 L 98 09/24/21 01:13 95 H 15 107/60 98 09/24/21 01:00 83 17 96/59 L 95 09/24/21 00:00 85 12 83/47 L 95 09/23/21 23:00 90 16 92/53 L 94 Laboratory Results 09/23/21 09/23/21 09/23/21 Range/Units 21:19 21:15 21:15 WBC (4.8-10.8) K/uL RBC (4.2-5.4) M/uL Hgb (12.0-16.0) g/dL Hct (37-47) % MCV (80-100) fL MCH (25-34) pg MCHC (32-36) g/dL RDW Std Deviation (36.4-46.3) fL RDW Coeff of Kristyn (11.5-14.5) % Plt Count (130-400) K/uL MPV (7.4-10.4) fL Immature Gran % (Auto) % Neut % (Auto) % Lymph % (Auto) % Cuming % (Auto) % Eos % (Auto) % Baso % (Auto) % Neut # (Auto) (1.4-6.5) K/uL Lymph # (Auto) (1.2-3.4) K/uL Cuming # (Auto) (0.11-0.59) K/uL Eos # (Auto) (0-0.5) K/uL Baso # (Auto) (0-0.2) K/uL Immature Gran # (Auto) (0.00-0.02) K/uL Sodium (136-145) mmol/L Potassium (3.5-5.1) mmol/L Chloride (98-107) mmol/L Carbon Dioxide (21-32) mmol/L Anion Gap (3-11) BUN (6-23) mg/dl Creatinine (0.6-1.2) mg/dl Est Cr Clr Drug Dosing ml/min Est GFR ( Amer) ml/min Est GFR (Non-Af Amer) ml/min BUN/Creatinine Ratio (10-20) Glucose (70-99(Fasting)) mg/dl Calcium (8.5-10.1) mg/dl Total Bilirubin (0.2-1.0) mg/dl AST (13-39) U/L ALT (7-52) U/L Alkaline Phosphatase (34-104) U/L Total Protein (6.0-8.3) gm/dl Albumin (3.4-5.0) gm/dl Globulin (2.5-4.0) gm/dl Albumin/Globulin Ratio (0.9-2) TSH (0.300-4.500) uIu/ml Urine Color Urine Appearance (Clear) Urine pH (4.5-7.5) Ur Specific [place] (1.000-1.030) Urine Protein (Negative) Urine Glucose (UA) (Negative) Urine Ketones (Negative) Urine Blood (Negative) Urine Nitrite (Negative) Urine Bilirubin (Negative) Urine Urobilinogen (Negative) Ur Leukocyte Esterase (Negative) Urine WBC (Auto) (0-5) /hpf Urine RBC (Auto) (0-4) /hpf U Hyaline Cast (Auto) (0-5) /lpf U Epithel Cells (Auto) (0-5) /lpf Urine Bacteria (Auto) (Negative) POC Ur Test (NEG) Salicylates < 3.0 L (3.0-30) mg/dl Urine Opiates Screen (Neg) Ur Methadone, Qual (Neg) Acetaminophen < 3 L (10-30) ug/ml Urine Barbiturates (Neg) Ur Phencyclidine (PCP) (Neg) U Amphetamin/Meth Scrn (Neg) MDMA (Ecstasy) Screen (Neg) U OH-Alprazolam Confrm U Benzodiazepines Scrn (Neg) 7-Amino Clonazepam Ur Nordiazepam Confirm U OH-ethylflurazepam U Lorazepam Cnf GC/MS U Oxazepam Confm GC/MS Ur Temazepam Confirm U OH-Triazolam Confirm U OH-Midazolam Confirm [place] 0.2 L (0.6-1.2) mmol/L Ur Cocaine Metabolite (Neg) U Marijuana (THC) Screen (Neg) Drug Screen Comment Ethyl Alcohol mg/dL 318.1 H (<10.0) mg/dl SARS-CoV-2, RNA, NAAT NEGATIVE (NEGATIVE) 09/23/21 09/23/21 09/23/21 Range/Units 21:15 21:15 21:15 WBC 9.79 (4.8-10.8) K/uL RBC 4.26 (4.2-5.4) M/uL Hgb 14.4 (12.0-16.0) g/dL Hct 41.6 (37-47) % MCV 97.7 (80-100) fL MCH 33.8 (25-34) pg MCHC 34.6 (32-36) g/dL RDW Std Deviation 45.3 (36.4-46.3) fL RDW Coeff of Kristyn 12.7 (11.5-14.5) % Plt Count 263 (130-400) K/uL MPV 10.7 H (7.4-10.4) fL Immature Gran % (Auto) 0.3 % Neut % (Auto) 80.6 % Lymph % (Auto) 17.5 % Cuming % (Auto) 1.4 % Eos % (Auto) 0.0 % Baso % (Auto) 0.2 % Neut # (Auto) 7.89 H (1.4-6.5) K/uL Lymph # (Auto) 1.71 (1.2-3.4) K/uL Cuming # (Auto) 0.14 (0.11-0.59) K/uL Eos # (Auto) 0.00 (0-0.5) K/uL Baso # (Auto) 0.02 (0-0.2) K/uL Immature Gran # (Auto) 0.03 H (0.00-0.02) K/uL Sodium 139 (136-145) mmol/L Potassium 4.2 (3.5-5.1) mmol/L Chloride 103 (98-107) mmol/L Carbon Dioxide 20 L (21-32) mmol/L Anion Gap 16 H (3-11) BUN 11 (6-23) mg/dl Creatinine 0.85 (0.6-1.2) mg/dl Est Cr Clr Drug Dosing 95.0 ml/min Est GFR ( Amer) 107.3 ml/min Est GFR (Non-Af Amer) 92.6 ml/min BUN/Creatinine Ratio 12.9 (10-20) Glucose 65 L (70-99(Fasting)) mg/dl Calcium 8.8 (8.5-10.1) mg/dl Total Bilirubin 0.4 (0.2-1.0) mg/dl AST 31 (13-39) U/L ALT 21 (7-52) U/L Alkaline Phosphatase 54 (34-104) U/L Total Protein 7.0 (6.0-8.3) gm/dl Albumin 4.8 (3.4-5.0) gm/dl Globulin 2.2 L (2.5-4.0) gm/dl Albumin/Globulin Ratio 2.2 H (0.9-2) TSH 0.673 (0.300-4.500) uIu/ml Urine Color Urine Appearance (Clear) Urine pH (4.5-7.5) Ur Specific [place] (1.000-1.030) Urine Protein (Negative) Urine Glucose (UA) (Negative) Urine Ketones (Negative) Urine Blood (Negative) Urine Nitrite (Negative) Urine Bilirubin (Negative) Urine Urobilinogen (Negative) Ur Leukocyte Esterase (Negative) Urine WBC (Auto) (0-5) /hpf Urine RBC (Auto) (0-4) /hpf U Hyaline Cast (Auto) (0-5) /lpf U Epithel Cells (Auto) (0-5) /lpf Urine Bacteria (Auto) (Negative) POC Ur Test (NEG) Salicylates (3.0-30) mg/dl Urine Opiates Screen (Neg) Ur Methadone, Qual (Neg) Acetaminophen (10-30) ug/ml Urine Barbiturates (Neg) Ur Phencyclidine (PCP) (Neg) U Amphetamin/Meth Scrn (Neg) MDMA (Ecstasy) Screen (Neg) U OH-Alprazolam Confrm U Benzodiazepines Scrn (Neg) 7-Amino Clonazepam Ur Nordiazepam Confirm U OH-ethylflurazepam U Lorazepam Cnf GC/MS U Oxazepam Confm GC/MS Ur Temazepam Confirm U OH-Triazolam Confirm U OH-Midazolam Confirm [place] (0.6-1.2) mmol/L Ur Cocaine Metabolite (Neg) U Marijuana (THC) Screen (Neg) Drug Screen Comment Ethyl Alcohol mg/dL (<10.0) mg/dl SARS-CoV-2, RNA, NAAT (NEGATIVE) 09/23/21 09/23/21 09/23/21 Range/Units 21:00 21:00 21:00 WBC (4.8-10.8) K/uL RBC (4.2-5.4) M/uL Hgb (12.0-16.0) g/dL Hct (37-47) % MCV (80-100) fL MCH (25-34) pg MCHC (32-36) g/dL RDW Std Deviation (36.4-46.3) fL RDW Coeff of Kristyn (11.5-14.5) % Plt Count (130-400) K/uL MPV (7.4-10.4) fL Immature Gran % (Auto) % Neut % (Auto) % Lymph % (Auto) % Cuming % (Auto) % Eos % (Auto) % Baso % (Auto) % Neut # (Auto) (1.4-6.5) K/uL Lymph # (Auto) (1.2-3.4) K/uL [place] # (Auto) (0.11-0.59) K/uL Eos # (Auto) (0-0.5) K/uL Baso # (Auto) (0-0.2) K/uL Immature Gran # (Auto) (0.00-0.02) K/uL Sodium (136-145) mmol/L Potassium (3.5-5.1) mmol/L Chloride (98-107) mmol/L Carbon Dioxide (21-32) mmol/L Anion Gap (3-11) BUN (6-23) mg/dl Creatinine (0.6-1.2) mg/dl Est Cr Clr Drug Dosing ml/min Est GFR ( Amer) ml/min Est GFR (Non-Af Amer) ml/min BUN/Creatinine Ratio (10-20) Glucose (70-99(Fasting)) mg/dl Calcium (8.5-10.1) mg/dl Total Bilirubin (0.2-1.0) mg/dl AST (13-39) U/L ALT (7-52) U/L Alkaline Phosphatase (34-104) U/L Total Protein (6.0-8.3) gm/dl Albumin (3.4-5.0) gm/dl Globulin (2.5-4.0) gm/dl Albumin/Globulin Ratio (0.9-2) TSH (0.300-4.500) uIu/ml Urine Color Yellow Urine Appearance Clear (Clear) Urine pH 5.0 (4.5-7.5) Ur Specific [place] 1.011 (1.000-1.030) Urine Protein Negative (Negative) Urine Glucose (UA) Negative (Negative) Urine Ketones 1+ H (Negative) Urine Blood 3+ H (Negative) Urine Nitrite Negative (Negative) Urine Bilirubin Negative (Negative) Urine Urobilinogen Negative (Negative) Ur Leukocyte Esterase Negative (Negative) Urine WBC (Auto) 1-5 (0-5) /hpf Urine RBC (Auto) 10-30 H (0-4) /hpf U Hyaline Cast (Auto) 1-5 (0-5) /lpf U Epithel Cells (Auto) 10-20 H (0-5) /lpf Urine Bacteria (Auto) Negative (Negative) POC Ur Test (NEG) Salicylates (3.0-30) mg/dl Urine Opiates Screen Neg (Neg) Ur Methadone, Qual Neg (Neg) Acetaminophen (10-30) ug/ml Urine Barbiturates Neg (Neg) Ur Phencyclidine (PCP) Neg (Neg) U Amphetamin/Meth Scrn Neg (Neg) MDMA (Ecstasy) Screen Neg (Neg) U OH-Alprazolam Confrm Pending U Benzodiazepines Scrn Pos H (Neg) 7-Amino Clonazepam Pending Ur Nordiazepam Confirm Pending U OH-ethylflurazepam Pending U Lorazepam Cnf GC/MS Pending U Oxazepam Confm GC/MS Pending Ur Temazepam Confirm Pending U OH-Triazolam Confirm Pending U OH-Midazolam Confirm Pending [place] (0.6-1.2) mmol/L Ur Cocaine Metabolite Neg (Neg) U Marijuana (THC) Screen Neg (Neg) Drug Screen Comment Pending Ethyl Alcohol mg/dL (<10.0) mg/dl SARS-CoV-2, RNA, NAAT (NEGATIVE) 09/23/21 Range/Units 21:00 WBC (4.8-10.8) K/uL RBC (4.2-5.4) M/uL Hgb (12.0-16.0) g/dL Hct (37-47) % MCV (80-100) fL MCH (25-34) pg MCHC (32-36) g/dL RDW Std Deviation (36.4-46.3) fL RDW Coeff of Kristyn (11.5-14.5) % Plt Count (130-400) K/uL MPV (7.4-10.4) fL Immature Gran % (Auto) % Neut % (Auto) % Lymph % (Auto) % Cuming % (Auto) % Eos % (Auto) % Baso % (Auto) % Neut # (Auto) (1.4-6.5) K/uL Lymph # (Auto) (1.2-3.4) K/uL Cuming # (Auto) (0.11-0.59) K/uL Eos # (Auto) (0-0.5) K/uL Baso # (Auto) (0-0.2) K/uL Immature Gran # (Auto) (0.00-0.02) K/uL Sodium (136-145) mmol/L Potassium (3.5-5.1) mmol/L Chloride (98-107) mmol/L Carbon Dioxide (21-32) mmol/L Anion Gap (3-11) BUN (6-23) mg/dl Creatinine (0.6-1.2) mg/dl Est Cr Clr Drug Dosing ml/min Est GFR ( Amer) ml/min Est GFR (Non-Af Amer) ml/min BUN/Creatinine Ratio (10-20) Glucose (70-99(Fasting)) mg/dl Calcium (8.5-10.1) mg/dl Total Bilirubin (0.2-1.0) mg/dl AST (13-39) U/L ALT (7-52) U/L Alkaline Phosphatase (34-104) U/L Total Protein (6.0-8.3) gm/dl Albumin (3.4-5.0) gm/dl Globulin (2.5-4.0) gm/dl Albumin/Globulin Ratio (0.9-2) TSH (0.300-4.500) uIu/ml Urine Color Urine Appearance (Clear) Urine pH (4.5-7.5) Ur Specific [place] (1.000-1.030) Urine Protein (Negative) Urine Glucose (UA) (Negative) Urine Ketones (Negative) Urine Blood (Negative) Urine Nitrite (Negative) Urine Bilirubin (Negative) Urine Urobilinogen (Negative) Ur Leukocyte Esterase (Negative) Urine WBC (Auto) (0-5) /hpf Urine RBC (Auto) (0-4) /hpf U Hyaline Cast (Auto) (0-5) /lpf U Epithel Cells (Auto) (0-5) /lpf Urine Bacteria (Auto) (Negative) POC Ur Test NEG (NEG) Salicylates (3.0-30) mg/dl Urine Opiates Screen (Neg) Ur Methadone, Qual (Neg) Acetaminophen (10-30) ug/ml Urine Barbiturates (Neg) Ur Phencyclidine (PCP) (Neg) U Amphetamin/Meth Scrn (Neg) MDMA (Ecstasy) Screen (Neg) U OH-Alprazolam Confrm U Benzodiazepines Scrn (Neg) 7-Amino Clonazepam Ur Nordiazepam Confirm U OH-ethylflurazepam U Lorazepam Cnf GC/MS U Oxazepam Confm GC/MS Ur Temazepam Confirm U OH-Triazolam Confirm U OH-Midazolam Confirm [place] (0.6-1.2) mmol/L Ur Cocaine Metabolite (Neg) U Marijuana (THC) Screen (Neg) Drug Screen Comment Ethyl Alcohol mg/dL (<10.0) mg/dl SARS-CoV-2, RNA, NAAT (NEGATIVE) Code Status & VTE Plan Code Status Full code VTE Prophylaxis Plan VTE Prophylaxis will be ordered: Yes PG Care Time/CCT Total # of Minutes Spent Total Time Spent with Patient: Total time spent is greater than 50% in coordination of care (as documented) at patient's floor/unit and/or counseling patient: Coding Level of Care Code 34792 Initial Inpt Care Lvl 3 Diagnoses Tobacco use disorder F17.200 Alcoholic intoxication F10.929 Complication of substance-induced condition: with unspecified complication Bipolar disorder F31.9 Active/Remission status: remission status unspecified Alcohol use disorder Suicidal ideation R45.851 (1) Alcoholic intoxication Complication of substance-induced condition: with unspecified complication Qualified Code(s): F10.929 - Alcohol use, unspecified with intoxication, un specified (2) Bipolar disorder Active/Remission status: remission status unspecified Qualified Code(s): F31.9 - Bipolar disorder, unspecified
[2021-09-24] MEDS ORDERED: LITHIUM CARBONATE 450 MG TABCR PO ONE (10:10)
[2021-09-24] MEDS ORDERED: clonazePAM 0.25 MG TAB PO STA (10:10)
[2021-09-24] MEDS ORDERED: GABAPENTIN 100 MG CAP PO ONE (10:12)
[2021-09-24] MEDS ORDERED: POLYETHYLENE (MIRALAX) 17 GM PACK PO PRN (14:44)
[2021-09-24] MEDS ORDERED: ALUMINUM/MAGNESIUM SUSP 30 ML UDC PO PRN (14:44)
[2021-09-24] MEDS ORDERED: MAGNESIUM HYDROXIDE SUSP 30 ML UDC PO PRN (14:44)
[2021-09-24] MEDS ORDERED: THIAMINE HCL 100 MG in SYRINGE 9 ML IV STA (15:00)
--- NOTE | 2021-09-24 15:37 | Communication Note ---
Date of Service: September 24, [address] Lees as the patient is well known to me from previous admissions, typically presents on 302 petition or warrant with suicidal state ments or disruptive behavior even domestic abuse of while significantly intoxicated. Her withdrawal course was complicated by a withdrawal seizure on our unit last year. I've typically advocated against ongoing rx of Klonopin outside of hospital as has not been able to maintain any meaninful sobriety. Will not order any additional lithium at this time as it's not clear to me she can take safely/consistently given her alcohol use and high risk of toxicity in OD. Will address Seroquel at time of official consult. This presentation is quite different as reportedly planning a murder/suicide pact with . Would benefit from treatment on a dual diagnosis unit. Reportedly a 302 petitioning statement is on file. Should she attempt to leave AMA please contact liaison for assistance in obtaining a warrant. Recommend suicide precautions, 1 on 1.
[2021-09-24] MEDS: CYANOCOBALAMIN (B-12) 500 MCG TABLET PO SCH (16:36)
[2021-09-24] MEDS: FOLIC ACID 1 MG TAB PO SCH (16:36)
[2021-09-24] MEDS: THIAMINE HCL 100 MG TAB PO SCH (16:37)
[2021-09-24] MEDS: SODIUM CHLORIDE 0.9% 1000ML 1,000 ML IV SCH (16:39)
[2021-09-24] MEDS: clonazePAM 0.25 MG TAB PO SCH (21:30)
[2021-09-24] MEDS: GABAPENTIN 100 MG CAP PO SCH (21:31)
[2021-09-25] MEDS: SODIUM CHLORIDE 0.9% 1000ML 1,000 ML IV SCH (00:35)
[2021-09-25 07:04] LABS: Basophils # (auto) 0.02 K/uL (0-0.2); Basophils % (auto) 0.3 %; Eosinophils # (auto) 0.16 K/uL (0-0.5); Eosinophils % (auto) 2.1 %; Hematocrit (blood only) 34.9 % (37-47); Immature Granulocytes # (auto) 0.01 K/uL (0.00-0.02); Immature Granulocytes % (auto) 0.1 %; Mean Corpuscular Hemoglobin 33.1 pg (25-34); Mean Corpuscular Hgb Conc 34.4 g/dL (32-36); Mean Corpuscular Volume 96.4 fL (80-100); Mean Platelet Volume 10.9 fL (7.4-10.4); Monocytes # (auto) 0.59 K/uL (0.11-0.59); Monocytes % (auto) 7.7 %; Neutrophils # (auto) 4.27 K/uL (1.4-6.5); Neutrophils % (auto) 55.8 %; Platelet Count 218 K/uL (130-400); RDW Coefficient of Variation 12.3 % (11.5-14.5); RDW Standard Deviation 43.4 fL (36.4-46.3); Red Blood Count 3.62 M/uL (4.2-5.4); White Blood Count 7.65 K/uL (4.8-10.8)
[2021-09-25 07:43] LABS: Albumin Globulin Ratio 2.1 (0.9-2); Albumin Level 3.7 gm/dl (3.4-5.0); Bilirubin,Total 1.7 mg/dl (0.2-1.0); Est GFR (African American) 136.3 ml/min; Est GFR (Non-African American) 117.6 ml/min; Globulin 1.8 gm/dl (2.5-4.0); Magnesium 2.2 mg/dl (1.7-2.4); Potassium 3.7 mmol/L (3.5-5.1); Total Protein 5.5 gm/dl (6.0-8.3)
[2021-09-25] MEDS: NICOTINE 14 MG/24 HR PATCH TD SCH ×2 (08:44→12:45)
[2021-09-25] MEDS: CYANOCOBALAMIN (B-12) 500 MCG TABLET PO SCH (08:45)
[2021-09-25] MEDS: GABAPENTIN 100 MG CAP PO SCH ×2 (08:45→20:58)
[2021-09-25] MEDS: FOLIC ACID 1 MG TAB PO SCH (08:45)
[2021-09-25] MEDS: THIAMINE HCL 100 MG TAB PO SCH (08:45)
[2021-09-25] MEDS: clonazePAM 0.25 MG TAB PO SCH (08:48)
[2021-09-25] MEDS: LORazepam 1 MG in SYRINGE 0.5 ML IV PRN ×2 (12:01→19:11)
[2021-09-25] MEDS ORDERED: chlordiazePOXIDE ALCOHOL WITHDRAWL 50MG PO STA (14:01)
--- NOTE | 2021-09-25 14:03 | Hospitalist Progress Note ---
Date of Service September 25, 2021 Assessment & Plan (1) Alcohol use disorder: Plan: With a long history of alcohol use disorder with history of withdrawal seizure Reports drinking 5 shots of liquor daily but more the day prior to admission No evidence of alcoholic hepatitis initially, but now TBili mildly elevated Urine drug screen only positive for benzodiazepines which she received in the ER. Aspirin and APAP levels negative Here with suicidal ideations and alcohol intoxication With some tremors today and anxiety Received several liters of IVFs and metabolic acidosis now resolved Electrolytes normal -continued stay on telemetry for alcohol detoxification prior to needing inpatient Psych stay for +SI/?HI -add on Librium taper starting 09/25 -AWSS with as needed IV Ativan to be given -hold home clonazepam 0.25 Mg p.o. twice daily while on Librium and Psych does not recommend Rx of clonazepam on discharge due to h/o alcohol use -Continue home gabapentin 200 mg in the morning and 100 mg in the evening -continue daily thiamine and Folic acid -follow CBC, LFTs, INR (2) Alcoholic intoxication: Plan: Alcohol level 318 on arrival Now clinically sober (3) Suicidal ideation: Plan: Brought in on a 302 petition by her [id number] for suicidal ideation along with her with plans for homicide/suicide pact Her is also currently admitted and she still designates only him as her point of contact -consult psychiatry -Ordered one-on-one sitter for suicide precautions -pt denying ongoing SI will have to determine if needs 302 warrant-defer to Psychiatry (4) Tobacco use disorder: Plan: Needs counseling on smoking cessation Continue nicotine patch and nicotine gum as needed (5) Bipolar disorder: Plan: Is prescribed [place] ER 900 mg daily-lithium level was low at 0.2 in the ER on admission Pt now states that she was only taking [place] 600mg daily Psych recommends stopping [place] as unsafe if unreliable with dosing/compliance at home -dc home clonazepam for Librium taper as above -Continue home gabapentin Further Psych meds as per Psychiatry Plan: DVT prophylaxis-SCDs Disposition-continued stay on medical floor with telemetry, expect a least 2 to 3-day stay for alcohol detoxification and then disposition to inpatient psychiatric care Admission and Anticipated Discharge Date Admission Date: September 24, 2021 Subjective Pt feeling shaky, a little nauseated but made herself eat lunch. Mild headache. No abd pain. Is moving bowels. Tele with NSR, normal rates Review of Systems Review of Systems: All systems reviewed & are unremarkable except as noted in HPI & below Physical Exam Constitutional: WD/WN, vitals as above Neck: trachea midline, no thyromegaly Respiratory: normal respiratory effort, lungs clear to auscultation Cardiovascular: RRR, no murmur, no edema Chest (Breasts): Chest: normal inspection of chest Gastrointestinal (Abdomen): normal bowel sounds, soft, nontender, no hepatosplenomegaly Musculoskeletal: Extremities: extremities normal to inspection; no cyanosis and no clubbing Skin: no rashes, warm and dry Neurologic: moves all extremities and awake; no focal motor deficits Motor/Sensory: no tremor Psychiatric: Orientation: alert and oriented x 3 Affect: + flat affect +tremor in hands Lymphatic: no lymphedema Results & Data Results & Data ([facility]) Vital Signs (Past 12 Hours) Vital Signs Pulse 09/25/21 06:19 60 Laboratory Results 09/25/21 09/25/21 Range/Units 06:12 06:12 WBC 7.65 (4.8-10.8) K/uL RBC 3.62 L (4.2-5.4) M/uL Hgb 12.0 (12.0-16.0) g/dL Hct 34.9 L (37-47) % MCV 96.4 (80-100) fL MCH 33.1 (25-34) pg MCHC 34.4 (32-36) g/dL RDW Std Deviation 43.4 (36.4-46.3) fL RDW Coeff of Kristyn 12.3 (11.5-14.5) % Plt Count 218 (130-400) K/uL MPV 10.9 H (7.4-10.4) fL Immature Gran % (Auto) 0.1 % Neut % (Auto) 55.8 % Lymph % (Auto) 34.0 % [place] % (Auto) 7.7 % Eos % (Auto) 2.1 % Baso % (Auto) 0.3 % Neut # (Auto) 4.27 (1.4-6.5) K/uL Lymph # (Auto) 2.60 (1.2-3.4) K/uL [place] # (Auto) 0.59 (0.11-0.59) K/uL Eos # (Auto) 0.16 (0-0.5) K/uL Baso # (Auto) 0.02 (0-0.2) K/uL Immature Gran # (Auto) 0.01 (0.00-0.02) K/uL Sodium 136 (136-145) mmol/L Potassium 3.7 (3.5-5.1) mmol/L Chloride 105 (98-107) mmol/L Carbon Dioxide 25 (21-32) mmol/L Anion Gap 6 (3-11) BUN 9 (6-23) mg/dl Creatinine 0.69 (0.6-1.2) mg/dl Est Cr Clr Drug Dosing 117.0 ml/min Est GFR ( Amer) 136.3 ml/min Est GFR (Non-Af Amer) 117.6 ml/min BUN/Creatinine Ratio 13.0 (10-20) Glucose 79 (70-99(Fasting)) mg/dl Calcium 8.0 L (8.5-10.1) mg/dl Magnesium 2.2 (1.7-2.4) mg/dl Total Bilirubin 1.7 H D (0.2-1.0) mg/dl AST 21 (13-39) U/L ALT 16 (7-52) U/L Alkaline Phosphatase 44 (34-104) U/L Total Protein 5.5 L D (6.0-8.3) gm/dl Albumin 3.7 (3.4-5.0) gm/dl Globulin 1.8 L (2.5-4.0) gm/dl Albumin/Globulin Ratio 2.1 H (0.9-2) PG Care Time/CCT Total # of Minutes Spent Total Time Spent with Patient: Total time spent is greater than 50% in coordination of care (as documented) at patient's floor/unit and/or counseling patient: Coding Level of Care Code 43241 Subseq Hosp Care Lvl 2 Diagnoses Alcohol use disorder Alcoholic intoxication F10.929 Complication of substance-induced condition: with unspecified complication Suicidal ideation R45.851 Tobacco use disorder F17.200 Bipolar disorder F31.9 Active/Remission status: remission status unspecified (1) Alcoholic intoxication Complication of substance-induced condition: with unspecified complication Qualified Code(s): F10.929 - Alcohol use, unspecified with intoxication, unspecified (2) Bipolar disorder Active/Remission status: remission status unspecified Qualified Code(s): F31.9 - Bipolar disorder, unspecified
[2021-09-25] MEDS: chlordiazePOXIDE HCl 25 MG CAP PO SCH ×2 (14:20→20:58)
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
[2021-09-25] MEDS: ONDANSETRON INJ 2 MG/ML 2 ML VIAL IV PRN (17:22)
[2021-09-25] MEDS: QUEtiapine FUMARATE 100 MG TABLET PO SCH (20:58)
[2021-09-26] MEDS: chlordiazePOXIDE HCl 25 MG CAP PO SCH ×4 (01:36→21:58)
[2021-09-26 07:24] LABS: Basophils # (auto) 0.02 K/uL (0-0.2); Basophils % (auto) 0.3 %; Eosinophils % (auto) 3.1 %; Hemoglobin 12.9 g/dL (12.0-16.0); Immature Granulocytes # (auto) 0.01 K/uL (0.00-0.02); Immature Granulocytes % (auto) 0.2 %; Lymphocytes # (auto) 2.55 K/uL (1.2-3.4); Lymphocytes % (auto) 39.3 %; Mean Corpuscular Hemoglobin 31.5 pg (25-34); Mean Corpuscular Hgb Conc 33.1 g/dL (32-36); Mean Corpuscular Volume 95.1 fL (80-100); Monocytes # (auto) 0.52 K/uL (0.11-0.59); Neutrophils # (auto) 3.19 K/uL (1.4-6.5); Neutrophils % (auto) 49.1 %; Platelet Count 228 K/uL (130-400); RDW Coefficient of Variation 12.7 % (11.5-14.5); RDW Standard Deviation 44.1 fL (36.4-46.3); White Blood Count 6.49 K/uL (4.8-10.8)
[2021-09-26 07:29] LABS: Prothrombin Time 10.2 Seconds (9.0-12.0)
[2021-09-26 08:00] LABS: BUN Creatinine Ratio 8.6 (10-20); Bilirubin Direct 0.1 mg/dl (0-0.2); Bilirubin,Total 0.6 mg/dl (0.2-1.0); Calcium 8.9 mg/dl (8.5-10.1); Creatinine Clr Calc Pharmacy 115.3 ml/min; Est GFR (African American) 135.7 ml/min; Est GFR (Non-African American) 117.1 ml/min; Potassium 2.9 mmol/L (3.5-5.1); Total Protein 6.1 gm/dl (6.0-8.3)
[2021-09-26] MEDS ORDERED: SODIUM CHLORIDE 0.9% 1000ML 500 ML IV ONE (08:39)
[2021-09-26] MEDS: POTASSIUM CHLORIDE / WTR 10 MEQ/100 ML PLCT IV SCH ×2 (09:13→10:22)
[2021-09-26] MEDS: FOLIC ACID 1 MG TAB PO SCH (09:15)
[2021-09-26] MEDS: GABAPENTIN 100 MG CAP PO SCH ×2 (09:16→21:57)
[2021-09-26] MEDS: POTASSIUM CHLORIDE CRTAB 20 MEQ TABCR PO SCH ×3 (09:16→17:13)
[2021-09-26] MEDS: CYANOCOBALAMIN (B-12) 500 MCG TABLET PO SCH (09:16)
[2021-09-26] MEDS: NICOTINE 14 MG/24 HR PATCH TD SCH (09:18)
[2021-09-26] MEDS: CEROVITE ADV FORMULA TAB PO SCH (09:28)
[2021-09-26] MEDS: THIAMINE HCL 100 MG TAB PO SCH ×2 (09:28→21:58)
[2021-09-26] MEDS: LORazepam 1 MG in SYRINGE 0.5 ML IV PRN ×2 (12:18→20:30)
[2021-09-26] MEDS ORDERED: LORazepam 1 MG TAB PO STA (16:59)
[2021-09-26] MEDS: SODIUM CHLORIDE 0.9% 1000ML 1,000 ML IV SCH (17:14)
--- NOTE | 2021-09-26 19:34 | Hospitalist Progress Note ---
Date of Service September 26, 2021 Assessment & Plan (1) Alcohol withdrawal: Plan: Remains on librium taper and ativan IV prn per AWSS scoring protocol. Cont thiamine but increase to 200mg BID. Cont folic acid. Add MVI. Cont telemetry. Psych following for mood disorder/mental health issues/SI - appreciate their assistance. Takes chronic gabapentin at home - cont such. (2) Suicidal ideation: Plan: Remains 1:1 but denies suicidal ideation today. Appreciate psych assistance. (3) Tobacco use disorder: Plan: Nicoderm patch 14mg/day. Tire Adjuster to quit. (4) Mood disorder: Plan: Psych following. Uncertain if substance-induced mood disorder vs bipolar vs other. Either way has been placed back on seroquel 100mg HS by psychiatry. Remains on gabapentin per home dosing (100mg qpm, 200mg qam). (5) Anxiety: (6) Hypokalemia: Plan: Likely 2nd to etoh abuse. KCL rider x 2 bags (total 20meq). KCL 40meq PO x 3 doses. Repeat level tonight. Mag level noted to be wnl. Plan: Patient with mildly low BPs at times - 500cc of NS x 1 given as bolus, followed by 80cc/hr of NS x 1 liter. Trend BPs. repeat labs am. Admission and Anticipated Discharge Date Admission Date: September 24, 2021 Subjective tele stable overnight patient sleeping upon arrival my arrival a nurse sitter was at bedside she apparently ate breakfast but skipped lunch main complaint is that of anxiety denies suicidal ideation mild tremors only states her etoh withdrawal only lasts "a few days" Review of Systems Review of Systems: gen - no fever cv - no cp pulm - no cough or dyspnea GI - no nausea or emesis or pain Physical Exam Physical Exam: gen - comfortable, awake, alert, oriented mouth - MM a little dry heart - borderline tachy, s1 s2, no murmur lungs - CTA b/l abd - soft, NT, ND, BS+, no HSM ext - no edema, pulses 2+ b/l neuro - minimal tremors psych - restricted affect, no twyla Results & Data Results & Data ([facility]) Vital Signs (Past 12 Hours) Vital Signs Temp Pulse Pulse Resp BP Pulse Ox 09/26/21 19:01 36.7 C 97 H 18 131/92 98 09/26/21 16:04 90 09/26/21 15:06 37.0 C 85 18 92/58 L 99 09/26/21 14:19 36.8 C 83 16 95/63 L 98 09/26/21 12:21 37 C 85 18 111/78 97 09/26/21 10:47 36.6 C 165 H 18 108/74 97 09/26/21 07:54 36.5 C 64 18 86/57 L 97 09/26/21 07:49 75 Laboratory Results Laboratory Results - last 24 hr 09/26/21 09/26/21 09/26/21 06:39 06:39 06:39 WBC 6.49 RBC 4.10 L Hgb 12.9 Hct 39.0 MCV 95.1 MCH 31.5 MCHC 33.1 RDW Std Deviation 44.1 RDW Coeff of Kristyn 12.7 Plt Count 228 MPV 11.0 H Immature Gran % (Auto) 0.2 Neut % (Auto) 49.1 Lymph % (Auto) 39.3 [place] % (Auto) 8.0 Eos % (Auto) 3.1 Baso % (Auto) 0.3 Neut # (Auto) 3.19 Lymph # (Auto) 2.55 [place] # (Auto) 0.52 Eos # (Auto) 0.20 Baso # (Auto) 0.02 Immature Gran # (Auto) 0.01 PT 10.2 INR 1.0 Sodium 140 Potassium 2.9 L D Chloride 106 Carbon Dioxide 27 Anion Gap 7 BUN 6 Creatinine 0.70 Est Cr Clr Drug Dosing 115.3 Est GFR ( Amer) 135.7 Est GFR (Non-Af Amer) 117.1 BUN/Creatinine Ratio 8.6 L Glucose 148 H Calcium 8.9 Magnesium 2.0 Total Bilirubin 0.6 D Direct Bilirubin 0.1 AST 32 ALT 30 Alkaline Phosphatase 58 Total Protein 6.1 Albumin 4.0 PG Care Time/CCT Total # of Minutes Spent Total Time Spent with Patient: Total time spent is greater than 50% in coordination of care (as documented) at patient's floor/unit and/or counseling patient: Coding Level of Care Code 01395 Subseq Hosp Care Lvl 2 Diagnoses Alcohol withdrawal F10.230 Complication of substance-induced condition: uncomplicated Suicidal ideation R45.851 Tobacco use disorder F17.200 Mood disorder F39 Anxiety F41.9 Hypokalemia E87.6 (1) Alcohol withdrawal Complication of substance-induced condition: uncomplicated Qualified Code(s): F10.230 - Alcohol dependence with withdrawal, uncomplicated
[2021-09-26] MEDS: ONDANSETRON INJ 2 MG/ML 2 ML VIAL IV PRN (19:45)
[2021-09-26] MEDS: NICOTINE POLACRILEX 2 MG GUM MT PRN (19:51)
[2021-09-26] MEDS: ACETAMINOPHEN 325 MG TAB PO PRN (21:57)
[2021-09-26] MEDS: QUEtiapine FUMARATE 100 MG TABLET PO SCH (21:59)
[2021-09-26 22:26] LABS: 7-Aminoclonaz, Confirm 27 ng/mL (<25); Hydro-Alp Ur, GC/MS NEGATIVE ng/mL (<25); Hydroxyethylflurazepam, Conf NEGATIVE ng/mL (<50); Hydroxymidazolam Ur, GC/MS NEGATIVE ng/mL (<50); Hydroxytriazolam NEGATIVE ng/mL (<50); Lorazepam, Ur GC/MS NEGATIVE ng/mL (<50); Nordiazepam, Confirm NEGATIVE ng/mL (<50); Oxazepam Ur, GC/MS NEGATIVE ng/mL (<50); Temazepam, Confirm NEGATIVE ng/mL (<50)
[2021-09-27] MEDS: SODIUM CHLORIDE 0.9% 1000ML 1,000 ML IV SCH ×2 (02:55→15:57)
[2021-09-27] MEDS ORDERED: SODIUM CHLORIDE 0.9% 1000ML 500 ML IV ONE (04:30)
[2021-09-27 07:11] LABS: BUN Creatinine Ratio 7.4 (10-20); Calcium 8.1 mg/dl (8.5-10.1); Creatinine Clr Calc Pharmacy 118.7 ml/min; Est GFR (Non-African American) 118.2 ml/min; Potassium 3.7 mmol/L (3.5-5.1)
[2021-09-27] MEDS: chlordiazePOXIDE HCl 25 MG CAP PO SCH ×3 (08:39→22:11)
[2021-09-27] MEDS: THIAMINE HCL 100 MG TAB PO SCH ×2 (08:39→21:21)
[2021-09-27] MEDS: CYANOCOBALAMIN (B-12) 500 MCG TABLET PO SCH (08:40)
[2021-09-27] MEDS: GABAPENTIN 100 MG CAP PO SCH ×2 (08:41→21:22)
[2021-09-27] MEDS: CEROVITE ADV FORMULA TAB PO SCH (08:41)
[2021-09-27] MEDS: FOLIC ACID 1 MG TAB PO SCH (08:41)
[2021-09-27] MEDS: NICOTINE 14 MG/24 HR PATCH TD SCH (08:44)
[2021-09-27] MEDS: ACETAMINOPHEN 325 MG TAB PO PRN ×2 (12:42→18:54)
[2021-09-27] MEDS ORDERED: QUEtiapine FUMARATE 25 MG TABLET PO STA (13:10)
--- NOTE | 2021-09-27 13:14 | Communication Note ---
Date of Service: September 27, [address] Topete. Patient is willing for inpatient mental health treatment, ideally on a dual dx unit. It's unclear whether she will agree to rehab after that. Clarifying insurance status with CM to facilitated bed search as nearing medical clearance.
--- NOTE | 2021-09-27 13:26 | Hospitalist Progress Note ---
Date of Service September 27, 2021 Assessment & Plan (1) Alcohol withdrawal: Plan: Remains on librium taper and ativan IV prn per AWSS scoring protocol. Suspect etoh withdrawal is nearly finished. Cont thiamine 200mg BID. Cont folic acid. Cont MVI. Cont telemetry. Psych following for mood disorder/mental health issues/SI - appreciate their assistance. Takes chronic gabapentin at home - cont such. Suspect anxiety is mainly from her mood d/o and not the withdrawal. (2) Suicidal ideation: Plan: Remains 1:1 but denies suicidal ideation. Appreciate psych assistance. (3) Tobacco use disorder: Plan: Nicoderm patch 14mg/day. Mental Health Coordinator to quit. (4) Mood disorder: Plan: Psych following. Uncertain if substance-induced mood disorder vs bipolar vs other. Either way has been placed back on seroquel 100mg HS by psychiatry. Remains on gabapentin per home dosing (100mg qpm, 200mg qam). For refractory anxiety today gave seroquel 25mg po x 1. (5) Anxiety: Plan: defer Rx to psych but did give additional 25mg of seroquel today (6) Hypokalemia: Plan: replaced/resolved 2nd to etoh abuse and poor oral intake (7) Headache: Plan: toradol 30mg IV x 1 (8) Hypotension: Plan: s/p IV fluids with resolution (9) Diarrhea: Plan: check c diff Plan: I believe she will be medically ready for discharge tomorrow, 09/28/21. Appreciate psych consultation & recs. Admission and Anticipated Discharge Date Admission Date: September 24, 2021 Subjective tele wnl overnight had some diarrhea overnight - improved today reports frontal headache - vague history of possible migraines mild photophobia eating fair main complaint is anxiety asks for meds for this Review of Systems Review of Systems: gen - no fevers or chills cv - no chest pain pulm - gets a little short of breath when she feels anxious GI - no pain neuro - a "little unsteady" when walking Physical Exam Physical Exam: gen - comfortable, awake, alert, oriented; flat affect eyes - pupils dilated 5-6mm but symmetric and reactive; no nystagmus; EOMI mouth - MMM heart - RRR, s1 s2, no murmur lungs - CTA b/l abd - soft, NT, ND, BS+, no HSM ext - no edema, pulses 2+ b/l neuro - minimal tremors; strength 5/5 x 4 exts psych - flat affect, no twyla Results & Data Results & Data ([facility]) Vital Signs (Past 12 Hours) Vital Signs Temp Pulse Pulse Resp BP BP Pulse Ox 09/27/21 12:18 36.7 C 92 H 16 112/78 98 09/27/21 08:51 36.5 C 81 18 95/62 L 97 09/27/21 07:34 67 09/27/21 06:22 95/63 L 85/49 L 09/27/21 04:15 36.7 C 67 18 95/60 L 94/60 L 97 Laboratory Results Laboratory Results - last 24 hr 09/23/21 09/26/21 09/27/21 21:00 20:37 06:28 Sodium 137 Potassium 4.1 D 3.7 Chloride 110 H Carbon Dioxide 23 Anion Gap 4 BUN 5 L Creatinine 0.68 Est Cr Clr Drug Dosing 118.7 Est GFR ( Amer) 137.0 Est GFR (Non-Af Amer) 118.2 BUN/Creatinine Ratio 7.4 L Glucose 110 H Calcium 8.1 L U OH-Alprazolam Confrm NEGATIVE 7-Amino Clonazepam 27 H Ur Nordiazepam Confirm NEGATIVE U OH-ethylflurazepam NEGATIVE U Lorazepam Cnf GC/MS NEGATIVE U Oxazepam Confm GC/MS NEGATIVE Ur Temazepam Confirm NEGATIVE U OH-Triazolam Confirm NEGATIVE U OH-Midazolam Confirm NEGATIVE Drug Screen Comment SEE NOTE PG Care Time/CCT Total # of Minutes Spent Total Time Spent with Patient: Total time spent is greater than 50% in coordination of care (as documented) at patient's floor/unit and/or counseling patient: Coding Level of Care Code 83593 Subseq Hosp Care Lvl 2 Diagnoses Alcohol withdrawal F10.230 Complication of substance-induced condition: uncomplicated Suicidal ideation R45.851 Tobacco use disorder F17.200 Mood disorder F39 Anxiety F41.9 Hypokalemia E87.6 Headache R51.9 Hypotension I95.9 Diarrhea R19.7 (1) Alcohol withdrawal Complication of substance-induced condition: uncomplicated Qualified Code(s): F10.230 - Alcohol dependence with withdrawal, uncomplicated
[2021-09-27] MEDS ORDERED: MAGNESIUM SULFATE / D5W 1 GM/100 ML BAG IV ONE (13:27)
[2021-09-27] MEDS ORDERED: KETOROLAC 30 MG/ML VIAL IV ONE (13:27)
[2021-09-27] MEDS: LORazepam 1 MG in SYRINGE 0.5 ML IV PRN (20:01)
[2021-09-27] MEDS: NICOTINE POLACRILEX 2 MG GUM MT PRN (20:17)
[2021-09-27] MEDS: QUEtiapine FUMARATE 100 MG TABLET PO SCH (21:22)
[2021-09-28] MEDS: SODIUM CHLORIDE 0.9% 1000ML 1,000 ML IV SCH (04:40)
[2021-09-28] MEDS: chlordiazePOXIDE HCl 25 MG CAP PO SCH (06:24)
[2021-09-28] MEDS: CEROVITE ADV FORMULA TAB PO SCH (09:03)
[2021-09-28] MEDS: GABAPENTIN 100 MG CAP PO SCH (09:03)
[2021-09-28] MEDS: FOLIC ACID 1 MG TAB PO SCH (09:03)
[2021-09-28] MEDS: THIAMINE HCL 100 MG TAB PO SCH (09:04)
[2021-09-28] MEDS: CYANOCOBALAMIN (B-12) 500 MCG TABLET PO SCH (09:04)
[2021-09-28] MEDS: NICOTINE 14 MG/24 HR PATCH TD SCH (09:04)
[2021-09-28 09:07] LABS: BUN Creatinine Ratio 7.8 (10-20); Calcium 8.4 mg/dl (8.5-10.1); Creatinine Clr Calc Pharmacy 126.1 ml/min; Est GFR (African American) 139.8 ml/min; Est GFR (Non-African American) 120.6 ml/min
[2021-09-28] MEDS ORDERED: FAMOTIDINE 20 MG in SYRINGE 3 ML IV ONE (14:00)
[2021-09-28] MEDS ORDERED: LORazepam 1 MG TAB PO STA (14:09)
[2021-09-28] MEDS: SUCRALFATE 1 GM/10 ML UDC PO SCH ×2 (15:18→17:58)
[2021-09-28] MEDS: NICOTINE POLACRILEX 2 MG GUM MT PRN (15:19)
--- NOTE | 2021-09-28 18:03 | Discharge Summary ---
Date of Service September 28, 2021 Admission HPI Per Admitting Provider This patient is a 31-year-old female with a history of alcohol use disorder, current smoker, bipolar disorder who presents to the ER via police escort after her [id number] called with concerns for a plan for double homicide/suicide between patient and her . As per report from ER physician, the and arrived at the ER together and there were plans for with one of them to kill the other and then kill themselves. The patient was found to have an elevated alcohol level in the 300 range, but was otherwise stable. She was treated with IV lorazepam and banana bag. She has a history of alcohol w ithdrawal seizure and because of this, psychiatry requesting that the patient be admitted to the medical service for alcohol detoxification prior to admission to psychiatric unit. I saw the patient in the morning, she appears sober and states that she only had suicidal thoughts while she was drunk last evening, but no longer does. She denies ever having any plans for homicide of her . She reports that she recently started drinking alcohol again only 1 week ago and typically drinks 5 shots of liquor per day, however reports yesterday she was drinking liquor all day long and lost track of how much. Prior to 1 week ago when asked if she drank alcohol, she stated "I do not think so." She denies chest pains or shortness of breath, no abdominal pains. Last bowel movement 2 days ago and feels slightly constipated. Has a mild headache and mild nausea but no vomiting. She did not eat much for breakfast. She denies any other concerns. There is a 302 petition as per case management. Discharge Exam gen - comfortable, awake, alert, oriented; flat affect eyes - pupils dilated 5-6mm but symmetric and reactive; no nystagmus; EOMI mouth - MMM heart - RRR, s1 s2, no murmur lungs - CTA b/l abd - soft, NT, ND, BS+, no HSM ext - no edema, pulses 2+ b/l neuro - minimal tremors; strength 5/5 x 4 exts psych - flat affect, no twyla Discharge Data Allergies Allergy/AdvReac Type Severity Reaction Status Date / Time Antihistamines AdvReac Intermediate Anxiety Uncoded 08/11/21 19:53 Consultations 09/24/21 08:37 ED Decision to Admit Stat 09/24/21 14:44 Consult Psychiatry Routine Hospital Course (1) Alcohol withdrawal: Remains on librium taper and ativan IV prn per AWSS scoring protocol. Suspect etoh withdrawal is nearly finished. Cont thiamine 200mg BID. Cont folic acid. Cont MVI. Cont telemetry. Psych following for mood disorder/mental health issues/SI - appreciate their assistance. Takes chronic gabapentin at home - cont such. Suspect anxiety is mainly from her mood d/o and not the withdrawal. (2) Suicidal ideation: Remains 1:1 but denies suicidal ideation. Appreciate psych assistance. (3) Tobacco use disorder: Nicoderm patch 14mg/day. Bus [employer] [place] to quit. (4) Mood disorder: Psych following. Uncertain if substance-induced mood disorder vs bipolar vs other. Either way has been placed back on seroquel 100mg HS by psychiatry. Remains on gabapentin per home dosing (100mg qpm, 200mg qam). For refractory anxiety today gave seroquel 25mg po x 1. (5) Anxiety: defer Rx to psych but did give additional 25mg of seroquel today (6) Hypokalemia: replaced/resolved 2nd to etoh abuse and poor oral intake (7) Headache: toradol 30mg IV x 1 (8) Hypotension: s/p IV fluids with resolution (9) Diarrhea: check c diff I believe she will be medically ready for discharge tomorrow, 09/28/21. Appreciate psych consultation & recs. Discharge Plan Discharge Items Patient Disposition: Transfer Behavioral Health Fac Reason For Visit: ALCOHOL INTOXICATION, WITHDRAWAL Discharge Diagnosis: 1. alcohol intoxication then alcohol withdrawal - resolved 2. low potassium - resolved 3. bipolar disorder 4. suicidal ideation Activity: Resume your previous activity Non-emergency contact: Primary Care Provider and Psychiatrist Call non-emergency contact if: you have any medication questions and your symptoms worsen Follow-up/Referrals: Erlin Calderon III, CRNP [Primary Care Provider] - Diet: Regular Addtl Attending Provider Instructions: Further instructions to follow after your stay at the Behavioral Health Unit at [facility]. Continue to feel better, and it was our pleasure to care for you, Dr Topete Pending Studies at Discharge: No Stand-Alone Forms: My [facility] Skilled Items Lines: None Urinary Catheter: No Medications and DC Order Prescriptions: New quetiapine 100 mg Tablet 100 mg PO HS Qty: 30 RF: 0 nicotine 7 mg/24 hr Patch 24 Hour 14 mg transdermal QAM Qty: 30 RF: 0 Cerovite Senior 0.4 mg-300 mcg- 250 mcg Tablet 1 tab PO QAM Qty: 30 RF: 0 pantoprazole [Protonix] 40 mg tablet,delayed release (DR/EC) 40 mg PO DAILY Qty: 30 RF: 0 sucralfate [Carafate] 100 mg/mL suspension 1 g PO ACHS PRN (Reason: reflux/stomach upset) Qty: 200 RF: 0 Continued gabapentin 100 mg capsule 200 mg PO QAM RF: 0 folic acid 400 mcg Tablet 400 mcg PO QAM Qty: 30 RF: 0 gabapentin 100 mg Capsule 100 mg PO QPM Qty: 30 RF: 0 Changed thiamine HCl (vitamin B1) 100 mg tablet 200 mg PO BID Qty: 30 RF: 0 cyanocobalamin (vitamin B-12) 500 mcg Tablet 1,000 mcg PO QAM Qty: 30 RF: 0 Discontinued lithium carbonate 300 mg tablet extended release 900 mg PO DAILY 90 Days Qty: 270 RF: 3 olanzapine 2.5 mg tablet 2.5 mg PO DAILY Qty: 90 RF: 3 olanzapine 15 mg tablet 15 mg PO QPM Qty: 90 RF: 3 trazodone 100 mg tablet 100 mg PO HS PRN (Reason: Sleep) RF: 0 chlordiazepoxide HCl 10 mg Capsule 10 mg PO DIRECTED Qty: 13 RF: 0 Klonopin 0.25 mg BID RF: 0 Discharge Orders: Discharge Order (Routine); Ordered 09/28/21 Ordered By: Francis Topete Admission Data Admit Date/Time: 09/24/21 10:09 Attending Provider: Francis Topete Admit Provider: Bronwyn Lees Primary Care Provider: Erlin Calderon III Other Providers: Bronwyn Lees ; Estelle Carballo ; Sally Stephen ; Danita Hoffmann Other Interventions: Discharge Summary Assessment (RN) Last Done: 09/28/21 16:18 Coding Diagnoses Alcohol withdrawal F10.230 Complication of substance-induced condition: uncomplicated Suicidal ideation R45.851 Tobacco use disorder F17.200 Mood disorder F39 Anxiety F41.9 Hypokalemia E87.6 Headache R51.9 Hypotension I95.9 Diarrhea R19.7
== END 2021-09-28 18:30 | DRG 897 ==
LOC: ED 20:37 → EDINP 09-24 10:09 → SUATTDRO 09-24 10:09 → 2N 09-24 13:40
DX: F31.9 Bipolar disorder, unspecified; F41.9 Anxiety disorder, unspecified; R45.851 Suicidal ideations; F10.239 Alcohol dependence with withdrawal, unspecified; R51.9 Headache, unspecified; E87.6 Hypokalemia; E87.2 Acidosis; F17.210 Nicotine dependence, cigarettes, uncomplicated

== ENCOUNTER 2021-09-28 18:42 | Inpatient (IN) ==
[2021-09-28] MEDS ORDERED: BISMUTH SUBSALICYLATE LIQD 236 ML PO PRN (19:54)
[2021-09-28] MEDS ORDERED: LORazepam 1 MG TAB PO PRN (19:54)
[2021-09-28] MEDS ORDERED: hydrOXYzine HCl 25 MG TAB PO PRN ×2 (19:54)
[2021-09-28] MEDS ORDERED: SODIUM CHLORIDE 0.65% NA SOLN 45 ML (OCEAN) PRN (19:54)
[2021-09-28] MEDS ORDERED: MAGNESIUM HYDROXIDE SUSP 30 ML UDC PO PRN (19:54)
[2021-09-28] MEDS ORDERED: QUEtiapine FUMARATE 100 MG TABLET PO ONE (21:00)
[2021-09-28] MEDS ORDERED: GABAPENTIN 100 MG CAP PO ONE (21:00)
[2021-09-28] MEDS: THIAMINE HCL 100 MG TAB PO SCH (22:11)
[2021-09-29] MEDS: THIAMINE HCL 100 MG TAB PO SCH ×2 (08:30→20:37)
[2021-09-29] MEDS: CYANOCOBALAMIN (B-12) 500 MCG TABLET PO SCH (08:30)
[2021-09-29] MEDS: PANTOprazole 40 MG TAB PO SCH (08:30)
[2021-09-29] MEDS: CEROVITE ADV FORMULA TAB PO SCH (08:30)
[2021-09-29] MEDS: FOLIC ACID 400 MCG TAB PO SCH (08:30)
[2021-09-29] MEDS: NICOTINE 14 MG/24 HR PATCH TD SCH (08:35)
[2021-09-29] MEDS ORDERED: GABAPENTIN 100 MG CAP PO SCH ×2 (09:00→21:00)
[2021-09-29] MEDS ORDERED: LORazepam 1 MG TAB PO PRN ×2 (11:53→12:00)
[2021-09-29] MEDS: SUCRALFATE 1 GM/10 ML UDC PO PRN (13:11)
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
[2021-09-29] MEDS: LORazepam 1 MG TAB PO SCH ×2 (15:36→20:37)
[2021-09-29] MEDS: GABAPENTIN 300 MG CAP PO SCH ×2 (16:42→20:37)
[2021-09-29] MEDS: ACETAMINOPHEN 325 MG TAB PO PRN ×2 (16:50→20:55)
[2021-09-30] MEDS: FOLIC ACID 400 MCG TAB PO SCH (08:51)
[2021-09-30] MEDS: CEROVITE ADV FORMULA TAB PO SCH (08:51)
[2021-09-30] MEDS: THIAMINE HCL 100 MG TAB PO SCH ×2 (08:51→21:07)
[2021-09-30] MEDS: LORazepam 1 MG TAB PO SCH ×3 (08:51→21:07)
[2021-09-30] MEDS: CYANOCOBALAMIN (B-12) 500 MCG TABLET PO SCH (08:52)
[2021-09-30] MEDS: GABAPENTIN 300 MG CAP PO SCH ×3 (08:52→21:06)
[2021-09-30] MEDS: PANTOprazole 40 MG TAB PO SCH (08:52)
[2021-09-30] MEDS: NICOTINE 14 MG/24 HR PATCH TD SCH (08:53)
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
[2021-09-30] MEDS: SUCRALFATE 1 GM/10 ML UDC PO PRN (15:40)
[2021-09-30] MEDS: ACETAMINOPHEN 325 MG TAB PO PRN (17:11)
[2021-09-30] MEDS: traZODone HCL 100 MG TAB PO SCH (21:07)
[2021-10-01 08:29] LABS: Chol HDL Ratio 2.8 (0-5)
[2021-10-01] MEDS: NICOTINE 14 MG/24 HR PATCH TD SCH (08:44)
[2021-10-01] MEDS: ARIPiprazole 5 MG TAB PO SCH (08:46)
[2021-10-01] MEDS: CYANOCOBALAMIN (B-12) 500 MCG TABLET PO SCH (08:47)
[2021-10-01] MEDS: LORazepam 1 MG TAB PO SCH ×3 (08:48→21:27)
[2021-10-01] MEDS: FOLIC ACID 400 MCG TAB PO SCH (08:48)
[2021-10-01] MEDS: GABAPENTIN 300 MG CAP PO SCH ×3 (08:48→21:27)
[2021-10-01] MEDS: PANTOprazole 40 MG TAB PO SCH (08:49)
[2021-10-01] MEDS: THIAMINE HCL 100 MG TAB PO SCH ×2 (08:49→21:27)
[2021-10-01] MEDS: CEROVITE ADV FORMULA TAB PO SCH (08:49)
[2021-10-01] MEDS: SUCRALFATE 1 GM/10 ML UDC PO PRN (08:50)
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
[2021-10-01] MEDS: ALUMINUM/MAGNESIUM SUSP 30 ML UDC PO PRN (11:21)
[2021-10-01] MEDS: traZODone HCL 100 MG TAB PO SCH (21:27)
[2021-10-02] MEDS: NICOTINE 14 MG/24 HR PATCH TD SCH (08:31)
[2021-10-02] MEDS: FOLIC ACID 400 MCG TAB PO SCH (08:32)
[2021-10-02] MEDS: CEROVITE ADV FORMULA TAB PO SCH (08:32)
[2021-10-02] MEDS: CYANOCOBALAMIN (B-12) 500 MCG TABLET PO SCH (08:32)
[2021-10-02] MEDS: ARIPiprazole 5 MG TAB PO SCH ×2 (08:32→21:50)
[2021-10-02] MEDS: LORazepam 1 MG TAB PO SCH ×3 (08:33→21:50)
[2021-10-02] MEDS: GABAPENTIN 300 MG CAP PO SCH ×3 (08:33→21:50)
[2021-10-02] MEDS: PANTOprazole 40 MG TAB PO SCH (08:33)
[2021-10-02] MEDS: THIAMINE HCL 100 MG TAB PO SCH ×2 (08:33→21:50)
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
[2021-10-02] MEDS: SUCRALFATE 1 GM/10 ML UDC PO PRN (09:27)
[2021-10-02] MEDS: traZODone HCL 100 MG TAB PO SCH (21:49)
[2021-10-03] MEDS: THIAMINE HCL 100 MG TAB PO SCH ×2 (08:27→21:30)
[2021-10-03] MEDS: CYANOCOBALAMIN (B-12) 500 MCG TABLET PO SCH (08:27)
[2021-10-03] MEDS: FOLIC ACID 400 MCG TAB PO SCH (08:27)
[2021-10-03] MEDS: CEROVITE ADV FORMULA TAB PO SCH (08:27)
[2021-10-03] MEDS: GABAPENTIN 300 MG CAP PO SCH ×3 (08:27→21:30)
[2021-10-03] MEDS: PANTOprazole 40 MG TAB PO SCH (08:27)
[2021-10-03] MEDS: ARIPiprazole 5 MG TAB PO SCH ×2 (08:28→21:30)
[2021-10-03] MEDS: LORazepam 1 MG TAB PO SCH (08:29)
[2021-10-03] MEDS: NICOTINE 14 MG/24 HR PATCH TD SCH (08:29)
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
[2021-10-03] MEDS ORDERED: LORazepam 0.5 MG TAB PO SCH (12:00)
[2021-10-03] MEDS: busPIRone 15 MG TAB PO SCH (21:30)
[2021-10-03] MEDS: traZODone HCL 100 MG TAB PO SCH (21:30)
[2021-10-03] MEDS ORDERED: LORazepam 1 MG TAB PO SCH (22:00)
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
[2021-10-04] MEDS: NICOTINE 14 MG/24 HR PATCH TD SCH (08:43)
[2021-10-04] MEDS: LORazepam 0.5 MG TAB PO SCH ×3 (08:44→22:10)
[2021-10-04] MEDS: FOLIC ACID 400 MCG TAB PO SCH (08:45)
[2021-10-04] MEDS: ARIPiprazole 5 MG TAB PO SCH ×2 (08:45→22:10)
[2021-10-04] MEDS: busPIRone 15 MG TAB PO SCH (08:45)
[2021-10-04] MEDS: CYANOCOBALAMIN (B-12) 500 MCG TABLET PO SCH (08:45)
[2021-10-04] MEDS: GABAPENTIN 300 MG CAP PO SCH ×3 (08:46→22:09)
[2021-10-04] MEDS: CEROVITE ADV FORMULA TAB PO SCH (08:46)
[2021-10-04] MEDS: NALTREXONE HCL 50 MG TAB PO SCH (08:46)
[2021-10-04] MEDS: THIAMINE HCL 100 MG TAB PO SCH ×2 (08:47→22:09)
[2021-10-04] MEDS: PANTOprazole 40 MG TAB PO SCH (08:47)
[2021-10-04] MEDS: ALUMINUM/MAGNESIUM SUSP 30 ML UDC PO PRN ×2 (11:29→18:28)
[2021-10-04] MEDS: ACETAMINOPHEN 325 MG TAB PO PRN (11:30)
[2021-10-04] MEDS ORDERED: GABAPENTIN 100 MG CAP PO PRN (17:37)
[2021-10-04] MEDS: traZODone HCL 100 MG TAB PO SCH (22:10)
[2021-10-05] MEDS: THIAMINE HCL 100 MG TAB PO SCH ×2 (08:41→21:00)
[2021-10-05] MEDS: CYANOCOBALAMIN (B-12) 500 MCG TABLET PO SCH (08:41)
[2021-10-05] MEDS: ARIPiprazole 5 MG TAB PO SCH ×2 (08:41→20:58)
[2021-10-05] MEDS: GABAPENTIN 300 MG CAP PO SCH ×4 (08:42→21:00)
[2021-10-05] MEDS: LORazepam 0.5 MG TAB PO SCH ×2 (08:42→14:15)
[2021-10-05] MEDS: CEROVITE ADV FORMULA TAB PO SCH (08:42)
[2021-10-05] MEDS: PANTOprazole 40 MG TAB PO SCH (08:42)
[2021-10-05] MEDS: NALTREXONE HCL 50 MG TAB PO SCH (08:42)
[2021-10-05] MEDS: NICOTINE 14 MG/24 HR PATCH TD SCH (08:42)
[2021-10-05] MEDS: FOLIC ACID 400 MCG TAB PO SCH (08:42)
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
[2021-10-05] MEDS ORDERED: LORazepam 0.5 MG TAB PO PRN ×2 (16:35→16:36)
[2021-10-05] MEDS: traZODone HCL 100 MG TAB PO SCH (21:00)
[2021-10-05] MEDS ORDERED: LORazepam 0.5 MG TAB PO SCH (22:00)
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
[2021-10-06] MEDS: NICOTINE 14 MG/24 HR PATCH TD SCH (08:52)
[2021-10-06] MEDS: CEROVITE ADV FORMULA TAB PO SCH (08:53)
[2021-10-06] MEDS: FOLIC ACID 400 MCG TAB PO SCH (08:53)
[2021-10-06] MEDS: ARIPiprazole 5 MG TAB PO SCH ×2 (08:53→21:41)
[2021-10-06] MEDS: NALTREXONE HCL 50 MG TAB PO SCH (08:53)
[2021-10-06] MEDS: GABAPENTIN 300 MG CAP PO SCH ×4 (08:53→21:41)
[2021-10-06] MEDS: CYANOCOBALAMIN (B-12) 500 MCG TABLET PO SCH (08:53)
[2021-10-06] MEDS: PANTOprazole 40 MG TAB PO SCH (08:55)
[2021-10-06] MEDS: THIAMINE HCL 100 MG TAB PO SCH ×2 (08:56→21:43)
[2021-10-06] MEDS ORDERED: NICOTINE POLACRILEX 2 MG GUM MT PRN (14:17)
[2021-10-06] MEDS: traZODone HCL 100 MG TAB PO SCH (21:43)
[2021-10-07] MEDS: ARIPiprazole 5 MG TAB PO SCH (08:47)
[2021-10-07] MEDS: PANTOprazole 40 MG TAB PO SCH (08:48)
[2021-10-07] MEDS: NALTREXONE HCL 50 MG TAB PO SCH (08:48)
[2021-10-07] MEDS: THIAMINE HCL 100 MG TAB PO SCH ×2 (08:49→21:11)
[2021-10-07] MEDS: CEROVITE ADV FORMULA TAB PO SCH (08:49)
[2021-10-07] MEDS: FOLIC ACID 400 MCG TAB PO SCH (08:49)
[2021-10-07] MEDS: CYANOCOBALAMIN (B-12) 500 MCG TABLET PO SCH (08:50)
[2021-10-07] MEDS: GABAPENTIN 300 MG CAP PO SCH ×4 (08:50→21:11)
[2021-10-07] MEDS: NICOTINE 14 MG/24 HR PATCH TD SCH (08:50)
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
[2021-10-07] MEDS ORDERED: ARIPiprazole 5 MG TAB PO ONE (11:57)
[2021-10-07] MEDS ORDERED: LORazepam 0.5 MG TAB PO PRN (12:52)
[2021-10-07] MEDS: traZODone HCL 100 MG TAB PO SCH (21:09)
[2021-10-08] MEDS: CYANOCOBALAMIN (B-12) 500 MCG TABLET PO SCH (08:32)
[2021-10-08] MEDS: PANTOprazole 40 MG TAB PO SCH ×2 (08:32→21:09)
[2021-10-08] MEDS: GABAPENTIN 300 MG CAP PO SCH ×3 (08:32→21:08)
[2021-10-08] MEDS: NALTREXONE HCL 50 MG TAB PO SCH (08:33)
[2021-10-08] MEDS: FOLIC ACID 400 MCG TAB PO SCH (08:34)
[2021-10-08] MEDS: THIAMINE HCL 100 MG TAB PO SCH ×2 (08:34→21:08)
[2021-10-08] MEDS: CEROVITE ADV FORMULA TAB PO SCH (08:35)
[2021-10-08] MEDS: ARIPiprazole 5 MG TAB PO SCH (08:35)
[2021-10-08] MEDS: NICOTINE 14 MG/24 HR PATCH TD SCH (08:36)
[2021-10-08] MEDS: SUCRALFATE 1 GM/10 ML UDC PO PRN (09:45)
[2021-10-08] MEDS ORDERED: PANTOprazole 40 MG TAB PO SCH (10:45)
[2021-10-08 11:50] LABS: Albumin Level 4.8 gm/dl (3.4-5.0); Bilirubin Direct 0.1 mg/dl (0-0.2); Bilirubin,Total 0.5 mg/dl (0.2-1.0); Total Protein 7.4 gm/dl (6.0-8.3)
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
[2021-10-08] MEDS: traZODone HCL 100 MG TAB PO SCH (21:09)
[2021-10-09] MEDS: NICOTINE 14 MG/24 HR PATCH TD SCH (08:18)
[2021-10-09] MEDS: CYANOCOBALAMIN (B-12) 500 MCG TABLET PO SCH (08:18)
[2021-10-09] MEDS: FOLIC ACID 400 MCG TAB PO SCH (08:18)
[2021-10-09] MEDS: ARIPiprazole 5 MG TAB PO SCH (08:19)
[2021-10-09] MEDS: NALTREXONE HCL 50 MG TAB PO SCH (08:19)
[2021-10-09] MEDS: PANTOprazole 40 MG TAB PO SCH ×2 (08:19→21:04)
[2021-10-09] MEDS: CEROVITE ADV FORMULA TAB PO SCH (08:19)
[2021-10-09] MEDS: THIAMINE HCL 100 MG TAB PO SCH ×2 (08:19→21:03)
[2021-10-09] MEDS: GABAPENTIN 300 MG CAP PO SCH ×3 (08:19→21:04)
[2021-10-09] MEDS ORDERED: LORazepam 0.5 MG TAB PO PRN (12:08)
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
[2021-10-09] MEDS: traZODone HCL 100 MG TAB PO SCH (21:53)
[2021-10-10] MEDS: NICOTINE 14 MG/24 HR PATCH TD SCH (08:35)
[2021-10-10] MEDS: CYANOCOBALAMIN (B-12) 500 MCG TABLET PO SCH (08:36)
[2021-10-10] MEDS: FOLIC ACID 400 MCG TAB PO SCH (08:36)
[2021-10-10] MEDS: GABAPENTIN 300 MG CAP PO SCH (08:36)
[2021-10-10] MEDS: NALTREXONE HCL 50 MG TAB PO SCH (08:36)
[2021-10-10] MEDS: PANTOprazole 40 MG TAB PO SCH (08:36)
[2021-10-10] MEDS: THIAMINE HCL 100 MG TAB PO SCH (08:37)
[2021-10-10] MEDS: ARIPiprazole 5 MG TAB PO SCH (08:37)
[2021-10-10] MEDS: CEROVITE ADV FORMULA TAB PO SCH (08:37)
--- NOTE | 2021-10-10 11:33 | Discharge Summary ---
Date of Service October 10, 2021 History of Present Illness As per initial consult: 911 was called as patient was overheard threatening to harm herself and her , unclear how much was them arguing about slitting each other's throats while intoxicated or if they were developing some form of suicide pact during their 2 day drinking binge around their mutual depression. The patient is questioning her diagnosis of bipolar disorder. [place] level was subtherapeutic but likely a super trough. As is typical she minimizes her suicidal ideation and threatening behavior and but adds that she does need "help". She hasn't been able to work and there is financial stress within marriage due to this. She admits to not taking her Zyprexa as prescribed and restarting Seroquel 200 mg on her own and felt it was helping. She reports little memory of incident. She was cooperative with care on the med floor, continued to score/request Ativan despite Librium taper. Poor PO yesterday but no emesis. She has since talked to her and states he is doing well. 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 Today she reports feeling more anxious than depressed. She appears tired. She is slow to respond at times. She minimized the state of the home when EMS arrived as "it's always like that, those bottles were months old of recycling." Explained mechanisms of mood stabilizers and my concerns about her risk of relapse and combining medications with alcohol. Physical Exam Psychiatric See admission H&P and DOD assessment. Vital Signs (Past 24 Hours) Last Vital Signs Temp 36.7 C 10/10/21 10:39 Pulse 92 H 10/10/21 10:39 Resp 16 10/10/21 10:39 BP 94/63 L 10/10/21 10:39 Pulse Ox 97 10/10/21 10:39 Principal Diagnosis mood disorder Psychiatric Data See daily stay summary. In short, safety was maintained and the patient was cooperative with care. Medication changes included Ativan taper, ongoing management of Neurontin, increase in trazodone to assist sleep and a trial of Abilify and they tolerated this well. She was eating and sleeping better after a period of protracted withdrawal and her mood gradually improved. A family session was held with her and safety plan was completed prior to discharge. She continued to refuse rehab referral but was agreeable to abstain from ETOH and attend AA as an outpatient. She was started on Naltrexone during her stay. lack of insurance and [place] eligibility as been an ongoing barrier to care. She will be attending [facility] intake. In meantime she is able to return to her previous prescriber. She was not discharged on any benzos and she and have been directed to dispose of any medications she is no longer prescribed at home. Juan has removed ETOH from the home and has been maintaining sobriety. There is no evidence that they every had any plans to harm each other outside of ETOH fueled argument where both had LETY >300. On some level they continue to minimize the serious nature of their drinking (by refusing appropriate level of rehab services). Day of Discharge Assessment Today the patient voices readiness for discharge. They note improvement in mood and deny thoughts to harm self or others. Thoughts remain organized and they are improved from admission. There is no evidence of psychosis. They agree to take mediations as prescribed and keep follow-up appointments. They are stable for discharge to outpatient level of care. Transition of Care Transition Of Care Record: was reviewed with the patient Advance Directives Advance Directives Information Provided: Yes Advance Directives: No Mental Health Advance Directive: No Advance Directives on File: No Living Will: No Power of Industrial Safety And Health Manager: No Advance Directives Reason:: Declines as Mental Health Visit. Suicide Risk Level Suicide Risk Level Comments: Suicide risk at discharge is deemed low as the patient is no longer requiring 24-hr monitoring, has a safety plan, and is free of suicidal ideation at discharge. Risk Factors Assessment : Yes Do You Have Access To A Gun?: No Mental Health Diagnoses: Yes Substance Use Disorders: Yes Previous Psychiatric Hospitalization: Yes Protective Factors Assessment : Yes Supportive Family: Yes Tobacco Cessation at Discharge Tobacco Cessation Medication Prescribed at Discharge: Not Applicable/Non-Smoker Total Time Total Time Spent: Greater Than 30 Minutes Total Time Includes: Examination of the patient, Discharge Planning and Medication Reconciliation Discharge Data Lab Results 10/01/21 10/08/21 07:36 11:04 Fasting Glucose 90 Total Bilirubin 0.5 Direct Bilirubin 0.1 AST 18 ALT 51 Alkaline Phosphatase 49 Total Protein 7.4 Albumin 4.8 Triglycerides 83 Cholesterol 165 LDL Cholesterol, Calc 88 VLDL Cholesterol, Calc 17 HDL Cholesterol 60 Cholesterol/HDL Ratio 2.8 Amylase 31 Lipase 9 L Hospital Course (1) Mood disorder: (2) Anxiety: (3) Alcohol use disorder: (4) Bipolar disorder: (5) Insomnia: 10/08/21: improved sleep. Ativan is 0.25 mg prn only, checked amylase/lipase and repeat LFTs which were normal. Increase pantoprazole to BID as suspect reflux as cause of N at this time, unlikely Abilify as worse in am. 10/07/21: shift Abilify to q am as more restless at night, no perceived benefit of higher hs dose of Neurontin and would like to d/c. Titrate trazodone. continue Ativan taper. 10/06/21: Continue current medications and tx plan. Ongoing ativan taper. Naltrexone should be increased after a few days without GI symptoms to 50mg qd. 10/05/21: Tapering to ativan 0.5 mg qAm and qnoon prn and 0.25mg qhs scheduled for tonight. Increase gabapentin to 300mg qAM, 300mg qnoon and 600mg qhs. Continue abilify and naltrexone. 10/04/21: Discontinue buspar d/t side effects. Added gabapentin 100mg prn for anxiety. taper ativan to 0.5 mg TID. Continue abilify and naltrexone. 10/03/21: Start buspar 15mg BID. Start naltrexone 25mg qAM tomorrow. Taper ativan to 0.5mg qAM and qnoon and 1mg qhs. 10/02/21: Increase abilify to 2.5 mg BID. Ongoing motivational interviewing. Can consider starting naltrexone tomorrow. Taper ativan to 1mg qAM, 0.5 mg qnoon and 1 mg qhs. 10/01/21: Continue current medications and tx plan. Ongoing motivational interviewing. Hold off on naltrexone for now given nausea. 09/30/21: Start abilify 2.5 mg qAM, start trazodone 100 mg qhs, continue gabapentin 300mg TID. Fasting labs in AM. Goal of adding naltrexone in a few da ys. 09/29/21: The patient was admitted to the [facility] ([facility]) on q15 min checks (behavioral with suicide precautions) for safety. The patient will participate in group, recreational, and milieu therapies and will be offered additional individual and family sessions as clinically appropriate. Mental Health & Subst Abuse Tx Psychiatrist Name of Psychiatrist: Jacquelynlatoya Psychiatrist's Date of Appointment with Psychiatrist: 10/19/21 Time of Appointment with Psychiatrist: 12:00 p.m. (In person - must have payment at time of appt) Psychiatric Appointment Comment: [id number] [facility] [address], [place] Psychiatrist Release of Information: Obtained, Reviewed and Signed Cctv Technician Name of Cctv Technician: [facility] Phone Number for Cctv Technician: [phone] Case Management Appointment Comment: Will follow up with you directly to complete the intake Cctv Technician Release of Information: Obtained, Reviewed and Signed Post Discharge Appointments Primary Care Physician Name Of Family Doctor: [facility] Date of Appointment with PCP: 10/30/21 Time of Appointment with PCP: 1:00 PM ([facility]) Provider Appointment Comment: [id number], [place], [place] Primary Care Release of Information: Obtained, Reviewed and Signed Home Health Services Home Health Services:: None Smoking Cessation Counseling Tobacco Cessation Medication Prescribed at Discharge: Not Applicable/Non-Smoker Other #1: Name of Aftercare Appointment: [facility] Phone Number of Aftercare Appointment: [phone] Time of Aftercare Appointment: Call to discuss enrollment in services. Aftercare Appointment Comment: [email or web address] (can schedule rides online as well) Contact Information Discharge Discharge [address]: [address] [place] [id number] Discharge Plan Discharge Items Patient Disposition: Home - Self-Care Reason For Visit: MDD Discharge Diagnosis: depressive disorder Activity: Resume your previous activity Non-emergency contact: Primary Care Provider and Therapist Call non-emergency contact if: you have any medication questions and your symptoms worsen Follow-up/Referrals: Erlin Calderon III, CRNP [Primary Care Provider] - Diet: Regular Addtl Attending Provider Instructions: SPECIAL CARE INSTRUCTIONS: 1. Follow through with your scheduled aftercare appointments. If unable to keep an appointment, please call to reschedule. 2. Take your medication only as prescribed. Medication should not be changed or stopped without the approval of your doctor. In the event of worsening symptoms or concerns about side effects, contact your doctor immediately. 3. Utilize new healthy coping skills, anger management skills, and stress management skills learned during your hospitalization. Journal feelings and process them with a support person. Identify stressors or situations that may result in relapse, deterioration or inappropriate behaviors and develop a plan to deal with those issues. 4. If your coping skills are ineffective and you are in crisis, contact your outpatient providers for direction. If unable to reach your providers, please call the [facility] CRISIS LINE AT , go to the [facility] walk-in center at [address], [address], [place], or go to the closest Emergency Room. 5. Avoid alcohol and un-prescribed drugs. 6. You have been provided with the Mental Health Advance Directives Pamphlet for your review. 7. Your condition is stable for discharge to outpatient level of care, but recovery is an ongoing process. Ifthoughts to harm yourself or others return, follow the safety plan developed during your stay. Planning for a safe return home includes securing weapons. Our treatment team recommends weaponsbe removed from the home until your outpatient provider reassesses your progress. In rare cases where the items themselvescannot be removed, guns and ammunitionshould be secured separatelyand keys stored by a reliable personoutside of the home. If you were admitted on an involuntary commitment, the police or other legal authorities may be involved in this process. AFTERCARE APPOINTMENTS: * Please call your insurance company prior to your scheduled appointment to confirm your aftercare providers are covered. Take your insurance information to your appointments. WHO TO CALL AND WHEN: Medical Emergencies: For questions or emergencies related to your hospital stay, please contact the Inpatient Behavioral Health Unit at [phone]. A pathology teacher is on-call 29/10 for the Behavioral Health Unit for emergencies At any time you feel your situation is an emergency, you may also call 911 immediately. Pending Studies at Discharge: No Stand-Alone Forms: My [employer], Smoking Cessation Medications and DC Order Prescriptions: New naltrexone 50 mg Tablet 25 mg PO QDB 30 Days Qty: 15 RF: 0 gabapentin 300 mg Capsule 300 mg PO TID 30 Days Qty: 90 RF: 0 aripiprazole [Abilify] 5 mg Tablet 5 mg PO QAM Qty: 30 RF: 0 trazodone 100 mg tablet 200 mg PO HS 30 Days Qty: 60 RF: 0 multivitamin [Daily Multi-Vitamin] Tablet 1 tab PO DAILY Qty: 1 RF: 0 Discontinued folic acid 400 mcg Tablet 400 mcg PO QAM Qty: 30 RF: 0 nicotine 7 mg/24 hr Patch 24 Hour 14 mg transdermal QAM Qty: 30 RF: 0 Cerovite Senior 0.4 mg-300 mcg- 250 mcg Tablet 1 tab PO QAM Qty: 30 RF: 0 pantoprazole [Protonix] 40 mg tablet,delayed release (DR/EC) 40 mg PO DAILY Qty: 30 RF: 0 sucralfate [Carafate] 100 mg/mL suspension 1 g PO ACHS PRN (Reason: reflux/stomach upset) Qty: 200 RF: 0 thiamine HCl (vitamin B1) 100 mg tablet 200 mg PO BID Qty: 30 RF: 0 cyanocobalamin (vitamin B-12) 500 mcg Tablet 1,000 mcg PO QAM Qty: 30 RF: 0 clonazepam 0.5 mg tablet 0.25 mg PO BID PRN (Reason: Anxiety) RF: 0 gabapentin 100 mg capsule See Rx Instructions .ROUTE .COMPLEX PRN (Reason: anxiety/mood) RF: 0 lithium carbonate 300 mg tablet extended release 900 mg PO DAILY RF: 0 trazodone 100 mg tablet 100 mg PO HS PRN (Reason: insomnia/mood) RF: 0 trazodone 50 mg tablet 50 mg PO HS RF: 0 Discharge Orders: Discharge Order (Routine); Ordered 10/10/21 Ordered By: Sally Stephen Admission Data Admit Date/Time: 09/28/21 19:54 Attending Provider: Sally Stephen Admit Provider: Sally Stephen Primary Care Provider: Erlin Calderon III Other Interventions: Discharge Summary Assessment (RN) Last Done: 10/10/21 10:39 PSY Interdisciplinary Discharge Planning Last Done: 10/10/21 10:39 Coding Level of Care Code 58251 D/C day mgmt > 30 min Diagnoses Mood disorder F39 Anxiety F41.9 Alcohol use disorder Bipolar disorder F31.9 Active/Remission status: remission status unspecified Insomnia F51.01 Insomnia type: primary
== END 2021-10-10 12:02 | disposition home or self-care (01) | DRG 885 ==
LOC: 3S 18:42 → SUATTDRO 19:54 → 3S 10-01 08:17

== ENCOUNTER 2021-11-29 21:26 | Inpatient (IN) ==
[2021-11-29 22:07] LABS: Appearance Urine Clear (Clear); Bilirubin Urine Negative (Negative); Blood Urine 2+ (Negative); Color Urine Yellow; Glucose Urine UA Negative (Negative); Ketones Urine Negative (Negative); Leukocyte Esterase Urine Negative (Negative); Nitrite Urine Negative (Negative); Protein Urine Negative (Negative); Specific Gravity Urine 1.004 (1.000-1.030); Urobilinogen Urine Negative (Negative); pH Urine 6.5 (4.5-7.5)
[2021-11-29 22:14] LABS: Basophils # (auto) 0.03 K/uL (0-0.2); Basophils % (auto) 0.4 %; Eosinophils # (auto) 0.03 K/uL (0-0.50); Eosinophils % (auto) 0.4 %; Hematocrit (blood only) 41.4 % (34.1-44.9); Hemoglobin 14.3 g/dl (12.0-16.0); Immature Granulocytes # (auto) 0.02 K/uL (0.00-0.02); Immature Granulocytes % (auto) 0.3 %; Lymphocytes # (auto) 3.22 K/uL (1.2-3.4); Lymphocytes % (auto) 45.2 %; Mean Corpuscular Hemoglobin 32.1 pg (25.0-34.0); Mean Corpuscular Hgb Conc 34.5 g/dL (32.0-36.0); Mean Corpuscular Volume 92.8 fL (80.0-100.0); Mean Platelet Volume 10.4 fL (9.4-12.3); Monocytes # (auto) 0.32 K/uL (0.24-0.82); Monocytes % (auto) 4.5 %; Neutrophils % (auto) 49.2 %; Platelet Count 294 K/uL (130-400); RDW Coefficient of Variation 13.3 % (11.5-14.5); RDW Standard Deviation 45.1 fL (36.4-46.3); Red Blood Count 4.46 M/uL (3.93-5.22); White Blood Count 7.12 K/ul (4.8-10.8)
[2021-11-29 22:29] LABS: Amphetamines+Metham, Urine Neg (Neg); Barbiturates, Urine Neg (Neg); Benzodiazepine, Urine Pos (Neg); Cocaine, Urine Neg (Neg); MDMA (Ecstacy), Urine Neg (Neg); Methadone, Urine Neg (Neg); Opiate, Urine Neg (Neg); Phencyclidine, Urine Neg (Neg)
[2021-11-29 22:33] LABS: Pregnancy Test, Serum Negative (Negative)
[2021-11-29 22:34] LABS: Albumin Globulin Ratio 2.1 (0.9-2); BUN Creatinine Ratio 9.3 (10-20); Bilirubin,Total 0.6 mg/dl (0.2-1.0); Calcium 9.2 mg/dl (8.5-10.1); Creatinine Clr Calc Pharmacy 107.6 ml/min; Est GFR (African American) 124.8 ml/min; Est GFR (Non-African American) 107.7 ml/min; Globulin 2.4 gm/dl (2.5-4.0); Potassium 3.7 mmol/L (3.5-5.1); Total Protein 7.4 gm/dl (6.0-8.3)
[2021-11-29 22:35] LABS: Acetaminophen < 3 ug/ml (10-30); Salicylate < 3.0 mg/dl (3.0-30)
[2021-11-29 22:38] LABS: Bacteria Urine 1+ (Negative)
[2021-11-29 22:45] LABS: WBC Urine 0-5 /hpf (0-5)
[2021-11-29] MEDS ORDERED: NICOTINE 21 MG/24 HR TDSY TD STA (22:55)
--- NOTE | 2021-11-29 23:26 | Emergency Department Note ---
Impression & Plan Alcoholic intoxication, Suicidal ideation, Alcohol withdrawal ED Provider Note NAME: STEPHANIE ONEILL AGE: 31 SEX: F ARRIVES VIA: Walk-In INFORMANT: Patient ED PROVIDER(S): Slim Raza MD CHIEF COMPLAINT: Suicidal ideation PLAN: Disposition: Admit MEDICAL DECISION MAKING: The patient is a 31-year-old woman with a past medical history of alcohol a buse/dependence, alcohol withdrawal, depression and suicidal ideation with recent admission October who presents to the emergency department as a walk-in brought in by her for evaluation of depression and suicidal ideation which she had expressed today in the setting of "relapsing" and drinking alcohol for the past 4 days. She denies suicidal ration at this time but admits to feeling that way previously. She is unsure what she needs at this time. Denies any other drug use. Denies any fevers, chills, cough, congestion, GI or symptoms. She reports she had made a superficial linear genesis on her left wrist in order to hurt her self but stopped because "Aureliano told her not to". On arrival, the patient is intoxicated appearing but no acute distress, afebrile with heart rate in the 100s and vital signs otherwise stable. She has mild dysarthria and poor attention. She has a very subtle superficial linear genesis on the volar aspect of her left wrist that she reports she made with a knife tonight. WBC, H/H and platelets within normal limits. Chemistry without metabolic acidosis. Electrolytes without significant abnormality. TSH within normal limits. hCG was negative. UA without evidence of infection. Drug screen was positive for benzodiazepines. Medical alcohol was 263. Previously the patient required medical admission for alcohol withdrawal before she could proceed with psychiatric admission. Given the unclear extent of the patient's relapse the patient was monitored for clinically sobriety to assess for psychiatric admission or if develops symptoms of alcohol withdrawal may require medical admission again. Patient was given one-time dose of sublingual Ativan as she was requesting something to help with sleep. AWSS assessment ordered Q2H. Unfortunately the patient did begin to show signs of Etoh withdrawal with AWSS 7, and so she did agree with plan for medical admission prior to psychiatric referral. Saline lock, Banana bag IVF, and PRN Ativan ordered. Case was discussed with Dr. Beauchamp, [facility] hospitalist, who will evaluate the patient for admission. Triage Nursing notes reviewed and agree them. Prior medical records reviewed Vital Signs: reviewed and remarkable for tachycardia. Differential diagnosis: Mood disorder, infection, hypoglycemia, electrolyte abnormalities, cardiac sources, intracerebral event, toxicologic, trauma, neurologic, as well as other pathologies. ER treatment provided: See below. Diagnostics interpreted by me: Cardiac Monitoring: An order for continuous cardiac monitoring was placed and demonstrated sinus tachycardia, 129 bpm, no ectopy. Laboratory studies: See below HPI: The patient is a 31-year-old woman with a past medical history of alcohol abuse/dependence, alcohol withdrawal, depression and suicidal ideation with recent admission October who presents emergency department as a walk-in brought in by her for evaluation of depression and suicidal ideation which she had expressed today in the setting of "relapsing" and drinking alcohol for the past 4 days. She denies suicidal ration at this time but admits to feeling that way previously. She is unsure what she needs at this time. Denies any other drug use. Denies any fevers, chills, cough, congestion, GI or symptoms. She reports she had made a superficial linear genesis on her left wrist in order to hurt her self but stopped because "Aureliano told her not to". ROS: See above HPI for pertinent positives & negatives. A total of 10 systems reviewed and were otherwise negative. VITALS:See Below PHYSICAL EXAMINATION: GENERAL: Awake, alert, intoxicated-appearing, in no distress HENT: Normocephalic, atraumatic. Oropharynx with dry mucous membranes and othe rwise unremarkable. EYES: Normal conjunctiva. Sclera non-icteric. NECK: Supple. No nuchal rigidity. FROM. No JVD. RESPIRATORY: Clear to auscultation. CARDIAC: Tachycardic rate, normal rhythm. Extremities warm and well perfused. Pulses equal. ABDOMEN: Soft, non-distended. No tenderness to palpation. No rebound or guarding. No masses. RECTAL: Deferred. MUSCULOSKELETAL: Chest examination reveals no tenderness. The back is symmetrical on inspection without obvious abnormality. There is no CVA tender ness to palpation. No joint edema. LOWER EXTREMITIES: Calves are equal size bilaterally and non-tender. No edema. No discoloration. NEURO: Mild dysarthric speech. No sensory or motor deficits noted. SKIN: No rash or jaundice noted. Very subtle superficial linear genesis on the volar aspect of her left wrist that she reports she made with a knife tonight. PSYCH: Reports suicidal ideation. Endorses depression. Endorses alcohol abuse/relapse. Slim Raza MD Past Med/Surg History Medical History Alcohol use disorder Alcohol withdrawal Anxiety Bipolar disorder Insomnia Mood disorder Syncope Surgical History No pertinent past surgical history Family History Father Lung cancer Brother Schizophrenia Grandmother (Maternal) Stroke Denies family history of Ovarian cancer Prostate cancer Myocardial infarction Breast cancer Colorectal cancer Social History Smoking Status: Current every day smoker Tobacco Type: Cigarettes and E-cigarettes / Vaping Age Started Using Tobacco: 21; packs per day: 0.75; Cigarettes Per Day: 10-20; Second Hand Exposure: No; Hx Alcohol Use: Yes Alcohol type: hard liquor Alcohol Intake Frequency: 4 or More x per/Week Alcohol Intake Frequency Comment: Daily liquor use, at least 5 shots per day Hx Substance Use: No Preferred Language: Grenadian Communication Ability: Effective Visual Impairment: No Limitations Hearing Ability: Normal Brush Holder Assembler Required: No Beliefs That Will Affect Care: None marital status: Current Living Situation: Spouse current occupational status: unemployed Feels Safe at Home: Yes Childhood Exposure to Second-Hand Smoke: No Dental Care, Regularly: No Physical Activity Frequency: 1-2 Times per Week Seatbelt Use: always Sunscreen Use: Yes Assistive Devices: None Allergies Allergies Allergy/AdvReac Type Severity Reaction Status Date / Time Antihistamines AdvReac Intermediate Anxiety Uncoded 08/11/21 19:53 Home Meds Previous Rx's Medication Instructions Recorded aripiprazole 5 mg tablet (Abilify) 5 mg PO QAM #30 tabs 10/10/21 multivitamin (Daily Multi-Vitamin 1 tab PO DAILY #1 tab 10/10/21 tablet) Results & Data (ED) Vital Signs Vital Signs - 24 hr 11/29/21 21:29 11/29/21 22:29 11/30/21 01:10 Temperature 37 C Temperature Source Temporal Artery Scan Pulse Rate 129 H Pulse Rate [Finger] 111 H 134 H Respiratory Rate 20 22 Blood Pressure 131/77 Blood Pressure [Left Arm] 99/7 L Blood Pressure Mean 95 Blood Pressure Mean [Left Arm] 37 Pulse Oximetry 95 97 Sepsis Recent Fever Within 48 Hours No Sepsis New/Unexplained Change in Mental Status No Sepsis Action Taken by Nursing No Action Required Laboratory Data Attestation: I reviewed the patient's lab results. Result diagrams: 11/29/21 22:00 11/29/21 22:00 Lab Results 11/29/21 11/29/21 11/29/21 Range/Units 21:45 21:45 22:00 WBC 7.12 (4.8-10.8) K/ul RBC 4.46 (3.93-5.22) M/uL Hgb 14.3 (12.0-16.0) g/dl Hct 41.4 (34.1-44.9) % MCV 92.8 (80.0-100.0) fL MCH 32.1 (25.0-34.0) pg MCHC 34.5 (32.0-36.0) g/dL RDW Std Deviation 45.1 (36.4-46.3) fL RDW Coeff of Kristyn 13.3 (11.5-14.5) % Plt Count 294 (130-400) K/uL MPV 10.4 (9.4-12.3) fL Immature Gran % (Auto) 0.3 % Neut % (Auto) 49.2 % Lymph % (Auto) 45.2 % [place] % (Auto) 4.5 % Eos % (Auto) 0.4 % Baso % (Auto) 0.4 % Neut # (Auto) 3.50 (1.4-6.5) K/uL Lymph # (Auto) 3.22 (1.2-3.4) K/uL [place] # (Auto) 0.32 (0.24-0.82) K/uL Eos # (Auto) 0.03 (0-0.50) K/uL Baso # (Auto) 0.03 (0-0.2) K/uL Immature Gran # (Auto) 0.02 (0.00-0.02) K/uL Sodium (136-145) mmol/L Potassium (3.5-5.1) mmol/L Chloride (98-107) mmol/L Carbon Dioxide (21-32) mmol/L Anion Gap (3-11) BUN (6-23) mg/dl Creatinine (0.6-1.2) mg/dl Est Cr Clr Drug Dosing ml/min Est GFR ( Amer) ml/min Est GFR (Non-Af Amer) ml/min BUN/Creatinine Ratio (10-20) Glucose (70-99(Fasting)) mg/dl Calcium (8.5-10.1) mg/dl Total Bilirubin (0.2-1.0) mg/dl AST (13-39) U/L ALT (7-52) U/L Alkaline Phosphatase (34-104) U/L Total Protein (6.0-8.3) gm/dl Albumin (3.4-5.0) gm/dl Globulin (2.5-4.0) gm/dl Albumin/Globulin Ratio (0.9-2) TSH (0.300-4.500) uIu/ml HCG, Qual (Negative) Urine Color Yellow Urine Appearance Clear (Clear) Urine pH 6.5 (4.5-7.5) Ur Specific [place] 1.004 (1.000-1.030) Urine Protein Negative (Negative) Urine Glucose (UA) Negative (Negative) Urine Ketones Negative (Negative) Urine Blood 2+ H (Negative) Urine Nitrite Negative (Negative) Urine Bilirubin Negative (Negative) Urine Urobilinogen Negative (Negative) Ur Leukocyte Esterase Negative (Negative) Urine WBC (Auto) Not Reportable Urine RBC (Auto) Not Reportable U Hyaline Cast (Auto) Not Reportable U Epithel Cells (Auto) Not Reportable Urine Bacteria (Auto) Not Reportable Urine RBC 5-10 H (0-4) /hpf Urine WBC 0-5 (0-5) /hpf Ur Epithelial Cells 10-20 H (0-5) /lpf Urine Bacteria 1+ H (Negative) Salicylates (3.0-30) mg/dl Urine Opiates Screen Neg (Neg) Ur Methadone, Qual Neg (Neg) Acetaminophen (10-30) ug/ml Urine Barbiturates Neg (Neg) Ur Phencyclidine (PCP) Neg (Neg) U Amphetamin/Meth Scrn Neg (Neg) MDMA (Ecstasy) Screen Neg (Neg) U Benzodiazepines Scrn Pos H (Neg) Ur Cocaine Metabolite Neg (Neg) U Marijuana (THC) Screen Neg (Neg) Ethyl Alcohol mg/dL (<10.0) mg/dl SARS-CoV-2, RNA, NAAT (NEGATIVE) 11/29/21 11/29/21 11/29/21 Range/Units 22:00 22:00 22:00 WBC (4.8-10.8) K/ul RBC (3.93-5.22) M/uL Hgb (12.0-16.0) g/dl Hct (34.1-44.9) % MCV (80.0-100.0) fL MCH (25.0-34.0) pg MCHC (32.0-36.0) g/dL RDW Std Deviation (36.4-46.3) fL RDW Coeff of Kristyn (11.5-14.5) % Plt Count (130-400) K/uL MPV (9.4-12.3) fL Immature Gran % (Auto) % Neut % (Auto) % Lymph % (Auto) % [place] % (Auto) % Eos % (Auto) % Baso % (Auto) % Neut # (Auto) (1.4-6.5) K/uL Lymph # (Auto) (1.2-3.4) K/uL [place] # (Auto) (0.24-0.82) K/uL Eos # (Auto) (0-0.50) K/uL Baso # (Auto) (0-0.2) K/uL Immature Gran # (Auto) (0.00-0.02) K/uL Sodium 139 (136-145) mmol/L Potassium 3.7 (3.5-5.1) mmol/L Chloride 102 (98-107) mmol/L Carbon Dioxide 22 (21-32) mmol/L Anion Gap 15 H (3-11) BUN 7 (6-23) mg/dl Creatinine 0.75 (0.6-1.2) mg/dl Est Cr Clr Drug Dosing 107.6 ml/min Est GFR ( Amer) 124.8 ml/min Est GFR (Non-Af Amer) 107.7 ml/min BUN/Creatinine Ratio 9.3 L (10-20) Glucose 76 (70-99(Fasting)) mg/dl Calcium 9.2 (8.5-10.1) mg/dl Total Bilirubin 0.6 (0.2-1.0) mg/dl AST 26 (13-39) U/L ALT 15 (7-52) U/L Alkaline Phosphatase 64 (34-104) U/L Total Protein 7.4 (6.0-8.3) gm/dl Albumin 5.0 (3.4-5.0) gm/dl Globulin 2.4 L (2.5-4.0) gm/dl Albumin/Globulin Ratio 2.1 H (0.9-2) TSH 0.964 (0.300-4.500) uIu/ml HCG, Qual (Negative) Urine Color Urine Appearance (Clear) Urine pH (4.5-7.5) Ur Specific [place] (1.000-1.030) Urine Protein (Negative) Urine Glucose (UA) (Negative) Urine Ketones (Negative) Urine Blood (Negative) Urine Nitrite (Negative) Urine Bilirubin (Negative) Urine Urobilinogen (Negative) Ur Leukocyte Esterase (Negative) Urine WBC (Auto) Urine RBC (Auto) U Hyaline Cast (Auto) U Epithel Cells (Auto) Urine Bacteria (Auto) Urine RBC (0-4) /hpf Urine WBC (0-5) /hpf Ur Epithelial Cells (0-5) /lpf Urine Bacteria (Negative) Salicylates < 3.0 L (3.0-30) mg/dl Urine Opiates Screen (Neg) Ur Methadone, Qual (Neg) Acetaminophen < 3 L (10-30) ug/ml Urine Barbiturates (Neg) Ur Phencyclidine (PCP) (Neg) U Amphetamin/Meth Scrn (Neg) MDMA (Ecstasy) Screen (Neg) U Benzodiazepines Scrn (Neg) Ur Cocaine Metabolite (Neg) U Marijuana (THC) Screen (Neg) Ethyl Alcohol mg/dL (<10.0) mg/dl SARS-CoV-2, RNA, NAAT (NEGATIVE) 11/29/21 11/29/21 11/29/21 Range/Units 22:00 22:00 22:00 WBC (4.8-10.8) K/ul RBC (3.93-5.22) M/uL Hgb (12.0-16.0) g/dl Hct (34.1-44.9) % MCV (80.0-100.0) fL MCH (25.0-34.0) pg MCHC (32.0-36.0) g/dL RDW Std Deviation (36.4-46.3) fL RDW Coeff of Kristyn (11.5-14.5) % Plt Count (130-400) K/uL MPV (9.4-12.3) fL Immature Gran % (Auto) % Neut % (Auto) % Lymph % (Auto) % [place] % (Auto) % Eos % (Auto) % Baso % (Auto) % Neut # (Auto) (1.4-6.5) K/uL Lymph # (Auto) (1.2-3.4) K/uL [place] # (Auto) (0.24-0.82) K/uL Eos # (Auto) (0-0.50) K/uL Baso # (Auto) (0-0.2) K/uL Immature Gran # (Auto) (0.00-0.02) K/uL Sodium (136-145) mmol/L Potassium (3.5-5.1) mmol/L Chloride (98-107) mmol/L Carbon Dioxide (21-32) mmol/L Anion Gap (3-11) BUN (6-23) mg/dl Creatinine (0.6-1.2) mg/dl Est Cr Clr Drug Dosing ml/min Est GFR ( Amer) ml/min Est GFR (Non-Af Amer) ml/min BUN/Creatinine Ratio (10-20) Glucose (70-99(Fasting)) mg/dl Calcium (8.5-10.1) mg/dl Total Bilirubin (0.2-1.0) mg/dl AST (13-39) U/L ALT (7-52) U/L Alkaline Phosphatase (34-104) U/L Total Protein (6.0-8.3) gm/dl Albumin (3.4-5.0) gm/dl Globulin (2.5-4.0) gm/dl Albumin/Globulin Ratio (0.9-2) TSH (0.300-4.500) uIu/ml HCG, Qual Negative (Negative) Urine Color Urine Appearance (Clear) Urine pH (4.5-7.5) Ur Specific [place] (1.000-1.030) Urine Protein (Negative) Urine Glucose (UA) (Negative) Urine Ketones (Negative) Urine Blood (Negative) Urine Nitrite (Negative) Urine Bilirubin (Negative) Urine Urobilinogen (Negative) Ur Leukocyte Esterase (Negative) Urine WBC (Auto) Urine RBC (Auto) U Hyaline Cast (Auto) U Epithel Cells (Auto) Urine Bacteria (Auto) Urine RBC (0-4) /hpf Urine WBC (0-5) /hpf Ur Epithelial Cells (0-5) /lpf Urine Bacteria (Negative) Salicylates (3.0-30) mg/dl Urine Opiates Screen (Neg) Ur Methadone, Qual (Neg) Acetaminophen (10-30) ug/ml Urine Barbiturates (Neg) Ur Phencyclidine (PCP) (Neg) U Amphetamin/Meth Scrn (Neg) MDMA (Ecstasy) Screen (Neg) U Benzodiazepines Scrn (Neg) Ur Cocaine Metabolite (Neg) U Marijuana (THC) Screen (Neg) Ethyl Alcohol mg/dL 263.2 H (<10.0) mg/dl SARS-CoV-2, RNA, NAAT NEGATIVE (NEGATIVE) Administered Medications Discontinued Medications Acetaminophen (Acetaminophen 325 Mg Tab) 650 mg PO NOW STA Stop: 11/30/21 02:02 Last Admin: 11/30/21 02:05 Dose: 650 mg Documented By: JENNA Lorazepam (Lorazepam 1 Mg Tab) 1 mg SL NOW STA Stop: 11/30/21 00:07 Last Admin: 11/30/21 00:13 Dose: 1 mg Documented By: JENNA Nicotine (Nicotine 21 Mg/24 Hr Tdsy) 21 mg TD NOW STA Stop: 11/29/21 22:56 Last Admin: 11/29/21 23:11 Dose: 21 mg Documented By: JENNA Discharge Plan Visit Data Chief Complaint: Psychiatric Symptoms/Problems Stated Complaint: ALCOHOL INTOXICATION, SUICIDAL ED Provider: Lilian Meraz Discharge Problem: Alcoholic intoxication, Suicidal ideation, Alcohol withdrawal Forms Stand Alone Forms: My [facility], Suicide Prevention Resources Prescriptions Prescriptions: No Action aripiprazole [Abilify] 5 mg Tablet 5 mg PO QAM Qty: 30 0RF multivitamin [Daily Multi-Vitamin] Tablet 1 tab PO DAILY Qty: 1 0RF Referrals Referrals: Erlin Calderon III, CRNP [Primary Care Provider] -
[2021-11-30] MEDS ORDERED: LORazepam 1 MG TAB SL STA (00:06)
[2021-11-30] MEDS ORDERED: ACETAMINOPHEN 325 MG TAB PO STA (02:01)
--- NOTE | 2021-11-30 02:42 | Emergency Department Note ---
ED Visit Note I received this patient in signout at the change of shift from Dr. Raza, pending psychiatric referral. .
[2021-11-30] MEDS ORDERED: MULTI-VITAMIN INFUSION 10 ML, THIAMINE HCL 100 MG, FOLIC ACID 1 MG in SODIUM CHLORIDE 0... IV ONE ×2 (02:52→06:31)
[2021-11-30] MEDS ORDERED: LORazepam 3 MG in SYRINGE 1.5 ML IV PRN (02:52)
[2021-11-30] MEDS ORDERED: LORazepam 2 MG in SYRINGE 1 ML IV PRN (02:52)
[2021-11-30] MEDS ORDERED: LORazepam 1 MG in SYRINGE 0.5 ML IV PRN (02:52)
[2021-11-30] MEDS ORDERED: Ativan IV Alcohol Withdrawal--Active Protocol IV PRN (02:52)
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
[2021-11-30] MEDS ORDERED: LORazepam 2 MG/1 ML VIAL ONE (04:41)
[2021-11-30] MEDS ORDERED: LORazepam 1 MG TAB PO PRN ×2 (06:31)
[2021-11-30] MEDS ORDERED: MELATONIN 3 MG TAB PO PRN (06:31)
[2021-11-30] MEDS ORDERED: Ativan PO Alcohol Withdrawal--Active Protocol PO PRN (06:31)
[2021-11-30] MEDS ORDERED: LACTATED RINGER'S 1,000 ML IV SCH (06:31)
--- NOTE | 2021-11-30 06:37 | Billing Data ---
Date of Service November 30, 2021 Coding Level of Care Code 81905 Initial Inpt Care Lvl 2
[2021-11-30] MEDS: ARIPiprazole 5 MG TAB PO SCH (08:21)
[2021-11-30] MEDS: THIAMINE HCL 100 MG TAB PO SCH (08:21)
[2021-11-30] MEDS: MULTIVITAMIN TAB PO SCH (08:21)
[2021-11-30] MEDS: FOLIC ACID 1 MG TAB PO SCH (08:21)
[2021-11-30] MEDS ORDERED: NON-FORMULARY MEDICATION (Multivitamin [Daily Multi-Vitamin] tablet) PO SCH (09:00)
[2021-11-30] MEDS: LORazepam 1 MG TAB PO PRN ×2 (10:15→14:15)
--- NOTE | 2021-11-30 12:01 | Psychiatric Consultation ---
Date of Consultation November 30, 2021 Impression / Recommendations Impression This is a 31 yo with a history of alcohol use disorder, unspecified mood disorder vs BPAD, anxiety and depression admitted medically for alcohol withdrawal. Diagnostically consistent with alcohol use disorder with relapse of use in the last few days in the setting of marital strife and statements of SI and self-harm incident while intoxicated. No evidence for current mood episode- she denies any symptoms of depression nor anxiety. Encouraging she sought help from her pblemu-st-kwz after self-harming and has good insight into the role alcohol played in her development of SI and self-harm. She continues to have periods of chronic intermittent passive SI but feels this has been improving over the last few weeks and that avoiding alcohol has lead to significant improvement in her mood. She is motivated to continue to remain at her brother's home where she has been doing well and is around sober supports. Acute risk is now low given improvement in depression and anxiety, now no longer intoxicated, no further self-harm nor urges for this, plans to avoid further substance use, is going to be away from her who continues to use alcohol, and has been consistently denying SI, future-oriented, reviewed safety planning and has an outpatient provider. Chronic risk is moderate to high given psychiatric co-morbid diagnoses, periods of impulsivity, prior attempt, hx self- harm, prior psychiatric hospitalizations, mood disorder, childhood trauma but also with protective factors including support from family, and motivation to avoid substance use. Counseled on ways to reduce acute and chronic risk including continuing to engage with outpatient providers, using safety plan if needed (which we reviewed as she completed previously during inpatient psych admission last month and still has a copy of this), utilizing supports, taking medication, using coping skills and avoiding alcohol use which is the most significant modifiable risk factor. At this point risk of harm to self and others is slightly increased due to substance use with substance use treatment being the most significant modifiable risk factor to reduce acute and chronic risk though she is not interested in residential nor outpatient substance use treatment and in [place] you cannot be forced to get substance use treatment against your will unless court-ordered through the legal system. She declines voluntary in psych treatment and she does not meet criteria for 302 as she denies SI, HI, no evidence for twyla nor psychosis and no evidence for delirium or inability to care for herself. Discussed that I feel it is important she is open with her oupatient psychiatrist about her alcohol use relapse and to re-consider if she will allow us to send records to her provider but for now she declines this. Reviewed PDMP and no recent benzo scripts. (1) Alcohol use disorder: (2) Alcohol withdrawal: Complication of substance-induced condition: uncomplicated Qualified Code(s): F10.230 - Alcohol dependence with withdrawal, uncomplicated (3) Insomnia: Insomnia type: primary Qualified Code(s): F51.01 - Primary insomnia (4) Anxiety: Plan -Psychiatric liason provided resources on local mental health services and substance use services, she doesn't desire any further resources. Encouraged her to allow us to send records to her outpatient psychiatrist but she declines this -Patient is not an imminent danger to self or others and does not meet criteria for involuntary psychiatric commitment -Continue AWSS as well as thiamine and folic acid -Agree with continuing her prior to admission Abilify 5mg qd, Gabapentin 300mg TID and mirtazapine 15mg qhs Risk Factors Assessment : Yes Do You Have Access To A Gun?: No Mental Health Diagnoses: Yes Substance Use Disorders: Yes Previous Attempt: Yes Previous Psychiatric Hospitalization: Yes Hopelessness: No Protective Factors Assessment : Yes Stable Relationships: Yes Supportive Family: Yes Psych History Identifying Data 31 yo woman with history of alcohol use disorder, anxiety, depression admitted medically for alcohol use relapse and history of complicated withdrawal and with SI. Psychiatry consulted for risk assessment and recommendations. Chief Complaint "I've been doing really well with no depression or anxiety and living with my brother but they went away this week and I should have gone with them". History of Present Illness Hope presented to the ED after relapse of alcohol use and making statements of SI to at home but has been denying SI since presenting to the hospital. Per ED notes she started to self-harm via superficial genesis on her wrist from a knife but stopped herself from any further self-harm due to her evangelical bel iefs. She remained positive for alcohol during the initial ED assessment with ethyl alcohol level of 263. Further recent history per psych liason note: "Rounded on patient for initial assessment. She is well known to our service from prior admissions. The patient is pleasant and cooperative but has difficulty recalling events, appointments, etc. She reports that she relapsed approximately 4-5 days ago on alcohol and drank "a lot". The patient's main stressor is her relationship with her but she declined to elaborate further. The patient reports she has a psychiatrist at [facility] and her PCP is Erlin Calderon. After her last admission to , in October 2021, she was referred for case management through the [facility] but she denies having any case supervisor at this time. The patient was malodorous during the interaction and she appeared tired. She minimizes how much her alcohol us negatively impacts her life." Hope is well known to our service from previous consults and psychiatric inpatient admissions including in late September through early October 2021 for SI in the context of significant alcohol use. At that time she declined any services for more intensive alcohol use treatment but did agree to start naltrexone and planned to attend AA meetings. Typically she and her utilize alcohol during times of marital strife or discord. She notes that her mood had been doing really "really well" after her psychiatric discharge in October and that she had not been using any alcohol. She stopped the naltrexone because it seemed to increase her anxiety but she's continued to use the abilify, gabapentin and mirtazapine with good benefit. She's been seeing her outpatient psychiatrist and is looking to start therapy with a [facility]ve[facility]-based provider. She feels she's done well because she's been living at her brother's home "at least 4 days a week, but they said I can be there anytime day or night" and has been helping her nuabzi-xm-rvm to homeschool her four nieces and nephews. Her brother and rjwlgs-kl-adg don't drink and have no alcohol in the home which she says has helped her remain sober. She only returns to her home when her is away or working as otherwise she is around alcohol because he's continued to drink. She denies purchasing any alcohol but states "it's hard not to use it when it's right there". This week her brother and his family went away and invited her to join them but she chose to stay behind which she now regrets because she and her have been home together and she relapsed on alcohol use and they've been fighting. She feels she needs to take a break from being with him "to protect myself and not drinking" but notes it's hard because they have been for 11 years. She was planning to go to her brother's home yesterday but her vlbxyh-ai-cth brought her to the ED "because we were worried I might withdrawal and get sick since I'd been drinking for 5 days". Currently she adamantly denies SI and states while she has experienced some passive intermittent SI over the last few weeks it has never been active nor with plan nor intent and her mood has been stable. She is looking forward to continuing to live with her brother and plans to avoid being around her as "I now he wants to stop drinking but I don't think he can". She cites many reasons for living including her family and her evangelical views. She confirms the self-harm with the knife but states this was absolutely not a suicide attempt and that she was intoxicated when she did it and now regrets it. She is not interested in inpatient psychiatry treatment and wants to return to her home to pack a few things and then move in with her brother once medically stable from alcohol withdrawal. She declines additional alcohol use services or treatments as she feels confident she can avoid alcohol and that her mood will remain stable if she returns to her brother's as things had been going well. She is reality-based about how she will feel sad and will miss her but wants to focus on her health and well being. She denies any access to guns at her brother's home. Past Psychiatric History Do You Have Access To A Gun?: No Allergies Allergy/AdvReac Type Severity Reaction Status Date / Time Antihistamines AdvReac Intermediate Anxiety Uncoded 08/11/21 19:53 Home Medications Medication Instructions Recorded Confirmed Type aripiprazole 5 mg tablet (Abilify) 5 mg PO QAM #30 tabs 10/10/21 11/30/21 Rx multivitamin (Daily Multi-Vitamin 1 tab PO DAILY #1 tab 10/10/21 11/30/21 Rx tablet) gabapentin 300 mg capsule 300 mg PO 1 cap TID 11/30/21 History mirtazapine 15 mg HS 11/30/21 11/30/21 History Substance Abuse History alcohol use Personal History Beliefs That Will Affect Care: None Psychological Trauma History Comment: yes during childhood Patient History Medical History Alcohol use disorder Alcohol withdrawal Anxiety Bipolar disorder Insomnia Mood disorder Syncope Surgical History No pertinent past surgical history Family History Father Lung cancer Brother Schizophrenia Grandmother (Maternal) Stroke Other Insomnia Denies family history of Ovarian cancer Prostate cancer Myocardial infarction Breast cancer Colorectal cancer Social History Smoking Status: Current every day smoker Tobacco Type: Cigarettes and E-cigarettes / Vaping Age Started Using Tobacco: 21; packs per day: 0.75; Cigarettes Per Day: 10-20; Second Hand Exposure: No; Hx Alcohol Use: Yes Alcohol type: hard liquor Alcohol Intake Frequency: 4 or More x per/Week Alcohol Intake Frequency Comment: Daily liquor use, at least 5 shots per day Hx Substance Use: No Preferred Language: Grenadian Communication Ability: Effective Visual Impairment: No Limitations Hearing Ability: Normal Curriculum Assistant Principal Required: No Beliefs That Will Affect Care: None marital status: Current Living Situation: Spouse current occupational status: unemployed Feels Safe at Home: Yes Childhood Exposure to Second-Hand Smoke: No Dental Care, Regularly: No Physical Activity Frequency: 1-2 Times per Week Seatbelt Use: always Sunscreen Use: Yes Assistive Devices: None Physical Exam Psychiatric: Orientation: alert and oriented x 3 Apperance: appropriately dressed and appropriately groomed Eye Contact: good eye contact Motor Behavior: no abnormal motor movements Speech: normal rate/rhythm/volume of speech Affect: euthymic affect Mood: no depressed mood and no anxious mood Thought Process: linear/logical thought process Thought Content: reality based without delusions Suicidal Thoughts: denies suicidal thoughts Homicidal Thoughts: denies homicidal thoughts Hallucinations: no auditory hallucinations and no visual hallucinations Cognition: recent memory grossly intact, remote memory grossly intact, attention grossly intact and language grossly intact Estimated Intelligence: consistent with education level In sight: + fair insight Judgement: + fair judgement Vital Signs (Past 24 Hours): Last Vital Signs Temp 37.1 C 11/30/21 10:00 Pulse 125 H 11/30/21 10:00 Resp 18 11/30/21 10:00 BP 123/85 11/30/21 10:00 Pulse Ox 99 11/30/21 10:00 O2 Del Method 11/30/21 10:00 Review of Systems All systems reviewed & are unremarkable except as noted in HPI & below Results & Data (PSY) Medications Administered [facility]ipraz[facility] (A[facility] 5 Mg Tab) [facility] [place] Stop: 12/30/21 08:59 Last Admin: 11/30/21 08:21 Dose: 5 mg Documented By: RINA Folic Acid (Folic Acid 1 Mg Tab) [facility] [place] Stop: 12/30/21 08:59 Last Admin: 11/30/21 08:21 Dose: 1 mg Documented By: RINA Lactated Ringer's (Lr) 1,000 mls @ 100 mls/hr IV .Q10H [facility] Stop: 11/30/21 16:30 Last Admin: 11/30/21 08:21 Dose: 100 mls/hr Documented By: RINA Lorazepam (Lorazepam 1 Mg Tab) 1 mg PO UD PRN; Protocol PRN Reason: EtOH Withdrawal AWSS Score 6,7 Stop: 12/30/21 06:30 Last Admin: 11/30/21 10:15 Dose: 1 mg Documented By: RINA Multivitamins (Multivitamin Tab) 1 tab PO [facility] Stop: 12/30/21 08:59 Last Admin: 11/30/21 08:21 Dose: 1 tab Documented By: RINA Thiamine HCl (Thiamine Hcl 100 Mg Tab) 100 mg PO [facility] Stop: 12/30/21 08:59 Last Admin: 11/30/21 08:21 Dose: 100 mg Documented By: RINA Coding Level of Care Code 53537 Inpt Consult Level 3 Diagnoses Alcohol use disorder Alcohol withdrawal F10.230 Complication of substance-induced condition: uncomplicated Insomnia F51.01 Insomnia type: primary Anxiety F41.9
[2021-11-30] MEDS: NICOTINE POLACRILEX 2 MG GUM MT PRN ×3 (13:34→20:38)
--- NOTE | 2021-11-30 14:19 | Hospitalist Progress Note ---
Date of Service November 30, 2021 Assessment & Plan (1) Alcohol withdrawal: Plan: Pt is a 31 yo female with a PMH of alcohol use disorder, alcohol withdrawal, Unspecified mood ds/BPAD, and parasuicidal behavior presenting for evaluation of suicidal ideation and depression in the setting of a four-day alcohol relapse. Alcohol withdrawal - Patient presents with tachycardia in the setting of a reported four-day alcohol binge after reported abstinence since October - EtOH pos at 263.2 - urine pos for benzos (pt says she no longer takes clonazepam) - AWSS protocol with ativan (received two 1 mg doses) - MVI, thiamine/folate - LR 100mL/hr (x1 bag ordered) - Seizure precautions - plan for d/c tomorrow d/t recent ativan requirement Parasuicidal behavior, depression Unspecified mood ds/BPAD Severe AUD Anxiety ds - Psychiatry consulted for consideration of inpatient hospitalization - Suicidal behavior driven by acute relapse of AUD. - psych affirms pt safe for d/c once medically stable - substance use treatment being the most significant modifiable risk factor to reduce acute and chronic risk - discussed options of inpatient/outpatient treatment and medication options. Thinks that she will be ok if she stays away from alcohol. - Continue home Abilify 5 mg qAM, gabapentin 300mgs TID, mirtazapine 15mgs qhs Tobacco use disorder - nicotine patch and gum ordered FEN: safe tray diet Code status: full code DVT ppx: not indicated Consults: psychiatry Dispo: med/surg, plan to d/c tomorrow (2) Suicidal ideation: (3) Anxiety: (4) Insomnia: (5) Tobacco use disorder: Admission and Anticipated Discharge Date Admission Date: November 30, 2021 Supervising Physician Co-Signing Physician Notes Resident Physician Supervision Note: I independently interviewed and examined the patient and verified the castellanos history and physical, reviewed labs and image studies and agree with resident Dr. Mcfarland findings and care plan. Subjective 31 yo female with a PMH of alcohol use disorder, alcohol withdrawal, MDD, and parasuicidal behavior presenting for evaluation of suicidal ideation and depression in the setting of a four-day alcohol relapse. 11/30/2021: Pt is laying in bed this morning. She explains that she overall doesn't feel well. She did not sleep well and is nausea and tremulous. She explains to me that she usually helps with her brother's kids (which keeps her out of the house a few days a week) but last week her brother went on vacation. This resulted in her being at home with her more. They got into an argument which caused her to have suicidal thoughts and begin drinking after being sober since sometime in October. She is unsure of how much she drank but says it was "big bottles of vodka." Today, she is not having any suicidal or homicidal thoughts/plans. Explained to pt about d/c tomorrow d/t recent requirement for ativan. Pt agreeable to this. Physical Exam Constitutional: NAD, slightly tachycardic Respiratory: CTA bilaterally. Non labored breathing. No rhonchi, rales, or wheezing. Cardiovascular: Regular rhythm, tachycardic rate. No murmur noted. Psychiatric: Denies suicidal/homicidal thoughts. Her mood appears depressed this AM, spoke with pt again in the afternoon and in much better spirits. Results & Data Results & Data ([facility]) Vital Signs (Past 12 Hours) Vital Signs Temp Pulse Resp BP Pulse Ox O2 Del Method 11/30/21 10:00 37.1 C 125 H 18 123/85 99 Room Air 11/30/21 08:55 36.7 C 99 H 19 115/83 97 Room Air 11/30/21 06:33 36.7 C 111 H 18 112/80 96 Room Air 11/30/21 03:56 106 H 20 118/64 94 Room Air Resident Activity Tracking Resident Involvement: Resident Care Provided Care Provided: Adult Hospital Medicine (1) Insomnia Insomnia type: primary Qualified Code(s): F51.01 - Primary insomnia
[2021-11-30] MEDS: GABAPENTIN 300 MG CAP PO SCH ×2 (15:00→20:40)
--- NOTE | 2021-11-30 16:25 | Electrocardiogram Report ---
Test Reason : Blood Pressure : / mmHG Vent. Rate : 107 BPM Atrial Rate : 107 BPM P-R Int : 138 ms QRS Dur : 080 ms QT Int : 346 ms P-R-T Axes : 069 072 048 degrees QTc Int : 461 ms Sinus tachycardia Abnormal ECG When compared with ECG of 12-AUG-2021 14:00, No significant change Confirmed by Jared Roa ([id number]) on 11/30/2021 4:24:37 PM Referred By: REFERRED SELF Confirmed By:Jared Roa
[2021-11-30] MEDS ORDERED: ONDANSETRON INJ 2 MG/ML 2 ML VIAL IV PRN (19:29)
[2021-11-30] MEDS ORDERED: MIRTAZAPINE TAB 15 MG TAB PO SCH (21:00)
[2021-12-01 06:41] LABS: Hemoglobin 12.2 g/dl (12.0-16.0); Mean Corpuscular Hemoglobin 31.7 pg (25.0-34.0); Mean Corpuscular Hgb Conc 33.9 g/dL (32.0-36.0); Mean Corpuscular Volume 93.5 fL (80.0-100.0); Mean Platelet Volume 10.6 fL (9.4-12.3); Platelet Count 238 K/uL (130-400); RDW Coefficient of Variation 13.7 % (11.5-14.5); RDW Standard Deviation 46.3 fL (36.4-46.3); Red Blood Count 3.85 M/uL (3.93-5.22); White Blood Count 5.71 K/ul (4.8-10.8)
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
[2021-12-01 07:12] LABS: BUN Creatinine Ratio 13.5 (10-20); Calcium 8.6 mg/dl (8.5-10.1); Creatinine Clr Calc Pharmacy 109.1 ml/min; Est GFR (African American) 126.9 ml/min; Est GFR (Non-African American) 109.5 ml/min; Phosphorus 4.5 mg/dl (2.5-4.9); Potassium 3.8 mmol/L (3.5-5.1)
[2021-12-01] MEDS: THIAMINE HCL 100 MG TAB PO SCH (07:46)
[2021-12-01] MEDS: FOLIC ACID 1 MG TAB PO SCH (07:46)
[2021-12-01] MEDS: MULTIVITAMIN TAB PO SCH (07:46)
[2021-12-01] MEDS: ARIPiprazole 5 MG TAB PO SCH (07:46)
[2021-12-01] MEDS: GABAPENTIN 300 MG CAP PO SCH (07:46)
[2021-12-01 07:53] VITALS: PULSE 65; O2SAT 97
[2021-12-01 10:39] VITALS: BP 121/80; TEMP 98.2
[2021-12-02 09:02] LABS: 7-Aminoclonaz, Confirm NEGATIVE ng/mL (<25); Hydro-Alp Ur, GC/MS NEGATIVE ng/mL (<25); Hydroxyethylflurazepam, Conf NEGATIVE ng/mL (<50); Hydroxymidazolam Ur, GC/MS NEGATIVE ng/mL (<50); Hydroxytriazolam NEGATIVE ng/mL (<50); Lorazepam, Ur GC/MS NEGATIVE ng/mL (<50); Nordiazepam, Confirm NEGATIVE ng/mL (<50); Oxazepam Ur, GC/MS 81 ng/mL (<50); Temazepam, Confirm NEGATIVE ng/mL (<50)
== END 2021-12-01 12:17 | disposition home or self-care (01) | DRG 897 ==
LOC: ED 21:26 → EDINP 11-30 04:31 → SUATTDRO 11-30 04:31 → EDINP 11-30 06:34 → 3E 11-30 22:32
DX: R45.851 Suicidal ideations; Z91.51 Personal history of suicidal behavior; F17.210 Nicotine dependence, cigarettes, uncomplicated; F17.290 Nicotine dependence, other tobacco product, uncomplicated; F32.9 Major depressive disorder, single episode, unspecified; Z79.899 Other long term (current) drug therapy; Z81.8 Family history of other mental and behavioral disorders; Y90.8 Blood alcohol level of 240 mg/100 ml or more; F41.9 Anxiety disorder, unspecified; Z88.8 Allergy status to other drugs, medicaments and biological substances; Z63.0 Problems in relationship with spouse or partner; Z91.49 Other personal history of psychological trauma, not elsewhere classified; F10.239 Alcohol dependence with withdrawal, unspecified; F51.01 Primary insomnia